=== PATIENT | female | born 1960 | race Caucasian/White ===

== ENCOUNTER → 2016-08-31 | Outpatient (CLI) | payer OTHER ==
[2016-08-31 14:31] LABS: ALBUMIN 3.2 GM/DL (3.2-5.2); ALBUMIN/GLOBULIN RATIO 0.67 (1.00-1.93); ALKALINE PHOSPHATASE 98 U/L (45-117); ALT/SGPT 14 U/L (12-78); ANION GAP 9 MEQ/L (8-16); AST/SGOT 30 U/L (15-37); BILIRUBIN,TOTAL 0.8 MG/DL (0.2-1.0); BLOOD UREA NITROGEN 5 MG/DL (7-18); CALCIUM LEVEL 8.5 MG/DL (8.5-10.1); CARBON DIOXIDE LEVEL 31 MEQ/L (21-32); CHLORIDE LEVEL 102 MEQ/L (98-107); CREATININE FOR GFR 0.98 MG/DL (0.55-1.02); FREE T4 1.21 NG/DL (0.76-1.46); GLOMERULAR FILTRATION RATE > 60.0 (>51); GLUCOSE, FASTING 95 MG/DL (70-105); POTASSIUM SERUM 3.7 MEQ/L (3.5-5.1); SODIUM LEVEL 142 MEQ/L (136-145)
== END ==
LOC: M SMT 08:45
PROVIDERS: ATTEND Nurse Practitioner Family
DX: I10 Essential (primary) hypertension (principal); E55.9 Vitamin D deficiency, unspecified

== ENCOUNTER → 2016-10-17 | Outpatient (CLI) | payer OTHER ==
--- NOTE | 2016-10-18 06:14 | REP ---
Clinical: Lung screening. History of smoking. Technique: Axial noncontrast low-dose imaging from the thoracic inlet to the upper abdomen using lung screening technique. Findings: The bilateral lung faustin are well-aerated and relatively symmetric. Minimal biapical scarring is appreciated along with small subpleural densities measuring 2-3 mm which likely represent chronic change. A partially solid density measuring 5 mm in the right upper lobe (image 25) is identified. No pleural effusion/reaction. Tracheobronchial tree appears patent. Mediastinum is grossly normal. Surrounding musculoskeletal structures demonstrate age-related changes without focal osseous abnormality. Impression: Lung-RADS category 2. A 5 mm partially solid density in the right upper lobe likely represents scarring. However annual low-dose screening is noted as recommendation. Signed by Miguel Montes MD 10/18/2016 06:05 A
== END ==
LOC: M RAD 08:16
PROVIDERS: ATTEND Nurse Practitioner Family
DX: Z12.2 Encounter for screening for malignant neoplasm of respiratory organs (principal); Z87.891 Personal history of nicotine dependence; R91.8 Other nonspecific abnormal finding of lung field

== ENCOUNTER 2016-11-04 19:48 | Inpatient (IN) | payer OTHER ==
[~2016-11-04] VITALS: Ht 167.6 cm; Wt 76.9 kg
[2016-11-04] MEDS ORDERED: LORazepam 2 MG/ML VIAL (J2060) IV STA (19:56)
[2016-11-04] MEDS ORDERED: ASPI81TA85 PO (19:59)
[2016-11-04] MEDS ORDERED: ZOLO25TA PO (19:59)
[2016-11-04] MEDS ORDERED: NS 1,000 ML IV ONE (20:00)
[2016-11-04] MEDS ORDERED: ONDANSETRON 4MG/2ML VIAL (J2405) IV ONE (20:00)
[2016-11-04] MEDS ORDERED: FAMOTIDINE IV BAG 20 MG in APPROPRIATE DILUENT 1 EA IV ONE (20:00)
[2016-11-04 20:20] LABS: INR 1.07
[2016-11-04 20:29] LABS: BASO % 0.2 % (0.0-1.0); EOS # 0.1 K/mm3 (0.0-0.50); EOS % 0.4 % (0.0-3.0); LARGE UNSTAINED CELL # 0.1 K/mm3 (0.0-0.4); LARGE UNSTAINED CELL % 0.6 % (0.0-4.0); LYMPH # 0.8 K/mm3 (1.5-4.5); LYMPH % 4.9 % (24.0-44.0); MEAN CORPUSCULAR HEMOGLOBIN 37.9 pg (27.0-33.0); MEAN CORPUSCULAR HGB CONC 35.1 g/dl (32.0-36.5); MONO # 0.9 K/mm3 (0.0-0.8); MONO % 5.5 % (0.0-5.0); NEUTROPHILS % 88.4 % (36.0-66.0); PLATELET COUNT, AUTOMATED 270 k/mm3 (150-450); RED CELL DISTRIBUTION WIDTH 15.5 % (11.5-14.5)
[2016-11-04 20:38] LABS: ALBUMIN 3.5 GM/DL (3.2-5.2); ALBUMIN/GLOBULIN RATIO 0.58 (1.00-1.93); ALKALINE PHOSPHATASE 124 U/L (45-117); ALT/SGPT 18 U/L (12-78); AMYLASE 125 U/L (25-115); ANION GAP 17 MEQ/L (8-16); AST/SGOT 33 U/L (15-37); BILIRUBIN,DIRECT 0.4 MG/DL (0.0-0.2); BILIRUBIN,TOTAL 1.5 MG/DL (0.2-1.0); BLOOD UREA NITROGEN 8 MG/DL (7-18); CALCIUM LEVEL 9.5 MG/DL (8.5-10.1); CARBON DIOXIDE LEVEL 24 MEQ/L (21-32); CHLORIDE LEVEL 101 MEQ/L (98-107); CREATININE FOR GFR 1.46 MG/DL (0.55-1.02); GLOMERULAR FILTRATION RATE 39.6 (>51); GLUCOSE, FASTING 214 MG/DL (70-105); POTASSIUM SERUM 2.9 MEQ/L (3.5-5.1); SODIUM LEVEL 142 MEQ/L (136-145); TOTAL PROTEIN 9.5 GM/DL (6.4-8.2)
[2016-11-04 20:49] LABS: ADD MORPHOLOGY? YES
[2016-11-04] MEDS ORDERED: POTASSIUM CHLORIDE 10 MEQ SR TABLET PO ONE (21:00)
[2016-11-04] MEDS ORDERED: POTASSIUM CHLORIDE INJ 10 MEQ in D5W/0.2% SODIUM CHLORIDE 1,000 ML IV SCH (21:00)
[2016-11-04 21:18] LABS: ANISOCYTOSIS 1+
[2016-11-04] MEDS ORDERED: LABETALOL HCL 100 MG/20 ML VIAL IV STA ×2 (21:49→23:35)
--- NOTE | 2016-11-04 22:20 | REPUSA ---
Clinical history: Right upper quadrant pain. Findings: The pancreas is limited in visualization secondary to overlying bowel gas, but appears tato sly unremarkable. The liver demonstrates increased echotexture and echogenicity, with no mass lesion s. The gallbladder is unremarkable. The common bile duct measures 3 mm and is within normal limit. Th e right kidney measures 9.3 x 4.3 x 4.9 cm. There is no ascites. Impression: Fatty infiltration of the liver. No other acute findings.
[2016-11-04] MEDS ORDERED: METOCLOPRAMIDE INJ 10MG/2ML VIAL (J2765) As Ordered ONE (22:47)
[2016-11-04] MEDS ORDERED: METOCLOPRAMIDE INJ 10MG/2ML VIAL (J2765) IV ONE ×2 (23:00→23:15)
[2016-11-04] MEDS ORDERED: CYCL10TA PO (23:30)
[2016-11-04] MEDS ORDERED: ASPI81TA7 PO (23:30)
[2016-11-04] MEDS ORDERED: SYNT50TA PO (23:30)
[2016-11-05] MEDS ORDERED: NS 1,000 ML IV SCH (00:24)
[2016-11-05] MEDS ORDERED: BISACODYL 5 MG TAB PO PRN (00:30)
[2016-11-05] MEDS ORDERED: ACETAMINOPHEN TAB 650MG DOSE (2X325MG) PO PRN (00:30)
[2016-11-05] MEDS ORDERED: POTASSIUM CHLORIDE 10 MEQ SR TABLET PO ONE ×2 (00:30→09:45)
[2016-11-05] MEDS ORDERED: amLODIPine 10 MG TAB As Ordered ONE (01:12)
[2016-11-05] MEDS ORDERED: amLODIPine 10 MG TAB PO ONE (01:15)
[2016-11-05] MEDS ORDERED: **hydrALAZINE HCL** 25 MG TAB PO ONE (02:15)
[2016-11-05] MEDS: SERTRALINE HCL 25 MG TABLET PO SCH ×2 (02:17→20:29)
[2016-11-05] MEDS: ONDANSETRON 4MG/2ML VIAL (J2405) IV PRN ×3 (02:45→20:29)
[2016-11-05] MEDS ORDERED: NITROGLYCERIN 2% OINT 1 GM *U/D* PKT TOP ONE (03:15)
[2016-11-05] MEDS: POTASSIUM CHLORIDE INJ 10 MEQ in D5W/0.2% SODIUM CHLORIDE 1,000 ML IV SCH ×2 (03:20→20:45)
[2016-11-05 04:54] VITALS: BP 176/100
[2016-11-05 04:55] VITALS: BP 180/110
[2016-11-05] MEDS ORDERED: METOPROLOL TART 25 MG TABLET PO ONE (05:00)
[2016-11-05 05:35] VITALS: BP 150/98
[2016-11-05 06:00] VITALS: BP 150/98
[2016-11-05] MEDS ORDERED: LEVOTHYROXINE 0.05 MG TAB (50 MCG) PO SCH (06:00)
[2016-11-05 06:05] LABS: BASO % 0.2 % (0.0-1.0); EOS % 0.2 % (0.0-3.0); LARGE UNSTAINED CELL # 0.1 K/mm3 (0.0-0.4); LARGE UNSTAINED CELL % 0.7 % (0.0-4.0); LYMPH % 8.7 % (24.0-44.0); MEAN CORPUSCULAR HEMOGLOBIN 37.3 pg (27.0-33.0); MEAN CORPUSCULAR HGB CONC 34.4 g/dl (32.0-36.5); MEAN CORPUSCULAR VOLUME 108.7 fl (80.0-96.0); MONO # 0.5 K/mm3 (0.0-0.8); MONO % 4.3 % (0.0-5.0); NEUTROPHILS # 9.6 K/mm3 (1.8-7.7); PLATELET COUNT, AUTOMATED 186 k/mm3 (150-450); RED CELL DISTRIBUTION WIDTH 15.4 % (11.5-14.5); WHITE BLOOD COUNT 11.2 K/mm3 (4.0-10.0)
[2016-11-05 06:21] LABS: ALBUMIN 3.1 GM/DL (3.2-5.2); ALBUMIN/GLOBULIN RATIO 0.56 (1.00-1.93); BILIRUBIN,TOTAL 1.2 MG/DL (0.2-1.0); CALCIUM LEVEL 8.8 MG/DL (8.5-10.1); CREATININE FOR GFR 1.06 MG/DL (0.55-1.02); GLOMERULAR FILTRATION RATE 57.3 (>51); MAGNESIUM LEVEL 1.9 MG/DL (1.8-2.4); POTASSIUM SERUM 3.2 MEQ/L (3.5-5.1); TOTAL PROTEIN 8.6 GM/DL (6.4-8.2)
--- NOTE | 2016-11-05 08:50 | HPE ---
DATE OF ADMISSION: 11/04/2016 PRIMARY CARE PHYSICIAN: Mary Jane Max NP CODE STATUS: Full code. CHIEF COMPLAINT: Nausea and vomiting. HISTORY OF PRESENT ILLNESS: Ms. Ramirez is a 56-year-old female with multiple past medical history who presented due to experiencing nausea and vomiting since last night. The patient expressed the night before had a Schmid burger. Around 3:00 a.m. the patient woke up due to being nauseated and started having vomiting. The patient expressed that her nausea and vomiting continued and became worse; however, the patient denies having any abdominal pain. The patient expressed that most of the vomiting was undigested food; however, the patient had one episode of vomit with a spots of blood, however, all the vomits after that did not contain blood. The patient also expressed that when she was vomiting in the afternoon she became more tachycardic. However, the patient denied chest pain. The patient also denies seizure type activity, however she experienced lightheadedness and dizziness. The patient could not keep herself hydrated due to nausea and vomiting. The patient denied having any diarrhea. The patient expressed that she could not tolerate the vomiting anymore and she came to the emergency room (ER). The patient also expressed that she felt warm and had chills and night sweats. At ER patient received Zofran and Reglan. Due to having tachycardia, the patient also received one dose of labetalol as well as famotidine and 40 mEq of potassium by mouth which she could not tolerate and 10 mEq of potassium in the IV. The hospitalist was called to admit the patient. ALLERGIES: No known drug allergies. HOME MEDICATIONS: - aspirin 81 mg - cyclobenzaprine 10 mg by mouth at bedtime - Synthroid 50 mcg by mouth every morning - Zoloft 25 mg by mouth at bedtime PAST MEDICAL HISTORY: 1. Gastroesophageal reflux disease (GERD). 2. History of deep vein thrombosis (DVT). 3. Chronic obstructive pulmonary disease (COPD). 4. Elevated liver function tests (LFTs). 5. Steatohepatitis based on the right upper quadrant sonogram of the liver which was done 01/2010. 6. Allergic rhinitis. 7. Anxiety. 8. Hypothyroidism. 9. Migraine headache. 10. Essential hypertension. 11. Vitamin D deficiency. PAST SURGICAL HISTORY: 1. section times two. 2. Tubal ligation. 3. Dilation and curettage times two. 4. Esophagogastroduodenoscopy done by Dr. Tatum in 2006. 5. Colonoscopy with polyps, adenomatous, by Dr. Serra; repeated three years in 12/2009 and 03/2011 and 04/2014. SOCIAL HISTORY: The patient lives with her significant other. The patient has two daughters, one of her daughters has autism. The patient started smoking at age 16 and has smoked about a 1/2 to 1 pack per day, however, the patient stopped smoking seven years ago. The patient used to use marijuana; however, the patient has stopped using it several years ago. The patient occasionally drinks alcoholic beverages, however, the patient did not drink yesterday. The patient has not traveled outside of the [place]. 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 The patient has no cats. FAMILY HISTORY: The patient has three brothers and two sisters. Her middle brother has due to heart attack and her brother has bone cancer and kidney abnormalities. The patient's father at age 49 due to heart attack. The patient's mother at age 82 due to old age. REVIEW OF SYSTEMS: GENERAL: The patient expressed that she has been experiencing fever, chills and night sweats. However, the patient denies weight loss or weight gain. HEENT: The patient has been experiencing lightheadedness and dizziness and mild headache, however, the patient denies acute vision or hearing changes. The patient also denies problem with chewing food or sinusitis. NECK: The patient denies decreased motion of her neck. HEART: The patient expressed that she had some tachycardia this afternoon, possibly secondary to multiple episodes of vomiting; however, the patient denies chest pain. LUNGS: The patient denies shortness of breath or coughing. ABDOMEN: The patient denies abdominal pain, however, the patient has been nauseated and vomiting multiple times. The patient had one episode of mild emesis, however, the patient denies history of diarrhea or constipation. NEUROLOGIC: The patient has no history of transient ischemic attacks or seizure activity. PHYSICAL EXAMINATION: VITAL SIGNS: Temperature 97.9, pulse 123, respiratory rate 18, blood pressure 189/113, pulse oximetry 97% on room air. GENERAL APPEARANCE: The patient was sitting on the bed in no acute distress. The patient was awake, alert and oriented to time, place and person. HEENT: Normocephalic, atraumatic. Pupils are equal and reactive to light. Oral mucosa is moist. NECK: Soft. Supple. No lymphadenopathy or organomegaly. No jugular venous distention (JVD). HEART: Tachycardia. Normal S1, S2. LUNGS: Clear breath sounds bilaterally. Good air movement. No rales or rhonchi. No rubs. ABDOMEN: Soft. Positive bowel sounds in all quadrants. No tenderness to palpation. No guarding. EXTREMITIES: No lower extremity edema. +2 pulses in both lower extremities. Normal range of motion both upper and lower extremities. Strength in upper and lower extremities 5/5. NEUROLOGIC: Cranial nerves II-XII intact. No focal deficit. LABORATORY DATA: White blood cells 17, red blood cells 4.34, hemoglobin 16.4, hematocrit 46.9, MCV 108.0, MCH 37.9, MCHC 35.1, RDW 15.5, platelet count 270, neutrophil percentage 88.4, lymphocyte percentage 4.9, monocyte percentage 5.5, eosinophil percentage 0.4, basophil percentage 0.2, leukocyte percentage 0.6. PT 14. INR 1.07. Sodium 142, potassium 2.9, chloride 101, carbon dioxide 24, anion gap 17, BUN 8, creatinine 1.46, glomerular filtration rate 39.6, fasting glucose 214, calcium 9.5, total bilirubin 1.5, direct bilirubin 0.4, AST 33, ALT 18, alkaline phosphatase 124, total creatinine 48, CK-MB 1, CK MB relative index 2.08, troponin I less than 0.02, total protein 9.5, albumin 3.5, and amylase 125 , lipase 124. Urinalysis (UA) with urine color rony, urine appearance cloudy, urine pH 7, urine specific gravity 1.018, urine protein 2+, urine glucose 2+, urine ketones trace, urine blood negative, urine nitrite negative, urine bilirubin negative, urine urobilinogen 4, urine leukocyte esterase negative, urine white blood cells 2, urine red blood cells 4, urine hyaline casts 0, urine bacteria 1+, urine squamous cells 5. Urine culture pending. IMAGING: Abdomen x-ray is pending at this time. Gallbladder ultrasound shows fatty inflammation infiltrations of the liver, no other acute finding. ASSESSMENT AND PLAN: 1. Nausea/vomiting. This is possibly secondary to enterocolitis versus cholelithiasis. Also I consider cardiac possibility due to cardiac risk factors including family history as well as her past medical history. I Will make the patient nothing by mouth. I have ordered a GI panel and result is pending at this time. Patient had EGD which was done in 2006 and was negative and colonoscopy in 2013 which indicated multiple benign polyps. I will continue patient with IV fluid. EKG did not show any new pathology. Cardiac marker was ordered and the first cardiac marker was negative. Will continue patient on Zofran. 2. Hypokalemia. This is possibly due to GI loss secondary to vomiting. The patient received 10 mEq on 100 mL of normal saline. Patient cannot tolerate PO potassium due to nausea vomiting. Will continue the patient on IV fluid with potassium. 3. Hypertension. The patient has a history of hypertension and was on medication, however, it was stopped by the primary care. Patient's hypertension could be secondary to rebound hypertension. Also it could have cardiogenic nature. EKG was negative for a new pathology. We have started the patient on Norvasc 10 mg daily. 4. Tachycardia. This could be secondary to stress versus cardiogenic. EKG did not show any pathology. At the ER, the patient received two doses of labetalol 20 IV. We will continue monitoring patient's heart rate. 5. Gastroesophageal reflux disease. The patient is on IV Protonix. 6. Chronic obstructive pulmonary disease. This is a chronic issue. Patient is a stable at this time. 7. Allergic rhinitis. The patient is stable, this is a chronic issue. 8. Acute kidney injury: This is possibly due to dehydration secondary to nausea and vomiting. Patient is on IV fluid. We'll continue monitoring patient' s renal function daily. 9. Deep vein thrombosis prophylaxis. Due to one episode of mild emesis, I will start the patient on thromboembolic deterrent stockings (TEDS) and sequentials. 10. Steatohepatitis. Based on ultrasound of gallbladder, the patient has fatty liver. This has been documented in the patient's past medical history based on liver ultrasound and biopsy which was done in 2009. She also had the hepatitis panel which was done on 05/13/2009 and was negative as well as antimitochondrial antibody 3.9 and NEVIN screen which was negative. Today, ALT and AST are normal level. We will continue to monitor the patient's liver function. My preceptor for this patient encounter was Dr. Dalia Javier. The preceptor was physically present in the building during the encounter and was fully available. As needed, all aspects of the patient interview, examination, medical decision making process, and medical care plan development were reviewed and approved by the preceptor. The preceptor is aware and concurs with the plan as stated in the body of this note and will attest to such by his/her cosignature. SHAVON
[2016-11-05] MEDS ORDERED: PANTOPRAZOLE 40MG INJ (PROTONIX) (C9113) IV SCH (09:00)
--- NOTE | 2016-11-05 10:14 | IPNPDOC ---
Subjective Date Seen The patient was seen on 11/05/16. Subjective Chief Complaint/HPI The patient is a 56-year-old female admitted with a reason for visit of Leukocytosis Unspecified. Events since last encounter Patient continues to experience emesis, last a couple minutes before I saw her. Despite this, she is interested in eating. She states that she would like to go home. Last set of trended cardiac enzymes elevated above normal. Patient is asymptomatic except for emesis and hiccups. She does note a rash, primarily on her L shoulder, though also a little on her R thigh and R sided low back, that she noticed at home. Nursing thinks that the last emesis looked a bit like coffee grounds. Denies drinking in excess of 2 drinks/night, and not in the last day or so. Constitutional: Reports: Malaise, Denies: Chills, Fever ENT: Denies: Head Aches Skin: Reports: Rash Pulmonary: Denies: Dyspnea, Cough Cardiovascular: Denies: Chest Pain, Palpitations Gastrointestinal: Reports: Nausea, Vomiting, Denies: Abdominal Pain, Diarrhea, Constipation Neurological: Denies: Weakness Objective Physical Examination General Exam: Positive: Alert, Cooperative, No Acute Distress Chest Exam: Positive: Clear to auscultation, Normal air movement Heart Exam: Positive: Rate Normal, Negative: Tachycardic Abdomen Exam: Positive: Normal bowel sounds Extremity Exam: Negative: Clubbing, Edema Skin Exam: Positive: Nl turgor and temperature, Rash (erythematous patches L shoulder, R lower back, R thigh) Assessment /Plan Problems (1) Vomiting Status: Acute Problem Text: Rehydrating. Will advance diet when emesis stops. Will check any further coffee-ground appearing emesis for blood. Zofran ordered. (2) Hypokalemia Status: Acute Problem Text: Replacing orally and in IV fluids. (3) Leukocytosis, unspecified Status: Acute Problem Text: Improved. Likely secondary to prolonged vomiting. (4) Cardiac enzymes elevated Status: Acute Problem Text: EKG looks similar to priors, including those done in PCP's office years ago. She denies chest discomfort or shortness of breath. Will check cardiac enzymes in 4 hours. Plan/VTE VTE Prophylaxis Ordered?: Yes VS, I&O, 24H, Fishbone Vital Signs/I&O Vital Signs Date Time Temp Pulse Resp B/P (MAP) Pulse Ox O2 Delivery O2 Flow Rate FiO2 11/05/16 06:00 98.6 101 20 150/98 (115) 96 Room Air I&O- Last 24 Hours up to 6 AM 11/05/16 06:00 Intake Total 1460 ml Output Total 175 ml Balance 1285 ml Laboratory Data 24H LABS Laboratory Tests 2 11/04/16 20:03: White Blood Count 17.0H, Red Blood Count 4.34, Hemoglobin 16.4H, Hematocrit 46.9 , Mean Corpuscular Volume 108.0H, Mean Corpuscular Hemoglobin 37.9H, Mean Corpuscular Hemoglobin Concent 35.1, Red Cell Distribution Width 15.5H, Platelet Count 270, Neutrophils (%) (Auto) 88.4H, Lymphocytes (%) (Auto) 4.9L, Monocytes (%) (Auto) 5.5H, Eosinophils (%) (Auto) 0.4, Basophils (%) (Auto) 0.2 , Neutrophils # (Auto) 15.0H, Lymphocytes # (Auto) 0.8L, Monocytes # (Auto) 0.9H , Eosinophils # (Auto) 0.1, Basophils # (Auto) 0.0, Large Unclassified Cells % 0.6, Large Unclassified Cells # 0.1, Platelet Estimate NORMAL, Anisocytosis 1+, Macrocytosis 3+, Prothrombin Time 14.0, Prothromb Time International Ratio 1.07 , Anion Gap 17H, Glomerular Filtration Rate 39.6L, Calcium Level 9.5, Aspartate Amino Transf (AST/SGOT) 33, Alanine Aminotransferase (ALT/SGPT) 18, Alkaline Phosphatase 124H, Total Bilirubin 1.5H, Direct Bilirubin 0.4H, Total Creatine Kinase 48, Creatine Kinase MB 1.0, Creatine Kinase MB Relative Index 2.08, Troponin I < 0.02, Total Protein 9.5H, Albumin 3.5, Albumin/Globulin Ratio 0.58L , Amylase Level 125H, Lipase 124 11/04/16 23:33: Urine Appearance CLOUDYH, Urine Color BERNA, Urine pH 7.0, Urine Specific [place] 1.018, Urine Protein 2+H, Urine Glucose (UA) 2+H, Urine Ketones TRACEH, Urine Urobilinogen 4.0H, Urine Bilirubin NEGATIVE, Urine Leukocyte Esterase NEGATIVE, Urine Blood NEGATIVE, Urine Nitrite NEGATIVE, Urine WBC (Auto) 2, Urine RBC (Auto) 4H, Urine Hyaline Casts (Auto) 0, Urine Bacteria (Auto) 1+H, Urine Squamous Epithelial Cells 5, Urine Mucus (Auto) SMALL, Urine Sperm (Auto) 11/05/16 01:55: Total Creatine Kinase 110#, Creatine Kinase MB 1.3, Creatine Kinase MB Relative Index 1.18, Troponin I 0.02 11/05/16 05:02: White Blood Count 11.2H, Red Blood Count 3.86L, Hemoglobin 14.4#, Hematocrit 42.0, Mean Corpuscular Volume 108.7H, Mean Corpuscular Hemoglobin 37.3H, Mean Corpuscular Hemoglobin Concent 34.4, Red Cell Distribution Width 15.4H, Platelet Count 186, Neutrophils (%) (Auto) 86.0H, Lymphocytes (%) (Auto) 8.7L, Monocytes (%) (Auto) 4.3, Eosinophils (%) (Auto) 0.2, Basophils (%) (Auto) 0.2, Neutrophils # (Auto) 9.6H, Lymphocytes # (Auto) 1.0L, Monocytes # (Auto) 0.5, Eosinophils # (Auto) 0.0, Basophils # (Auto) 0.0, Large Unclassified Cells % 0.7 , Large Unclassified Cells # 0.1, Anion Gap 11, Glomerular Filtration Rate 57.3 , Calcium Level 8.8, Aspartate Amino Transf (AST/SGOT) 32, Alanine Aminotransferase (ALT/SGPT) 15, Alkaline Phosphatase 101, Total Bilirubin 1.2H, Total Protein 8.6H, Albumin 3.1L, Albumin/Globulin Ratio 0.56L, Blood Urea Nitrogen 9, Creatinine 1.06H, Sodium Level 141, Potassium Level 3.2L, Chloride Level 104, Carbon Dioxide Level 26, Magnesium Level 1.9 11/05/16 08:20: Total Creatine Kinase 303#H, Creatine Kinase MB 4.3H, Creatine Kinase MB Relative Index 1.41, Troponin I 0.62#H CBC/BMP Laboratory Tests 11/04/16 20:03 Red Blood Count 4.34, Mean Corpuscular Volume 108.0 H, Mean Corpuscular Hemoglobin 37.9 H, Mean Corpuscular Hemoglobin Concent 35.1, Red Cell Distribution Width 15.5 H, Neutrophils (%) (Auto) 88.4 H, Lymphocytes (%) (Auto ) 4.9 L, Monocytes (%) (Auto) 5.5 H, Eosinophils (%) (Auto) 0.4, Basophils (%) ( Auto) 0.2, Neutrophils # (Auto) 15.0 H, Lymphocytes # (Auto) 0.8 L, Monocytes # (Auto) 0.9 H, Eosinophils # (Auto) 0.1, Basophils # (Auto) 0.0 11/05/16 05:02 Red Blood Count 3.86 L, Mean Corpuscular Volume 108.7 H, Mean Corpuscular Hemoglobin 37.3 H, Mean Corpuscular Hemoglobin Concent 34.4, Red Cell Distribution Width 15.4 H, Neutrophils (%) (Auto) 86.0 H, Lymphocytes (%) (Auto ) 8.7 L, Monocytes (%) (Auto) 4.3, Eosinophils (%) (Auto) 0.2, Basophils (%) ( Auto) 0.2, Neutrophils # (Auto) 9.6 H, Lymphocytes # (Auto) 1.0 L, Monocytes # ( Auto) 0.5, Eosinophils # (Auto) 0.0, Basophils # (Auto) 0.0, Calcium Level 8.8, Aspartate Amino Transf (AST/SGOT) 32, Alanine Aminotransferase (ALT/SGPT) 15, Alkaline Phosphatase 101, Total Bilirubin 1.2 H, Total Protein 8.6 H, Albumin 3.1 L Microbiology Microbiology 11/05/16 Gastrointestinal Tract Panel (PCR) - Final, Complete 11/04/16 Urine Culture, Received Pending TAMMY DAY DO November 05, 2016 10:13
--- NOTE | 2016-11-05 10:55 | REP ---
ABDOMINAL SERIES: Supine erect views of the abdomen demonstrate no evidence of free intraperitoneal air and no evidence of bowel obstruction. There is no small bowel dilatation. Multiple phleboliths are seen in the pelvis. There are mild degenerative changes of the spine. An accompanying view of the chest demonstrates mild fibrotic changes in the lung bases without evidence of acute infiltrate. The heart is normal in size. Mediastinal silhouette is unremarkable. IMPRESSION: Essentially negative abdominal series. Signed by David Kong MD 11/05/2016 07:46 P
[2016-11-05 14:00] VITALS: BP 139/79
[2016-11-05 17:41] LABS: POTASSIUM SERUM 3.6 MEQ/L (3.5-5.1)
[2016-11-05] MEDS ORDERED: ASPIRIN 325 MG TAB PO ONE (18:45)
--- NOTE | 2016-11-05 18:46 | ECGEPIP ---
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 Possible inferior wall myocardial infarct, age undetermined. No prior ECG available for comparison at the time of interpretation. Electronically Signed On 11-05-2016 18:46:14 EDT by Joaquin Escamilla
--- NOTE | 2016-11-05 18:56 | ECGEPIP ---
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 Electronically Signed On 11-05-2016 18:55:55 EDT by Joaquin Escamilla
[2016-11-05] MEDS ORDERED: ALPRAZolam 0.25 MG TAB PO PRN (19:00)
--- NOTE | 2016-11-05 19:03 | ECGEPIP ---
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 Possible old inferior wall myocardial infarct. No significant change compared with 11/05/2016 at 9:35 AM. Electronically Signed On 11-05-2016 19:03:22 EDT by Joaquin Escamilla
[2016-11-05] MEDS ORDERED: CLOPIDOGREL 75 MG TAB PO STA (20:03)
[2016-11-05] MEDS ORDERED: ATORVASTATIN 20 MG TAB PO SCH (21:00)
[2016-11-05] MEDS ORDERED: ENOXAPARIN 60 MG/0.6 ML SYR (J1650) SC SCH (21:00)
[2016-11-05 22:36] VITALS: BP 147/92
--- NOTE | 2016-11-06 02:22 | CR ---
DATE OF CONSULTATION: 11/05/2016 REFERRING PHYSICIAN: Mendy Yao MD REASON FOR CONSULTATION: Abnormal troponin I, abnormal electrocardiogram (ECG). HISTORY OF PRESENT ILLNESS: Trisha Ramirez is a pleasant 56-year-old woman with hypercholesterolemia, systemic hypertension, prior smoking history and positive family history of premature coronary artery disease. She is not known to have diabetes. She was hospitalized to [facility] on 11/04/2016 after presenting with nausea and vomiting. In the course of observation, she has had serial cardiac enzymes and troponin I determinations. Her first troponin I was less than 0.02 and thus far her highest troponin I value has been 0.87. Electrocardiogram (ECG) showed possible inferior wall myocardial infarct, but no clear-cut ischemic repolarization abnormalities and thus far essentially unchanged. The patient reports that beginning on , November 03, she developed intense nausea and vomiting. This lasted a prolonged period of time. In addition to this, she has had some mild burning sensation in the epigastric region for which there is some ongoing slight burning sensation. There has been no pain, pressure, tightness, squeezing or heaviness involving the anterior chest, epigastric region, neck, jaw or upper extremities. No shortness of breath. Initially, during the intense nausea and vomiting, she felt some flushing and was transiently diaphoretic. She is not bothered by an exertional dyspnea. No orthopnea or paroxysmal nocturnal dyspnea (PND). She reports chronic edema in her left ankle. No palpitations. No pre-syncope or syncope. No embolic events. No intermittent claudication. OTHER PAST MEDICAL AND SURGICAL HISTORY: Gastroesophageal reflux disease (GERD) . Overweight status. History of deep vein thrombosis. Chronic obstructive pulmonary disease (COPD). Prior smoking history. Elevated liver function test. Steatohepatitis based on right upper quadrant liver ultrasound done 01/2010. Allergic rhinitis. Anxiety. No panic attacks. Hypothyroidism. Migraine headaches. Systemic hypertension. Vitamin D deficiency. section times two. Status post tubal ligation. Prior dilatation and curettage (D C) times two. Esophagogastroduodenoscopy (EGD) by Dr. Tatum in 2006. Colonoscopy for adenomatous polyps 12/2009, 03/2011 and 04/2014. No known adverse drug reactions. MEDICATIONS PRIOR TO ADMISSION: - aspirin 81 mg daily - cyclobenzaprine 10 mg at bedtime (q.h.s.) - Synthroid 50 mcg daily - Zoloft 25 mg at bedtime (q.h.s.) CURRENT MEDICATIONS IN THE HOSPITAL CONSIST OF: - acetaminophen 650 mg every 4 hours as needed - amlodipine 10 mg daily - Dulcolax 5 mg by mouth as needed - levothyroxine 50 mcg daily - Zofran 4 mg IV every 6 hours as needed - Protonix 40 mg IV daily - potassium chloride in dextrose and saline IV at 50 millimeters per hour - Zoloft 25 mg at bedtime (q.h.s.) SOCIAL HISTORY: Lives with her significant other. She has two daughters, one of which has autism. Prior smoking history for which she started smoking at age 16 and smoked half to one pack per day, but quit smoking 7 years ago. Occasional alcohol beverage. No current use of illicit drugs. FAMILY HISTORY: She reports a half brother, Ziggy, of a heart attack in his 60s. Her father of a heart attack at age 49. Her mother had an implantable cardioverted defibrillator (ICD). REVIEW OF SYSTEMS: The patient reports that she had some transient patchy flushing when she was having the nausea and vomiting with diaphoresis. No abdominal pain. Anxiety. No panic attacks. No depression. All other 10-point review of systems is negative. PHYSICAL EXAMINATION: A pleasant woman who appears her chronological age, who is not in any respiratory or psychological distress. Height 66 inches, weight 76.9 kilograms, body mass index (BMI) 27.4. Temperature 98.2, pulse 94 (irregular), respiratory rate 18, blood pressure (BP) 139 systolic, oxygen saturation on 95% on room air. No conjunctival pallor, scleral icterus or xanthelasma. Multiple missing teeth and the presence of some dental fillings. Only a few teeth remaining and they appear to be in poor condition. Oral mucosa was moist and without pallor or cyanosis. Jugular venous pulsations were 3 cm. No palpable thyroid. Trachea midline. No clubbing, nail bed cyanosis or splinter hemorrhages. No skin lesions, skin pallor or icterus. Oriented to person, place and time. Mood and affect normal. Curvature of the spine normal. Gait not appropriate to test as the patient is on restricted activity. Gross motor strength and tone were normal. No abnormal muscle atrophy, fasciculations or tremors. Respiratory expansion and effort were normal. No crackles or wheezes. No palpable apex beat. No parasternal lifts, heaves, thrills or palpable heart sounds. The first and second heart sounds are normal. No S3 or S4. No pericardial friction rubs. No murmurs. Carotids normal in volume and contour and without bruits. No palpable abdominal aorta. No abdominal bruits. Femoral pulses normal. Pedal pulses normal. No lower extremity edema. No varicose veins. Abdomen was mildly obese and was soft and nontender with normal bowel sounds. No hepatosplenomegaly or other organomegaly. Liver span difficult to assess due to abdominal obesity. Stool for occult blood to be ordered as the patient is going to be started on anticoagulation. Abdominal ultrasound 11/04/2016 reported limited visualization of the pancreas due to overlying bowel gas, but appeared to be grossly unremarkable. Liver showed increased echotexture and echogenicity. Gallbladder unremarkable. Normal common bile duct diameter. No ascites. Fatty infiltration of liver. No other acute findings. Abdominal series including high frequency ultrasound (HFU) 11/04/2016 reported essentially negative abdominal series. Mild fibrotic changes in the lung bases without evidence of acute infiltrate. Normal heart size. Mediastinal silhouette unremarkable. Electrocardiogram 11/05/2016 at 5:26 a.m. showed sinus tachycardiac at 110 beats per minute, low QRS output cardiac voltages, poor R-wave progression, possible inferior wall myocardial infarction indeterminate. Electrocardiogram (ECG) 11/05/2016 at 3:05 p.m. shows sinus rhythm at, 95 beats per minute, poor R-wave progression, borderline low voltages, possible old inferior wall myocardial infarct. Laboratory work 11/04/2016 showed white blood count (WBC) 17.0, hemoglobin 16.4, hematocrit 46.9, platelets 270, PT/INR 1.07. Sodium 142, potassium 2.9, chloride 101, CO2 24, BUN 8, creatine 1.46, estimated glomerular filtration rate (GFR) 39.6, glucose 214, bilirubin mildly elevated at 1.5, direct bilirubin elevated at 0.4, AST normal, ALT normal, alkaline phosphatase elevated at 124. CPK 48, CPK/MB 1.0, troponin I less than 0.02, albumin 3.5, amylase elevated at a125, lipase normal at 124. Laboratory work 11/05/2016 at 11:54 a.m. showed CPK 366, CPK/MB 5.9, relative index 1.61, troponin I 0.74. Laboratory work 11/05/2016 at 4:53 p.m. shows troponin I 0.87. Urinalysis 11/04/2016 showed 2+ glucose and 2+protein. ASSESSMENT AND PLAN: 1. Abnormal troponin I. The patient's troponin I level is in the indeterminate range, but has certainly gone up since the normal level at the time of her presentation to the emergency room. Her presentation for an acute coronary syndrome is rather atypical with the patient presenting with nausea and vomiting and epigastric burning. Electrocardiogram (ECG) shows a possible old inferior wall myocardial infarct, but does not show any acute ischemic repolarization abnormalities. She does have multiple AFCC risk factors. At this point, it is not entirely clear that this truly represents an acute coronary syndrome, but it is quite suspicious and I have expressed this to the patient. I suggested further evaluation with a transfer to [place] for cardiac catheterization with possible percutaneous coronary intervention. The patient is agreeable to this approach. I shall place her on Lovenox. She is already on aspirin and that will continue. I will place her on clopidogrel. Continue serial electrocardiograms (EKGs) and cardiac enzymes. I will place her on statin therapy. Specifically, I have ordered atorvastatin 40 mg at bedtime (q.h.s.). 2. Abnormal electrocardiogram (ECG). Electrocardiograms (ECGs) as described. 3. Systemic hypertension. Uncontrolled systemic hypertension at presentation. Urinalysis shows 2+ protein and 2+ glucose. On presentation, she had reduced estimated glomerular filtration rate (GFR) which with hydration is showing improvement, but remains mildly abnormal. She has been placed on amlodipine. Will continue to follow blood pressure trends. Continue amlodipine for now. She did have hyperkalemia at presentation and therefore I have ordered a biochemical screening for hyperaldosteronism with a positive aldosterone and positive renin activity. She also reported some transient flushing with diaphoresis and therefore I have ordered plasma metanephrine. 4. Hypercholesterolemia. I have reviewed several prior lipid panel results in the [facility] EMR and observed that she has had mild hypercholesterolemia on multiple occasions. Triglycerides have been normal. In view of suspected coronary syndrome and hypercholesterolemia, I have gone ahead and placed her on atorvastatin 40 mg at bedtime (q.h.s.). Currently in hospital, she is on a clear liquid diet. When she transitions over to a diet with soft foods, I would suggest a low-sodium dash diet; and if indeed she does have diabetes, then appropriate carbohydrate consist diet recommendation as well. SHAVON
[2016-11-06] MEDS ORDERED: amLODIPine 10 MG TAB PO SCH (09:00)
[2016-11-06] MEDS ORDERED: ASPIRIN 81 MG ENTERIC TAB PO SCH (09:00)
[2016-11-06] MEDS ORDERED: CLOPIDOGREL 75 MG TAB PO SCH (09:00)
--- NOTE | 2016-11-06 11:03 | ECGEPIP ---
Stationary ECG Study [facility] Test Date: 2016-11-05 Pat Name: ISA SCANLON Department: PCU Room: [place] [address] Gender: F Identification Technician: CHAPIS MARCOS: [id number] Requested By: TAMMY DAY Order Number: [id number] Reading MD: Joaquin Escamilla Measurements Intervals [place] Rate: 95 P: 57 TN: 179 QRS: -18 QRSD: 76 T: 39 QT: 358 QTc: 451 Interpretive Statements SINUS RHYTHM Borderline low voltages, poor R-wave progression, Possible old inferior wall myocardial infarct. No significant change compared with 11/05/2016 at 3:05 PM. Electronically Signed On 11-06-2016 11:03:23 EDT by Joaquin Escamilla
--- NOTE | 2016-11-22 14:23 | DS.PDOC ---
Discharge Summary General Date of Admission November 04, 2016 at 23:48 Date of Discharge November 05, 2016 Primary Care Physician: MYRA MAC NP Attending Physician: TAMMY DAY DO Specialist/Consultants Involve: Joaquin Escamilla Discharge Summary PROCEDURES PERFORMED DURING STAY: [None]. ADMITTING DIAGNOSES: 1. Nausea/vomiting 2. Hypokalemia. 3. Hypertension 4. Tachycardia. 5. Gastroesophageal reflux disease 6. Chronic obstructive pulmonary disease 7. Allergic rhinitis 8. Acute kidney injury 9. Steatohepatitis DISCHARGE DIAGNOSES: 1. elevated cardiac enzymes, presumed ACS 2. hypokalemia 3. hypertension COMPLICATIONS/CHIEF COMPLAINT: Leukocytosis Unspecified. HISTORY OF PRESENT ILLNESS: Ms. Ramirez is a 56-year-old female with multiple past medical history who presented due to experiencing nausea and vomiting since last night. The patient expressed the night before had a [employer]mid burger. Around 3:00 a.m. the patient woke up due to being nauseated and started having vomiting. The patient expressed that her nausea and vomiting continued and became worse; however, the patient denies having any abdominal pain. The patient expressed that most of the vomiting was undigested food; however, the patient had one episode of vomit with a spots of blood, however, all the vomits after that did not contain blood. The patient also expressed that when she was vomiting in the afternoon she became more tachycardic. However, the patient denied chest pain. The patient also denies seizure type activity, however she experienced lightheadedness and dizziness. The patient could not keep herself hydrated due to nausea and vomiting. The patient denied having any diarrhea. The patient expressed that she could not tolerate the vomiting anymore and she came to the emergency room (ER). The patient also expressed that she felt warm and had chills and night sweats. At ER patient received Zofran and Reglan. Due to having tachycardia, the patient also received one dose of labetalol as well as famotidine and 40 mEq of potassium by mouth which she could not tolerate and 10 mEq of potassium in the IV. The hospitalist was called to admit the patient. HOSPITAL COURSE: Patient was admitted to [facility], and treated with IV fluids and antiemetics. Her nausea subsided, and she tolerated PO. However, her cardiac enzymes began to trend up. EKG done and compared to in-office priors, and felt to have no change. Patient denied chest discomfort or shortness of breath. When cardiac enzymes continued to trend upwards, cardiology was consulted. She was felt to have likely ACS, and transferred to [facility] for potential intervention. DISCHARGE MEDICATIONS: Please see below. ALLERGIES: Please see below. PHYSICAL EXAMINATION ON DISCHARGE: VITAL SIGNS: Please see below. GENERAL: seated upright in bed, no acute distress HEENT: MMM NECK: supple, no JVD CARDIOVASCULAR EXAMINATION: mildly tachycardic, no murmurs, rubs or gallops RESPIRATORY EXAMINATION: clear ABDOMINAL EXAMINATION: soft, nontender and nondistended EXTREMITIES: no edema SKIN: without rash PSYCH: somewhat anxious LABORATORY DATA: Please see below. IMAGING: Negative abdominal series. Liver US showed fatty infiltrate of liver. PROGNOSIS: fair ACTIVITY: As tolerated DIET: cardiac DISCHARGE PLAN: Transfer to [facility] in [place] DISPOSITION: O4 Xfer Icf. DISCHARGE CONDITION: [Stable]. TIME SPENT ON DISCHARGE: Greater than 15 minutes. Discharge Medications Scheduled Aspirin (Aspirin) 81 Mg Tab, 81 MG PO DAILY, (Reported) Cyclobenzaprine HCl (Cyclobenzaprine HCl) 10 Mg Tab, 10 MG PO QHS, (Reported) Levothyroxine Sodium (Synthroid) 50 Mcg Tab, 50 MCG PO QAM, (Reported) Sertraline Hcl (Zoloft) 25 Mg Tab, 25 MG PO QHS, (Reported) Allergies Coded Allergies: No Known Drug Allergy (Unverified Adverse Reaction, Unknown, 10/02/12) TAMMY DAY DO November 22, 2016 14:23
== END 2016-11-05 23:09 | DRG 198 ==
LOC: EDBD 19:48 → M ED 20:42 → M ED INP 23:48 → M MSPAV 11-05 01:40 → M PCU 11-05 19:07
PROVIDERS: ADMIT Hospitalist; ATTEND Family Medicine
DX: I24.9 Acute ischemic heart disease, unspecified (principal); K76.0 Fatty (change of) liver, not elsewhere classified; J44.9 Chronic obstructive pulmonary disease, unspecified; D72.829 Elevated white blood cell count, unspecified; I10 Essential (primary) hypertension; E78.00 Pure hypercholesterolemia, unspecified; E87.6 Hypokalemia; K21.9 Gastro-esophageal reflux disease without esophagitis; F41.9 Anxiety disorder, unspecified; E03.9 Hypothyroidism, unspecified; R79.89 Other specified abnormal findings of blood chemistry; J30.9 Allergic rhinitis, unspecified; Z79.82 Long term (current) use of aspirin; Z79.899 Other long term (current) drug therapy; Z86.718 Personal history of other venous thrombosis and embolism; Z98.51 Tubal ligation status; Z87.891 Personal history of nicotine dependence; Z82.49 Family history of ischemic heart disease and other diseases of the circulatory system; Z80.8 Family history of malignant neoplasm of other organs or systems; Z81.8 Family history of other mental and behavioral disorders

== ENCOUNTER → 2016-12-28 | Outpatient (REF) | payer OTHER ==
[~2016-12-28] MED LIST: ASPI1TAB15 PO; ASPI81TA85 PO; CYCL10TA PO; SYNT50TA PO; ZOLO25TA PO
[2016-12-28 11:53] LABS: EOS # 0.2 K/mm3 (0.0-0.50); EOS % 4.8 % (0.0-3.0); LARGE UNSTAINED CELL # 0.1 K/mm3 (0.0-0.4); LARGE UNSTAINED CELL % 1.7 % (0.0-4.0); LYMPH # 1.1 K/mm3 (1.5-4.5); LYMPH % 24.2 % (24.0-44.0); MEAN CORPUSCULAR HEMOGLOBIN 37.5 pg (27.0-33.0); MEAN CORPUSCULAR HGB CONC 33.1 g/dl (32.0-36.5); MONO # 0.3 K/mm3 (0.0-0.8); MONO % 6.3 % (0.0-5.0); NEUTROPHILS # 2.8 K/mm3 (1.8-7.7); PLATELET COUNT, AUTOMATED 152 k/mm3 (150-450); RED CELL DISTRIBUTION WIDTH 16.5 % (11.5-14.5); WHITE BLOOD COUNT 4.4 K/mm3 (4.0-10.0)
[2016-12-28 12:27] LABS: ADD MORPHOLOGY? YES
[2016-12-28 12:34] LABS: ANISOCYTOSIS 2+
[2016-12-28 14:50] LABS: ALBUMIN 2.9 GM/DL (3.2-5.2); ALKALINE PHOSPHATASE 86 U/L (45-117); ALT/SGPT 14 U/L (12-78); ANION GAP 6 MEQ/L (8-16); AST/SGOT 24 U/L (15-37); BILIRUBIN,TOTAL 0.7 MG/DL (0.2-1.0); BLOOD UREA NITROGEN 6 MG/DL (7-18); CALCIUM LEVEL 8.8 MG/DL (8.5-10.1); CARBON DIOXIDE LEVEL 31 MEQ/L (21-32); CHLORIDE LEVEL 108 MEQ/L (98-107); CREATININE FOR GFR 0.96 MG/DL (0.55-1.02); FREE T4 1.07 NG/DL (0.76-1.46); GLOMERULAR FILTRATION RATE > 60.0 (>51); GLUCOSE, FASTING 92 MG/DL (70-105); POTASSIUM SERUM 4.3 MEQ/L (3.5-5.1); SODIUM LEVEL 145 MEQ/L (136-145); TOTAL PROTEIN 7.7 GM/DL (6.4-8.2)
== END ==
LOC: M SFHCPLAZ 10:39
PROVIDERS: ATTEND Nurse Practitioner Family
DX: I51.81 Takotsubo syndrome (principal); I10 Essential (primary) hypertension; E03.9 Hypothyroidism, unspecified

== ENCOUNTER → 2017-03-23 | Outpatient (CLI) | payer OTHER ==
--- NOTE | 2017-03-23 16:08 | REP ---
Left lower extremity Duplex Doppler venous ultrasound: Real time compression and duplex Doppler interrogation of the left lower extremity deep venous system is performed. The left common femoral, superficial femoral and popliteal veins are fully compressible with transducer pressure and demonstrate normal spontaneous and phasic flow, without evidence of deep venous thrombosis. Impression: No evidence of deep venous thrombosis of the left lower extremity femoral popliteal venous system. Signed by David Kong MD 03/23/2017 03:58 P
== END ==
LOC: M RAD 14:55
PROVIDERS: ATTEND Nurse Practitioner Family
DX: G89.29 Other chronic pain (principal)

== ENCOUNTER → 2017-05-03 | Outpatient (CLI) | payer OTHER ==
[2017-05-03 14:05] LABS: FOLATE 2.2 NG/ML; VITAMIN B12 LEVEL 390 PG/ML
[2017-05-03 14:07] LABS: ALBUMIN 2.9 GM/DL (3.2-5.2); ALBUMIN/GLOBULIN RATIO 0.63 (1.00-1.93); ALKALINE PHOSPHATASE 84 U/L (45-117); ALT/SGPT 29 U/L (12-78); ANION GAP 9 MEQ/L (8-16); AST/SGOT 58 U/L (7-37); BILIRUBIN,TOTAL 1.1 MG/DL (0.2-1.0); BLOOD UREA NITROGEN 7 MG/DL (7-18); CALCIUM LEVEL 8.9 MG/DL (8.5-10.1); CARBON DIOXIDE LEVEL 33 MEQ/L (21-32); CHLORIDE LEVEL 101 MEQ/L (98-107); CHOLESTEROL LEVEL 147 MG/DL (<200); FREE T4 1.32 NG/DL (0.76-1.46); GLOMERULAR FILTRATION RATE > 60.0 (>51); GLUCOSE, FASTING 117 MG/DL (70-105); POTASSIUM SERUM 3.2 MEQ/L (3.5-5.1); SODIUM LEVEL 143 MEQ/L (136-145); TOTAL PROTEIN 7.5 GM/DL (6.4-8.2); TRIGLYCERIDES LEVEL 100 MG/DL (<150)
== END ==
LOC: M SMT 08:52
PROVIDERS: ATTEND Nurse Practitioner Family
DX: E03.9 Hypothyroidism, unspecified (principal); E55.9 Vitamin D deficiency, unspecified; K21.9 Gastro-esophageal reflux disease without esophagitis

== ENCOUNTER 2017-09-01 13:45 | Inpatient (IN) | payer OTHER ==
[2017-09-01] MEDS ORDERED: ONDANSETRON 4MG/2ML VIAL (J2405) As Ordered (14:40)
[2017-09-01] MEDS: ONDANSETRON 4MG/2ML VIAL (J2405) IV ×3 (14:45→19:37)
[2017-09-01] MEDS: NS 1,000 ML IV ×2 (14:45→18:00)
[2017-09-01 14:50] LABS: BASO % 0.4 % (0.0-1.0); EOS # 0.1 10^3/uL (0.0-0.50); EOS % 0.7 % (0.0-3.0); HEMATOCRIT 35.6 % (36.0-47.0); HEMOGLOBIN 12.3 g/dl (12.0-16.0); IMMATURE GRANULOCYTE % 0.9 % (0-3.0); LYMPH % 13.6 % (24.0-44.0); MEAN CORPUSCULAR HEMOGLOBIN 35.7 pg (27.0-33.0); MEAN CORPUSCULAR HGB CONC 34.6 g/dl (32.0-36.5); MEAN CORPUSCULAR VOLUME 103.2 fl (80.0-96.0); MONO # 0.5 10^3/uL (0.0-0.8); MONO % 5.9 % (0.0-5.0); NEUTROPHILS # 5.9 10^3/uL (1.8-7.7); NEUTROPHILS % 78.5 % (36.0-66.0); PLATELET COUNT, AUTOMATED 191 10^3/uL (150-450); RED BLOOD COUNT 3.45 10^6/uL (4.00-5.40); RED CELL DISTRIBUTION WIDTH 13.2 % (11.5-14.5); WHITE BLOOD COUNT 7.6 10^3/uL (4.0-10.0)
[2017-09-01 15:02] LABS: ALBUMIN 2.6 GM/DL (3.2-5.2); ALBUMIN/GLOBULIN RATIO 0.54 (1.00-1.93); ALKALINE PHOSPHATASE 80 U/L (45-117); ALT/SGPT 10 U/L (12-78); ANION GAP 13 MEQ/L (8-16); AST/SGOT 26 U/L (7-37); BILIRUBIN,DIRECT 0.9 MG/DL (0.0-0.2); BILIRUBIN,TOTAL 1.8 MG/DL (0.2-1.0); BLOOD UREA NITROGEN 10 MG/DL (7-18); CALCIUM LEVEL 8.5 MG/DL (8.5-10.1); CARBON DIOXIDE LEVEL 32 MEQ/L (21-32); CHLORIDE LEVEL 87 MEQ/L (98-107); CPK CREATINE PHOSPHOKINASE 81 U/L (26-192); CREATININE FOR GFR 0.98 MG/DL (0.55-1.30); GLOMERULAR FILTRATION RATE > 60.0 (>51); GLUCOSE, FASTING 118 MG/DL (70-100); LIPASE 323 U/L (73-393); MB/CK RELATIVE INDEX 1.23 (< OR =4); POTASSIUM SERUM 2.3 MEQ/L (3.5-5.1); SODIUM LEVEL 132 MEQ/L (136-145); TOTAL PROTEIN 7.4 GM/DL (6.4-8.2); TROPONIN I < 0.02 NG/ML (< 0.10)
[2017-09-01 15:35] LABS: LACTIC ACID SEPSIS PROTOCOL 2.6 MMOL/L (0.4-2.0)
[2017-09-01] MEDS ORDERED: ISOVUE-370 76% 100ML VIAL (Q9967) As Ordered (15:58)
[2017-09-01] MEDS ORDERED: POTASSIUM CHLORIDE IV (16:00)
[2017-09-01] MEDS ORDERED: D5W IV (16:00)
[2017-09-01] MEDS: KCL 10MEQ/100ML SWI (KRUN) 100 ML IV (17:00)
[2017-09-01] MEDS: PIPERACILLIN/TAZOBACTAM SOD 3.375 GM in APPROPRIATE DILUENT 1 EA IV (17:15)
[2017-09-01] MEDS ORDERED: MORPHINE 4 MG/ML 1ML VIAL/SYRINGE (J2270) IV (18:00)
[2017-09-01] MEDS ORDERED: PERCOCET 5MG/325MG TAB PO (18:00)
[2017-09-01] MEDS: CIPROFLOXACIN 400 MG in APPROPRIATE DILUENT 1 EA IV (21:14)
[2017-09-01] MEDS: CYCLOBENZAPRINE 10 MG TAB PO (21:14)
[2017-09-01 23:39] LABS: CPK CREATINE PHOSPHOKINASE 120 U/L (26-192); POTASSIUM SERUM 2.5 MEQ/L (3.5-5.1); TROPONIN I < 0.02 NG/ML (< 0.10)
[2017-09-01 23:40] LABS: CK-MB VALUE MASS 1.2 NG/ML (0.0-3.6)
[2017-09-02] MEDS: metroNIDAZOLE 500 MG in APPROPRIATE DILUENT 1 EA IV ×4 (00:23→22:42)
[2017-09-02] MEDS: METOCLOPRAMIDE INJ 10MG/2ML VIAL (J2765) IV (01:02)
[2017-09-02] MEDS: POTASSIUM CHLORIDE 10 MEQ SR TABLET PO ×2 (01:02→07:05)
[2017-09-02] MEDS: KCL 20MEQ in NS 1000ML 1,000 ML IV ×3 (01:02→21:25)
[2017-09-02] MEDS: ONDANSETRON 4MG/2ML VIAL (J2405) IV ×2 (03:58→19:17)
[2017-09-02 05:49] LABS: HEMATOCRIT 29.4 % (36.0-47.0); MEAN CORPUSCULAR HEMOGLOBIN 35.3 pg (27.0-33.0); MEAN CORPUSCULAR HGB CONC 34.4 g/dl (32.0-36.5); MEAN CORPUSCULAR VOLUME 102.8 fl (80.0-96.0); PLATELET COUNT, AUTOMATED 176 10^3/uL (150-450); RED BLOOD COUNT 2.86 10^6/uL (4.00-5.40); RED CELL DISTRIBUTION WIDTH 13.2 % (11.5-14.5); WHITE BLOOD COUNT 8.3 10^3/uL (4.0-10.0)
[2017-09-02] MEDS: LEVOTHYROXINE 50MCG TABLET (0.05MG) PO (06:01)
[2017-09-02 06:03] LABS: HEMOGLOBIN 10.1 g/dl (12.0-16.0)
[2017-09-02 06:10] LABS: ANION GAP 15 MEQ/L (8-16); BLOOD UREA NITROGEN 9 MG/DL (7-18); CALCIUM LEVEL 7.7 MG/DL (8.5-10.1); CARBON DIOXIDE LEVEL 26 MEQ/L (21-32); CHLORIDE LEVEL 96 MEQ/L (98-107); CPK CREATINE PHOSPHOKINASE 185 U/L (26-192); CREATININE FOR GFR 0.84 MG/DL (0.55-1.30); GLOMERULAR FILTRATION RATE > 60.0 (>51); GLUCOSE, FASTING 80 MG/DL (70-100); POTASSIUM SERUM 2.4 MEQ/L (3.5-5.1); SODIUM LEVEL 137 MEQ/L (136-145); TROPONIN I < 0.02 NG/ML (< 0.10)
[2017-09-02 06:11] LABS: CK-MB VALUE MASS 1.4 NG/ML (0.0-3.6); MB/CK RELATIVE INDEX 0.75 (< OR =4)
[2017-09-02] MEDS: ENOXAPARIN 40 MG/0.4 ML SYRINGE (J1650) SC (09:04)
[2017-09-02] MEDS: SERTRALINE HCL 25 MG TABLET PO (09:04)
[2017-09-02] MEDS: CIPROFLOXACIN 400 MG in APPROPRIATE DILUENT 1 EA IV ×2 (09:04→21:24)
[2017-09-02 14:10] LABS: ANION GAP 14 MEQ/L (8-16); CARBON DIOXIDE LEVEL 22 MEQ/L (21-32); CHLORIDE LEVEL 101 MEQ/L (98-107); MAGNESIUM LEVEL 1.7 MG/DL (1.8-2.4); POTASSIUM SERUM 3.2 MEQ/L (3.5-5.1); SODIUM LEVEL 137 MEQ/L (136-145)
[2017-09-02] MEDS: CYCLOBENZAPRINE 10 MG TAB PO (21:24)
[2017-09-02] MEDS: MIRALAX *UNIT DOSE* 17GM PACKET PO (21:24)
[2017-09-02 23:03] LABS: BEDSIDE GLUCOSE 121 MG/DL (70-105)
[2017-09-02 23:28] LABS: LACTIC ACID SEPSIS PROTOCOL 1.4 MMOL/L (0.4-2.0)
[2017-09-03] MEDS: LEVOTHYROXINE 50MCG TABLET (0.05MG) PO (05:12)
[2017-09-03] MEDS: ONDANSETRON 4MG/2ML VIAL (J2405) IV ×3 (05:12→18:55)
[2017-09-03] MEDS: metroNIDAZOLE 500 MG in APPROPRIATE DILUENT 1 EA IV (05:12)
[2017-09-03 05:52] LABS: BASO % 0.2 % (0.0-1.0); HEMATOCRIT 29.1 % (36.0-47.0); HEMOGLOBIN 9.8 g/dl (12.0-16.0); IMMATURE GRANULOCYTE % 0.7 % (0-3.0); LYMPH # 1.1 10^3/uL (1.5-4.5); MEAN CORPUSCULAR HEMOGLOBIN 34.9 pg (27.0-33.0); MEAN CORPUSCULAR HGB CONC 33.7 g/dl (32.0-36.5); MEAN CORPUSCULAR VOLUME 103.6 fl (80.0-96.0); MONO # 0.5 10^3/uL (0.0-0.8); MONO % 5.5 % (0.0-5.0); NEUTROPHILS # 8.1 10^3/uL (1.8-7.7); NEUTROPHILS % 82.6 % (36.0-66.0); PLATELET COUNT, AUTOMATED 141 10^3/uL (150-450); RED BLOOD COUNT 2.81 10^6/uL (4.00-5.40); RED CELL DISTRIBUTION WIDTH 13.7 % (11.5-14.5); WHITE BLOOD COUNT 9.8 10^3/uL (4.0-10.0)
[2017-09-03 06:04] LABS: APPEARANCE, URINE CLEAR (CLEAR); BACTERIA, URINE AUTO NEGATIVE (NEGATIVE); BILIRUBIN, URINE AUTO 1+ (NEGATIVE); BLOOD, URINE BLOOD 1+ (NEGATIVE); COLOR, URINE AMBER (YELLOW); GLUCOSE, URINE (UA) AUTO NEGATIVE (NEGATIVE); KETONE, URINE AUTO 2+ mg/dL (NEGATIVE); LEUKOCYTE ESTERASE, URINE AUTO NEGATIVE (NEGATIVE); MUCUS, URINE SMALL (NEGATIVE); NITRITE, URINE AUTO NEGATIVE (NEGATIVE); PROTEIN, URINE AUTO 2+ mg/dL (NEGATIVE); RBC, URINE AUTO 42 /HPF (0-3); SPECIFIC GRAVITY URINE AUTO 1.023 (1.002-1.035); SQUAMOUS EPITHELIAL CELL UR AU 0 /HPF (0-6); WBC, URINE AUTO 1 /HPF (0-3)
[2017-09-03 06:14] LABS: ALBUMIN/GLOBULIN RATIO 0.45 (1.00-1.93); ALKALINE PHOSPHATASE 68 U/L (45-117); ALT/SGPT 15 U/L (12-78); ANION GAP 14 MEQ/L (8-16); AST/SGOT 38 U/L (7-37); BILIRUBIN,TOTAL 1.4 MG/DL (0.2-1.0); BLOOD UREA NITROGEN 9 MG/DL (7-18); CALCIUM LEVEL 7.7 MG/DL (8.5-10.1); CARBON DIOXIDE LEVEL 23 MEQ/L (21-32); CHLORIDE LEVEL 103 MEQ/L (98-107); CREATININE FOR GFR 0.75 MG/DL (0.55-1.30); GLOMERULAR FILTRATION RATE > 60.0 (>51); GLUCOSE, FASTING 92 MG/DL (70-100); POTASSIUM SERUM 3.4 MEQ/L (3.5-5.1); SODIUM LEVEL 140 MEQ/L (136-145); TOTAL PROTEIN 6.4 GM/DL (6.4-8.2)
[2017-09-03] MEDS: MIRALAX *UNIT DOSE* 17GM PACKET PO ×2 (09:01→21:55)
[2017-09-03] MEDS: ENOXAPARIN 40 MG/0.4 ML SYRINGE (J1650) SC (09:01)
[2017-09-03] MEDS: SERTRALINE HCL 25 MG TABLET PO (09:01)
[2017-09-03] MEDS: CIPROFLOXACIN 400 MG in APPROPRIATE DILUENT 1 EA IV (09:01)
[2017-09-03] MEDS: KCL 20MEQ in NS 1000ML 1,000 ML IV ×2 (13:51→15:36)
[2017-09-03] MEDS: PIPERACILLIN/TAZOBACTAM SOD 3.375 GM in APPROPRIATE DILUENT 1 EA IV ×2 (14:44→19:58)
[2017-09-03] MEDS: CYCLOBENZAPRINE 10 MG TAB PO (21:55)
[2017-09-04] MEDS: KCL 20MEQ in NS 1000ML 1,000 ML IV ×3 (00:43→22:45)
[2017-09-04] MEDS: ONDANSETRON 4MG/2ML VIAL (J2405) IV ×3 (00:55→15:21)
[2017-09-04] MEDS: PIPERACILLIN/TAZOBACTAM SOD 3.375 GM in APPROPRIATE DILUENT 1 EA IV ×4 (01:46→20:03)
[2017-09-04] MEDS: LEVOTHYROXINE 50MCG TABLET (0.05MG) PO (06:00)
[2017-09-04 06:14] LABS: HEMATOCRIT 28.6 % (36.0-47.0); HEMOGLOBIN 9.3 g/dl (12.0-16.0); MEAN CORPUSCULAR HEMOGLOBIN 35.5 pg (27.0-33.0); MEAN CORPUSCULAR HGB CONC 32.5 g/dl (32.0-36.5); MEAN CORPUSCULAR VOLUME 109.2 fl (80.0-96.0); PLATELET COUNT, AUTOMATED 108 10^3/uL (150-450); RED BLOOD COUNT 2.62 10^6/uL (4.00-5.40); WHITE BLOOD COUNT 7.9 10^3/uL (4.0-10.0)
[2017-09-04 06:34] LABS: AMMONIA 12 uMOL/L (<32)
[2017-09-04 06:43] LABS: ALBUMIN 1.9 GM/DL (3.2-5.2); ALBUMIN/GLOBULIN RATIO 0.53 (1.00-1.93); ALKALINE PHOSPHATASE 76 U/L (45-117); ALT/SGPT 19 U/L (12-78); ANION GAP 11 MEQ/L (8-16); AST/SGOT 53 U/L (7-37); BILIRUBIN,TOTAL 1.1 MG/DL (0.2-1.0); BLOOD UREA NITROGEN 8 MG/DL (7-18); CALCIUM LEVEL 7.4 MG/DL (8.5-10.1); CARBON DIOXIDE LEVEL 24 MEQ/L (21-32); CHLORIDE LEVEL 109 MEQ/L (98-107); CREATININE FOR GFR 0.69 MG/DL (0.55-1.30); GLOMERULAR FILTRATION RATE > 60.0 (>51); GLUCOSE, FASTING 89 MG/DL (70-100); POTASSIUM SERUM 3.7 MEQ/L (3.5-5.1); SODIUM LEVEL 144 MEQ/L (136-145); TOTAL PROTEIN 5.5 GM/DL (6.4-8.2)
[2017-09-04] MEDS: MIRALAX *UNIT DOSE* 17GM PACKET PO ×2 (09:37→20:03)
[2017-09-04] MEDS: ENOXAPARIN 40 MG/0.4 ML SYRINGE (J1650) SC (09:38)
[2017-09-04] MEDS: OMEPRAZOLE 20 MG CAP PO (09:38)
[2017-09-04] MEDS: SERTRALINE HCL 25 MG TABLET PO (09:38)
[2017-09-04 09:49] LABS: FREE T4 1.18 NG/DL (0.76-1.46); THYROID STIMULATING HORMONE 0.628 uIU/ML (0.358-3.740)
[2017-09-04] MEDS: CYCLOBENZAPRINE 10 MG TAB PO (20:03)
[2017-09-05] MEDS: HALOPERIDOL 5 MG/ML VIAL (J1630) IM ×2 (00:07→06:04)
[2017-09-05] MEDS: PIPERACILLIN/TAZOBACTAM SOD 3.375 GM in APPROPRIATE DILUENT 1 EA IV ×4 (02:00→21:08)
[2017-09-05] MEDS: LEVOTHYROXINE 50MCG TABLET (0.05MG) PO (06:09)
[2017-09-05 07:44] LABS: BASO % 0.1 % (0.0-1.0); EOS # 0.1 10^3/uL (0.0-0.50); EOS % 1.1 % (0.0-3.0); HEMATOCRIT 27.7 % (36.0-47.0); HEMOGLOBIN 9.1 g/dl (12.0-16.0); IMMATURE GRANULOCYTE % 0.8 % (0-3.0); LYMPH # 0.9 10^3/uL (1.5-4.5); LYMPH % 11.8 % (24.0-44.0); MEAN CORPUSCULAR HEMOGLOBIN 35.1 pg (27.0-33.0); MEAN CORPUSCULAR HGB CONC 32.9 g/dl (32.0-36.5); MEAN CORPUSCULAR VOLUME 106.9 fl (80.0-96.0); MONO # 0.3 10^3/uL (0.0-0.8); MONO % 3.7 % (0.0-5.0); NEUTROPHILS # 6.2 10^3/uL (1.8-7.7); NEUTROPHILS % 82.5 % (36.0-66.0); PLATELET COUNT, AUTOMATED 110 10^3/uL (150-450); RED BLOOD COUNT 2.59 10^6/uL (4.00-5.40); RED CELL DISTRIBUTION WIDTH 14.1 % (11.5-14.5); WHITE BLOOD COUNT 7.5 10^3/uL (4.0-10.0)
[2017-09-05 08:08] LABS: ALBUMIN 1.8 GM/DL (3.2-5.2); ALBUMIN/GLOBULIN RATIO 0.51 (1.00-1.93); ALKALINE PHOSPHATASE 82 U/L (45-117); ALT/SGPT 17 U/L (12-78); ANION GAP 7 MEQ/L (8-16); AST/SGOT 31 U/L (7-37); BILIRUBIN,TOTAL 0.8 MG/DL (0.2-1.0); BLOOD UREA NITROGEN 4 MG/DL (7-18); CALCIUM LEVEL 7.2 MG/DL (8.5-10.1); CARBON DIOXIDE LEVEL 23 MEQ/L (21-32); CHLORIDE LEVEL 109 MEQ/L (98-107); CREATININE FOR GFR 0.73 MG/DL (0.55-1.30); GLOMERULAR FILTRATION RATE > 60.0 (>51); GLUCOSE, FASTING 112 MG/DL (70-100); POTASSIUM SERUM 3.5 MEQ/L (3.5-5.1); SODIUM LEVEL 139 MEQ/L (136-145); TOTAL PROTEIN 5.3 GM/DL (6.4-8.2)
[2017-09-05] MEDS: ENOXAPARIN 40 MG/0.4 ML SYRINGE (J1650) SC ×2 (08:23→09:00)
[2017-09-05] MEDS: OMEPRAZOLE 20 MG CAP PO (08:23)
[2017-09-05] MEDS: MIRALAX *UNIT DOSE* 17GM PACKET PO ×2 (08:23→21:00)
[2017-09-05] MEDS: SERTRALINE HCL 25 MG TABLET PO (08:23)
[2017-09-05] MEDS: KCL 20MEQ in NS 1000ML 1,000 ML IV (08:24)
[2017-09-05] MEDS: HALOPERIDOL 1 MG TAB PO (11:38)
[2017-09-05] MEDS ORDERED: HALOPERIDOL 5 MG/ML VIAL (J1630) IM (12:00)
[2017-09-05] MEDS: LORazepam 2 MG/ML VIAL (J2060) IV (12:56)
[2017-09-05] MEDS: CYCLOBENZAPRINE 10 MG TAB PO ×2 (21:00→21:08)
[2017-09-06 01:23] LABS: AMPHETAMINES LEVEL URINE NEGATIVE (NEGATIVE); BARBITURATES URINE NEGATIVE (NEGATIVE); BENZODIAZEPINES URINE POSITIVE (NEGATIVE); CANNABINOIDS URINE POSITIVE (NEGATIVE); COCAINE METABOLITE URINE NEGATIVE (NEGATIVE); METHADONE URINE NEGATIVE (NEGATIVE); OPIATES URINE NEGATIVE (NEGATIVE); PHENCYCLIDINE URINE NEGATIVE (NEGATIVE)
[2017-09-06] MEDS: PIPERACILLIN/TAZOBACTAM SOD 3.375 GM in APPROPRIATE DILUENT 1 EA IV ×4 (02:00→20:32)
[2017-09-06] MEDS: LEVOTHYROXINE 50MCG TABLET (0.05MG) PO (06:34)
[2017-09-06 06:39] LABS: BASO % 0.5 % (0.0-1.0); EOS # 0.1 10^3/uL (0.0-0.50); HEMATOCRIT 29.9 % (36.0-47.0); HEMOGLOBIN 9.9 g/dl (12.0-16.0); IMMATURE GRANULOCYTE % 1.2 % (0-3.0); LYMPH % 12.4 % (24.0-44.0); MEAN CORPUSCULAR HEMOGLOBIN 35.5 pg (27.0-33.0); MEAN CORPUSCULAR HGB CONC 33.1 g/dl (32.0-36.5); MEAN CORPUSCULAR VOLUME 107.2 fl (80.0-96.0); MONO # 0.3 10^3/uL (0.0-0.8); MONO % 3.2 % (0.0-5.0); NEUTROPHILS # 6.8 10^3/uL (1.8-7.7); NEUTROPHILS % 81.7 % (36.0-66.0); PLATELET COUNT, AUTOMATED 105 10^3/uL (150-450); RED BLOOD COUNT 2.79 10^6/uL (4.00-5.40); RED CELL DISTRIBUTION WIDTH 13.7 % (11.5-14.5); WHITE BLOOD COUNT 8.3 10^3/uL (4.0-10.0)
[2017-09-06] MEDS ORDERED: LORazepam 1 MG TAB PO (06:45)
[2017-09-06 07:03] LABS: ALBUMIN 1.9 GM/DL (3.2-5.2); ALBUMIN/GLOBULIN RATIO 0.44 (1.00-1.93); ALKALINE PHOSPHATASE 81 U/L (45-117); ALT/SGPT 15 U/L (12-78); ANION GAP 9 MEQ/L (8-16); AST/SGOT 25 U/L (7-37); BILIRUBIN,TOTAL 1.2 MG/DL (0.2-1.0); BLOOD UREA NITROGEN 6 MG/DL (7-18); CALCIUM LEVEL 7.9 MG/DL (8.5-10.1); CARBON DIOXIDE LEVEL 23 MEQ/L (21-32); CHLORIDE LEVEL 106 MEQ/L (98-107); CREATININE FOR GFR 0.62 MG/DL (0.55-1.30); GLOMERULAR FILTRATION RATE > 60.0 (>51); GLUCOSE, FASTING 80 MG/DL (70-100); POTASSIUM SERUM 3.5 MEQ/L (3.5-5.1); SODIUM LEVEL 138 MEQ/L (136-145); TOTAL PROTEIN 6.2 GM/DL (6.4-8.2)
[2017-09-06] MEDS: ENOXAPARIN 40 MG/0.4 ML SYRINGE (J1650) SC (09:00)
[2017-09-06] MEDS: MIRALAX *UNIT DOSE* 17GM PACKET PO ×2 (09:25→20:31)
[2017-09-06] MEDS: SERTRALINE HCL 25 MG TABLET PO (09:25)
[2017-09-06] MEDS: OXAZEPAM 10 MG CAP PO ×2 (09:25→20:31)
[2017-09-06] MEDS: OMEPRAZOLE 20 MG CAP PO (09:25)
[2017-09-06] MEDS: LORazepam 2 MG TAB PO (14:35)
[2017-09-06] MEDS: CYCLOBENZAPRINE 10 MG TAB PO (20:31)
[2017-09-07 00:06] LABS: URINE ETHANOL 1 Negative % (Cutoff=0.020)
[2017-09-07] MEDS: PIPERACILLIN/TAZOBACTAM SOD 3.375 GM in APPROPRIATE DILUENT 1 EA IV (02:59)
[2017-09-07] MEDS: LEVOTHYROXINE 50MCG TABLET (0.05MG) PO (05:51)
[2017-09-07 06:15] LABS: BASO % 0.3 % (0.0-1.0); EOS # 0.1 10^3/uL (0.0-0.50); EOS % 1.5 % (0.0-3.0); HEMATOCRIT 29.3 % (36.0-47.0); HEMOGLOBIN 9.7 g/dl (12.0-16.0); IMMATURE GRANULOCYTE % 1.1 % (0-3.0); LYMPH % 14.3 % (24.0-44.0); MEAN CORPUSCULAR HEMOGLOBIN 34.5 pg (27.0-33.0); MEAN CORPUSCULAR HGB CONC 33.1 g/dl (32.0-36.5); MEAN CORPUSCULAR VOLUME 104.3 fl (80.0-96.0); MONO # 0.3 10^3/uL (0.0-0.8); MONO % 3.8 % (0.0-5.0); NEUTROPHILS # 5.3 10^3/uL (1.8-7.7); PLATELET COUNT, AUTOMATED 107 10^3/uL (150-450); RED BLOOD COUNT 2.81 10^6/uL (4.00-5.40); RED CELL DISTRIBUTION WIDTH 13.7 % (11.5-14.5); WHITE BLOOD COUNT 6.7 10^3/uL (4.0-10.0)
[2017-09-07 06:33] LABS: ALBUMIN 1.8 GM/DL (3.2-5.2); ALBUMIN/GLOBULIN RATIO 0.39 (1.00-1.93); ALKALINE PHOSPHATASE 78 U/L (45-117); ALT/SGPT 16 U/L (12-78); ANION GAP 6 MEQ/L (8-16); AST/SGOT 16 U/L (7-37); BILIRUBIN,TOTAL 1.3 MG/DL (0.2-1.0); BLOOD UREA NITROGEN 7 MG/DL (7-18); CALCIUM LEVEL 8.1 MG/DL (8.5-10.1); CARBON DIOXIDE LEVEL 29 MEQ/L (21-32); CHLORIDE LEVEL 99 MEQ/L (98-107); CREATININE FOR GFR 0.53 MG/DL (0.55-1.30); GLOMERULAR FILTRATION RATE > 60.0 (>51); GLUCOSE, FASTING 85 MG/DL (70-100); POTASSIUM SERUM 3.3 MEQ/L (3.5-5.1); SODIUM LEVEL 134 MEQ/L (136-145); TOTAL PROTEIN 6.4 GM/DL (6.4-8.2)
[2017-09-07] MEDS: SERTRALINE HCL 25 MG TABLET PO (09:14)
[2017-09-07] MEDS: MIRALAX *UNIT DOSE* 17GM PACKET PO ×2 (09:14→20:30)
[2017-09-07] MEDS: AUGMENTIN 875 MG TAB PO ×2 (09:14→20:29)
[2017-09-07] MEDS: OMEPRAZOLE 20 MG CAP PO (09:14)
[2017-09-07] MEDS: OXAZEPAM 10 MG CAP PO ×2 (09:18→21:46)
[2017-09-07] MEDS: ENOXAPARIN 40 MG/0.4 ML SYRINGE (J1650) SC (09:46)
[2017-09-07 12:45] LABS: AMMONIA 14 uMOL/L (<32)
[2017-09-07 18:19] LABS: HEMATOCRIT 28.9 % (36.0-47.0)
[2017-09-07 18:53] LABS: C REACTIVE PROTEIN QUANTITATIV 9.44 MG/DL (0.00-0.30)
[2017-09-07 19:10] LABS: VITAMIN B12 LEVEL 798 PG/ML (247-911)
[2017-09-07] MEDS: MAGNESIUM CITRATE 300 ML BTL PO (20:29)
[2017-09-07] MEDS: POTASSIUM CHLORIDE 10 MEQ SR TABLET PO (20:30)
[2017-09-07] MEDS: ONDANSETRON 4MG/2ML VIAL (J2405) IV (20:30)
[2017-09-07 21:52] LABS: ERYTHROCYTE SEDIMENTATION RATE 107 mm/hr (0-30)
[2017-09-08] MEDS: OXAZEPAM 10 MG CAP PO ×2 (06:16→14:30)
[2017-09-08] MEDS: LEVOTHYROXINE 50MCG TABLET (0.05MG) PO (06:16)
[2017-09-08 07:03] LABS: BASO % 0.2 % (0.0-1.0); EOS # 0.1 10^3/uL (0.0-0.50); EOS % 1.4 % (0.0-3.0); HEMATOCRIT 27.9 % (36.0-47.0); HEMOGLOBIN 9.3 g/dl (12.0-16.0); LYMPH # 1.1 10^3/uL (1.5-4.5); LYMPH % 13.5 % (24.0-44.0); MEAN CORPUSCULAR HEMOGLOBIN 35.1 pg (27.0-33.0); MEAN CORPUSCULAR HGB CONC 33.3 g/dl (32.0-36.5); MEAN CORPUSCULAR VOLUME 105.3 fl (80.0-96.0); MONO # 0.4 10^3/uL (0.0-0.8); MONO % 5.1 % (0.0-5.0); NEUTROPHILS # 6.4 10^3/uL (1.8-7.7); NEUTROPHILS % 78.8 % (36.0-66.0); PLATELET COUNT, AUTOMATED 111 10^3/uL (150-450); RED BLOOD COUNT 2.65 10^6/uL (4.00-5.40); RED CELL DISTRIBUTION WIDTH 13.9 % (11.5-14.5); WHITE BLOOD COUNT 8.1 10^3/uL (4.0-10.0)
[2017-09-08 07:24] LABS: ALBUMIN 1.9 GM/DL (3.2-5.2); ALBUMIN/GLOBULIN RATIO 0.42 (1.00-1.93); ALKALINE PHOSPHATASE 75 U/L (45-117); ALT/SGPT 12 U/L (12-78); ANION GAP 9 MEQ/L (8-16); AST/SGOT 16 U/L (7-37); BILIRUBIN,TOTAL 1.1 MG/DL (0.2-1.0); BLOOD UREA NITROGEN 6 MG/DL (7-18); CALCIUM LEVEL 8.2 MG/DL (8.5-10.1); CARBON DIOXIDE LEVEL 29 MEQ/L (21-32); CHLORIDE LEVEL 99 MEQ/L (98-107); CREATININE FOR GFR 0.44 MG/DL (0.55-1.30); GLOMERULAR FILTRATION RATE > 60.0 (>51); GLUCOSE, FASTING 84 MG/DL (70-100); POTASSIUM SERUM 3.4 MEQ/L (3.5-5.1); SODIUM LEVEL 137 MEQ/L (136-145); TOTAL PROTEIN 6.4 GM/DL (6.4-8.2)
[2017-09-08] MEDS: MOM 30ML SUSPENSION UDC PO (08:58)
[2017-09-08] MEDS: ENOXAPARIN 40 MG/0.4 ML SYRINGE (J1650) SC (08:59)
[2017-09-08] MEDS: OMEPRAZOLE 20 MG CAP PO (08:59)
[2017-09-08] MEDS: MIRALAX *UNIT DOSE* 17GM PACKET PO ×2 (08:59→20:22)
[2017-09-08] MEDS: SERTRALINE HCL 25 MG TABLET PO (08:59)
[2017-09-08] MEDS: AUGMENTIN 875 MG TAB PO (08:59)
[2017-09-08 11:45] LABS: MAGNESIUM LEVEL 2.1 MG/DL (1.8-2.4)
[2017-09-08 12:41] LABS: PRETREATED FOLATE FOR RBCFOL 3.4 NG/ML; RBC FOLATE 247.1 NG/ML (280-791)
[2017-09-08] MEDS: KCL 10MEQ/100ML SWI (KRUN) 10 MEQ in APPROPRIATE DILUENT 1 EA IV ×4 (13:22→17:41)
[2017-09-08] MEDS: KCL 20MEQ IN 0.45NS 1000ML 1,000 ML IV ×2 (14:39→22:59)
[2017-09-08 16:44] LABS: ABG HCO3 24.7 MEQ/L (22.0-26.0); ABG O2 SATURATION 94.9 % (95.0-99.0); ABG PARTIAL PRESSURE O2 77.2 mmHg (75.0-100.0); ABG STANDARD HCO3 24.5 MEQ/L (22.0-26.0); ABG TOTAL CO2 25.9 MEQ/L (22.0-29.0); ABG pH (ARTERIAL) 7.408 UNITS (7.350-7.450)
[2017-09-08] MEDS: MAGNESIUM CITRATE 300 ML BTL PO (17:20)
[2017-09-08] MEDS: BISACODYL 5 MG TAB PO (17:20)
[2017-09-08] MEDS: GASTROGRAFIN SOLUTION 30ML PO ×2 (18:33→19:35)
[2017-09-08] MEDS: PIPERACILLIN/TAZOBACTAM SOD 3.375 GM in APPROPRIATE DILUENT 1 EA IV (19:56)
[2017-09-08] MEDS ORDERED: ISOVUE-370 76% 100ML VIAL (Q9967) As Ordered (20:04)
[2017-09-08 20:44] LABS: HEMATOCRIT 26.3 % (36.0-47.0); HEMOGLOBIN 8.6 g/dl (12.0-16.0); MEAN CORPUSCULAR HEMOGLOBIN 34.3 pg (27.0-33.0); MEAN CORPUSCULAR HGB CONC 32.7 g/dl (32.0-36.5); MEAN CORPUSCULAR VOLUME 104.8 fl (80.0-96.0); RED BLOOD COUNT 2.51 10^6/uL (4.00-5.40); RED CELL DISTRIBUTION WIDTH 14.1 % (11.5-14.5); WHITE BLOOD COUNT 12.9 10^3/uL (4.0-10.0)
[2017-09-08 20:48] LABS: PLATELET COUNT, AUTOMATED 95 10^3/uL (150-450)
[2017-09-08 20:49] LABS: IMMATURE PLATELET FRACTION % 4.1 % (0.0-9.6)
[2017-09-08 20:53] LABS: INR 2.45; PROTHROMBIN TIME 27.6 SECONDS (12.4-14.5)
[2017-09-08 20:54] LABS: PARTIAL THROMBOPLASTIN TIME 56.3 SECONDS (26.8-37.9)
[2017-09-08 21:10] LABS: ALBUMIN 2.1 GM/DL (3.2-5.2); ALBUMIN/GLOBULIN RATIO 0.51 (1.00-1.93); ALKALINE PHOSPHATASE 81 U/L (45-117); ALT/SGPT 15 U/L (12-78); ANION GAP 10 MEQ/L (8-16); AST/SGOT 17 U/L (7-37); BILIRUBIN,TOTAL 1.3 MG/DL (0.2-1.0); BLOOD UREA NITROGEN 6 MG/DL (7-18); CARBON DIOXIDE LEVEL 26 MEQ/L (21-32); CHLORIDE LEVEL 100 MEQ/L (98-107); CREATININE FOR GFR 0.46 MG/DL (0.55-1.30); GLOMERULAR FILTRATION RATE > 60.0 (>51); GLUCOSE, FASTING 84 MG/DL (70-100); POTASSIUM SERUM 4.6 MEQ/L (3.5-5.1); SODIUM LEVEL 136 MEQ/L (136-145); TOTAL PROTEIN 6.2 GM/DL (6.4-8.2)
[2017-09-08 21:46] LABS: ABG BASE EXCESS 0.8 (-2.0-2.0); ABG HCO3 25.5 MEQ/L (22.0-26.0); ABG O2 SATURATION 86.2 % (95.0-99.0); ABG PARTIAL PRESSURE CO2 41.5 mmHg (35.0-45.0); ABG PARTIAL PRESSURE O2 54.3 mmHg (75.0-100.0); ABG TOTAL CO2 26.8 MEQ/L (22.0-29.0); ABG pH (ARTERIAL) 7.407 UNITS (7.350-7.450)
[2017-09-08] MEDS: PANTOPRAZOLE 40MG INJ (PROTONIX) (C9113) IV (22:50)
[2017-09-08] MEDS: PHYTONADIONE 10MG/ML INJECTION (J3430) SC (22:50)
[2017-09-09] LABS: HEMOGLOBIN 9.3 g/dl (12.0-16.0); MEAN CORPUSCULAR HEMOGLOBIN 34.6 pg (27.0-33.0); MEAN CORPUSCULAR HGB CONC 33.2 g/dl (32.0-36.5); MEAN CORPUSCULAR VOLUME 104.1 fl (80.0-96.0); RED BLOOD COUNT 2.69 10^6/uL (4.00-5.40); RED CELL DISTRIBUTION WIDTH 14.2 % (11.5-14.5); WHITE BLOOD COUNT 14.2 10^3/uL (4.0-10.0)
[2017-09-09 00:01] LABS: PLATELET COUNT, AUTOMATED 68 10^3/uL (150-450)
[2017-09-09] MEDS: PIPERACILLIN/TAZOBACTAM SOD 3.375 GM in APPROPRIATE DILUENT 1 EA IV ×4 (00:27→17:35)
[2017-09-09] MEDS: KCL 20MEQ IN 0.45NS 1000ML 1,000 ML IV ×2 (02:52→14:17)
[2017-09-09 04:48] LABS: HEMATOCRIT 19.4 % (36.0-47.0); MEAN CORPUSCULAR HEMOGLOBIN 35.5 pg (27.0-33.0); MEAN CORPUSCULAR HGB CONC 33.5 g/dl (32.0-36.5); RED BLOOD COUNT 1.83 10^6/uL (4.00-5.40); RED CELL DISTRIBUTION WIDTH 14.3 % (11.5-14.5); WHITE BLOOD COUNT 10.4 10^3/uL (4.0-10.0)
[2017-09-09 04:52] LABS: HEMOGLOBIN 6.5 g/dl (12.0-16.0); PLATELET COUNT, AUTOMATED 63 10^3/uL (150-450)
[2017-09-09 04:59] LABS: INR 1.55
[2017-09-09 05:00] LABS: PARTIAL THROMBOPLASTIN TIME 46.3 SECONDS (26.8-37.9)
[2017-09-09 05:20] LABS: ALBUMIN 2.2 GM/DL (3.2-5.2); ALBUMIN/GLOBULIN RATIO 0.65 (1.00-1.93); ALKALINE PHOSPHATASE 74 U/L (45-117); ALT/SGPT 10 U/L (12-78); ANION GAP 9 MEQ/L (8-16); AST/SGOT 17 U/L (7-37); BILIRUBIN,TOTAL 1.7 MG/DL (0.2-1.0); BLOOD UREA NITROGEN 5 MG/DL (7-18); CALCIUM LEVEL 7.8 MG/DL (8.5-10.1); CARBON DIOXIDE LEVEL 28 MEQ/L (21-32); CHLORIDE LEVEL 99 MEQ/L (98-107); CREATININE FOR GFR 0.53 MG/DL (0.55-1.30); GLOMERULAR FILTRATION RATE > 60.0 (>51); GLUCOSE, FASTING 89 MG/DL (70-100); POTASSIUM SERUM 4.4 MEQ/L (3.5-5.1); SODIUM LEVEL 136 MEQ/L (136-145); TOTAL PROTEIN 5.6 GM/DL (6.4-8.2)
[2017-09-09] MEDS ORDERED: PILL CRUSHER/CUTTER 1 EACH XX (06:15)
[2017-09-09] MEDS: LEVOTHYROXINE 50MCG TABLET (0.05MG) PO (06:26)
[2017-09-09 08:50] LABS: ABO/RH TYPE 1 1
[2017-09-09] MEDS: SERTRALINE HCL 25 MG TABLET PO (08:53)
[2017-09-09] MEDS: PANTOPRAZOLE 40MG INJ (PROTONIX) (C9113) IV ×2 (08:54→20:41)
[2017-09-09] MEDS: THIAMINE HCL 200 MG/2 ML VIAL (J3411) IV (08:54)
[2017-09-09 10:37] LABS: HEMATOCRIT 24.2 % (36.0-47.0); HEMOGLOBIN 8.2 g/dl (12.0-16.0); MEAN CORPUSCULAR HGB CONC 33.9 g/dl (32.0-36.5); MEAN CORPUSCULAR VOLUME 100.4 fl (80.0-96.0); RED BLOOD COUNT 2.41 10^6/uL (4.00-5.40); RED CELL DISTRIBUTION WIDTH 16.4 % (11.5-14.5); WHITE BLOOD COUNT 10.8 10^3/uL (4.0-10.0)
[2017-09-09 11:07] LABS: IMMEDIATE SPIN CROSSMATCH 1 2
[2017-09-09 11:19] LABS: PLATELET COUNT, AUTOMATED 63 10^3/uL (150-450)
[2017-09-09] MEDS ORDERED: SODIUM CHLORIDE 0.9% INJ 10 ML SYR IV (15:45)
[2017-09-09 16:35] LABS: HEMATOCRIT 28.7 % (36.0-47.0); HEMOGLOBIN 9.7 g/dl (12.0-16.0); MEAN CORPUSCULAR HEMOGLOBIN 33.1 pg (27.0-33.0); MEAN CORPUSCULAR HGB CONC 33.8 g/dl (32.0-36.5); RED BLOOD COUNT 2.93 10^6/uL (4.00-5.40); RED CELL DISTRIBUTION WIDTH 16.9 % (11.5-14.5); WHITE BLOOD COUNT 10.2 10^3/uL (4.0-10.0)
[2017-09-09 16:50] LABS: PLATELET COUNT, AUTOMATED 56 10^3/uL (150-450)
[2017-09-09] MEDS: SODIUM CHLORIDE 0.9% INJ 10 ML SYR IV (22:00)
[2017-09-10 00:09] LABS: ANA (HEP2) Negative (.)
[2017-09-10] MEDS: KCL 20MEQ IN 0.45NS 1000ML 1,000 ML IV ×4 (02:09→15:32)
[2017-09-10] MEDS: PIPERACILLIN/TAZOBACTAM SOD 3.375 GM in APPROPRIATE DILUENT 1 EA IV ×4 (02:09→17:37)
[2017-09-10 02:59] LABS: HEMATOCRIT 26.1 % (36.0-47.0); HEMOGLOBIN 8.8 g/dl (12.0-16.0); MEAN CORPUSCULAR HGB CONC 33.7 g/dl (32.0-36.5); MEAN CORPUSCULAR VOLUME 97.8 fl (80.0-96.0); RED BLOOD COUNT 2.67 10^6/uL (4.00-5.40); RED CELL DISTRIBUTION WIDTH 17.2 % (11.5-14.5); WHITE BLOOD COUNT 8.8 10^3/uL (4.0-10.0)
[2017-09-10 03:01] LABS: PLATELET COUNT, AUTOMATED 49 10^3/uL (150-450)
[2017-09-10 03:25] LABS: ALBUMIN 2.1 GM/DL (3.2-5.2); ALBUMIN/GLOBULIN RATIO 0.58 (1.00-1.93); ALKALINE PHOSPHATASE 79 U/L (45-117); ALT/SGPT 11 U/L (12-78); ANION GAP 9 MEQ/L (8-16); AST/SGOT 21 U/L (7-37); BILIRUBIN,TOTAL 2.4 MG/DL (0.2-1.0); BLOOD UREA NITROGEN 4 MG/DL (7-18); CALCIUM LEVEL 7.6 MG/DL (8.5-10.1); CARBON DIOXIDE LEVEL 29 MEQ/L (21-32); CHLORIDE LEVEL 99 MEQ/L (98-107); CHOLESTEROL LEVEL 105 MG/DL (< 200); CPK CREATINE PHOSPHOKINASE 21 U/L (26-192); CREATININE FOR GFR 0.42 MG/DL (0.55-1.30); GLOMERULAR FILTRATION RATE > 60.0 (>51); GLUCOSE, FASTING 70 MG/DL (70-100); LDH LACTATE DEHYDROGENASE 165 U/L (84-246); MAGNESIUM LEVEL 2.1 MG/DL (1.8-2.4); PHOSPHORUS LEVEL 1.5 MG/DL (2.5-4.9); POTASSIUM SERUM 4.1 MEQ/L (3.5-5.1); SODIUM LEVEL 137 MEQ/L (136-145); TOTAL PROTEIN 5.7 GM/DL (6.4-8.2); TRIGLYCERIDES LEVEL 94 MG/DL (<150)
[2017-09-10] MEDS: SODIUM CHLORIDE 0.9% INJ 10 ML SYR IV ×3 (05:58→19:51)
[2017-09-10] MEDS: PANTOPRAZOLE 40MG INJ (PROTONIX) (C9113) IV ×2 (08:44→19:50)
[2017-09-10] MEDS: LEVOTHYROXINE 100 MCG (0.1MG) VIAL IV (08:44)
[2017-09-10] MEDS: SERTRALINE HCL 25 MG TABLET PO (08:44)
[2017-09-10] MEDS: THIAMINE HCL 200 MG/2 ML VIAL (J3411) IV (08:45)
[2017-09-10 10:13] LABS: HEMATOCRIT 27.2 % (36.0-47.0); HEMOGLOBIN 9.2 g/dl (12.0-16.0); MEAN CORPUSCULAR HEMOGLOBIN 33.2 pg (27.0-33.0); MEAN CORPUSCULAR HGB CONC 33.8 g/dl (32.0-36.5); MEAN CORPUSCULAR VOLUME 98.2 fl (80.0-96.0); RED BLOOD COUNT 2.77 10^6/uL (4.00-5.40); RED CELL DISTRIBUTION WIDTH 16.8 % (11.5-14.5); WHITE BLOOD COUNT 9.7 10^3/uL (4.0-10.0)
[2017-09-10 10:17] LABS: PLATELET COUNT, AUTOMATED 48 10^3/uL (150-450)
[2017-09-10] MEDS: HALOPERIDOL 1 MG TAB PO (17:37)
[2017-09-10 19:01] LABS: HEMATOCRIT 27.8 % (36.0-47.0); HEMOGLOBIN 9.4 g/dl (12.0-16.0); MEAN CORPUSCULAR HEMOGLOBIN 33.2 pg (27.0-33.0); MEAN CORPUSCULAR HGB CONC 33.8 g/dl (32.0-36.5); MEAN CORPUSCULAR VOLUME 98.2 fl (80.0-96.0); RED BLOOD COUNT 2.83 10^6/uL (4.00-5.40); RED CELL DISTRIBUTION WIDTH 16.5 % (11.5-14.5); WHITE BLOOD COUNT 10.6 10^3/uL (4.0-10.0)
[2017-09-10 19:02] LABS: PLATELET COUNT, AUTOMATED 51 10^3/uL (150-450)
[2017-09-10] MEDS: HALOPERIDOL 5 MG/ML VIAL (J1630) IM (19:50)
[2017-09-11] MEDS: PIPERACILLIN/TAZOBACTAM SOD 3.375 GM in APPROPRIATE DILUENT 1 EA IV ×5 (00:18→23:49)
[2017-09-11] MEDS: HALOPERIDOL 5 MG/ML VIAL (J1630) IM ×2 (00:30→20:45)
[2017-09-11] MEDS: KCL 20MEQ IN 0.45NS 1000ML 1,000 ML IV (00:30)
[2017-09-11] MEDS: SODIUM CHLORIDE 0.9% INJ 10 ML SYR IV ×3 (05:20→17:50)
[2017-09-11 05:40] LABS: INR 1.08; PROTHROMBIN TIME 14.1 SECONDS (12.4-14.5)
[2017-09-11 05:41] LABS: PARTIAL THROMBOPLASTIN TIME 38.8 SECONDS (26.8-37.9)
[2017-09-11 09:06] LABS: ANION GAP 15 MEQ/L (8-16); BLOOD UREA NITROGEN 5 MG/DL (7-18); CARBON DIOXIDE LEVEL 24 MEQ/L (21-32); CHLORIDE LEVEL 96 MEQ/L (98-107); CREATININE FOR GFR 0.45 MG/DL (0.55-1.30); GLOMERULAR FILTRATION RATE > 60.0 (>51); GLUCOSE, FASTING 60 MG/DL (70-100); POTASSIUM SERUM 4.5 MEQ/L (3.5-5.1); SODIUM LEVEL 135 MEQ/L (136-145)
[2017-09-11 09:07] LABS: ALBUMIN 2.1 GM/DL (3.2-5.2); ALBUMIN/GLOBULIN RATIO 0.54 (1.00-1.93); ALKALINE PHOSPHATASE 96 U/L (45-117); ALT/SGPT 12 U/L (12-78); AST/SGOT 28 U/L (7-37); BILIRUBIN,TOTAL 2.2 MG/DL (0.2-1.0); CHOLESTEROL LEVEL 115 MG/DL (< 200); CPK CREATINE PHOSPHOKINASE 27 U/L (26-192); LDH LACTATE DEHYDROGENASE 260 U/L (84-246); MAGNESIUM LEVEL 1.9 MG/DL (1.8-2.4); PHOSPHORUS LEVEL 2.1 MG/DL (2.5-4.9); TRIGLYCERIDES LEVEL 125 MG/DL (<150)
[2017-09-11] MEDS: LEVOTHYROXINE 100 MCG (0.1MG) VIAL IV (09:53)
[2017-09-11] MEDS: THIAMINE HCL 200 MG/2 ML VIAL (J3411) IV (09:54)
[2017-09-11] MEDS: PANTOPRAZOLE 40MG INJ (PROTONIX) (C9113) IV ×2 (09:54→20:45)
[2017-09-11] MEDS: SERTRALINE HCL 25 MG TABLET PO (09:54)
[2017-09-11 10:34] LABS: HEPATITIS B SURFACE ANTIGEN NEGATIVE (NEGATIVE)
[2017-09-11] MEDS: ONDANSETRON 4MG/2ML VIAL (J2405) IV (11:28)
[2017-09-11] MEDS: KCL 20MEQ IN D5/NS 1000ML 1,000 ML IV ×2 (11:45→16:57)
[2017-09-11 12:01] LABS: BEDSIDE GLUCOSE 78 MG/DL (70-105)
[2017-09-11 12:34] LABS: HEMATOCRIT 28.2 % (36.0-47.0); HEMOGLOBIN 9.4 g/dl (12.0-16.0); MEAN CORPUSCULAR HEMOGLOBIN 32.9 pg (27.0-33.0); MEAN CORPUSCULAR HGB CONC 33.3 g/dl (32.0-36.5); MEAN CORPUSCULAR VOLUME 98.6 fl (80.0-96.0); RED BLOOD COUNT 2.86 10^6/uL (4.00-5.40); RED CELL DISTRIBUTION WIDTH 15.9 % (11.5-14.5); WHITE BLOOD COUNT 9.6 10^3/uL (4.0-10.0)
[2017-09-11 12:35] LABS: PLATELET COUNT, AUTOMATED 54 10^3/uL (150-450)
[2017-09-11 12:36] LABS: IMMATURE PLATELET FRACTION % 9.1 % (0.0-9.6)
[2017-09-11] MEDS: MULTIVITAMIN -ADULT INJECTION 10 ML, CR/CU/SE/MN/ZN INJ 1 ML in AMINO AC/ELECTROLYTE/DE... IV (17:49)
[2017-09-12] MEDS: SODIUM CHLORIDE 0.9% INJ 10 ML SYR IV ×2 (05:34→18:10)
[2017-09-12] MEDS: PIPERACILLIN/TAZOBACTAM SOD 3.375 GM in APPROPRIATE DILUENT 1 EA IV ×4 (05:37→23:59)
[2017-09-12 05:39] LABS: BASO % 0.2 % (0.0-1.0); EOS # 0.1 10^3/uL (0.0-0.50); HEMATOCRIT 27.3 % (36.0-47.0); IMMATURE GRANULOCYTE % 1.9 % (0-3.0); LYMPH # 0.7 10^3/uL (1.5-4.5); LYMPH % 8.5 % (24.0-44.0); MEAN CORPUSCULAR HEMOGLOBIN 32.5 pg (27.0-33.0); MEAN CORPUSCULAR VOLUME 98.6 fl (80.0-96.0); MONO # 0.9 10^3/uL (0.0-0.8); MONO % 10.2 % (0.0-5.0); NEUTROPHILS # 6.5 10^3/uL (1.8-7.7); NEUTROPHILS % 78.2 % (36.0-66.0); RED BLOOD COUNT 2.77 10^6/uL (4.00-5.40); RED CELL DISTRIBUTION WIDTH 15.4 % (11.5-14.5); WHITE BLOOD COUNT 8.3 10^3/uL (4.0-10.0)
[2017-09-12 05:49] LABS: PROTHROMBIN TIME 14.4 SECONDS (12.4-14.5)
[2017-09-12 05:50] LABS: PARTIAL THROMBOPLASTIN TIME 39.1 SECONDS (26.8-37.9)
[2017-09-12 05:52] LABS: PLATELET COUNT, AUTOMATED 67 10^3/uL (150-450)
[2017-09-12 05:53] LABS: REASON FOR REVIEW ANEMIA / RBC MORPH; SLIDE REVIEW Report; SOURCE PERIPHERAL SMEAR
[2017-09-12 05:54] LABS: AMMONIA 20 uMOL/L (<32)
[2017-09-12 05:56] LABS: ALBUMIN/GLOBULIN RATIO 0.48 (1.00-1.93); ALKALINE PHOSPHATASE 88 U/L (45-117); ALT/SGPT 11 U/L (12-78); ANION GAP 8 MEQ/L (8-16); AST/SGOT 24 U/L (7-37); BILIRUBIN,DIRECT 1.3 MG/DL (0.0-0.2); BLOOD UREA NITROGEN 6 MG/DL (7-18); CARBON DIOXIDE LEVEL 29 MEQ/L (21-32); CHLORIDE LEVEL 100 MEQ/L (98-107); CREATININE FOR GFR 0.58 MG/DL (0.55-1.30); GAMMA GLUTAMYLTRANSPEPTIDASE 45 U/L (5-55); GLOMERULAR FILTRATION RATE > 60.0 (>51); GLUCOSE, FASTING 165 MG/DL (70-100); LDH LACTATE DEHYDROGENASE 201 U/L (84-246); POTASSIUM SERUM 3.7 MEQ/L (3.5-5.1); SODIUM LEVEL 137 MEQ/L (136-145); TOTAL PROTEIN 6.2 GM/DL (6.4-8.2)
[2017-09-12] MEDS: KCL 20MEQ IN D5/NS 1000ML 1,000 ML IV ×2 (05:58→23:59)
[2017-09-12] MEDS: LEVOTHYROXINE 100 MCG (0.1MG) VIAL IV (08:59)
[2017-09-12] MEDS: THIAMINE HCL 200 MG/2 ML VIAL (J3411) IV (09:00)
[2017-09-12] MEDS: PANTOPRAZOLE 40MG INJ (PROTONIX) (C9113) IV ×2 (09:00→19:52)
[2017-09-12] MEDS: SERTRALINE HCL 25 MG TABLET PO (09:00)
[2017-09-12] MEDS ORDERED: AMINO AC/ELECTROLYTE/DEX/CALC 2,000 ML IV (18:00)
[2017-09-12] MEDS: AMINO AC/ELECTROLYTE/DEX/CALC 1,000 ML IV (18:09)
[2017-09-13] MEDS: SODIUM CHLORIDE 0.9% INJ 10 ML SYR IV ×2 (05:17→18:05)
[2017-09-13] MEDS: PIPERACILLIN/TAZOBACTAM SOD 3.375 GM in APPROPRIATE DILUENT 1 EA IV ×4 (05:17→23:34)
[2017-09-13 05:24] LABS: HEMOGLOBIN 8.4 g/dl (12.0-16.0); MEAN CORPUSCULAR HEMOGLOBIN 32.1 pg (27.0-33.0); MEAN CORPUSCULAR HGB CONC 32.3 g/dl (32.0-36.5); MEAN CORPUSCULAR VOLUME 99.2 fl (80.0-96.0); RED BLOOD COUNT 2.62 10^6/uL (4.00-5.40); RED CELL DISTRIBUTION WIDTH 15.2 % (11.5-14.5); WHITE BLOOD COUNT 7.7 10^3/uL (4.0-10.0)
[2017-09-13 05:32] LABS: PLATELET COUNT, AUTOMATED 76 10^3/uL (150-450)
[2017-09-13 05:33] LABS: IMMATURE PLATELET FRACTION % 8.7 % (0.0-9.6)
[2017-09-13 05:37] LABS: INR 1.12; PROTHROMBIN TIME 14.6 SECONDS (12.4-14.5)
[2017-09-13 05:38] LABS: PARTIAL THROMBOPLASTIN TIME 39.2 SECONDS (26.8-37.9)
[2017-09-13 05:48] LABS: ALBUMIN 1.8 GM/DL (3.2-5.2); ALBUMIN/GLOBULIN RATIO 0.42 (1.00-1.93); ALKALINE PHOSPHATASE 85 U/L (45-117); ALT/SGPT 14 U/L (12-78); ANION GAP 6 MEQ/L (8-16); AST/SGOT 30 U/L (7-37); BLOOD UREA NITROGEN 6 MG/DL (7-18); CARBON DIOXIDE LEVEL 28 MEQ/L (21-32); CHLORIDE LEVEL 102 MEQ/L (98-107); CHOLESTEROL LEVEL 107 MG/DL (< 200); CPK CREATINE PHOSPHOKINASE 25 U/L (26-192); CREATININE FOR GFR 0.43 MG/DL (0.55-1.30); GLOMERULAR FILTRATION RATE > 60.0 (>51); GLUCOSE, FASTING 137 MG/DL (70-100); LDH LACTATE DEHYDROGENASE 203 U/L (84-246); MAGNESIUM LEVEL 1.9 MG/DL (1.8-2.4); PHOSPHORUS LEVEL 1.7 MG/DL (2.5-4.9); POTASSIUM SERUM 3.7 MEQ/L (3.5-5.1); SODIUM LEVEL 136 MEQ/L (136-145); TOTAL PROTEIN 6.1 GM/DL (6.4-8.2); TRIGLYCERIDES LEVEL 162 MG/DL (<150)
[2017-09-13 08:40] LABS: HAPTOGLOBIN 197 mg/dL (34-200)
[2017-09-13] MEDS: PANTOPRAZOLE 40MG INJ (PROTONIX) (C9113) IV ×2 (10:32→20:28)
[2017-09-13] MEDS: THIAMINE HCL 200 MG/2 ML VIAL (J3411) IV (10:33)
[2017-09-13] MEDS: SERTRALINE HCL 25 MG TABLET PO (10:33)
[2017-09-13] MEDS: LEVOTHYROXINE 100 MCG (0.1MG) VIAL IV (10:33)
[2017-09-13] MEDS ORDERED: [UNRECOGNIZED DRUG - MIXTURE] IV (18:00)
[2017-09-13] MEDS: KCL 20MEQ IN D5/NS 1000ML 1,000 ML IV (18:03)
[2017-09-13] MEDS: [UNRECOGNIZED DRUG - MIXTURE] IV (18:04)
[2017-09-13] MEDS: HALOPERIDOL 1 MG TAB PO (20:28)
[2017-09-14] MEDS: HALOPERIDOL 1 MG TAB PO (02:42)
[2017-09-14] MEDS: PIPERACILLIN/TAZOBACTAM SOD 3.375 GM in APPROPRIATE DILUENT 1 EA IV ×4 (04:47→23:26)
[2017-09-14] MEDS: SODIUM CHLORIDE 0.9% INJ 10 ML SYR IV ×2 (04:49→17:27)
[2017-09-14 05:06] LABS: HEMATOCRIT 26.3 % (36.0-47.0); HEMOGLOBIN 8.6 g/dl (12.0-16.0); MEAN CORPUSCULAR HEMOGLOBIN 32.6 pg (27.0-33.0); MEAN CORPUSCULAR HGB CONC 32.7 g/dl (32.0-36.5); MEAN CORPUSCULAR VOLUME 99.6 fl (80.0-96.0); PLATELET COUNT, AUTOMATED 107 10^3/uL (150-450); RED BLOOD COUNT 2.64 10^6/uL (4.00-5.40); RED CELL DISTRIBUTION WIDTH 15.1 % (11.5-14.5); WHITE BLOOD COUNT 7.9 10^3/uL (4.0-10.0)
[2017-09-14 05:25] LABS: AMMONIA 24 uMOL/L (<32)
[2017-09-14 05:29] LABS: ALBUMIN 1.8 GM/DL (3.2-5.2); ALBUMIN/GLOBULIN RATIO 0.42 (1.00-1.93); ALKALINE PHOSPHATASE 78 U/L (45-117); ALT/SGPT 13 U/L (12-78); ANION GAP 7 MEQ/L (8-16); AST/SGOT 25 U/L (7-37); BILIRUBIN,TOTAL 1.4 MG/DL (0.2-1.0); BLOOD UREA NITROGEN 6 MG/DL (7-18); CALCIUM LEVEL 7.8 MG/DL (8.5-10.1); CARBON DIOXIDE LEVEL 26 MEQ/L (21-32); CHLORIDE LEVEL 102 MEQ/L (98-107); CHOLESTEROL LEVEL 96 MG/DL (< 200); CPK CREATINE PHOSPHOKINASE 27 U/L (26-192); CREATININE FOR GFR 0.35 MG/DL (0.55-1.30); GLOMERULAR FILTRATION RATE > 60.0 (>51); GLUCOSE, FASTING 103 MG/DL (70-100); LDH LACTATE DEHYDROGENASE 210 U/L (84-246); PHOSPHORUS LEVEL 2.4 MG/DL (2.5-4.9); POTASSIUM SERUM 3.7 MEQ/L (3.5-5.1); SODIUM LEVEL 135 MEQ/L (136-145); TOTAL PROTEIN 6.1 GM/DL (6.4-8.2); TRIGLYCERIDES LEVEL 155 MG/DL (<150)
[2017-09-14] MEDS: KCL 20MEQ IN D5/NS 1000ML 1,000 ML IV (08:26)
[2017-09-14] MEDS: PANTOPRAZOLE 40MG INJ (PROTONIX) (C9113) IV ×2 (08:59→23:17)
[2017-09-14] MEDS: THIAMINE HCL 200 MG/2 ML VIAL (J3411) IV (08:59)
[2017-09-14] MEDS: LEVOTHYROXINE 100 MCG (0.1MG) VIAL IV (08:59)
[2017-09-14] MEDS: ACETAMINOPHEN TAB 650MG DOSE (2X325MG) PO (09:00)
[2017-09-14] MEDS: SERTRALINE HCL 25 MG TABLET PO (09:00)
[2017-09-14] MEDS: DEX IV (17:27)
[2017-09-14] MEDS: POTASSIUM PHOSPHATE IV (17:27)
[2017-09-14] MEDS: ELECTROLYTE IV (17:27)
[2017-09-14] MEDS: CALC IV (17:27)
[2017-09-14] MEDS: AMINO AC IV (17:27)
[2017-09-14] MEDS ORDERED: FAT EMULSION IV 20% 500 ML IV (18:00)
[2017-09-14] MEDS: EUCERIN 120GM CREAM TOP (23:17)
[2017-09-15 00:07] LABS: ADAMTS13 Activity 51.4 % (>66.8)
[2017-09-15] MEDS: KCL 20MEQ IN D5/NS 1000ML 1,000 ML IV ×2 (01:08→20:01)
[2017-09-15] MEDS: PIPERACILLIN/TAZOBACTAM SOD 3.375 GM in APPROPRIATE DILUENT 1 EA IV (05:49)
[2017-09-15] MEDS: SODIUM CHLORIDE 0.9% INJ 10 ML SYR IV ×2 (05:49→19:35)
[2017-09-15 06:02] LABS: HEMATOCRIT 26.4 % (36.0-47.0); HEMOGLOBIN 8.8 g/dl (12.0-16.0); MEAN CORPUSCULAR HEMOGLOBIN 32.4 pg (27.0-33.0); MEAN CORPUSCULAR HGB CONC 33.3 g/dl (32.0-36.5); MEAN CORPUSCULAR VOLUME 97.1 fl (80.0-96.0); PLATELET COUNT, AUTOMATED 152 10^3/uL (150-450); RED BLOOD COUNT 2.72 10^6/uL (4.00-5.40); RED CELL DISTRIBUTION WIDTH 15.2 % (11.5-14.5); WHITE BLOOD COUNT 10.3 10^3/uL (4.0-10.0)
[2017-09-15 06:03] LABS: RETIC HEMOGLOBIN EQUIVALENT 35.9 pg (24-36); RETICULOCYTE # 71.6 10^9/L (17-77); RETICULOCYTE % 2.7 % (0.5-1.5)
[2017-09-15 06:19] LABS: AMMONIA 12 uMOL/L (<32)
[2017-09-15 06:24] LABS: ALBUMIN 1.8 GM/DL (3.2-5.2); ALBUMIN/GLOBULIN RATIO 0.38 (1.00-1.93); ALKALINE PHOSPHATASE 82 U/L (45-117); ALT/SGPT 12 U/L (12-78); ANION GAP 7 MEQ/L (8-16); AST/SGOT 25 U/L (7-37); BILIRUBIN,TOTAL 1.3 MG/DL (0.2-1.0); BLOOD UREA NITROGEN 6 MG/DL (7-18); CALCIUM LEVEL 7.9 MG/DL (8.5-10.1); CARBON DIOXIDE LEVEL 26 MEQ/L (21-32); CHLORIDE LEVEL 101 MEQ/L (98-107); CHOLESTEROL LEVEL 86 MG/DL (< 200); CPK CREATINE PHOSPHOKINASE 24 U/L (26-192); CREATININE FOR GFR 0.33 MG/DL (0.55-1.30); GLOMERULAR FILTRATION RATE > 60.0 (>51); GLUCOSE, FASTING 89 MG/DL (70-100); LDH LACTATE DEHYDROGENASE 235 U/L (84-246); MAGNESIUM LEVEL 1.7 MG/DL (1.8-2.4); PHOSPHORUS LEVEL 3.6 MG/DL (2.5-4.9); POTASSIUM SERUM 4.1 MEQ/L (3.5-5.1); SODIUM LEVEL 134 MEQ/L (136-145); TOTAL PROTEIN 6.5 GM/DL (6.4-8.2); TRIGLYCERIDES LEVEL 148 MG/DL (<150)
[2017-09-15] MEDS: PANTOPRAZOLE 40MG INJ (PROTONIX) (C9113) IV ×2 (09:59→20:00)
[2017-09-15] MEDS: LEVOTHYROXINE 100 MCG (0.1MG) VIAL IV (09:59)
[2017-09-15] MEDS: SERTRALINE HCL 25 MG TABLET PO (10:00)
[2017-09-15] MEDS: EUCERIN 120GM CREAM TOP ×2 (10:00→20:02)
[2017-09-15] MEDS: TRIAMCINOLONE ACET 0.1% CREAM 15 GM TOP ×2 (14:47→20:01)
[2017-09-15] MEDS: [UNRECOGNIZED DRUG - MIXTURE] IV (19:35)
[2017-09-15] MEDS: THIAMINE HCL 200 MG/2 ML VIAL (J3411) IV (19:53)
[2017-09-16 00:07] LABS: VITAMIN B1 LEVEL WHOLE BLOOD 31.7 nmol/L (66.5-200.0)
[2017-09-16 00:07] LABS: VITAMIN B6,PYRIDOXAL PHOSPHATE <1.0 ug/L (2.0-32.8)
[2017-09-16] MEDS: SODIUM CHLORIDE 0.9% INJ 10 ML SYR IV ×3 (04:43→17:10)
[2017-09-16 04:49] LABS: HEMATOCRIT 25.8 % (36.0-47.0); HEMOGLOBIN 8.4 g/dl (12.0-16.0); MEAN CORPUSCULAR HEMOGLOBIN 32.3 pg (27.0-33.0); MEAN CORPUSCULAR HGB CONC 32.6 g/dl (32.0-36.5); MEAN CORPUSCULAR VOLUME 99.2 fl (80.0-96.0); PLATELET COUNT, AUTOMATED 177 10^3/uL (150-450); RED CELL DISTRIBUTION WIDTH 15.7 % (11.5-14.5); WHITE BLOOD COUNT 11.4 10^3/uL (4.0-10.0)
[2017-09-16 05:13] LABS: ALBUMIN 1.7 GM/DL (3.2-5.2); ALBUMIN/GLOBULIN RATIO 0.37 (1.00-1.93); ALKALINE PHOSPHATASE 90 U/L (45-117); ALT/SGPT 17 U/L (12-78); ANION GAP 8 MEQ/L (8-16); AST/SGOT 42 U/L (7-37); BILIRUBIN,TOTAL 1.3 MG/DL (0.2-1.0); BLOOD UREA NITROGEN 7 MG/DL (7-18); CALCIUM LEVEL 7.9 MG/DL (8.5-10.1); CARBON DIOXIDE LEVEL 24 MEQ/L (21-32); CHLORIDE LEVEL 103 MEQ/L (98-107); CHOLESTEROL LEVEL 82 MG/DL (< 200); CPK CREATINE PHOSPHOKINASE 18 U/L (26-192); CREATININE FOR GFR 0.37 MG/DL (0.55-1.30); GLOMERULAR FILTRATION RATE > 60.0 (>51); GLUCOSE, FASTING 108 MG/DL (70-100); LDH LACTATE DEHYDROGENASE 244 U/L (84-246); MAGNESIUM LEVEL 2.1 MG/DL (1.8-2.4); PHOSPHORUS LEVEL 4.2 MG/DL (2.5-4.9); POTASSIUM SERUM 4.3 MEQ/L (3.5-5.1); SODIUM LEVEL 135 MEQ/L (136-145); TOTAL PROTEIN 6.3 GM/DL (6.4-8.2); TRIGLYCERIDES LEVEL 127 MG/DL (<150)
[2017-09-16] MEDS: SERTRALINE HCL 25 MG TABLET PO (09:19)
[2017-09-16] MEDS: PANTOPRAZOLE 40MG INJ (PROTONIX) (C9113) IV ×2 (09:20→21:57)
[2017-09-16] MEDS: LEVOTHYROXINE 100 MCG (0.1MG) VIAL IV (09:20)
[2017-09-16] MEDS: EUCERIN 120GM CREAM TOP ×2 (09:26→21:57)
[2017-09-16] MEDS: TRIAMCINOLONE ACET 0.1% CREAM 15 GM TOP ×2 (09:27→21:58)
[2017-09-16] MEDS: KCL 20MEQ IN D5/NS 1000ML 1,000 ML IV (12:08)
[2017-09-16] MEDS: MAGNESIUM SULFATE IV (18:31)
[2017-09-16] MEDS: FAT EMULSION IV 20% 500 ML IV (18:31)
[2017-09-16] MEDS: [UNRECOGNIZED DRUG - OTHER] IV (18:31)
[2017-09-16] MEDS: POTASSIUM PHOSPHATE IV (18:31)
[2017-09-17] MEDS: KCL 20MEQ IN D5/NS 1000ML 1,000 ML IV ×2 (04:30→20:58)
[2017-09-17] MEDS: SODIUM CHLORIDE 0.9% INJ 10 ML SYR IV ×2 (04:54→16:18)
[2017-09-17 05:16] LABS: HEMOGLOBIN 8.1 g/dl (12.0-16.0); MEAN CORPUSCULAR HEMOGLOBIN 32.4 pg (27.0-33.0); MEAN CORPUSCULAR HGB CONC 32.4 g/dl (32.0-36.5); PLATELET COUNT, AUTOMATED 190 10^3/uL (150-450); RED CELL DISTRIBUTION WIDTH 15.9 % (11.5-14.5); WHITE BLOOD COUNT 11.8 10^3/uL (4.0-10.0)
[2017-09-17 05:38] LABS: ALBUMIN 1.7 GM/DL (3.2-5.2); ALBUMIN/GLOBULIN RATIO 0.35 (1.00-1.93); ALKALINE PHOSPHATASE 145 U/L (45-117); ALT/SGPT 27 U/L (12-78); ANION GAP 7 MEQ/L (8-16); AST/SGOT 81 U/L (7-37); BILIRUBIN,TOTAL 2.2 MG/DL (0.2-1.0); BLOOD UREA NITROGEN 9 MG/DL (7-18); CARBON DIOXIDE LEVEL 26 MEQ/L (21-32); CHLORIDE LEVEL 100 MEQ/L (98-107); GLOMERULAR FILTRATION RATE > 60.0 (>51); GLUCOSE, FASTING 111 MG/DL (70-100); POTASSIUM SERUM 4.5 MEQ/L (3.5-5.1); SODIUM LEVEL 133 MEQ/L (136-145); TOTAL PROTEIN 6.6 GM/DL (6.4-8.2)
[2017-09-17] MEDS: LEVOTHYROXINE 100 MCG (0.1MG) VIAL IV (08:46)
[2017-09-17] MEDS: PANTOPRAZOLE 40MG INJ (PROTONIX) (C9113) IV ×2 (08:46→20:57)
[2017-09-17] MEDS: SERTRALINE HCL 25 MG TABLET PO (08:47)
[2017-09-17] MEDS: EUCERIN 120GM CREAM TOP ×2 (08:48→20:57)
[2017-09-17] MEDS: TRIAMCINOLONE ACET 0.1% CREAM 15 GM TOP ×2 (08:48→20:57)
[2017-09-17] MEDS: HALOPERIDOL 1 MG TAB PO (15:18)
[2017-09-17] MEDS: POTASSIUM PHOSPHATE IV (17:10)
[2017-09-17] MEDS: [UNRECOGNIZED DRUG - OTHER] IV (17:10)
[2017-09-17] MEDS: FAT EMULSION IV 20% 500 ML IV (17:10)
[2017-09-17] MEDS: MAGNESIUM SULFATE IV (17:10)
[2017-09-17] MEDS: ONDANSETRON 4MG/2ML VIAL (J2405) IV (23:02)
[2017-09-18] MEDS: SODIUM CHLORIDE 0.9% INJ 10 ML SYR IV ×2 (05:17→17:56)
[2017-09-18 05:42] LABS: HEMATOCRIT 24.3 % (36.0-47.0); HEMOGLOBIN 7.8 g/dl (12.0-16.0); MEAN CORPUSCULAR HEMOGLOBIN 31.3 pg (27.0-33.0); MEAN CORPUSCULAR HGB CONC 32.1 g/dl (32.0-36.5); MEAN CORPUSCULAR VOLUME 97.6 fl (80.0-96.0); PLATELET COUNT, AUTOMATED 225 10^3/uL (150-450); RED BLOOD COUNT 2.49 10^6/uL (4.00-5.40); RED CELL DISTRIBUTION WIDTH 15.8 % (11.5-14.5); WHITE BLOOD COUNT 12.5 10^3/uL (4.0-10.0)
[2017-09-18 06:05] LABS: ALBUMIN 1.7 GM/DL (3.2-5.2); ALBUMIN/GLOBULIN RATIO 0.35 (1.00-1.93); ALKALINE PHOSPHATASE 138 U/L (45-117); ALT/SGPT 21 U/L (12-78); ANION GAP 8 MEQ/L (8-16); AST/SGOT 42 U/L (7-37); BILIRUBIN,TOTAL 1.2 MG/DL (0.2-1.0); BLOOD UREA NITROGEN 8 MG/DL (7-18); CARBON DIOXIDE LEVEL 26 MEQ/L (21-32); CHLORIDE LEVEL 99 MEQ/L (98-107); CREATININE FOR GFR 0.39 MG/DL (0.55-1.30); GLOMERULAR FILTRATION RATE > 60.0 (>51); GLUCOSE, FASTING 103 MG/DL (70-100); POTASSIUM SERUM 4.5 MEQ/L (3.5-5.1); SODIUM LEVEL 133 MEQ/L (136-145); TOTAL PROTEIN 6.5 GM/DL (6.4-8.2)
[2017-09-18] MEDS: PANTOPRAZOLE 40MG INJ (PROTONIX) (C9113) IV ×2 (09:45→22:00)
[2017-09-18] MEDS: LEVOTHYROXINE 100 MCG (0.1MG) VIAL IV (09:45)
[2017-09-18] MEDS: SERTRALINE HCL 25 MG TABLET PO (09:46)
[2017-09-18] MEDS: EUCERIN 120GM CREAM TOP ×2 (09:47→22:01)
[2017-09-18] MEDS: TRIAMCINOLONE ACET 0.1% CREAM 15 GM TOP ×2 (09:47→22:08)
[2017-09-18] MEDS: KCL 20MEQ IN D5/NS 1000ML 1,000 ML IV (14:38)
[2017-09-18] MEDS: [UNRECOGNIZED DRUG - MIXTURE] IV (17:57)
[2017-09-18 19:52] LABS: IMMEDIATE SPIN CROSSMATCH 1 2
[2017-09-19] MEDS: SODIUM CHLORIDE 0.9% INJ 10 ML SYR IV ×4 (05:01→19:32)
[2017-09-19 05:48] LABS: ALBUMIN 1.8 GM/DL (3.2-5.2); ALBUMIN/GLOBULIN RATIO 0.38 (1.00-1.93); ALKALINE PHOSPHATASE 124 U/L (45-117); ALT/SGPT 21 U/L (12-78); ANION GAP 6 MEQ/L (8-16); AST/SGOT 37 U/L (7-37); BLOOD UREA NITROGEN 8 MG/DL (7-18); CALCIUM LEVEL 8.1 MG/DL (8.5-10.1); CARBON DIOXIDE LEVEL 27 MEQ/L (21-32); CHLORIDE LEVEL 97 MEQ/L (98-107); CREATININE FOR GFR 0.45 MG/DL (0.55-1.30); GLOMERULAR FILTRATION RATE > 60.0 (>51); GLUCOSE, FASTING 86 MG/DL (70-100); POTASSIUM SERUM 4.4 MEQ/L (3.5-5.1); SODIUM LEVEL 130 MEQ/L (136-145); TOTAL PROTEIN 6.6 GM/DL (6.4-8.2)
[2017-09-19] MEDS: SERTRALINE HCL 25 MG TABLET PO (08:44)
[2017-09-19] MEDS: KCL 20MEQ IN D5/NS 1000ML 1,000 ML IV ×2 (08:44→15:59)
[2017-09-19] MEDS: PANTOPRAZOLE 40MG INJ (PROTONIX) (C9113) IV ×2 (08:44→20:36)
[2017-09-19] MEDS: TRIAMCINOLONE ACET 0.1% CREAM 15 GM TOP ×2 (08:45→20:38)
[2017-09-19] MEDS: EUCERIN 120GM CREAM TOP ×2 (08:45→20:39)
[2017-09-19] MEDS: LEVOTHYROXINE 100 MCG (0.1MG) VIAL IV (08:45)
[2017-09-19] MEDS: NS 1,000 ML IV (10:18)
[2017-09-19 10:45] LABS: HEMATOCRIT 29.6 % (36.0-47.0); HEMOGLOBIN 9.3 g/dl (12.0-16.0); MEAN CORPUSCULAR HEMOGLOBIN 31.3 pg (27.0-33.0); MEAN CORPUSCULAR HGB CONC 31.4 g/dl (32.0-36.5); MEAN CORPUSCULAR VOLUME 99.7 fl (80.0-96.0); PLATELET COUNT, AUTOMATED 184 10^3/uL (150-450); RED BLOOD COUNT 2.97 10^6/uL (4.00-5.40); RED CELL DISTRIBUTION WIDTH 16.5 % (11.5-14.5); WHITE BLOOD COUNT 9.5 10^3/uL (4.0-10.0)
[2017-09-19] MEDS: VITAMIN B COMPLEX/VIT C CAP PO (15:59)
[2017-09-19] MEDS: FOLIC ACID 1 MG TAB PO (15:59)
[2017-09-19] MEDS: MAGNESIUM SULFATE IV (18:23)
[2017-09-19] MEDS: POTASSIUM PHOSPHATE IV (18:23)
[2017-09-19] MEDS: [UNRECOGNIZED DRUG - OTHER] IV (18:23)
[2017-09-19] MEDS: LORazepam 1 MG TAB PO (18:38)
[2017-09-19] MEDS: NS IV (20:36)
[2017-09-19] MEDS: THIAMINE IV (20:36)
[2017-09-20] MEDS: HALOPERIDOL 5 MG/ML VIAL (J1630) IM (01:09)
[2017-09-20] MEDS: SODIUM CHLORIDE 0.9% INJ 10 ML SYR IV ×2 (05:43→17:59)
[2017-09-20 06:15] LABS: HEMATOCRIT 30.3 % (36.0-47.0); HEMOGLOBIN 10.1 g/dl (12.0-16.0); MEAN CORPUSCULAR HEMOGLOBIN 31.6 pg (27.0-33.0); MEAN CORPUSCULAR HGB CONC 33.3 g/dl (32.0-36.5); MEAN CORPUSCULAR VOLUME 94.7 fl (80.0-96.0); PLATELET COUNT, AUTOMATED 171 10^3/uL (150-450); RED CELL DISTRIBUTION WIDTH 15.5 % (11.5-14.5); WHITE BLOOD COUNT 9.4 10^3/uL (4.0-10.0)
[2017-09-20 06:37] LABS: ALBUMIN 1.8 GM/DL (3.2-5.2); ALBUMIN/GLOBULIN RATIO 0.35 (1.00-1.93); ALKALINE PHOSPHATASE 112 U/L (45-117); ALT/SGPT 15 U/L (12-78); ANION GAP 9 MEQ/L (8-16); AST/SGOT 42 U/L (7-37); BLOOD UREA NITROGEN 8 MG/DL (7-18); CARBON DIOXIDE LEVEL 24 MEQ/L (21-32); CHLORIDE LEVEL 97 MEQ/L (98-107); CREATININE FOR GFR 0.45 MG/DL (0.55-1.30); GLOMERULAR FILTRATION RATE > 60.0 (>51); GLUCOSE, FASTING 96 MG/DL (70-100); POTASSIUM SERUM 4.3 MEQ/L (3.5-5.1); SODIUM LEVEL 130 MEQ/L (136-145); TOTAL PROTEIN 6.9 GM/DL (6.4-8.2)
[2017-09-20] MEDS ORDERED: THIAMINE HCL 200 MG/2 ML VIAL (J3411) IV (09:00)
[2017-09-20] MEDS: LEVOTHYROXINE 100 MCG (0.1MG) VIAL IV (09:33)
[2017-09-20] MEDS: KCL 20MEQ IN D5/NS 1000ML 1,000 ML IV ×2 (09:33→22:38)
[2017-09-20] MEDS: NS IV ×3 (09:34→21:15)
[2017-09-20] MEDS: FOLIC ACID 1 MG TAB PO (09:34)
[2017-09-20] MEDS: PANTOPRAZOLE 40MG INJ (PROTONIX) (C9113) IV ×2 (09:34→21:15)
[2017-09-20] MEDS: VITAMIN B COMPLEX/VIT C CAP PO (09:34)
[2017-09-20] MEDS: SERTRALINE HCL 25 MG TABLET PO (09:34)
[2017-09-20] MEDS: THIAMINE IV ×3 (09:34→21:15)
[2017-09-20] MEDS: TRIAMCINOLONE ACET 0.1% CREAM 15 GM TOP ×2 (09:35→21:16)
[2017-09-20] MEDS: EUCERIN 120GM CREAM TOP ×2 (09:35→21:16)
[2017-09-20] MEDS: MULTIVITAMIN -ADULT INJECTION 10 ML, CR/CU/SE/MN/ZN INJ 1 ML in AMINO AC/ELECTROLYTE/DE... IV (17:52)
[2017-09-20] MEDS: FAT EMULSION IV 20% 500 ML IV (17:53)
[2017-09-20] MEDS: risperiDONE 0.25 MG TAB PO (21:15)
[2017-09-21] MEDS: SODIUM CHLORIDE 0.9% INJ 10 ML SYR IV ×2 (05:31→18:00)
[2017-09-21 05:48] LABS: HEMOGLOBIN 8.9 g/dl (12.0-16.0); MEAN CORPUSCULAR VOLUME 97.1 fl (80.0-96.0); PLATELET COUNT, AUTOMATED 129 10^3/uL (150-450); RED BLOOD COUNT 2.78 10^6/uL (4.00-5.40); RED CELL DISTRIBUTION WIDTH 15.4 % (11.5-14.5); WHITE BLOOD COUNT 7.1 10^3/uL (4.0-10.0)
[2017-09-21 06:04] LABS: ALBUMIN 1.6 GM/DL (3.2-5.2); ALBUMIN/GLOBULIN RATIO 0.35 (1.00-1.93); ALKALINE PHOSPHATASE 91 U/L (45-117); ALT/SGPT 19 U/L (12-78); ANION GAP 7 MEQ/L (8-16); AST/SGOT 56 U/L (7-37); BILIRUBIN,TOTAL 1.7 MG/DL (0.2-1.0); BLOOD UREA NITROGEN 9 MG/DL (7-18); CALCIUM LEVEL 7.6 MG/DL (8.5-10.1); CARBON DIOXIDE LEVEL 24 MEQ/L (21-32); CHLORIDE LEVEL 100 MEQ/L (98-107); CREATININE FOR GFR 0.47 MG/DL (0.55-1.30); GLOMERULAR FILTRATION RATE > 60.0 (>51); GLUCOSE, FASTING 131 MG/DL (70-100); SODIUM LEVEL 131 MEQ/L (136-145); TOTAL PROTEIN 6.2 GM/DL (6.4-8.2)
[2017-09-21] MEDS: VITAMIN B COMPLEX/VIT C CAP PO (10:02)
[2017-09-21] MEDS: LEVOTHYROXINE 100 MCG (0.1MG) VIAL IV (10:02)
[2017-09-21] MEDS: SERTRALINE HCL 25 MG TABLET PO (10:03)
[2017-09-21] MEDS: risperiDONE 0.25 MG TAB PO ×2 (10:03→21:00)
[2017-09-21] MEDS: FOLIC ACID 1 MG TAB PO (10:03)
[2017-09-21] MEDS: EUCERIN 120GM CREAM TOP ×2 (10:04→21:00)
[2017-09-21] MEDS: PANTOPRAZOLE 40MG INJ (PROTONIX) (C9113) IV ×2 (10:04→23:14)
[2017-09-21] MEDS: THIAMINE IV ×2 (10:04→16:00)
[2017-09-21] MEDS: NS IV ×2 (10:04→16:00)
[2017-09-21] MEDS: NYSTATIN CREAM 15 GM TOP ×2 (10:06→21:00)
[2017-09-21] MEDS: KCL 20MEQ IN D5/NS 1000ML 1,000 ML IV ×2 (10:09→23:14)
[2017-09-21] MEDS: TRIAMCINOLONE ACET 0.1% CREAM 15 GM TOP ×2 (10:09→21:00)
[2017-09-21] MEDS: FAT EMULSION IV 20% 500 ML IV (19:03)
[2017-09-21] MEDS: AMINO AC/ELECTROLYTE/DEX/CALC 2,000 ML IV (19:04)
[2017-09-22] MEDS: SODIUM CHLORIDE 0.9% INJ 10 ML SYR IV ×2 (06:00→17:42)
[2017-09-22 06:27] LABS: HEMATOCRIT 26.1 % (36.0-47.0); HEMOGLOBIN 8.9 g/dl (12.0-15.5); MEAN CORPUSCULAR HEMOGLOBIN 33.5 pg (27.0-33.0); MEAN CORPUSCULAR HGB CONC 34.1 g/dl (32.0-36.5); MEAN CORPUSCULAR VOLUME 98.1 fl (80.0-96.0); PLATELET COUNT, AUTOMATED 106 10^3/uL (150-450); RED BLOOD COUNT 2.66 10^6/uL (4.00-5.40); RED CELL DISTRIBUTION WIDTH 15.2 % (11.5-14.5); WHITE BLOOD COUNT 5.2 10^3/uL (4.0-10.0)
[2017-09-22 06:46] LABS: ALBUMIN 1.5 GM/DL (3.2-5.2); ALKALINE PHOSPHATASE 114 U/L (45-117); ALT/SGPT 42 U/L (12-78); ANION GAP 7 MEQ/L (8-16); AST/SGOT 96 U/L (7-37); BILIRUBIN,TOTAL 1.7 MG/DL (0.2-1.0); CALCIUM LEVEL 7.4 MG/DL (8.5-10.1); CARBON DIOXIDE LEVEL 24 MEQ/L (21-32); CHLORIDE LEVEL 98 MEQ/L (98-107); CREATININE FOR GFR 0.44 MG/DL (0.55-1.30); GLOMERULAR FILTRATION RATE > 60.0 (>51); GLUCOSE, FASTING 325 MG/DL (70-100); POTASSIUM SERUM 4.4 MEQ/L (3.5-5.1); SODIUM LEVEL 129 MEQ/L (136-145)
[2017-09-22 07:02] LABS: BLOOD UREA NITROGEN 9 MG/DL (7-18)
[2017-09-22 07:03] LABS: ALBUMIN/GLOBULIN RATIO 0.33 (1.00-1.93)
[2017-09-22] MEDS: EUCERIN 120GM CREAM TOP ×2 (09:00→21:36)
[2017-09-22] MEDS: SERTRALINE HCL 25 MG TABLET PO (09:00)
[2017-09-22] MEDS: FOLIC ACID 1 MG TAB PO (09:00)
[2017-09-22] MEDS: VITAMIN B COMPLEX/VIT C CAP PO (09:00)
[2017-09-22] MEDS: risperiDONE 0.25 MG TAB PO ×3 (09:00→21:00)
[2017-09-22] MEDS: TRIAMCINOLONE ACET 0.1% CREAM 15 GM TOP ×2 (10:21→21:36)
[2017-09-22] MEDS: LEVOTHYROXINE 100 MCG (0.1MG) VIAL IV (10:21)
[2017-09-22] MEDS: PANTOPRAZOLE 40MG INJ (PROTONIX) (C9113) IV ×2 (10:21→21:34)
[2017-09-22] MEDS: NYSTATIN CREAM 15 GM TOP ×2 (10:21→21:36)
[2017-09-22] MEDS: NS IV (12:16)
[2017-09-22] MEDS: THIAMINE IV (12:16)
[2017-09-22] MEDS: KCL 20MEQ IN D5/NS 1000ML 1,000 ML IV ×2 (12:16→21:37)
[2017-09-22 14:16] LABS: COPROPORPHYRIN I URINE 64 ug/L (0-15); COPROPORPHYRIN III URINE 29 ug/L (0-49); HEPTACARBOXYLPORPHYRIN URINE 1 ug/L (0-2); HEXACARBOXYLPORPHYRIN URINE <1 ug/L (0-1); PENTACARBOXYLPORPHYRIN URINE <1 ug/L (0-2); UROPORPHYRIN URINE 5 ug/L (0-20)
[2017-09-22 14:19] LABS: OSMOLALITY URINE 602 MOSM/KG (500-800)
[2017-09-22 14:35] LABS: OSMOLALITY SERUM 268 MOSM/KG (275-295)
[2017-09-22] MEDS: FAT EMULSION IV 20% 500 ML IV (17:58)
[2017-09-22] MEDS: MULTIVITAMIN -ADULT INJECTION 10 ML, CR/CU/SE/MN/ZN INJ 1 ML in AMINO AC/ELECTROLYTE/DE... IV (17:58)
[2017-09-23] MEDS: SODIUM CHLORIDE 0.9% INJ 10 ML SYR IV ×2 (00:02→17:37)
[2017-09-23] MEDS: KCL 20MEQ IN D5/NS 1000ML 1,000 ML IV ×3 (03:54→20:03)
[2017-09-23 06:57] LABS: HEMATOCRIT 27.3 % (36.0-47.0); HEMOGLOBIN 8.9 g/dl (12.0-15.5); MEAN CORPUSCULAR HEMOGLOBIN 31.9 pg (27.0-33.0); MEAN CORPUSCULAR HGB CONC 32.6 g/dl (32.0-36.5); MEAN CORPUSCULAR VOLUME 97.8 fl (80.0-96.0); RED BLOOD COUNT 2.79 10^6/uL (4.00-5.40); RED CELL DISTRIBUTION WIDTH 14.9 % (11.5-14.5); WHITE BLOOD COUNT 5.4 10^3/uL (4.0-10.0)
[2017-09-23 06:59] LABS: PLATELET COUNT, AUTOMATED 99 10^3/uL (150-450)
[2017-09-23 07:00] LABS: IMMATURE PLATELET FRACTION % 7.3 % (0.0-9.6)
[2017-09-23 07:18] LABS: ALBUMIN 1.5 GM/DL (3.2-5.2); ALBUMIN/GLOBULIN RATIO 0.29 (1.00-1.93); ALKALINE PHOSPHATASE 135 U/L (45-117); ALT/SGPT 38 U/L (12-78); ANION GAP 7 MEQ/L (8-16); AST/SGOT 72 U/L (7-37); BILIRUBIN,TOTAL 2.1 MG/DL (0.2-1.0); BLOOD UREA NITROGEN 7 MG/DL (7-18); CARBON DIOXIDE LEVEL 24 MEQ/L (21-32); CHLORIDE LEVEL 103 MEQ/L (98-107); CREATININE FOR GFR 0.35 MG/DL (0.55-1.30); GLOMERULAR FILTRATION RATE > 60.0 (>51); GLUCOSE, FASTING 124 MG/DL (70-100); POTASSIUM SERUM 3.5 MEQ/L (3.5-5.1); SODIUM LEVEL 134 MEQ/L (136-145); TOTAL PROTEIN 6.7 GM/DL (6.4-8.2)
[2017-09-23] MEDS: VITAMIN B COMPLEX/VIT C CAP PO (09:00)
[2017-09-23] MEDS: FOLIC ACID 1 MG TAB PO (09:00)
[2017-09-23] MEDS: SERTRALINE HCL 25 MG TABLET PO (09:00)
[2017-09-23] MEDS: risperiDONE 0.25 MG TAB PO ×2 (09:00→20:04)
[2017-09-23] MEDS: EUCERIN 120GM CREAM TOP ×2 (09:40→20:05)
[2017-09-23] MEDS: TRIAMCINOLONE ACET 0.1% CREAM 15 GM TOP ×2 (09:40→20:04)
[2017-09-23] MEDS: NYSTATIN CREAM 15 GM TOP ×2 (09:41→20:04)
[2017-09-23] MEDS: LEVOTHYROXINE 100 MCG (0.1MG) VIAL IV (10:00)
[2017-09-23] MEDS: PANTOPRAZOLE 40MG INJ (PROTONIX) (C9113) IV ×2 (10:00→21:04)
[2017-09-23] MEDS: THIAMINE IV (10:12)
[2017-09-23] MEDS: NS IV (10:12)
[2017-09-23 12:33] LABS: FIBROSPECT1 SEE SEPARATE REPORT
[2017-09-23] MEDS: FAT EMULSION IV 20% 500 ML IV (17:43)
[2017-09-23] MEDS: AMINO AC/ELECTROLYTE/DEX/CALC 2,000 ML IV (17:43)
[2017-09-24] MEDS: KCL 20MEQ IN D5/NS 1000ML 1,000 ML IV ×3 (02:46→21:30)
[2017-09-24] MEDS: SODIUM CHLORIDE 0.9% INJ 10 ML SYR IV ×2 (02:57→18:00)
[2017-09-24] MEDS: EUCERIN 120GM CREAM TOP ×2 (09:00→21:13)
[2017-09-24] MEDS: VITAMIN B COMPLEX/VIT C CAP PO (09:00)
[2017-09-24] MEDS: risperiDONE 0.25 MG TAB PO ×2 (09:00→21:00)
[2017-09-24] MEDS: NYSTATIN CREAM 15 GM TOP ×2 (09:00→21:12)
[2017-09-24] MEDS: FOLIC ACID 1 MG TAB PO (09:00)
[2017-09-24] MEDS: SERTRALINE HCL 25 MG TABLET PO (09:00)
[2017-09-24] MEDS: TRIAMCINOLONE ACET 0.1% CREAM 15 GM TOP ×2 (09:34→21:13)
[2017-09-24] MEDS: THIAMINE IV (11:16)
[2017-09-24] MEDS: NS IV (11:16)
[2017-09-24] MEDS: PANTOPRAZOLE 40MG INJ (PROTONIX) (C9113) IV ×2 (11:16→21:14)
[2017-09-24] MEDS: LEVOTHYROXINE 100 MCG (0.1MG) VIAL IV (11:17)
[2017-09-24 14:40] LABS: HEMATOCRIT 27.4 % (36.0-47.0); HEMOGLOBIN 8.8 g/dl (12.0-15.5); MEAN CORPUSCULAR HEMOGLOBIN 31.5 pg (27.0-33.0); MEAN CORPUSCULAR HGB CONC 32.1 g/dl (32.0-36.5); MEAN CORPUSCULAR VOLUME 98.2 fl (80.0-96.0); PLATELET COUNT, AUTOMATED 122 10^3/uL (150-450); RED BLOOD COUNT 2.79 10^6/uL (4.00-5.40); RED CELL DISTRIBUTION WIDTH 15.1 % (11.5-14.5); WHITE BLOOD COUNT 7.1 10^3/uL (4.0-10.0)
[2017-09-24 14:59] LABS: ANION GAP 5 MEQ/L (8-16); BLOOD UREA NITROGEN 5 MG/DL (7-18); CALCIUM LEVEL 7.9 MG/DL (8.5-10.1); CARBON DIOXIDE LEVEL 26 MEQ/L (21-32); CHLORIDE LEVEL 103 MEQ/L (98-107); CREATININE FOR GFR 0.27 MG/DL (0.55-1.30); GLOMERULAR FILTRATION RATE > 60.0 (>51); GLUCOSE, FASTING 91 MG/DL (70-100); SODIUM LEVEL 134 MEQ/L (136-145)
[2017-09-24] MEDS: FAT EMULSION IV 20% 500 ML IV (18:00)
[2017-09-24] MEDS: AMINO AC/ELECTROLYTE/DEX/CALC 2,000 ML IV (18:00)
[2017-09-25] MEDS: SODIUM CHLORIDE 0.9% INJ 10 ML SYR IV ×3 (05:06→18:07)
[2017-09-25] MEDS: KCL 20MEQ IN D5/NS 1000ML 1,000 ML IV (05:07)
[2017-09-25 05:29] LABS: HEMATOCRIT 27.3 % (36.0-47.0); HEMOGLOBIN 8.8 g/dl (12.0-15.5); MEAN CORPUSCULAR HEMOGLOBIN 31.5 pg (27.0-33.0); MEAN CORPUSCULAR HGB CONC 32.2 g/dl (32.0-36.5); MEAN CORPUSCULAR VOLUME 97.8 fl (80.0-96.0); PLATELET COUNT, AUTOMATED 135 10^3/uL (150-450); RED BLOOD COUNT 2.79 10^6/uL (4.00-5.40); RED CELL DISTRIBUTION WIDTH 15.2 % (11.5-14.5)
[2017-09-25 05:41] LABS: INR 1.05; PROTHROMBIN TIME 13.8 SECONDS (12.4-14.5)
[2017-09-25 06:05] LABS: ALBUMIN 1.5 GM/DL (3.2-5.2); ALKALINE PHOSPHATASE 139 U/L (45-117); ALT/SGPT 31 U/L (12-78); ANION GAP 6 MEQ/L (8-16); AST/SGOT 69 U/L (7-37); BILIRUBIN,TOTAL 1.9 MG/DL (0.2-1.0); BLOOD UREA NITROGEN 5 MG/DL (7-18); CALCIUM LEVEL 7.7 MG/DL (8.5-10.1); CARBON DIOXIDE LEVEL 28 MEQ/L (21-32); CHLORIDE LEVEL 99 MEQ/L (98-107); CREATININE FOR GFR 0.34 MG/DL (0.55-1.30); GLOMERULAR FILTRATION RATE > 60.0 (>51); GLUCOSE, FASTING 90 MG/DL (70-100); MAGNESIUM LEVEL 1.7 MG/DL (1.8-2.4); SODIUM LEVEL 133 MEQ/L (136-145); TOTAL PROTEIN 6.5 GM/DL (6.4-8.2)
[2017-09-25] MEDS ORDERED: FUROSEMIDE 20 MG/2 ML VIAL (J1940) As Ordered (09:13)
[2017-09-25] MEDS: FUROSEMIDE 40 MG/4 ML VIAL (J1940) IV ×3 (09:24→23:48)
[2017-09-25 10:05] LABS: ABG BASE EXCESS 3.1 (-2.0-2.0); ABG HCO3 27.4 MEQ/L (22.0-26.0); ABG O2 SATURATION 91.5 % (95.0-99.0); ABG PARTIAL PRESSURE CO2 40.8 mmHg (35.0-45.0); ABG PARTIAL PRESSURE O2 59.1 mmHg (75.0-100.0); ABG STANDARD HCO3 27.1 MEQ/L (22.0-26.0); ABG TOTAL CO2 28.7 MEQ/L (22.0-29.0); ABG pH (ARTERIAL) 7.445 UNITS (7.350-7.450)
[2017-09-25] MEDS: NYSTATIN CREAM 15 GM TOP ×2 (10:05→21:14)
[2017-09-25] MEDS: TRIAMCINOLONE ACET 0.1% CREAM 15 GM TOP ×2 (10:06→21:14)
[2017-09-25] MEDS: EUCERIN 120GM CREAM TOP ×2 (10:06→21:13)
[2017-09-25] MEDS: LEVOTHYROXINE 100 MCG (0.1MG) VIAL IV (10:14)
[2017-09-25] MEDS: MAG SULF 1GM/100ML (MAG RUN) 1 GM in APPROPRIATE DILUENT 1 EA IV (10:15)
[2017-09-25] MEDS: THIAMINE IV (10:15)
[2017-09-25] MEDS: NS IV (10:15)
[2017-09-25 10:27] LABS: CPK CREATINE PHOSPHOKINASE 12 U/L (26-192); TROPONIN I < 0.02 NG/ML (< 0.10)
[2017-09-25 10:28] LABS: CK-MB VALUE MASS < 1.0 NG/ML (<3.6); MB/CK RELATIVE INDEX 8.33 (< OR =4)
[2017-09-25] MEDS: FOLIC ACID 1 MG TAB PO (10:31)
[2017-09-25] MEDS: VITAMIN B COMPLEX/VIT C CAP PO (10:33)
[2017-09-25] MEDS: SERTRALINE HCL 25 MG TABLET PO (10:33)
[2017-09-25] MEDS: PANTOPRAZOLE 40MG INJ (PROTONIX) (C9113) IV ×2 (10:38→21:13)
[2017-09-25] MEDS: PIPERACILLIN/TAZOBACTAM SOD 3.375 GM in APPROPRIATE DILUENT 1 EA IV ×2 (11:25→18:08)
[2017-09-25 11:45] LABS: BEDSIDE GLUCOSE 101 MG/DL (70-105)
[2017-09-25 11:45] LABS: BEDSIDE GLUCOSE 141 MG/DL (70-105)
[2017-09-25] MEDS: CEFAZOLIN SOD 1 GM in APPROPRIATE DILUENT 1 EA IV (14:00)
[2017-09-25] MEDS ORDERED: MORPHINE 4 MG/ML 1ML VIAL/SYRINGE (J2270) IV (17:00)
[2017-09-25 18:57] LABS: CPK CREATINE PHOSPHOKINASE 8 U/L (26-192); TROPONIN I < 0.02 NG/ML (< 0.10)
[2017-09-25 18:58] LABS: CK-MB VALUE MASS < 1.0 NG/ML (<3.6)
[2017-09-25] MEDS: ACETAMINOPHEN TAB 650MG DOSE (2X325MG) PO (23:48)
[2017-09-26] MEDS: PIPERACILLIN/TAZOBACTAM SOD 3.375 GM in APPROPRIATE DILUENT 1 EA IV ×2 (01:24→09:24)
[2017-09-26] MEDS: FUROSEMIDE 40 MG/4 ML VIAL (J1940) IV (05:50)
[2017-09-26] MEDS: SODIUM CHLORIDE 0.9% INJ 10 ML SYR IV (05:50)
[2017-09-26 05:52] LABS: HEMATOCRIT 24.1 % (36.0-47.0); HEMOGLOBIN 7.7 g/dl (12.0-15.5); MEAN CORPUSCULAR HEMOGLOBIN 30.9 pg (27.0-33.0); MEAN CORPUSCULAR VOLUME 96.8 fl (80.0-96.0); PLATELET COUNT, AUTOMATED 120 10^3/uL (150-450); RED BLOOD COUNT 2.49 10^6/uL (4.00-5.40); RED CELL DISTRIBUTION WIDTH 15.4 % (11.5-14.5); WHITE BLOOD COUNT 5.5 10^3/uL (4.0-10.0)
[2017-09-26 06:27] LABS: ALBUMIN 1.3 GM/DL (3.2-5.2); ALBUMIN/GLOBULIN RATIO 0.25 (1.00-1.93); ALKALINE PHOSPHATASE 124 U/L (45-117); ALT/SGPT 26 U/L (12-78); AST/SGOT 55 U/L (7-37); BILIRUBIN,TOTAL 1.8 MG/DL (0.2-1.0); BLOOD UREA NITROGEN 14 MG/DL (7-18); CALCIUM LEVEL 7.4 MG/DL (8.5-10.1); CARBON DIOXIDE LEVEL 35 MEQ/L (21-32); CHLORIDE LEVEL 95 MEQ/L (98-107); CREATININE FOR GFR 0.67 MG/DL (0.55-1.30); GLUCOSE, FASTING 123 MG/DL (70-100); MAGNESIUM LEVEL 2.2 MG/DL (1.8-2.4); TOTAL PROTEIN 6.4 GM/DL (6.4-8.2)
[2017-09-26 06:31] LABS: ANION GAP 6 MEQ/L (8-16); GLOMERULAR FILTRATION RATE > 60.0 (>51); SODIUM LEVEL 136 MEQ/L (136-145)
[2017-09-26 08:18] LABS: CPK CREATINE PHOSPHOKINASE 14 U/L (26-192)
[2017-09-26 08:23] LABS: CK-MB VALUE MASS < 1.0 NG/ML (<3.6); MB/CK RELATIVE INDEX 7.14 (< OR =4); TROPONIN I < 0.02 NG/ML (< 0.10)
[2017-09-26] MEDS: PANTOPRAZOLE 40MG INJ (PROTONIX) (C9113) IV (08:55)
[2017-09-26] MEDS: SERTRALINE HCL 25 MG TABLET PO (08:56)
[2017-09-26] MEDS: FOLIC ACID 1 MG TAB PO (08:56)
[2017-09-26] MEDS: EUCERIN 120GM CREAM TOP ×2 (08:57→21:50)
[2017-09-26] MEDS: TRIAMCINOLONE ACET 0.1% CREAM 15 GM TOP ×2 (08:58→21:50)
[2017-09-26] MEDS: NYSTATIN CREAM 15 GM TOP ×2 (08:59→21:51)
[2017-09-26] MEDS: VITAMIN B COMPLEX/VIT C CAP PO (09:00)
[2017-09-26] MEDS: THIAMINE IV (09:12)
[2017-09-26] MEDS: NS IV (09:12)
[2017-09-26] MEDS: LEVOTHYROXINE 100 MCG (0.1MG) VIAL IV (09:26)
[2017-09-26] MEDS: KCL 10MEQ/100ML SWI (KRUN) 10 MEQ in APPROPRIATE DILUENT 1 EA IV ×3 (10:04→12:20)
[2017-09-26 10:07] LABS: CK-MB VALUE MASS < 1.0 NG/ML (<3.6); CPK CREATINE PHOSPHOKINASE 8 U/L (26-192); TROPONIN I < 0.02 NG/ML (< 0.10)
[2017-09-26] MEDS: LACTULOSE 20 GM/30 ML SYRUP UD PO ×3 (10:31→21:49)
[2017-09-26] MEDS: SLF 3 ML SYR IV ×2 (13:55→21:51)
[2017-09-26] MEDS ORDERED: SLF 3 ML SYR IV (14:00)
[2017-09-26] MEDS: MICAFUNGIN SODIUM 100 MG in D5W MINI-BAG PLUS 100 ML IV (17:56)
[2017-09-26 18:58] LABS: INR 1.17; PROTHROMBIN TIME 15.1 SECONDS (12.4-14.5)
[2017-09-26 18:59] LABS: PARTIAL THROMBOPLASTIN TIME 40.1 SECONDS (26.8-37.9)
[2017-09-26 19:09] LABS: AMMONIA 40 uMOL/L (<32)
[2017-09-26 19:13] LABS: CK-MB VALUE MASS < 1.0 NG/ML (<3.6); CPK CREATINE PHOSPHOKINASE 14 U/L (26-192); MB/CK RELATIVE INDEX 7.14 (< OR =4); TROPONIN I < 0.02 NG/ML (< 0.10)
[2017-09-26 19:16] LABS: ERYTHROCYTE SEDIMENTATION RATE 108 mm/hr (0-30)
[2017-09-26 20:12] LABS: IMMEDIATE SPIN CROSSMATCH 1 2
[2017-09-27] MEDS: PIPERACILLIN/TAZOBACTAM SOD 3.375 GM in APPROPRIATE DILUENT 1 EA IV ×5 (00:29→23:33)
[2017-09-27] MEDS: SLF 3 ML SYR IV ×3 (05:24→21:35)
[2017-09-27 05:59] LABS: HEMATOCRIT 33.5 % (36.0-47.0); MEAN CORPUSCULAR HEMOGLOBIN 30.9 pg (27.0-33.0); MEAN CORPUSCULAR HGB CONC 32.8 g/dl (32.0-36.5); MEAN CORPUSCULAR VOLUME 94.1 fl (80.0-96.0); PLATELET COUNT, AUTOMATED 155 10^3/uL (150-450); RED BLOOD COUNT 3.56 10^6/uL (4.00-5.40); RED CELL DISTRIBUTION WIDTH 16.3 % (11.5-14.5); WHITE BLOOD COUNT 6.7 10^3/uL (4.0-10.0)
[2017-09-27 06:18] LABS: ALBUMIN 1.4 GM/DL (3.2-5.2); ALBUMIN/GLOBULIN RATIO 0.23 (1.00-1.93); ALKALINE PHOSPHATASE 215 U/L (45-117); ALT/SGPT 34 U/L (12-78); ANION GAP 4 MEQ/L (8-16); AST/SGOT 71 U/L (7-37); BILIRUBIN,TOTAL 2.1 MG/DL (0.2-1.0); BLOOD UREA NITROGEN 13 MG/DL (7-18); CALCIUM LEVEL 8.4 MG/DL (8.5-10.1); CARBON DIOXIDE LEVEL 37 MEQ/L (21-32); CHLORIDE LEVEL 98 MEQ/L (98-107); CREATININE FOR GFR 0.56 MG/DL (0.55-1.30); GLOMERULAR FILTRATION RATE > 60.0 (>51); GLUCOSE, FASTING 136 MG/DL (70-100); MAGNESIUM LEVEL 2.1 MG/DL (1.8-2.4); POTASSIUM SERUM 2.6 MEQ/L (3.5-5.1); SODIUM LEVEL 139 MEQ/L (136-145); TOTAL PROTEIN 7.4 GM/DL (6.4-8.2)
[2017-09-27 07:57] LABS: PHOSPHORUS LEVEL 2.9 MG/DL (2.5-4.9)
[2017-09-27] MEDS ORDERED: ISOVUE-370 76% 100ML VIAL (Q9967) As Ordered (08:15)
[2017-09-27] MEDS: KCL 10MEQ/100ML SWI (KRUN) 10 MEQ in APPROPRIATE DILUENT 1 EA IV ×5 (09:27→11:56)
[2017-09-27] MEDS: LEVOTHYROXINE 100 MCG (0.1MG) VIAL IV (09:27)
[2017-09-27] MEDS: VITAMIN B COMPLEX/VIT C CAP PO (09:28)
[2017-09-27] MEDS: SERTRALINE HCL 25 MG TABLET PO (09:28)
[2017-09-27] MEDS: LACTULOSE 20 GM/30 ML SYRUP UD PO ×2 (09:28→13:00)
[2017-09-27] MEDS: FOLIC ACID 1 MG TAB PO (09:28)
[2017-09-27] MEDS: PANTOPRAZOLE 40MG INJ (PROTONIX) (C9113) IV (09:29)
[2017-09-27] MEDS: EUCERIN 120GM CREAM TOP ×2 (09:29→23:28)
[2017-09-27] MEDS: TRIAMCINOLONE ACET 0.1% CREAM 15 GM TOP ×2 (09:29→23:29)
[2017-09-27] MEDS: NYSTATIN CREAM 15 GM TOP ×2 (09:30→23:29)
[2017-09-27] MEDS: IPRATROPIUM 0.5MG/ALBUTEROL 2.5MG INH SOL UD 3ML (DUONEB)(J7620) NEB ×4 (11:04→23:12)
[2017-09-27 12:58] LABS: ALBUMIN 1.4 GM/DL (3.2-5.2); ANION GAP 4 MEQ/L (8-16); BLOOD UREA NITROGEN 12 MG/DL (7-18); CALCIUM LEVEL 8.1 MG/DL (8.5-10.1); CARBON DIOXIDE LEVEL 37 MEQ/L (21-32); CHLORIDE LEVEL 99 MEQ/L (98-107); CREATININE FOR GFR 0.52 MG/DL (0.55-1.30); GLOMERULAR FILTRATION RATE > 60.0 (>51); GLUCOSE, FASTING 117 MG/DL (70-100); PHOSPHORUS LEVEL 3.6 MG/DL (2.5-4.9); POTASSIUM SERUM 3.2 MEQ/L (3.5-5.1); SODIUM LEVEL 140 MEQ/L (136-145)
[2017-09-27] MEDS ORDERED: fentaNYL 250 MCG/5 ML INJECTION (J3010) As Ordered ×2 (14:15→14:58)
[2017-09-27] MEDS ORDERED: LIDOCAINE 2% INJ 100 MG/5 ML SDV (FOR ANES.) As Ordered ×2 (14:15→14:58)
[2017-09-27] MEDS ORDERED: ROCURONIUM BROMIDE 50 MG/5 ML VIAL As Ordered ×3 (14:15→16:07)
[2017-09-27] MEDS ORDERED: MIDAZOLAM INJ 2 MG/2 ML VIAL (J2250) As Ordered ×3 (14:15→19:09)
[2017-09-27] MEDS ORDERED: PROPOFOL 200 MG/20 ML VIAL As Ordered ×2 (14:15→14:58)
[2017-09-27 14:43] LABS: IMMEDIATE SPIN CROSSMATCH 1
[2017-09-27] MEDS ORDERED: SUCCINYLCHOLINE 100 MG/5 ML SYRINGE (J0330) As Ordered (14:58)
[2017-09-27] MEDS ORDERED: NEOSTIGMINE 10 MG/10 ML VIAL (J2710) As Ordered (14:58)
[2017-09-27] MEDS ORDERED: fentaNYL 100 MCG/2 ML INJECTION (J3010) As Ordered (14:58)
[2017-09-27] MEDS ORDERED: GLYCOPYRROLATE INJ 0.2 MG/ML 2 ML VIAL As Ordered (14:58)
[2017-09-27] MEDS ORDERED: PHENYLEPHRINE INJ 10MG/ML VIAL (J2370) As Ordered ×2 (14:58→17:56)
[2017-09-27] MEDS ORDERED: PHENYLephrine HCL 500 MCG/5 ML (100MCG/ML) SYRINGE (J2370) As Ordered (16:02)
[2017-09-27 16:46] LABS: IMMEDIATE SPIN CROSSMATCH 1 2
[2017-09-27] MEDS: ZOSYN 3.375 GM VIAL (J2543) As Ordered (18:28)
[2017-09-27] MEDS: MIDAZOLAM INJ 2 MG/2 ML VIAL (J2250) IV (19:02)
[2017-09-27] MEDS ORDERED: MEPERIDINE INJ 25 MG/ML VIAL (J2175) IV (19:15)
[2017-09-27] MEDS ORDERED: ONDANSETRON 4MG/2ML VIAL (J2405) IV (19:15)
[2017-09-27] MEDS ORDERED: MIDAZOLAM INJ 2 MG/2 ML VIAL (J2250) IV (19:15)
[2017-09-27] MEDS ORDERED: PERCOCET 5MG/325MG TAB PO (19:15)
[2017-09-27] MEDS ORDERED: fentaNYL 100 MCG/2 ML INJECTION (J3010) IV (19:15)
[2017-09-27] MEDS ORDERED: METOCLOPRAMIDE INJ 10MG/2ML VIAL (J2765) IV (19:15)
[2017-09-27] MEDS: LR 1,000 ML IV ×2 (19:15→23:30)
[2017-09-27] MEDS ORDERED: PROPOFOL 1,000 MG/100 ML VIAL As Ordered (19:17)
[2017-09-27] MEDS ORDERED: PROPOFOL 1,000 MG/100 ML VIAL IV (19:30)
[2017-09-27] MEDS ORDERED: PROPOFOL 1,000 MG in APPROPRIATE DILUENT 1 EA IV (19:30)
[2017-09-27 19:49] LABS: HEMATOCRIT 28.5 % (36.0-47.0); HEMOGLOBIN 9.4 g/dl (12.0-15.5); MEAN CORPUSCULAR HEMOGLOBIN 30.9 pg (27.0-33.0); MEAN CORPUSCULAR VOLUME 93.8 fl (80.0-96.0); PLATELET COUNT, AUTOMATED 144 10^3/uL (150-450); RED BLOOD COUNT 3.04 10^6/uL (4.00-5.40); RED CELL DISTRIBUTION WIDTH 15.8 % (11.5-14.5); WHITE BLOOD COUNT 7.8 10^3/uL (4.0-10.0)
[2017-09-27 19:51] LABS: ADD MANUAL DIFFER YES; DIFF SLIDE NUMBER 325; POSITIVE MORPH POS FLAG
[2017-09-27 19:53] LABS: ABG BASE EXCESS 7.9 (-2.0-2.0); ABG HCO3 31.5 MEQ/L (22.0-26.0); ABG O2 SATURATION 93.8 % (95.0-99.0); ABG PARTIAL PRESSURE O2 68.8 mmHg (75.0-100.0); ABG STANDARD HCO3 31.6 MEQ/L (22.0-26.0); ABG TOTAL CO2 32.7 MEQ/L (22.0-29.0); ABG pH (ARTERIAL) 7.514 UNITS (7.350-7.450)
[2017-09-27 20:12] LABS: ALBUMIN 1.7 GM/DL (3.2-5.2); ALKALINE PHOSPHATASE 170 U/L (45-117); ALT/SGPT 33 U/L (12-78); ANION GAP 5 MEQ/L (8-16); AST/SGOT 58 U/L (7-37); BILIRUBIN,TOTAL 2.2 MG/DL (0.2-1.0); BLOOD UREA NITROGEN 11 MG/DL (7-18); CALCIUM LEVEL 7.6 MG/DL (8.5-10.1); CARBON DIOXIDE LEVEL 34 MEQ/L (21-32); CHLORIDE LEVEL 103 MEQ/L (98-107); CHOLESTEROL LEVEL 83 MG/DL (< 200); CPK CREATINE PHOSPHOKINASE 41 U/L (26-192); CREATININE FOR GFR 0.43 MG/DL (0.55-1.30); GLOMERULAR FILTRATION RATE > 60.0 (>51); GLUCOSE, FASTING 108 MG/DL (70-100); LDH LACTATE DEHYDROGENASE 165 U/L (84-246); PHOSPHORUS LEVEL 2.3 MG/DL (2.5-4.9); SODIUM LEVEL 142 MEQ/L (136-145); TRIGLYCERIDES LEVEL 123 MG/DL (<150)
[2017-09-27 20:17] LABS: BANDS 4 % (< 11); LYMPHOCYTES 5 % (16-52); MONOCYTES 6 % (0-8); NEUTROPHILS 85 % (35-75); PLATELET ESTIMATE DECREASED (NORMAL); TOXIC VACUOLATION 1+
[2017-09-27 20:18] LABS: ANISOCYTOSIS 1+
[2017-09-27 20:19] LABS: POTASSIUM SERUM 2.7 MEQ/L (3.5-5.1)
[2017-09-27 20:40] LABS: LACTIC ACID SEPSIS PROTOCOL 1.7 MMOL/L (0.4-2.0)
[2017-09-27] MEDS: KCL 20MEQ IN 100ML SWI (KRUN) 20 MEQ in APPROPRIATE DILUENT 1 EA IV ×2 (21:13→22:00)
[2017-09-27] MEDS: MICAFUNGIN SODIUM 100 MG in D5W MINI-BAG PLUS 100 ML IV (21:14)
[2017-09-27] MEDS: CHLORHEXIDINE ORAL RINSE 0.12%/15ML 120ML BOTTLE MT (21:28)
[2017-09-27] MEDS: NOREPINEPHRINE BITARTRATE 8 MG in D5W 492 ML IV (21:34)
[2017-09-27] MEDS: PROPOFOL 1,000 MG in APPROPRIATE DILUENT 1 EA IV (21:35)
[2017-09-27] MEDS ORDERED: KCL 20MEQ IN STERILE WATER 100ML As Ordered (22:01)
[2017-09-27 22:51] LABS: ABG BASE EXCESS 8.3 (-2.0-2.0); ABG HCO3 31.6 MEQ/L (22.0-26.0); ABG O2 SATURATION 95.9 % (95.0-99.0); ABG PARTIAL PRESSURE CO2 38.8 mmHg (35.0-45.0); ABG PARTIAL PRESSURE O2 78.7 mmHg (75.0-100.0); ABG STANDARD HCO3 32.1 MEQ/L (22.0-26.0); ABG TOTAL CO2 32.8 MEQ/L (22.0-29.0); ABG pH (ARTERIAL) 7.529 UNITS (7.350-7.450)
[2017-09-28 00:51] LABS: POTASSIUM SERUM 3.6 MEQ/L (3.5-5.1)
[2017-09-28] MEDS: IPRATROPIUM 0.5MG/ALBUTEROL 2.5MG INH SOL UD 3ML (DUONEB)(J7620) NEB ×5 (03:45→20:01)
[2017-09-28] MEDS: MORPHINE 4 MG/ML 1ML VIAL/SYRINGE (J2270) IV ×2 (04:44→13:45)
[2017-09-28 04:45] LABS: HEMATOCRIT 29.3 % (36.0-47.0); HEMOGLOBIN 9.7 g/dl (12.0-15.5); MEAN CORPUSCULAR HEMOGLOBIN 30.8 pg (27.0-33.0); MEAN CORPUSCULAR HGB CONC 33.1 g/dl (32.0-36.5); PLATELET COUNT, AUTOMATED 193 10^3/uL (150-450); RED BLOOD COUNT 3.15 10^6/uL (4.00-5.40); RED CELL DISTRIBUTION WIDTH 15.9 % (11.5-14.5); WHITE BLOOD COUNT 11.5 10^3/uL (4.0-10.0)
[2017-09-28 04:49] LABS: ADD MANUAL DIFFER YES; DIFF SLIDE NUMBER 106; POSITIVE MORPH POS FLAG
[2017-09-28 05:07] LABS: BANDS 5 % (< 11); EOSINOPHILS 1 % (0-5); LYMPHOCYTES 11 % (16-52); MONOCYTES 3 % (0-8); NEUTROPHILS 80 % (35-75); PLATELET ESTIMATE NORMAL (NORMAL); POLYCHROMASIA 1+
[2017-09-28 05:14] LABS: ALBUMIN 1.6 GM/DL (3.2-5.2); ALKALINE PHOSPHATASE 142 U/L (45-117); ALT/SGPT 25 U/L (12-78); ANION GAP 5 MEQ/L (8-16); AST/SGOT 37 U/L (7-37); BILIRUBIN,TOTAL 2.3 MG/DL (0.2-1.0); BLOOD UREA NITROGEN 10 MG/DL (7-18); CALCIUM LEVEL 7.5 MG/DL (8.5-10.1); CARBON DIOXIDE LEVEL 34 MEQ/L (21-32); CHLORIDE LEVEL 103 MEQ/L (98-107); CHOLESTEROL LEVEL 69 MG/DL (< 200); CPK CREATINE PHOSPHOKINASE 17 U/L (26-192); CREATININE FOR GFR 0.48 MG/DL (0.55-1.30); GLOMERULAR FILTRATION RATE > 60.0 (>51); GLUCOSE, FASTING 125 MG/DL (70-100); LDH LACTATE DEHYDROGENASE 141 U/L (84-246); MAGNESIUM LEVEL 1.9 MG/DL (1.8-2.4); PHOSPHORUS LEVEL 2.7 MG/DL (2.5-4.9); POTASSIUM SERUM 3.6 MEQ/L (3.5-5.1); SODIUM LEVEL 142 MEQ/L (136-145); TOTAL PROTEIN 5.6 GM/DL (6.4-8.2); TRIGLYCERIDES LEVEL 143 MG/DL (<150)
[2017-09-28] MEDS: PIPERACILLIN/TAZOBACTAM SOD 3.375 GM in APPROPRIATE DILUENT 1 EA IV ×3 (05:39→18:46)
[2017-09-28] MEDS: SLF 3 ML SYR IV ×3 (05:40→22:00)
[2017-09-28 06:12] LABS: ABG BASE EXCESS 8.2 (-2.0-2.0); ABG HCO3 31.9 MEQ/L (22.0-26.0); ABG O2 SATURATION 98.2 % (95.0-99.0); ABG PARTIAL PRESSURE CO2 40.8 mmHg (35.0-45.0); ABG PARTIAL PRESSURE O2 111.1 mmHg (75.0-100.0); ABG TOTAL CO2 33.2 MEQ/L (22.0-29.0); ABG pH (ARTERIAL) 7.511 UNITS (7.350-7.450)
[2017-09-28] MEDS: LR 1,000 ML IV ×3 (07:37→20:29)
[2017-09-28] MEDS: MIDAZOLAM INJ 2 MG/2 ML VIAL (J2250) IV (08:53)
[2017-09-28] MEDS: CHLORHEXIDINE ORAL RINSE 0.12%/15ML 120ML BOTTLE MT (09:18)
[2017-09-28] MEDS: LEVOTHYROXINE 100 MCG (0.1MG) VIAL IV (09:19)
[2017-09-28] MEDS: PANTOPRAZOLE 40MG INJ (PROTONIX) (C9113) IV (09:19)
[2017-09-28] MEDS: EUCERIN 120GM CREAM TOP ×2 (09:20→20:29)
[2017-09-28] MEDS: TRIAMCINOLONE ACET 0.1% CREAM 15 GM TOP ×2 (09:21→20:28)
[2017-09-28] MEDS: NYSTATIN CREAM 15 GM TOP ×2 (09:21→20:28)
[2017-09-28] MEDS: PROPOFOL 1,000 MG in APPROPRIATE DILUENT 1 EA IV (09:31)
[2017-09-28] MEDS ORDERED: LIDOCAINE W/EPINEPHRINE 1% 20ML VIAL As Ordered (09:34)
[2017-09-28 10:49] LABS: ABG BASE EXCESS 6.4 (-2.0-2.0); ABG HCO3 29.9 MEQ/L (22.0-26.0); ABG O2 SATURATION 95.4 % (95.0-99.0); ABG PARTIAL PRESSURE CO2 39.1 mmHg (35.0-45.0); ABG PARTIAL PRESSURE O2 75.4 mmHg (75.0-100.0); ABG SITE LT RADIAL; ABG STANDARD HCO3 30.2 MEQ/L (22.0-26.0); ABG TOTAL CO2 31.1 MEQ/L (22.0-29.0); ABG pH (ARTERIAL) 7.502 UNITS (7.350-7.450)
[2017-09-28] MEDS: SODIUM CHLORIDE 0.9% 1000 ML IV (12:00)
[2017-09-28] MEDS: MICAFUNGIN SODIUM 100 MG in D5W MINI-BAG PLUS 100 ML IV (17:23)
[2017-09-29] MEDS: LR 1,000 ML IV ×3 (02:25→19:49)
[2017-09-29 05:05] LABS: BASO % 0.2 % (0.0-1.0); EOS # 0.1 10^3/uL (0.0-0.50); EOS % 0.9 % (0.0-3.0); HEMATOCRIT 22.6 % (36.0-47.0); IMMATURE GRANULOCYTE % 1.9 % (0-3.0); LYMPH # 0.8 10^3/uL (1.5-4.5); LYMPH % 9.5 % (24.0-44.0); MEAN CORPUSCULAR HEMOGLOBIN 31.4 pg (27.0-33.0); MEAN CORPUSCULAR HGB CONC 32.7 g/dl (32.0-36.5); MEAN CORPUSCULAR VOLUME 95.8 fl (80.0-96.0); MONO # 0.6 10^3/uL (0.0-0.8); MONO % 6.5 % (0.0-5.0); NEUTROPHILS # 6.9 10^3/uL (1.8-7.7); PLATELET COUNT, AUTOMATED 143 10^3/uL (150-450); RED BLOOD COUNT 2.36 10^6/uL (4.00-5.40); RED CELL DISTRIBUTION WIDTH 15.7 % (11.5-14.5); WHITE BLOOD COUNT 8.5 10^3/uL (4.0-10.0)
[2017-09-29 05:12] LABS: HEMOGLOBIN 7.4 g/dl (12.0-15.5)
[2017-09-29 05:31] LABS: ALBUMIN 1.3 GM/DL (3.2-5.2); ALBUMIN/GLOBULIN RATIO 0.32 (1.00-1.93); ALKALINE PHOSPHATASE 102 U/L (45-117); ALT/SGPT 17 U/L (12-78); ANION GAP 4 MEQ/L (8-16); AST/SGOT 25 U/L (7-37); BLOOD UREA NITROGEN 7 MG/DL (7-18); CALCIUM LEVEL 7.6 MG/DL (8.5-10.1); CARBON DIOXIDE LEVEL 35 MEQ/L (21-32); CHLORIDE LEVEL 106 MEQ/L (98-107); CHOLESTEROL LEVEL 73 MG/DL (< 200); CPK CREATINE PHOSPHOKINASE 20 U/L (26-192); CREATININE FOR GFR 0.36 MG/DL (0.55-1.30); GLOMERULAR FILTRATION RATE > 60.0 (>51); GLUCOSE, FASTING 76 MG/DL (70-100); LDH LACTATE DEHYDROGENASE 144 U/L (84-246); MAGNESIUM LEVEL 1.9 MG/DL (1.8-2.4); PHOSPHORUS LEVEL 3.4 MG/DL (2.5-4.9); POTASSIUM SERUM 3.3 MEQ/L (3.5-5.1); SODIUM LEVEL 145 MEQ/L (136-145); TOTAL PROTEIN 5.4 GM/DL (6.4-8.2); TRIGLYCERIDES LEVEL 94 MG/DL (<150)
[2017-09-29] MEDS: PIPERACILLIN/TAZOBACTAM SOD 3.375 GM in APPROPRIATE DILUENT 1 EA IV ×5 (05:38→23:56)
[2017-09-29] MEDS: SLF 3 ML SYR IV ×3 (05:38→22:00)
[2017-09-29] MEDS: LEVOTHYROXINE 100 MCG (0.1MG) VIAL IV (08:35)
[2017-09-29] MEDS: PANTOPRAZOLE 40MG INJ (PROTONIX) (C9113) IV (08:35)
[2017-09-29] MEDS: EUCERIN 120GM CREAM TOP ×2 (08:37→21:39)
[2017-09-29] MEDS: TRIAMCINOLONE ACET 0.1% CREAM 15 GM TOP ×2 (08:37→21:40)
[2017-09-29] MEDS: NYSTATIN CREAM 15 GM TOP ×2 (08:38→21:40)
[2017-09-29] MEDS: IPRATROPIUM 0.5MG/ALBUTEROL 2.5MG INH SOL UD 3ML (DUONEB)(J7620) NEB ×4 (08:48→20:20)
[2017-09-29 12:23] LABS: IMMEDIATE SPIN CROSSMATCH 1 2
[2017-09-29] MEDS: FUROSEMIDE 40 MG/4 ML VIAL (J1940) IV (12:24)
[2017-09-29] MEDS: KCL 10MEQ/100ML SWI (KRUN) 10 MEQ in APPROPRIATE DILUENT 1 EA IV ×4 (14:13→18:02)
[2017-09-29] MEDS: MICAFUNGIN SODIUM 100 MG in D5W MINI-BAG PLUS 100 ML IV (16:58)
[2017-09-30] MEDS: LR 1,000 ML IV ×3 (05:26→22:15)
[2017-09-30] MEDS: PIPERACILLIN/TAZOBACTAM SOD 3.375 GM in APPROPRIATE DILUENT 1 EA IV ×4 (05:27→23:38)
[2017-09-30] MEDS: SLF 3 ML SYR IV ×3 (05:27→22:15)
[2017-09-30 06:42] LABS: BASO % 0.3 % (0.0-1.0); EOS # 0.1 10^3/uL (0.0-0.50); EOS % 1.2 % (0.0-3.0); HEMATOCRIT 29.6 % (36.0-47.0); HEMOGLOBIN 9.8 g/dl (12.0-15.5); IMMATURE GRANULOCYTE % 1.3 % (0-3.0); LYMPH % 11.4 % (24.0-44.0); MEAN CORPUSCULAR HEMOGLOBIN 29.8 pg (27.0-33.0); MEAN CORPUSCULAR HGB CONC 33.1 g/dl (32.0-36.5); MONO # 0.5 10^3/uL (0.0-0.8); MONO % 5.4 % (0.0-5.0); NEUTROPHILS # 7.2 10^3/uL (1.8-7.7); NEUTROPHILS % 80.4 % (36.0-66.0); PLATELET COUNT, AUTOMATED 179 10^3/uL (150-450); RED BLOOD COUNT 3.29 10^6/uL (4.00-5.40); RED CELL DISTRIBUTION WIDTH 17.7 % (11.5-14.5)
[2017-09-30] MEDS: IPRATROPIUM 0.5MG/ALBUTEROL 2.5MG INH SOL UD 3ML (DUONEB)(J7620) NEB ×4 (06:51→20:12)
[2017-09-30 06:55] LABS: ALBUMIN 1.3 GM/DL (3.2-5.2); ALBUMIN/GLOBULIN RATIO 0.27 (1.00-1.93); ALKALINE PHOSPHATASE 115 U/L (45-117); ALT/SGPT 18 U/L (12-78); ANION GAP 7 MEQ/L (8-16); AST/SGOT 30 U/L (7-37); BILIRUBIN,TOTAL 3.6 MG/DL (0.2-1.0); BLOOD UREA NITROGEN 6 MG/DL (7-18); CALCIUM LEVEL 7.4 MG/DL (8.5-10.1); CARBON DIOXIDE LEVEL 35 MEQ/L (21-32); CHLORIDE LEVEL 100 MEQ/L (98-107); CHOLESTEROL LEVEL 89 MG/DL (< 200); CPK CREATINE PHOSPHOKINASE 13 U/L (26-192); CREATININE FOR GFR 0.47 MG/DL (0.55-1.30); GLOMERULAR FILTRATION RATE > 60.0 (>51); GLUCOSE, FASTING 84 MG/DL (70-100); LDH LACTATE DEHYDROGENASE 147 U/L (84-246); MAGNESIUM LEVEL 1.8 MG/DL (1.8-2.4); PHOSPHORUS LEVEL 3.4 MG/DL (2.5-4.9); POTASSIUM SERUM 2.8 MEQ/L (3.5-5.1); SODIUM LEVEL 142 MEQ/L (136-145); TOTAL PROTEIN 6.2 GM/DL (6.4-8.2); TRIGLYCERIDES LEVEL 116 MG/DL (<150)
[2017-09-30] MEDS: KCL 10MEQ/100ML SWI (KRUN) 10 MEQ in APPROPRIATE DILUENT 1 EA IV ×4 (07:53→12:11)
[2017-09-30] MEDS: PANTOPRAZOLE 40MG INJ (PROTONIX) (C9113) IV (09:26)
[2017-09-30] MEDS: TRIAMCINOLONE ACET 0.1% CREAM 15 GM TOP ×2 (09:27→22:13)
[2017-09-30] MEDS: NYSTATIN CREAM 15 GM TOP ×2 (09:27→22:14)
[2017-09-30] MEDS: LEVOTHYROXINE 100 MCG (0.1MG) VIAL IV (09:27)
[2017-09-30] MEDS: EUCERIN 120GM CREAM TOP ×2 (09:27→22:14)
[2017-09-30 16:48] LABS: ALBUMIN 1.4 GM/DL (3.2-5.2); ANION GAP 4 MEQ/L (8-16); BLOOD UREA NITROGEN 7 MG/DL (7-18); CALCIUM LEVEL 7.7 MG/DL (8.5-10.1); CARBON DIOXIDE LEVEL 35 MEQ/L (21-32); CHLORIDE LEVEL 103 MEQ/L (98-107); CREATININE FOR GFR 0.46 MG/DL (0.55-1.30); GLOMERULAR FILTRATION RATE > 60.0 (>51); GLUCOSE, FASTING 119 MG/DL (70-100); POTASSIUM SERUM 3.6 MEQ/L (3.5-5.1); SODIUM LEVEL 142 MEQ/L (136-145)
[2017-09-30] MEDS: MICAFUNGIN SODIUM 100 MG in D5W MINI-BAG PLUS 100 ML IV (17:11)
[2017-10-01 04:35] LABS: BASO % 0.3 % (0.0-1.0); EOS # 0.2 10^3/uL (0.0-0.50); EOS % 2.4 % (0.0-3.0); HEMATOCRIT 31.6 % (36.0-47.0); HEMOGLOBIN 10.2 g/dl (12.0-15.5); IMMATURE GRANULOCYTE % 1.2 % (0-3.0); LYMPH % 13.6 % (24.0-44.0); MEAN CORPUSCULAR HEMOGLOBIN 29.9 pg (27.0-33.0); MEAN CORPUSCULAR HGB CONC 32.3 g/dl (32.0-36.5); MEAN CORPUSCULAR VOLUME 92.7 fl (80.0-96.0); MONO # 0.5 10^3/uL (0.0-0.8); MONO % 6.5 % (0.0-5.0); NEUTROPHILS # 5.7 10^3/uL (1.8-7.7); PLATELET COUNT, AUTOMATED 191 10^3/uL (150-450); RED BLOOD COUNT 3.41 10^6/uL (4.00-5.40); RED CELL DISTRIBUTION WIDTH 17.3 % (11.5-14.5); WHITE BLOOD COUNT 7.4 10^3/uL (4.0-10.0)
[2017-10-01 04:58] LABS: AMMONIA 22 uMOL/L (<32)
[2017-10-01 05:05] LABS: ALBUMIN 1.3 GM/DL (3.2-5.2); ALBUMIN/GLOBULIN RATIO 0.25 (1.00-1.93); ALKALINE PHOSPHATASE 99 U/L (45-117); ALT/SGPT 15 U/L (12-78); ANION GAP 4 MEQ/L (8-16); AST/SGOT 24 U/L (7-37); BILIRUBIN,TOTAL 2.5 MG/DL (0.2-1.0); BLOOD UREA NITROGEN 5 MG/DL (7-18); CALCIUM LEVEL 7.8 MG/DL (8.5-10.1); CARBON DIOXIDE LEVEL 36 MEQ/L (21-32); CHLORIDE LEVEL 103 MEQ/L (98-107); CHOLESTEROL LEVEL 105 MG/DL (< 200); CPK CREATINE PHOSPHOKINASE 9 U/L (26-192); GLOMERULAR FILTRATION RATE > 60.0 (>51); GLUCOSE, FASTING 109 MG/DL (70-100); LDH LACTATE DEHYDROGENASE 134 U/L (84-246); MAGNESIUM LEVEL 1.8 MG/DL (1.8-2.4); POTASSIUM SERUM 3.3 MEQ/L (3.5-5.1); SODIUM LEVEL 143 MEQ/L (136-145); TOTAL PROTEIN 6.4 GM/DL (6.4-8.2); TRIGLYCERIDES LEVEL 128 MG/DL (<150)
[2017-10-01] MEDS: PIPERACILLIN/TAZOBACTAM SOD 3.375 GM in APPROPRIATE DILUENT 1 EA IV ×3 (05:21→18:15)
[2017-10-01] MEDS: SLF 3 ML SYR IV ×3 (05:21→20:22)
[2017-10-01] MEDS: IPRATROPIUM 0.5MG/ALBUTEROL 2.5MG INH SOL UD 3ML (DUONEB)(J7620) NEB ×4 (07:12→18:13)
[2017-10-01] MEDS: EUCERIN 120GM CREAM TOP ×2 (09:20→20:23)
[2017-10-01] MEDS: LR 1,000 ML IV ×2 (09:20→22:47)
[2017-10-01] MEDS: PANTOPRAZOLE 40MG INJ (PROTONIX) (C9113) IV (09:20)
[2017-10-01] MEDS: LEVOTHYROXINE 100 MCG (0.1MG) VIAL IV (09:20)
[2017-10-01] MEDS: TRIAMCINOLONE ACET 0.1% CREAM 15 GM TOP ×2 (09:21→20:22)
[2017-10-01] MEDS: NYSTATIN CREAM 15 GM TOP ×2 (09:21→20:22)
[2017-10-01] MEDS: KCL 10MEQ/100ML SWI (KRUN) 10 MEQ in APPROPRIATE DILUENT 1 EA IV ×2 (11:28→12:45)
[2017-10-01] MEDS: CYANOCOBALAMIN 1,000 MCG/ML VIAL (J3420) IM (12:12)
[2017-10-01] MEDS: FOLIC ACID IV (13:00)
[2017-10-01] MEDS: THIAMINE IV (13:00)
[2017-10-01] MEDS: [UNRECOGNIZED DRUG - OTHER] IV (13:00)
[2017-10-01] MEDS: MULTIVITAMIN ADULT IV (13:00)
[2017-10-01] MEDS: MICAFUNGIN SODIUM 100 MG in D5W MINI-BAG PLUS 100 ML IV (16:45)
[2017-10-02] MEDS: PIPERACILLIN/TAZOBACTAM SOD 3.375 GM in APPROPRIATE DILUENT 1 EA IV ×4 (00:02→19:50)
[2017-10-02] MEDS: MORPHINE 4 MG/ML 1ML VIAL/SYRINGE (J2270) IV (00:48)
[2017-10-02] MEDS: SLF 3 ML SYR IV ×3 (05:02→20:18)
[2017-10-02] MEDS: IPRATROPIUM 0.5MG/ALBUTEROL 2.5MG INH SOL UD 3ML (DUONEB)(J7620) NEB ×4 (07:24→18:01)
[2017-10-02] MEDS: PANTOPRAZOLE 40MG INJ (PROTONIX) (C9113) IV (08:01)
[2017-10-02] MEDS: NYSTATIN CREAM 15 GM TOP ×2 (08:01→20:17)
[2017-10-02] MEDS: CYANOCOBALAMIN 1,000 MCG/ML VIAL (J3420) IM (08:01)
[2017-10-02] MEDS: LEVOTHYROXINE 100 MCG (0.1MG) VIAL IV (08:02)
[2017-10-02] MEDS: TRIAMCINOLONE ACET 0.1% CREAM 15 GM TOP ×2 (08:02→20:17)
[2017-10-02] MEDS: EUCERIN 120GM CREAM TOP ×2 (08:03→20:17)
[2017-10-02 08:04] LABS: BASO % 0.2 % (0.0-1.0); EOS # 0.2 10^3/uL (0.0-0.50); EOS % 2.1 % (0.0-3.0); HEMOGLOBIN 10.3 g/dl (12.0-15.5); IMMATURE GRANULOCYTE % 0.8 % (0-3.0); LYMPH # 1.1 10^3/uL (1.5-4.5); LYMPH % 12.9 % (24.0-44.0); MEAN CORPUSCULAR HEMOGLOBIN 29.7 pg (27.0-33.0); MEAN CORPUSCULAR HGB CONC 32.2 g/dl (32.0-36.5); MEAN CORPUSCULAR VOLUME 92.2 fl (80.0-96.0); MONO # 0.7 10^3/uL (0.0-0.8); MONO % 7.5 % (0.0-5.0); NEUTROPHILS # 6.7 10^3/uL (1.8-7.7); NEUTROPHILS % 76.5 % (36.0-66.0); PLATELET COUNT, AUTOMATED 206 10^3/uL (150-450); RED BLOOD COUNT 3.47 10^6/uL (4.00-5.40); RED CELL DISTRIBUTION WIDTH 17.2 % (11.5-14.5); WHITE BLOOD COUNT 8.7 10^3/uL (4.0-10.0)
[2017-10-02 08:16] LABS: AMMONIA 38 uMOL/L (<32)
[2017-10-02 08:21] LABS: ALBUMIN 1.4 GM/DL (3.2-5.2); ALKALINE PHOSPHATASE 90 U/L (45-117); ALT/SGPT 15 U/L (12-78); ANION GAP 4 MEQ/L (8-16); AST/SGOT 28 U/L (7-37); BILIRUBIN,TOTAL 3.2 MG/DL (0.2-1.0); BLOOD UREA NITROGEN 6 MG/DL (7-18); CARBON DIOXIDE LEVEL 33 MEQ/L (21-32); CHLORIDE LEVEL 108 MEQ/L (98-107); CHOLESTEROL LEVEL 113 MG/DL (< 200); CPK CREATINE PHOSPHOKINASE 11 U/L (26-192); CREATININE FOR GFR 0.51 MG/DL (0.55-1.30); GLOMERULAR FILTRATION RATE > 60.0 (>51); GLUCOSE, FASTING 114 MG/DL (70-100); LDH LACTATE DEHYDROGENASE 143 U/L (84-246); PHOSPHORUS LEVEL 3.1 MG/DL (2.5-4.9); POTASSIUM SERUM 3.6 MEQ/L (3.5-5.1); SODIUM LEVEL 145 MEQ/L (136-145); TOTAL PROTEIN 6.1 GM/DL (6.4-8.2); TRIGLYCERIDES LEVEL 135 MG/DL (<150)
[2017-10-02] MEDS: LR 1,000 ML IV (10:34)
[2017-10-02 11:49] LABS: BEDSIDE GLUCOSE 115 MG/DL (70-105)
[2017-10-02] MEDS: FOLIC ACID IV (12:25)
[2017-10-02] MEDS: [UNRECOGNIZED DRUG - OTHER] IV (12:25)
[2017-10-02] MEDS: MULTIVITAMIN ADULT IV (12:25)
[2017-10-02] MEDS: THIAMINE IV (12:25)
[2017-10-02] MEDS: MICAFUNGIN SODIUM 100 MG in D5W MINI-BAG PLUS 100 ML IV (17:42)
[2017-10-03 05:24] LABS: BASO % 0.3 % (0.0-1.0); EOS # 0.2 10^3/uL (0.0-0.50); EOS % 1.5 % (0.0-3.0); HEMATOCRIT 32.7 % (36.0-47.0); HEMOGLOBIN 10.5 g/dl (12.0-15.5); IMMATURE GRANULOCYTE % 0.9 % (0-3.0); LYMPH # 1.2 10^3/uL (1.5-4.5); LYMPH % 9.6 % (24.0-44.0); MEAN CORPUSCULAR HEMOGLOBIN 29.9 pg (27.0-33.0); MEAN CORPUSCULAR HGB CONC 32.1 g/dl (32.0-36.5); MEAN CORPUSCULAR VOLUME 93.2 fl (80.0-96.0); MONO # 0.8 10^3/uL (0.0-0.8); MONO % 6.5 % (0.0-5.0); NEUTROPHILS # 10.2 10^3/uL (1.8-7.7); NEUTROPHILS % 81.2 % (36.0-66.0); PLATELET COUNT, AUTOMATED 225 10^3/uL (150-450); RED BLOOD COUNT 3.51 10^6/uL (4.00-5.40); RED CELL DISTRIBUTION WIDTH 17.2 % (11.5-14.5); WHITE BLOOD COUNT 12.5 10^3/uL (4.0-10.0)
[2017-10-03 05:39] LABS: AMMONIA 42 uMOL/L (<32)
[2017-10-03 05:41] LABS: ALBUMIN 1.6 GM/DL (3.2-5.2); ALBUMIN/GLOBULIN RATIO 0.31 (1.00-1.93); ALKALINE PHOSPHATASE 86 U/L (45-117); ALT/SGPT 18 U/L (12-78); ANION GAP 3 MEQ/L (8-16); AST/SGOT 27 U/L (7-37); BILIRUBIN,TOTAL 2.9 MG/DL (0.2-1.0); BLOOD UREA NITROGEN 6 MG/DL (7-18); CALCIUM LEVEL 8.4 MG/DL (8.5-10.1); CARBON DIOXIDE LEVEL 33 MEQ/L (21-32); CHLORIDE LEVEL 108 MEQ/L (98-107); CHOLESTEROL LEVEL 116 MG/DL (< 200); CPK CREATINE PHOSPHOKINASE 10 U/L (26-192); CREATININE FOR GFR 0.51 MG/DL (0.55-1.30); GLOMERULAR FILTRATION RATE > 60.0 (>51); GLUCOSE, FASTING 114 MG/DL (70-100); LDH LACTATE DEHYDROGENASE 147 U/L (84-246); PHOSPHORUS LEVEL 2.8 MG/DL (2.5-4.9); POTASSIUM SERUM 3.3 MEQ/L (3.5-5.1); SODIUM LEVEL 144 MEQ/L (136-145); TOTAL PROTEIN 6.8 GM/DL (6.4-8.2); TRIGLYCERIDES LEVEL 137 MG/DL (<150)
[2017-10-03] MEDS: SLF 3 ML SYR IV ×3 (06:34→21:39)
[2017-10-03] MEDS: PIPERACILLIN/TAZOBACTAM SOD 3.375 GM in APPROPRIATE DILUENT 1 EA IV ×5 (06:34→23:47)
[2017-10-03] MEDS: IPRATROPIUM 0.5MG/ALBUTEROL 2.5MG INH SOL UD 3ML (DUONEB)(J7620) NEB ×4 (07:39→20:10)
[2017-10-03] MEDS: PANTOPRAZOLE 40MG INJ (PROTONIX) (C9113) IV (09:00)
[2017-10-03] MEDS: CYANOCOBALAMIN 1,000 MCG/ML VIAL (J3420) IM (10:30)
[2017-10-03] MEDS: LEVOTHYROXINE 100 MCG (0.1MG) VIAL IV (10:31)
[2017-10-03] MEDS: EUCERIN 120GM CREAM TOP ×2 (10:32→21:38)
[2017-10-03] MEDS: NYSTATIN CREAM 15 GM TOP ×2 (10:33→21:39)
[2017-10-03] MEDS: TRIAMCINOLONE ACET 0.1% CREAM 15 GM TOP ×2 (10:33→21:39)
[2017-10-03] MEDS: KCL 10MEQ/100ML SWI (KRUN) 10 MEQ in APPROPRIATE DILUENT 1 EA IV (10:59)
[2017-10-03] MEDS: MULTIVITAMIN ADULT IV (13:57)
[2017-10-03] MEDS: [UNRECOGNIZED DRUG - OTHER] IV (13:57)
[2017-10-03] MEDS: FOLIC ACID IV (13:57)
[2017-10-03] MEDS: THIAMINE IV (13:57)
[2017-10-03] MEDS: MICAFUNGIN SODIUM 100 MG in D5W MINI-BAG PLUS 100 ML IV (17:30)
[2017-10-04 05:25] LABS: BASO # 0.1 10^3/uL (0.0-0.2); BASO % 0.4 % (0.0-1.0); EOS # 0.2 10^3/uL (0.0-0.50); EOS % 1.3 % (0.0-3.0); HEMATOCRIT 33.4 % (36.0-47.0); HEMOGLOBIN 10.6 g/dl (12.0-15.5); IMMATURE GRANULOCYTE % 0.8 % (0-3.0); LYMPH # 1.3 10^3/uL (1.5-4.5); MEAN CORPUSCULAR HEMOGLOBIN 29.5 pg (27.0-33.0); MEAN CORPUSCULAR HGB CONC 31.7 g/dl (32.0-36.5); MONO # 0.9 10^3/uL (0.0-0.8); MONO % 7.4 % (0.0-5.0); NEUTROPHILS # 9.3 10^3/uL (1.8-7.7); NEUTROPHILS % 79.1 % (36.0-66.0); PLATELET COUNT, AUTOMATED 223 10^3/uL (150-450); RED BLOOD COUNT 3.59 10^6/uL (4.00-5.40); RED CELL DISTRIBUTION WIDTH 17.6 % (11.5-14.5); WHITE BLOOD COUNT 11.8 10^3/uL (4.0-10.0)
[2017-10-04 05:46] LABS: AMMONIA 30 uMOL/L (<32)
[2017-10-04 05:49] LABS: ALBUMIN 1.7 GM/DL (3.2-5.2); ALBUMIN/GLOBULIN RATIO 0.33 (1.00-1.93); ALKALINE PHOSPHATASE 86 U/L (45-117); ALT/SGPT 16 U/L (12-78); ANION GAP 4 MEQ/L (8-16); AST/SGOT 27 U/L (7-37); BILIRUBIN,TOTAL 2.9 MG/DL (0.2-1.0); BLOOD UREA NITROGEN 6 MG/DL (7-18); CALCIUM LEVEL 8.3 MG/DL (8.5-10.1); CARBON DIOXIDE LEVEL 32 MEQ/L (21-32); CHLORIDE LEVEL 109 MEQ/L (98-107); CHOLESTEROL LEVEL 121 MG/DL (< 200); CPK CREATINE PHOSPHOKINASE 11 U/L (26-192); CREATININE FOR GFR 0.58 MG/DL (0.55-1.30); GLOMERULAR FILTRATION RATE > 60.0 (>51); GLUCOSE, FASTING 99 MG/DL (70-100); LDH LACTATE DEHYDROGENASE 180 U/L (84-246); PHOSPHORUS LEVEL 3.2 MG/DL (2.5-4.9); POTASSIUM SERUM 3.5 MEQ/L (3.5-5.1); SODIUM LEVEL 145 MEQ/L (136-145); TOTAL PROTEIN 6.8 GM/DL (6.4-8.2); TRIGLYCERIDES LEVEL 151 MG/DL (<150)
[2017-10-04] MEDS: PIPERACILLIN/TAZOBACTAM SOD 3.375 GM in APPROPRIATE DILUENT 1 EA IV ×3 (06:17→17:47)
[2017-10-04] MEDS: SLF 3 ML SYR IV ×3 (06:17→21:54)
[2017-10-04] MEDS: IPRATROPIUM 0.5MG/ALBUTEROL 2.5MG INH SOL UD 3ML (DUONEB)(J7620) NEB ×4 (07:26→20:00)
[2017-10-04] MEDS ORDERED: LACTULOSE 20 GM/30 ML SYRUP UD PO (09:00)
[2017-10-04] MEDS: rifAXIMin 550 MG TAB (XIFAXAN) PO (09:00)
[2017-10-04] MEDS: CYANOCOBALAMIN 1,000 MCG/ML VIAL (J3420) IM (09:31)
[2017-10-04] MEDS: PANTOPRAZOLE 40MG INJ (PROTONIX) (C9113) IV (09:31)
[2017-10-04] MEDS: LEVOTHYROXINE 100 MCG (0.1MG) VIAL IV (09:32)
[2017-10-04] MEDS: LACTULOSE 20 GM/30 ML SYRUP UD NG (09:32)
[2017-10-04] MEDS: NYSTATIN CREAM 15 GM TOP ×2 (09:32→21:00)
[2017-10-04] MEDS: TRIAMCINOLONE ACET 0.1% CREAM 15 GM TOP ×2 (09:33→21:00)
[2017-10-04] MEDS: EUCERIN 120GM CREAM TOP ×2 (09:33→21:00)
[2017-10-04] MEDS: THIAMINE IV ×2 (13:00)
[2017-10-04] MEDS: MULTIVITAMIN ADULT IV ×2 (13:00)
[2017-10-04] MEDS: FOLIC ACID IV ×2 (13:00)
[2017-10-04] MEDS: [UNRECOGNIZED DRUG - OTHER] IV ×2 (13:00)
[2017-10-04] MEDS: MICAFUNGIN SODIUM 100 MG in D5W MINI-BAG PLUS 100 ML IV (16:25)
[2017-10-04] MEDS: ACETAMINOPHEN 650 MG SUPP PR (21:48)
[2017-10-05] MEDS: rifAXIMin 550 MG TAB (XIFAXAN) PO ×3 (00:03→21:30)
[2017-10-05] MEDS: PIPERACILLIN/TAZOBACTAM SOD 3.375 GM in APPROPRIATE DILUENT 1 EA IV ×4 (01:37→17:34)
[2017-10-05] MEDS: MORPHINE 4 MG/ML 1ML VIAL/SYRINGE (J2270) IV ×2 (02:46→21:31)
[2017-10-05] MEDS: SLF 3 ML SYR IV ×3 (06:00→21:37)
[2017-10-05] MEDS: IPRATROPIUM 0.5MG/ALBUTEROL 2.5MG INH SOL UD 3ML (DUONEB)(J7620) NEB ×4 (07:29→20:00)
[2017-10-05 07:36] LABS: AMMONIA 40 uMOL/L (<32)
[2017-10-05] MEDS: CYANOCOBALAMIN 1,000 MCG/ML VIAL (J3420) IM (09:02)
[2017-10-05] MEDS: PANTOPRAZOLE 40MG INJ (PROTONIX) (C9113) IV (09:02)
[2017-10-05] MEDS: LEVOTHYROXINE 100 MCG (0.1MG) VIAL IV (09:02)
[2017-10-05] MEDS: TRIAMCINOLONE ACET 0.1% CREAM 15 GM TOP ×2 (09:03→21:38)
[2017-10-05] MEDS: NYSTATIN CREAM 15 GM TOP ×2 (09:03→21:37)
[2017-10-05] MEDS: EUCERIN 120GM CREAM TOP ×2 (09:04→21:37)
[2017-10-05] MEDS: FOLIC ACID IV (13:26)
[2017-10-05] MEDS: [UNRECOGNIZED DRUG - OTHER] IV (13:26)
[2017-10-05] MEDS: THIAMINE IV (13:26)
[2017-10-05] MEDS: MULTIVITAMIN ADULT IV (13:26)
[2017-10-05] MEDS ORDERED: ISOVUE-370 76% 100ML VIAL (Q9967) As Ordered (14:01)
[2017-10-05] MEDS: MICAFUNGIN SODIUM 100 MG in D5W MINI-BAG PLUS 100 ML IV (16:25)
[2017-10-06] MEDS: PIPERACILLIN/TAZOBACTAM SOD 3.375 GM in APPROPRIATE DILUENT 1 EA IV ×4 (00:06→20:28)
[2017-10-06] MEDS: MORPHINE 4 MG/ML 1ML VIAL/SYRINGE (J2270) IV ×2 (01:56→13:19)
[2017-10-06] MEDS: SLF 3 ML SYR IV ×3 (05:57→20:14)
[2017-10-06 06:08] LABS: HEMATOCRIT 29.2 % (36.0-47.0); HEMOGLOBIN 9.2 g/dl (12.0-15.5); MEAN CORPUSCULAR HEMOGLOBIN 29.8 pg (27.0-33.0); MEAN CORPUSCULAR HGB CONC 31.5 g/dl (32.0-36.5); MEAN CORPUSCULAR VOLUME 94.5 fl (80.0-96.0); PLATELET COUNT, AUTOMATED 194 10^3/uL (150-450); RED BLOOD COUNT 3.09 10^6/uL (4.00-5.40); WHITE BLOOD COUNT 7.5 10^3/uL (4.0-10.0)
[2017-10-06 06:35] LABS: ALBUMIN 1.5 GM/DL (3.2-5.2); ALBUMIN/GLOBULIN RATIO 0.31 (1.00-1.93); ALKALINE PHOSPHATASE 86 U/L (45-117); ALT/SGPT 17 U/L (12-78); ANION GAP 7 MEQ/L (8-16); AST/SGOT 30 U/L (7-37); BILIRUBIN,TOTAL 2.3 MG/DL (0.2-1.0); BLOOD UREA NITROGEN 7 MG/DL (7-18); CARBON DIOXIDE LEVEL 29 MEQ/L (21-32); CHLORIDE LEVEL 112 MEQ/L (98-107); CREATININE FOR GFR 0.61 MG/DL (0.55-1.30); GLOMERULAR FILTRATION RATE > 60.0 (>51); GLUCOSE, FASTING 133 MG/DL (70-100); POTASSIUM SERUM 2.9 MEQ/L (3.5-5.1); SODIUM LEVEL 148 MEQ/L (136-145); TOTAL PROTEIN 6.3 GM/DL (6.4-8.2)
[2017-10-06 06:53] LABS: AMMONIA 48 uMOL/L (<32)
[2017-10-06] MEDS: IPRATROPIUM 0.5MG/ALBUTEROL 2.5MG INH SOL UD 3ML (DUONEB)(J7620) NEB ×4 (07:33→20:09)
[2017-10-06] MEDS: KCL 10MEQ/100ML SWI (KRUN) 10 MEQ in APPROPRIATE DILUENT 1 EA IV ×2 (08:31→10:09)
[2017-10-06] MEDS: LEVOTHYROXINE 100 MCG (0.1MG) VIAL IV (10:48)
[2017-10-06] MEDS: PANTOPRAZOLE 40MG INJ (PROTONIX) (C9113) IV (10:49)
[2017-10-06] MEDS: rifAXIMin 550 MG TAB (XIFAXAN) PO ×2 (10:49→20:12)
[2017-10-06] MEDS: CYANOCOBALAMIN 1,000 MCG/ML VIAL (J3420) IM (10:49)
[2017-10-06] MEDS: EUCERIN 120GM CREAM TOP ×2 (10:50→20:13)
[2017-10-06] MEDS: TRIAMCINOLONE ACET 0.1% CREAM 15 GM TOP ×2 (10:51→20:13)
[2017-10-06] MEDS: NYSTATIN CREAM 15 GM TOP ×2 (10:52→20:13)
[2017-10-06 12:47] LABS: POTASSIUM SERUM 3.6 MEQ/L (3.5-5.1)
[2017-10-06] MEDS: FOLIC ACID IV (14:06)
[2017-10-06] MEDS: THIAMINE IV (14:06)
[2017-10-06] MEDS: [UNRECOGNIZED DRUG - OTHER] IV (14:06)
[2017-10-06] MEDS: MULTIVITAMIN ADULT IV (14:06)
[2017-10-06] MEDS: MICAFUNGIN SODIUM 100 MG in D5W MINI-BAG PLUS 100 ML IV (19:02)
[2017-10-07] MEDS: PIPERACILLIN/TAZOBACTAM SOD 3.375 GM in APPROPRIATE DILUENT 1 EA IV ×5 (00:56→23:54)
[2017-10-07] MEDS: SLF 3 ML SYR IV ×3 (06:00→21:33)
[2017-10-07 08:18] LABS: HEMATOCRIT 29.6 % (36.0-47.0); HEMOGLOBIN 9.1 g/dl (12.0-15.5); MEAN CORPUSCULAR HEMOGLOBIN 29.1 pg (27.0-33.0); MEAN CORPUSCULAR HGB CONC 30.7 g/dl (32.0-36.5); MEAN CORPUSCULAR VOLUME 94.6 fl (80.0-96.0); PLATELET COUNT, AUTOMATED 195 10^3/uL (150-450); RED BLOOD COUNT 3.13 10^6/uL (4.00-5.40); RED CELL DISTRIBUTION WIDTH 18.1 % (11.5-14.5); WHITE BLOOD COUNT 7.4 10^3/uL (4.0-10.0)
[2017-10-07] MEDS: IPRATROPIUM 0.5MG/ALBUTEROL 2.5MG INH SOL UD 3ML (DUONEB)(J7620) NEB ×4 (08:27→20:35)
[2017-10-07 08:30] LABS: ALBUMIN 1.6 GM/DL (3.2-5.2); ALKALINE PHOSPHATASE 87 U/L (45-117); ALT/SGPT 18 U/L (12-78); ANION GAP 5 MEQ/L (8-16); AST/SGOT 34 U/L (7-37); BILIRUBIN,TOTAL 2.4 MG/DL (0.2-1.0); BLOOD UREA NITROGEN 5 MG/DL (7-18); CALCIUM LEVEL 8.2 MG/DL (8.5-10.1); CARBON DIOXIDE LEVEL 30 MEQ/L (21-32); CHLORIDE LEVEL 111 MEQ/L (98-107); CREATININE FOR GFR 0.61 MG/DL (0.55-1.30); GLOMERULAR FILTRATION RATE > 60.0 (>51); GLUCOSE, FASTING 112 MG/DL (70-100); POTASSIUM SERUM 3.2 MEQ/L (3.5-5.1); SODIUM LEVEL 146 MEQ/L (136-145)
[2017-10-07] MEDS: POTASSIUM CHLORIDE 10 MEQ SR TABLET PO (08:45)
[2017-10-07] MEDS: TROPICAMIDE 0.5% OPHTH SOLN 15 ML OU (09:55)
[2017-10-07] MEDS: PHENYLEPHRINE 2.5% OPHTH SOL 2ML OU (09:55)
[2017-10-07] MEDS: rifAXIMin 550 MG TAB (XIFAXAN) PO ×2 (10:07→21:00)
[2017-10-07] MEDS: LEVOTHYROXINE 100 MCG (0.1MG) VIAL IV (10:08)
[2017-10-07] MEDS: CYANOCOBALAMIN 1,000 MCG/ML VIAL (J3420) IM (10:08)
[2017-10-07] MEDS: PANTOPRAZOLE 40MG INJ (PROTONIX) (C9113) IV (10:08)
[2017-10-07] MEDS: EUCERIN 120GM CREAM TOP ×2 (10:09→21:32)
[2017-10-07] MEDS: POTASSIUM CHLORIDE 10% LIQ 20 MEQ/15 ML UDC PO (10:09)
[2017-10-07] MEDS: TRIAMCINOLONE ACET 0.1% CREAM 15 GM TOP ×2 (10:10→21:32)
[2017-10-07] MEDS: NYSTATIN CREAM 15 GM TOP ×2 (10:11→21:33)
[2017-10-07] MEDS: MORPHINE 4 MG/ML 1ML VIAL/SYRINGE (J2270) IV (13:49)
[2017-10-07] MEDS: MULTIVITAMIN ADULT IV (13:50)
[2017-10-07] MEDS: FOLIC ACID IV (13:50)
[2017-10-07] MEDS: [UNRECOGNIZED DRUG - OTHER] IV (13:50)
[2017-10-07] MEDS: THIAMINE IV (13:50)
[2017-10-07] MEDS: MICAFUNGIN SODIUM 100 MG in D5W MINI-BAG PLUS 100 ML IV (17:45)
[2017-10-08] MEDS: PIPERACILLIN/TAZOBACTAM SOD 3.375 GM in APPROPRIATE DILUENT 1 EA IV ×3 (05:49→18:49)
[2017-10-08] MEDS: SLF 3 ML SYR IV ×3 (05:50→22:14)
[2017-10-08] MEDS: IPRATROPIUM 0.5MG/ALBUTEROL 2.5MG INH SOL UD 3ML (DUONEB)(J7620) NEB ×4 (07:53→20:11)
[2017-10-08] MEDS: PANTOPRAZOLE 40MG INJ (PROTONIX) (C9113) IV (09:30)
[2017-10-08] MEDS: EUCERIN 120GM CREAM TOP ×2 (09:30→22:11)
[2017-10-08] MEDS: TRIAMCINOLONE ACET 0.1% CREAM 15 GM TOP ×2 (09:30→22:12)
[2017-10-08] MEDS: LEVOTHYROXINE 100 MCG (0.1MG) VIAL IV (09:30)
[2017-10-08] MEDS: CYANOCOBALAMIN 1,000 MCG/ML VIAL (J3420) IM (09:31)
[2017-10-08] MEDS: NYSTATIN CREAM 15 GM TOP ×2 (09:31→22:12)
[2017-10-08] MEDS: rifAXIMin 550 MG TAB (XIFAXAN) PO ×2 (09:31→22:10)
[2017-10-08 10:07] LABS: HEMATOCRIT 30.9 % (36.0-47.0); HEMOGLOBIN 9.7 g/dl (12.0-15.5); MEAN CORPUSCULAR HEMOGLOBIN 30.1 pg (27.0-33.0); MEAN CORPUSCULAR HGB CONC 31.4 g/dl (32.0-36.5); PLATELET COUNT, AUTOMATED 197 10^3/uL (150-450); RED BLOOD COUNT 3.22 10^6/uL (4.00-5.40); RED CELL DISTRIBUTION WIDTH 18.2 % (11.5-14.5); WHITE BLOOD COUNT 7.7 10^3/uL (4.0-10.0)
[2017-10-08 10:32] LABS: ALBUMIN 1.7 GM/DL (3.2-5.2); ALBUMIN/GLOBULIN RATIO 0.32 (1.00-1.93); ALKALINE PHOSPHATASE 100 U/L (45-117); ALT/SGPT 19 U/L (12-78); ANION GAP 4 MEQ/L (8-16); AST/SGOT 34 U/L (7-37); BILIRUBIN,TOTAL 1.9 MG/DL (0.2-1.0); BLOOD UREA NITROGEN 5 MG/DL (7-18); CALCIUM LEVEL 8.3 MG/DL (8.5-10.1); CARBON DIOXIDE LEVEL 31 MEQ/L (21-32); CHLORIDE LEVEL 109 MEQ/L (98-107); CREATININE FOR GFR 0.67 MG/DL (0.55-1.30); GLOMERULAR FILTRATION RATE > 60.0 (>51); GLUCOSE, FASTING 125 MG/DL (70-100); POTASSIUM SERUM 3.7 MEQ/L (3.5-5.1); SODIUM LEVEL 144 MEQ/L (136-145)
[2017-10-08] MEDS: POTASSIUM CHLORIDE 10% LIQ 20 MEQ/15 ML UDC PO ×2 (10:51→22:10)
[2017-10-08 12:34] LABS: APPEARANCE, URINE HAZY (CLEAR); BACTERIA, URINE AUTO NEGATIVE (NEGATIVE); BILIRUBIN, URINE AUTO NEGATIVE (NEGATIVE); BLOOD, URINE BLOOD NEGATIVE (NEGATIVE); COLOR, URINE YELLOW (YELLOW); GLUCOSE, URINE (UA) AUTO NEGATIVE (NEGATIVE); KETONE, URINE AUTO NEGATIVE (NEGATIVE); LEUKOCYTE ESTERASE, URINE AUTO NEGATIVE (NEGATIVE); NITRITE, URINE AUTO NEGATIVE (NEGATIVE); PROTEIN, URINE AUTO NEGATIVE (NEGATIVE); RBC, URINE AUTO 2 /HPF (0-3); SPECIFIC GRAVITY URINE AUTO 1.015 (1.002-1.035); SQUAMOUS EPITHELIAL CELL UR AU 0 /HPF (0-6); UROBILINOGEN, URINE AUTO 0.2 mg/dL (0.0-2.0); WBC, URINE AUTO 2 /HPF (0-3)
[2017-10-08] MEDS: THIAMINE IV (13:34)
[2017-10-08] MEDS: MULTIVITAMIN ADULT IV (13:34)
[2017-10-08] MEDS: FOLIC ACID IV (13:34)
[2017-10-08] MEDS: [UNRECOGNIZED DRUG - OTHER] IV (13:34)
[2017-10-08] MEDS: MICAFUNGIN SODIUM 100 MG in D5W MINI-BAG PLUS 100 ML IV (18:13)
[2017-10-09] MEDS: PIPERACILLIN/TAZOBACTAM SOD 3.375 GM in APPROPRIATE DILUENT 1 EA IV ×3 (03:10→11:57)
[2017-10-09 05:17] LABS: HEMATOCRIT 31.8 % (36.0-47.0); MEAN CORPUSCULAR HEMOGLOBIN 29.6 pg (27.0-33.0); MEAN CORPUSCULAR HGB CONC 31.4 g/dl (32.0-36.5); MEAN CORPUSCULAR VOLUME 94.1 fl (80.0-96.0); PLATELET COUNT, AUTOMATED 207 10^3/uL (150-450); RED BLOOD COUNT 3.38 10^6/uL (4.00-5.40); RED CELL DISTRIBUTION WIDTH 18.5 % (11.5-14.5); WHITE BLOOD COUNT 8.3 10^3/uL (4.0-10.0)
[2017-10-09] MEDS: SLF 3 ML SYR IV ×3 (06:25→21:52)
[2017-10-09 07:28] LABS: ALKALINE PHOSPHATASE 105 U/L (45-117); ALT/SGPT 23 U/L (12-78); ANION GAP 6 MEQ/L (8-16); AST/SGOT 36 U/L (7-37); BLOOD UREA NITROGEN 6 MG/DL (7-18); CALCIUM LEVEL 8.5 MG/DL (8.5-10.1); CARBON DIOXIDE LEVEL 26 MEQ/L (21-32); CHLORIDE LEVEL 108 MEQ/L (98-107); CREATININE FOR GFR 0.58 MG/DL (0.55-1.30); GLOMERULAR FILTRATION RATE > 60.0 (>51); GLUCOSE, FASTING 117 MG/DL (70-100); POTASSIUM SERUM 3.7 MEQ/L (3.5-5.1); SODIUM LEVEL 140 MEQ/L (136-145)
[2017-10-09 07:29] LABS: ALBUMIN 1.7 GM/DL (3.2-5.2); ALBUMIN/GLOBULIN RATIO 0.29 (1.00-1.93); BILIRUBIN,TOTAL 1.9 MG/DL (0.2-1.0); TOTAL PROTEIN 7.6 GM/DL (6.4-8.2)
[2017-10-09] MEDS: IPRATROPIUM 0.5MG/ALBUTEROL 2.5MG INH SOL UD 3ML (DUONEB)(J7620) NEB ×4 (07:54→21:13)
[2017-10-09] MEDS: LEVOTHYROXINE 100 MCG (0.1MG) VIAL IV (10:24)
[2017-10-09] MEDS: rifAXIMin 550 MG TAB (XIFAXAN) PO ×2 (10:25→21:44)
[2017-10-09] MEDS: POTASSIUM CHLORIDE 10% LIQ 20 MEQ/15 ML UDC PO ×2 (10:25→21:44)
[2017-10-09] MEDS: CYANOCOBALAMIN 1,000 MCG/ML VIAL (J3420) IM (10:25)
[2017-10-09] MEDS: TRIAMCINOLONE ACET 0.1% CREAM 15 GM TOP ×2 (10:26→21:50)
[2017-10-09] MEDS: NYSTATIN CREAM 15 GM TOP ×2 (10:27→21:51)
[2017-10-09] MEDS: EUCERIN 120GM CREAM TOP ×2 (10:28→21:51)
[2017-10-09] MEDS: MULTIVITAMIN ADULT IV (12:56)
[2017-10-09] MEDS: [UNRECOGNIZED DRUG - OTHER] IV (12:56)
[2017-10-09] MEDS: FOLIC ACID IV (12:56)
[2017-10-09] MEDS: THIAMINE IV (12:56)
[2017-10-09] MEDS: MICAFUNGIN SODIUM 100 MG in D5W MINI-BAG PLUS 100 ML IV (17:02)
[2017-10-10] MEDS: SLF 3 ML SYR IV ×3 (03:47→22:47)
[2017-10-10 06:15] LABS: HEMATOCRIT 34.1 % (36.0-47.0); HEMOGLOBIN 10.9 g/dl (12.0-15.5); MEAN CORPUSCULAR VOLUME 93.9 fl (80.0-96.0); PLATELET COUNT, AUTOMATED 253 10^3/uL (150-450); RED BLOOD COUNT 3.63 10^6/uL (4.00-5.40); RED CELL DISTRIBUTION WIDTH 18.6 % (11.5-14.5); WHITE BLOOD COUNT 8.9 10^3/uL (4.0-10.0)
[2017-10-10 07:47] LABS: BLOOD UREA NITROGEN 8 MG/DL (7-18); GLOMERULAR FILTRATION RATE > 60.0 (>51)
[2017-10-10 07:48] LABS: ANION GAP 4 MEQ/L (8-16); POTASSIUM SERUM 4.1 MEQ/L (3.5-5.1)
[2017-10-10] MEDS: IPRATROPIUM 0.5MG/ALBUTEROL 2.5MG INH SOL UD 3ML (DUONEB)(J7620) NEB ×4 (07:52→20:00)
[2017-10-10 08:04] LABS: ALBUMIN 1.8 GM/DL (3.2-5.2); ALBUMIN/GLOBULIN RATIO 0.28 (1.00-1.93); ALKALINE PHOSPHATASE 116 U/L (45-117); ALT/SGPT 21 U/L (12-78); AST/SGOT 40 U/L (7-37); BILIRUBIN,TOTAL 1.9 MG/DL (0.2-1.0); CALCIUM LEVEL 8.7 MG/DL (8.5-10.1); CARBON DIOXIDE LEVEL 26 MEQ/L (21-32); CHLORIDE LEVEL 106 MEQ/L (98-107); CREATININE FOR GFR 0.65 MG/DL (0.55-1.30); GLUCOSE, FASTING 118 MG/DL (70-100); SODIUM LEVEL 139 MEQ/L (136-145); TOTAL PROTEIN 8.3 GM/DL (6.4-8.2)
[2017-10-10] MEDS: rifAXIMin 550 MG TAB (XIFAXAN) PO ×2 (08:20→22:34)
[2017-10-10] MEDS: CYANOCOBALAMIN 1,000 MCG/ML VIAL (J3420) IM (08:20)
[2017-10-10] MEDS: POTASSIUM CHLORIDE 10% LIQ 20 MEQ/15 ML UDC PO ×2 (08:20→22:34)
[2017-10-10] MEDS: LEVOTHYROXINE 100 MCG (0.1MG) VIAL IV (08:20)
[2017-10-10] MEDS: TRIAMCINOLONE ACET 0.1% CREAM 15 GM TOP ×2 (08:21→22:37)
[2017-10-10] MEDS: EUCERIN 120GM CREAM TOP ×2 (08:21→22:35)
[2017-10-10] MEDS: NYSTATIN CREAM 15 GM TOP ×2 (08:22→22:36)
[2017-10-10] MEDS: FOLIC ACID IV (14:25)
[2017-10-10] MEDS: [UNRECOGNIZED DRUG - OTHER] IV (14:25)
[2017-10-10] MEDS: THIAMINE IV (14:25)
[2017-10-10] MEDS: MULTIVITAMIN ADULT IV (14:25)
[2017-10-10] MEDS: MICAFUNGIN SODIUM 100 MG in D5W MINI-BAG PLUS 100 ML IV (17:50)
[2017-10-11] MEDS: MORPHINE 4 MG/ML 1ML VIAL/SYRINGE (J2270) IV (02:16)
[2017-10-11] MEDS: SLF 3 ML SYR IV ×3 (05:42→22:00)
[2017-10-11] MEDS: IPRATROPIUM 0.5MG/ALBUTEROL 2.5MG INH SOL UD 3ML (DUONEB)(J7620) NEB ×4 (07:12→20:00)
[2017-10-11 09:05] LABS: HEMATOCRIT 33.1 % (36.0-47.0); HEMOGLOBIN 10.6 g/dl (12.0-15.5); MEAN CORPUSCULAR HEMOGLOBIN 30.3 pg (27.0-33.0); MEAN CORPUSCULAR VOLUME 94.6 fl (80.0-96.0); PLATELET COUNT, AUTOMATED 222 10^3/uL (150-450); RED CELL DISTRIBUTION WIDTH 18.8 % (11.5-14.5)
[2017-10-11 09:19] LABS: ALBUMIN 1.9 GM/DL (3.2-5.2); ALBUMIN/GLOBULIN RATIO 0.34 (1.00-1.93); ALKALINE PHOSPHATASE 121 U/L (45-117); ALT/SGPT 24 U/L (12-78); ANION GAP 6 MEQ/L (8-16); AST/SGOT 52 U/L (7-37); BILIRUBIN,TOTAL 1.6 MG/DL (0.2-1.0); BLOOD UREA NITROGEN 10 MG/DL (7-18); CALCIUM LEVEL 8.6 MG/DL (8.5-10.1); CARBON DIOXIDE LEVEL 27 MEQ/L (21-32); CHLORIDE LEVEL 106 MEQ/L (98-107); CREATININE FOR GFR 0.61 MG/DL (0.55-1.30); GLOMERULAR FILTRATION RATE > 60.0 (>51); GLUCOSE, FASTING 138 MG/DL (70-100); POTASSIUM SERUM 3.5 MEQ/L (3.5-5.1); SODIUM LEVEL 139 MEQ/L (136-145); TOTAL PROTEIN 7.5 GM/DL (6.4-8.2)
[2017-10-11] MEDS: POTASSIUM CHLORIDE 10% LIQ 20 MEQ/15 ML UDC PO ×2 (09:27→22:45)
[2017-10-11] MEDS: rifAXIMin 550 MG TAB (XIFAXAN) PO ×2 (09:27→22:45)
[2017-10-11] MEDS: CYANOCOBALAMIN 1,000 MCG/ML VIAL (J3420) IM (09:28)
[2017-10-11] MEDS: EUCERIN 120GM CREAM TOP ×2 (09:28→22:46)
[2017-10-11] MEDS: NYSTATIN CREAM 15 GM TOP ×2 (09:28→22:46)
[2017-10-11] MEDS: LEVOTHYROXINE 100 MCG (0.1MG) VIAL IV (09:28)
[2017-10-11] MEDS: TRIAMCINOLONE ACET 0.1% CREAM 15 GM TOP ×2 (09:29→22:47)
[2017-10-11] MEDS: THIAMINE IV (12:14)
[2017-10-11] MEDS: [UNRECOGNIZED DRUG - OTHER] IV (12:14)
[2017-10-11] MEDS: MULTIVITAMIN ADULT IV (12:14)
[2017-10-11] MEDS: FOLIC ACID IV (12:14)
[2017-10-11] MEDS: MICAFUNGIN SODIUM 100 MG in D5W MINI-BAG PLUS 100 ML IV (17:52)
[2017-10-12] MEDS: MORPHINE 4 MG/ML 1ML VIAL/SYRINGE (J2270) IV ×3 (01:23→20:06)
[2017-10-12 06:43] LABS: HEMATOCRIT 33.4 % (36.0-47.0); HEMOGLOBIN 10.8 g/dl (12.0-15.5); MEAN CORPUSCULAR HEMOGLOBIN 30.1 pg (27.0-33.0); MEAN CORPUSCULAR HGB CONC 32.3 g/dl (32.0-36.5); PLATELET COUNT, AUTOMATED 237 10^3/uL (150-450); RED BLOOD COUNT 3.59 10^6/uL (4.00-5.40); RED CELL DISTRIBUTION WIDTH 18.8 % (11.5-14.5); WHITE BLOOD COUNT 8.2 10^3/uL (4.0-10.0)
[2017-10-12] MEDS: SLF 3 ML SYR IV ×3 (06:53→22:32)
[2017-10-12 07:08] LABS: ALBUMIN/GLOBULIN RATIO 0.33 (1.00-1.93); ALKALINE PHOSPHATASE 137 U/L (45-117); ALT/SGPT 24 U/L (12-78); ANION GAP 7 MEQ/L (8-16); AST/SGOT 60 U/L (7-37); BILIRUBIN,TOTAL 1.8 MG/DL (0.2-1.0); BLOOD UREA NITROGEN 7 MG/DL (7-18); CALCIUM LEVEL 8.8 MG/DL (8.5-10.1); CARBON DIOXIDE LEVEL 28 MEQ/L (21-32); CHLORIDE LEVEL 105 MEQ/L (98-107); CREATININE FOR GFR 0.61 MG/DL (0.55-1.30); GLOMERULAR FILTRATION RATE > 60.0 (>51); GLUCOSE, FASTING 88 MG/DL (70-100); POTASSIUM SERUM 3.7 MEQ/L (3.5-5.1); SODIUM LEVEL 140 MEQ/L (136-145)
[2017-10-12] MEDS: IPRATROPIUM 0.5MG/ALBUTEROL 2.5MG INH SOL UD 3ML (DUONEB)(J7620) NEB ×4 (07:15→20:44)
[2017-10-12] MEDS: rifAXIMin 550 MG TAB (XIFAXAN) PO ×2 (08:00→22:30)
[2017-10-12] MEDS: CYANOCOBALAMIN 1,000 MCG/ML VIAL (J3420) IM (08:00)
[2017-10-12] MEDS: POTASSIUM CHLORIDE 10% LIQ 20 MEQ/15 ML UDC PO ×2 (08:00→22:30)
[2017-10-12] MEDS: LEVOTHYROXINE 100 MCG (0.1MG) VIAL IV (08:00)
[2017-10-12] MEDS: NYSTATIN CREAM 15 GM TOP ×2 (08:01→22:31)
[2017-10-12] MEDS: TRIAMCINOLONE ACET 0.1% CREAM 15 GM TOP ×2 (08:01→22:31)
[2017-10-12] MEDS: EUCERIN 120GM CREAM TOP ×2 (08:01→22:30)
[2017-10-12] MEDS: METOCLOPRAMIDE INJ 10MG/2ML VIAL (J2765) IV ×3 (09:43→22:30)
[2017-10-12] MEDS: FOLIC ACID IV (12:41)
[2017-10-12] MEDS: THIAMINE IV (12:41)
[2017-10-12] MEDS: [UNRECOGNIZED DRUG - OTHER] IV (12:41)
[2017-10-12] MEDS: MULTIVITAMIN ADULT IV (12:41)
[2017-10-12] MEDS: MICAFUNGIN SODIUM 100 MG in D5W MINI-BAG PLUS 100 ML IV (16:55)
[2017-10-12] MEDS: ACETAMINOPHEN 650 MG SUPP PR (17:30)
[2017-10-13] MEDS: METOCLOPRAMIDE INJ 10MG/2ML VIAL (J2765) IV ×4 (03:32→21:38)
[2017-10-13] MEDS: SLF 3 ML SYR IV ×3 (05:41→21:41)
[2017-10-13 06:52] LABS: AMMONIA 16 uMOL/L (<32)
[2017-10-13] MEDS: IPRATROPIUM 0.5MG/ALBUTEROL 2.5MG INH SOL UD 3ML (DUONEB)(J7620) NEB ×4 (07:08→19:42)
[2017-10-13] MEDS: POTASSIUM CHLORIDE 10% LIQ 20 MEQ/15 ML UDC PO ×2 (10:26→21:38)
[2017-10-13] MEDS: LEVOTHYROXINE 100 MCG (0.1MG) VIAL IV (10:26)
[2017-10-13] MEDS: CYANOCOBALAMIN 1,000 MCG/ML VIAL (J3420) IM (10:27)
[2017-10-13] MEDS: rifAXIMin 550 MG TAB (XIFAXAN) PO ×2 (10:27→21:38)
[2017-10-13] MEDS: NYSTATIN CREAM 15 GM TOP ×2 (10:28→21:40)
[2017-10-13] MEDS: TRIAMCINOLONE ACET 0.1% CREAM 15 GM TOP ×2 (10:28→21:41)
[2017-10-13] MEDS: EUCERIN 120GM CREAM TOP ×2 (10:29→21:39)
[2017-10-13] MEDS: [UNRECOGNIZED DRUG - OTHER] IV (13:20)
[2017-10-13] MEDS: THIAMINE IV (13:20)
[2017-10-13] MEDS: MULTIVITAMIN ADULT IV (13:20)
[2017-10-13] MEDS: FOLIC ACID IV (13:20)
[2017-10-13] MEDS: MICAFUNGIN SODIUM 100 MG in D5W MINI-BAG PLUS 100 ML IV (18:12)
[2017-10-14] MEDS: METOCLOPRAMIDE INJ 10MG/2ML VIAL (J2765) IV ×4 (02:03→21:25)
[2017-10-14] MEDS: SLF 3 ML SYR IV ×3 (05:12→21:25)
[2017-10-14] MEDS: IPRATROPIUM 0.5MG/ALBUTEROL 2.5MG INH SOL UD 3ML (DUONEB)(J7620) NEB ×4 (07:16→19:37)
[2017-10-14] MEDS: LEVOTHYROXINE 100 MCG (0.1MG) VIAL IV (09:03)
[2017-10-14] MEDS: POTASSIUM CHLORIDE 10% LIQ 20 MEQ/15 ML UDC PO ×2 (09:03→21:24)
[2017-10-14] MEDS: rifAXIMin 550 MG TAB (XIFAXAN) PO ×2 (09:03→21:24)
[2017-10-14] MEDS: CYANOCOBALAMIN 1,000 MCG/ML VIAL (J3420) IM (09:04)
[2017-10-14] MEDS: EUCERIN 120GM CREAM TOP ×2 (09:04→21:25)
[2017-10-14] MEDS: TRIAMCINOLONE ACET 0.1% CREAM 15 GM TOP ×2 (09:05→21:23)
[2017-10-14] MEDS: NYSTATIN CREAM 15 GM TOP ×2 (09:05→21:24)
[2017-10-14] MEDS: [UNRECOGNIZED DRUG - OTHER] IV (14:29)
[2017-10-14] MEDS: THIAMINE IV (14:29)
[2017-10-14] MEDS: MULTIVITAMIN ADULT IV (14:29)
[2017-10-14] MEDS: FOLIC ACID IV (14:29)
[2017-10-14] MEDS: MICAFUNGIN SODIUM 100 MG in D5W MINI-BAG PLUS 100 ML IV (16:08)
[2017-10-15] MEDS: METOCLOPRAMIDE INJ 10MG/2ML VIAL (J2765) IV ×4 (03:00→20:44)
[2017-10-15] MEDS: SLF 3 ML SYR IV ×3 (05:12→20:45)
[2017-10-15] MEDS: IPRATROPIUM 0.5MG/ALBUTEROL 2.5MG INH SOL UD 3ML (DUONEB)(J7620) NEB ×4 (07:08→20:27)
[2017-10-15] MEDS: TRIAMCINOLONE ACET 0.1% CREAM 15 GM TOP ×2 (09:00→20:45)
[2017-10-15] MEDS: POTASSIUM CHLORIDE 10% LIQ 20 MEQ/15 ML UDC PO ×2 (10:32→20:45)
[2017-10-15] MEDS: LEVOTHYROXINE 100 MCG (0.1MG) VIAL IV (10:32)
[2017-10-15] MEDS: EUCERIN 120GM CREAM TOP ×2 (10:33→20:44)
[2017-10-15] MEDS: NYSTATIN CREAM 15 GM TOP ×2 (10:33→20:44)
[2017-10-15] MEDS: CYANOCOBALAMIN 1,000 MCG/ML VIAL (J3420) IM (10:34)
[2017-10-15] MEDS: rifAXIMin 550 MG TAB (XIFAXAN) PO ×2 (10:34→20:43)
[2017-10-15] MEDS: MULTIVITAMIN ADULT IV (12:56)
[2017-10-15] MEDS: [UNRECOGNIZED DRUG - OTHER] IV (12:56)
[2017-10-15] MEDS: FOLIC ACID IV (12:56)
[2017-10-15] MEDS: THIAMINE IV (12:56)
[2017-10-16] MEDS: METOCLOPRAMIDE INJ 10MG/2ML VIAL (J2765) IV ×4 (02:49→20:51)
[2017-10-16] MEDS: SLF 3 ML SYR IV ×3 (02:49→22:00)
[2017-10-16 05:55] LABS: BASO # 0.1 10^3/uL (0.0-0.2); BASO % 0.9 % (0.0-1.0); EOS # 0.3 10^3/uL (0.0-0.50); EOS % 4.9 % (0.0-3.0); HEMATOCRIT 35.8 % (36.0-47.0); HEMOGLOBIN 11.3 g/dl (12.0-15.5); IMMATURE GRANULOCYTE % 0.4 % (0-3.0); LYMPH # 1.3 10^3/uL (1.5-4.5); LYMPH % 19.9 % (24.0-44.0); MEAN CORPUSCULAR HGB CONC 31.6 g/dl (32.0-36.5); MONO # 0.5 10^3/uL (0.0-0.8); NEUTROPHILS # 4.4 10^3/uL (1.8-7.7); NEUTROPHILS % 65.9 % (36.0-66.0); PLATELET COUNT, AUTOMATED 260 10^3/uL (150-450); RED BLOOD COUNT 3.77 10^6/uL (4.00-5.40); RED CELL DISTRIBUTION WIDTH 19.3 % (11.5-14.5); WHITE BLOOD COUNT 6.7 10^3/uL (4.0-10.0)
[2017-10-16 06:19] LABS: ALBUMIN 2.3 GM/DL (3.2-5.2); ALBUMIN/GLOBULIN RATIO 0.37 (1.00-1.93); ALKALINE PHOSPHATASE 156 U/L (45-117); ALT/SGPT 22 U/L (12-78); ANION GAP 6 MEQ/L (8-16); AST/SGOT 48 U/L (7-37); BILIRUBIN,TOTAL 1.4 MG/DL (0.2-1.0); BLOOD UREA NITROGEN 9 MG/DL (7-18); CALCIUM LEVEL 9.2 MG/DL (8.5-10.1); CARBON DIOXIDE LEVEL 28 MEQ/L (21-32); CHLORIDE LEVEL 106 MEQ/L (98-107); CREATININE FOR GFR 0.65 MG/DL (0.55-1.30); GLOMERULAR FILTRATION RATE > 60.0 (>51); GLUCOSE, FASTING 100 MG/DL (70-100); POTASSIUM SERUM 3.7 MEQ/L (3.5-5.1); SODIUM LEVEL 140 MEQ/L (136-145); TOTAL PROTEIN 8.5 GM/DL (6.4-8.2)
[2017-10-16] MEDS: IPRATROPIUM 0.5MG/ALBUTEROL 2.5MG INH SOL UD 3ML (DUONEB)(J7620) NEB ×4 (07:35→20:25)
[2017-10-16] MEDS: rifAXIMin 550 MG TAB (XIFAXAN) PO ×2 (10:52→20:51)
[2017-10-16] MEDS: CYANOCOBALAMIN 1,000 MCG/ML VIAL (J3420) IM (10:52)
[2017-10-16] MEDS: PANTOPRAZOLE 40MG INJ (PROTONIX) (C9113) IV (10:53)
[2017-10-16] MEDS: ENOXAPARIN 40 MG/0.4 ML SYRINGE (J1650) SC (10:53)
[2017-10-16] MEDS: POTASSIUM CHLORIDE 10% LIQ 20 MEQ/15 ML UDC PO ×2 (10:53→20:52)
[2017-10-16] MEDS: EUCERIN 120GM CREAM TOP ×2 (10:54→20:52)
[2017-10-16] MEDS: LEVOTHYROXINE 100 MCG (0.1MG) VIAL IV (10:54)
[2017-10-16] MEDS: TRIAMCINOLONE ACET 0.1% CREAM 15 GM TOP ×2 (10:55→20:53)
[2017-10-16] MEDS: NYSTATIN CREAM 15 GM TOP ×2 (10:55→20:53)
[2017-10-16 11:37] LABS: INR 1.03; PROTHROMBIN TIME 13.7 SECONDS (12.4-14.5)
[2017-10-16 11:38] LABS: PARTIAL THROMBOPLASTIN TIME 30.6 SECONDS (26.8-37.9)
[2017-10-16] MEDS: MULTIVITAMIN ADULT IV (11:50)
[2017-10-16] MEDS: FOLIC ACID IV (11:50)
[2017-10-16] MEDS: THIAMINE IV (11:50)
[2017-10-16] MEDS: [UNRECOGNIZED DRUG - OTHER] IV (11:50)
[2017-10-17] MEDS: METOCLOPRAMIDE INJ 10MG/2ML VIAL (J2765) IV ×4 (02:50→20:45)
[2017-10-17 06:03] LABS: HEMOGLOBIN 10.8 g/dl (12.0-15.5); MEAN CORPUSCULAR HEMOGLOBIN 29.9 pg (27.0-33.0); MEAN CORPUSCULAR HGB CONC 31.8 g/dl (32.0-36.5); MEAN CORPUSCULAR VOLUME 94.2 fl (80.0-96.0); PLATELET COUNT, AUTOMATED 229 10^3/uL (150-450); RED BLOOD COUNT 3.61 10^6/uL (4.00-5.40); RED CELL DISTRIBUTION WIDTH 19.1 % (11.5-14.5); WHITE BLOOD COUNT 7.2 10^3/uL (4.0-10.0)
[2017-10-17 06:19] LABS: ALBUMIN 2.2 GM/DL (3.2-5.2); ALBUMIN/GLOBULIN RATIO 0.38 (1.00-1.93); ALKALINE PHOSPHATASE 128 U/L (45-117); ALT/SGPT 21 U/L (12-78); ANION GAP 5 MEQ/L (8-16); AST/SGOT 42 U/L (7-37); BILIRUBIN,TOTAL 1.3 MG/DL (0.2-1.0); BLOOD UREA NITROGEN 7 MG/DL (7-18); CALCIUM LEVEL 9.1 MG/DL (8.5-10.1); CARBON DIOXIDE LEVEL 27 MEQ/L (21-32); CHLORIDE LEVEL 106 MEQ/L (98-107); CREATININE FOR GFR 0.66 MG/DL (0.55-1.30); GLOMERULAR FILTRATION RATE > 60.0 (>51); GLUCOSE, FASTING 98 MG/DL (70-100); MAGNESIUM LEVEL 1.9 MG/DL (1.8-2.4); PHOSPHORUS LEVEL 3.5 MG/DL (2.5-4.9); POTASSIUM SERUM 3.7 MEQ/L (3.5-5.1); SODIUM LEVEL 138 MEQ/L (136-145)
[2017-10-17] MEDS: SLF 3 ML SYR IV ×3 (06:44→20:47)
[2017-10-17] MEDS: LEVOTHYROXINE 100 MCG (0.1MG) VIAL IV (08:19)
[2017-10-17] MEDS: PANTOPRAZOLE 40MG INJ (PROTONIX) (C9113) IV (08:20)
[2017-10-17] MEDS: ENOXAPARIN 40 MG/0.4 ML SYRINGE (J1650) SC (08:20)
[2017-10-17] MEDS: POTASSIUM CHLORIDE 10% LIQ 20 MEQ/15 ML UDC PO ×2 (08:20→20:45)
[2017-10-17] MEDS: CYANOCOBALAMIN 1,000 MCG/ML VIAL (J3420) IM (08:20)
[2017-10-17] MEDS: IPRATROPIUM 0.5MG/ALBUTEROL 2.5MG INH SOL UD 3ML (DUONEB)(J7620) NEB ×4 (08:41→20:00)
[2017-10-17] MEDS: EUCERIN 120GM CREAM TOP ×2 (09:22→20:47)
[2017-10-17] MEDS: TRIAMCINOLONE ACET 0.1% CREAM 15 GM TOP ×2 (09:23→20:47)
[2017-10-17] MEDS: NYSTATIN CREAM 15 GM TOP ×2 (09:24→20:46)
[2017-10-17] MEDS ORDERED: ISOVUE-370 76% 100ML VIAL (Q9967) As Ordered (11:36)
[2017-10-17 12:14] LABS: AMMONIA 19 uMOL/L (<32)
[2017-10-17] MEDS: MULTIVITAMIN ADULT IV (13:57)
[2017-10-17] MEDS: FOLIC ACID IV (13:57)
[2017-10-17] MEDS: rifAXIMin 550 MG TAB (XIFAXAN) PO ×2 (13:57→20:45)
[2017-10-17] MEDS: [UNRECOGNIZED DRUG - OTHER] IV (13:57)
[2017-10-17] MEDS: THIAMINE IV (13:57)
[2017-10-18] MEDS: METOCLOPRAMIDE INJ 10MG/2ML VIAL (J2765) IV ×4 (02:56→20:53)
[2017-10-18] MEDS: SLF 3 ML SYR IV ×3 (06:34→20:55)
[2017-10-18] MEDS: IPRATROPIUM 0.5MG/ALBUTEROL 2.5MG INH SOL UD 3ML (DUONEB)(J7620) NEB ×5 (07:08→21:16)
[2017-10-18 08:06] LABS: ALBUMIN 2.2 GM/DL (3.2-5.2); ALBUMIN/GLOBULIN RATIO 0.39 (1.00-1.93); ALKALINE PHOSPHATASE 121 U/L (45-117); ALT/SGPT 21 U/L (12-78); ANION GAP 6 MEQ/L (8-16); AST/SGOT 36 U/L (7-37); BILIRUBIN,TOTAL 1.1 MG/DL (0.2-1.0); BLOOD UREA NITROGEN 6 MG/DL (7-18); CARBON DIOXIDE LEVEL 27 MEQ/L (21-32); CHLORIDE LEVEL 103 MEQ/L (98-107); CREATININE FOR GFR 0.59 MG/DL (0.55-1.30); GLOMERULAR FILTRATION RATE > 60.0 (>51); GLUCOSE, FASTING 83 MG/DL (70-100); MAGNESIUM LEVEL 1.7 MG/DL (1.8-2.4); POTASSIUM SERUM 3.1 MEQ/L (3.5-5.1); SODIUM LEVEL 136 MEQ/L (136-145); TOTAL PROTEIN 7.8 GM/DL (6.4-8.2)
[2017-10-18] MEDS: POTASSIUM CHLORIDE 10% LIQ 20 MEQ/15 ML UDC PO ×2 (08:49→20:53)
[2017-10-18] MEDS: rifAXIMin 550 MG TAB (XIFAXAN) PO ×2 (08:49→20:53)
[2017-10-18] MEDS: ENOXAPARIN 40 MG/0.4 ML SYRINGE (J1650) SC (08:49)
[2017-10-18] MEDS: CYANOCOBALAMIN 1,000 MCG/ML VIAL (J3420) IM (08:49)
[2017-10-18] MEDS: LEVOTHYROXINE 100 MCG (0.1MG) VIAL IV (08:50)
[2017-10-18] MEDS: PANTOPRAZOLE 40MG INJ (PROTONIX) (C9113) IV (08:50)
[2017-10-18] MEDS: TRIAMCINOLONE ACET 0.1% CREAM 15 GM TOP ×2 (08:52→20:54)
[2017-10-18] MEDS: NYSTATIN CREAM 15 GM TOP ×2 (08:52→20:54)
[2017-10-18] MEDS: EUCERIN 120GM CREAM TOP ×2 (08:53→20:53)
[2017-10-18] MEDS: THIAMINE IV (13:23)
[2017-10-18] MEDS: MULTIVITAMIN ADULT IV (13:23)
[2017-10-18] MEDS: [UNRECOGNIZED DRUG - OTHER] IV (13:23)
[2017-10-18] MEDS: FOLIC ACID IV (13:23)
[2017-10-18] MEDS ORDERED: BISACODYL 10 MG SUPP PR (15:00)
[2017-10-19] MEDS: ACETAMINOPHEN TAB 650MG DOSE (2X325MG) PO ×2 (01:09→15:14)
[2017-10-19] MEDS: METOCLOPRAMIDE INJ 10MG/2ML VIAL (J2765) IV ×4 (03:13→21:20)
[2017-10-19] MEDS: SLF 3 ML SYR IV ×3 (06:00→21:21)
[2017-10-19] MEDS: IPRATROPIUM 0.5MG/ALBUTEROL 2.5MG INH SOL UD 3ML (DUONEB)(J7620) NEB ×4 (07:14→20:00)
[2017-10-19 07:35] LABS: HEMATOCRIT 34.4 % (36.0-47.0); HEMOGLOBIN 11.2 g/dl (12.0-15.5); MEAN CORPUSCULAR HEMOGLOBIN 30.5 pg (27.0-33.0); MEAN CORPUSCULAR HGB CONC 32.6 g/dl (32.0-36.5); MEAN CORPUSCULAR VOLUME 93.7 fl (80.0-96.0); PLATELET COUNT, AUTOMATED 196 10^3/uL (150-450); RED BLOOD COUNT 3.67 10^6/uL (4.00-5.40); RED CELL DISTRIBUTION WIDTH 18.7 % (11.5-14.5); WHITE BLOOD COUNT 6.3 10^3/uL (4.0-10.0)
[2017-10-19 07:58] LABS: ALBUMIN 2.1 GM/DL (3.2-5.2); ALKALINE PHOSPHATASE 118 U/L (45-117); ALT/SGPT 18 U/L (12-78); ANION GAP 7 MEQ/L (8-16); AST/SGOT 33 U/L (7-37); BLOOD UREA NITROGEN 5 MG/DL (7-18); CALCIUM LEVEL 8.4 MG/DL (8.5-10.1); CARBON DIOXIDE LEVEL 27 MEQ/L (21-32); CHLORIDE LEVEL 106 MEQ/L (98-107); CREATININE FOR GFR 0.62 MG/DL (0.55-1.30); GLOMERULAR FILTRATION RATE > 60.0 (>51); GLUCOSE, FASTING 93 MG/DL (70-100); POTASSIUM SERUM 3.5 MEQ/L (3.5-5.1); SODIUM LEVEL 140 MEQ/L (136-145); TOTAL PROTEIN 7.4 GM/DL (6.4-8.2)
[2017-10-19] MEDS: FOLIC ACID 1 MG TAB PO (09:28)
[2017-10-19] MEDS: rifAXIMin 550 MG TAB (XIFAXAN) PO ×2 (09:28→21:20)
[2017-10-19] MEDS: THIAMINE 100 MG TAB PO (09:28)
[2017-10-19] MEDS: MULTIVITAMINS/MINERALS THERAP 1 TAB PO (09:28)
[2017-10-19] MEDS: POTASSIUM CHLORIDE 10% LIQ 20 MEQ/15 ML UDC PO ×2 (09:29→21:20)
[2017-10-19] MEDS: PANTOPRAZOLE 40MG INJ (PROTONIX) (C9113) IV (09:29)
[2017-10-19] MEDS: ENOXAPARIN 40 MG/0.4 ML SYRINGE (J1650) SC (09:29)
[2017-10-19] MEDS: CYANOCOBALAMIN 1,000 MCG/ML VIAL (J3420) IM (09:29)
[2017-10-19] MEDS: EUCERIN 120GM CREAM TOP ×2 (09:30→21:20)
[2017-10-19] MEDS: LEVOTHYROXINE 100 MCG (0.1MG) VIAL IV (09:30)
[2017-10-19] MEDS: TRIAMCINOLONE ACET 0.1% CREAM 15 GM TOP ×2 (09:31→21:21)
[2017-10-19] MEDS: NYSTATIN CREAM 15 GM TOP ×2 (09:31→21:21)
[2017-10-19] MEDS: BISACODYL 10 MG SUPP PR ×2 (12:16→21:20)
[2017-10-20] MEDS: METOCLOPRAMIDE INJ 10MG/2ML VIAL (J2765) IV ×4 (02:59→20:47)
[2017-10-20] MEDS: SLF 3 ML SYR IV ×3 (05:00→20:50)
[2017-10-20] MEDS: IPRATROPIUM 0.5MG/ALBUTEROL 2.5MG INH SOL UD 3ML (DUONEB)(J7620) NEB ×4 (07:48→20:08)
[2017-10-20] MEDS: PANTOPRAZOLE 40MG INJ (PROTONIX) (C9113) IV (08:38)
[2017-10-20] MEDS: POTASSIUM CHLORIDE 10% LIQ 20 MEQ/15 ML UDC PO ×2 (08:38→20:47)
[2017-10-20] MEDS: ENOXAPARIN 40 MG/0.4 ML SYRINGE (J1650) SC (08:38)
[2017-10-20] MEDS: BISACODYL 10 MG SUPP PR ×2 (08:38→20:50)
[2017-10-20] MEDS: FOLIC ACID 1 MG TAB PO (08:39)
[2017-10-20] MEDS: LEVOTHYROXINE 50MCG TABLET (0.05MG) PO (08:39)
[2017-10-20] MEDS: rifAXIMin 550 MG TAB (XIFAXAN) PO ×2 (08:39→20:47)
[2017-10-20] MEDS: EUCERIN 120GM CREAM TOP ×2 (08:39→20:47)
[2017-10-20] MEDS: THIAMINE 100 MG TAB PO (08:39)
[2017-10-20] MEDS: MULTIVITAMINS/MINERALS THERAP 1 TAB PO (08:39)
[2017-10-20] MEDS: NYSTATIN CREAM 15 GM TOP ×2 (08:40→20:50)
[2017-10-20] MEDS: TRIAMCINOLONE ACET 0.1% CREAM 15 GM TOP ×2 (08:40→20:49)
[2017-10-20] MEDS: CYANOCOBALAMIN 1,000 MCG/ML VIAL (J3420) IM (08:58)
[2017-10-20] MEDS ORDERED: LEVOTHYROXINE 100 MCG (0.1MG) VIAL XX (09:00)
[2017-10-20] MEDS ORDERED: THIAMINE 100 MG TAB PO (09:00)
[2017-10-20] MEDS: ONDANSETRON 4MG/2ML VIAL (J2405) IV (09:56)
[2017-10-20 12:09] LABS: ALBUMIN 2.5 GM/DL (3.2-5.2); ALBUMIN/GLOBULIN RATIO 0.48 (1.00-1.93); ALKALINE PHOSPHATASE 127 U/L (45-117); ALT/SGPT 16 U/L (12-78); ANION GAP 8 MEQ/L (8-16); AST/SGOT 27 U/L (7-37); BILIRUBIN,TOTAL 1.2 MG/DL (0.2-1.0); BLOOD UREA NITROGEN 6 MG/DL (7-18); CALCIUM LEVEL 9.1 MG/DL (8.5-10.1); CARBON DIOXIDE LEVEL 27 MEQ/L (21-32); CHLORIDE LEVEL 103 MEQ/L (98-107); CREATININE FOR GFR 0.68 MG/DL (0.55-1.30); GLOMERULAR FILTRATION RATE > 60.0 (>51); GLUCOSE, FASTING 110 MG/DL (70-100); POTASSIUM SERUM 3.5 MEQ/L (3.5-5.1); SODIUM LEVEL 138 MEQ/L (136-145); TOTAL PROTEIN 7.7 GM/DL (6.4-8.2)
[2017-10-20] MEDS: MAG SULF 1GM/100ML (MAG RUN) 1 GM in APPROPRIATE DILUENT 1 EA IV (12:20)
[2017-10-20] MEDS: MAGNESIUM OXIDE 400 MG TAB (MAG-OX) PO ×2 (12:20→20:46)
[2017-10-20] MEDS: ACETAMINOPHEN TAB 650MG DOSE (2X325MG) PO (20:51)
[2017-10-21] MEDS: METOCLOPRAMIDE INJ 10MG/2ML VIAL (J2765) IV ×4 (03:53→21:27)
[2017-10-21 05:52] LABS: HEMATOCRIT 36.4 % (36.0-47.0); HEMOGLOBIN 11.9 g/dl (12.0-15.5); MEAN CORPUSCULAR HEMOGLOBIN 30.6 pg (27.0-33.0); MEAN CORPUSCULAR HGB CONC 32.7 g/dl (32.0-36.5); MEAN CORPUSCULAR VOLUME 93.6 fl (80.0-96.0); PLATELET COUNT, AUTOMATED 195 10^3/uL (150-450); RED BLOOD COUNT 3.89 10^6/uL (4.00-5.40); RED CELL DISTRIBUTION WIDTH 17.9 % (11.5-14.5); WHITE BLOOD COUNT 7.2 10^3/uL (4.0-10.0)
[2017-10-21] MEDS: SLF 3 ML SYR IV ×3 (06:03→21:33)
[2017-10-21] MEDS: LEVOTHYROXINE 50MCG TABLET (0.05MG) PO (06:04)
[2017-10-21 06:11] LABS: ALBUMIN 2.3 GM/DL (3.2-5.2); ALBUMIN/GLOBULIN RATIO 0.41 (1.00-1.93); ALKALINE PHOSPHATASE 120 U/L (45-117); ALT/SGPT 21 U/L (12-78); ANION GAP 8 MEQ/L (8-16); AST/SGOT 32 U/L (7-37); BILIRUBIN,TOTAL 1.1 MG/DL (0.2-1.0); BLOOD UREA NITROGEN 7 MG/DL (7-18); CALCIUM LEVEL 9.1 MG/DL (8.5-10.1); CARBON DIOXIDE LEVEL 25 MEQ/L (21-32); CHLORIDE LEVEL 102 MEQ/L (98-107); CREATININE FOR GFR 0.68 MG/DL (0.55-1.30); GLOMERULAR FILTRATION RATE > 60.0 (>51); GLUCOSE, FASTING 97 MG/DL (70-100); MAGNESIUM LEVEL 2.1 MG/DL (1.8-2.4); POTASSIUM SERUM 3.3 MEQ/L (3.5-5.1); SODIUM LEVEL 135 MEQ/L (136-145); TOTAL PROTEIN 7.9 GM/DL (6.4-8.2)
[2017-10-21] MEDS: IPRATROPIUM 0.5MG/ALBUTEROL 2.5MG INH SOL UD 3ML (DUONEB)(J7620) NEB ×4 (08:00→20:00)
[2017-10-21] MEDS: EUCERIN 120GM CREAM TOP ×2 (08:43→21:29)
[2017-10-21] MEDS: NYSTATIN CREAM 15 GM TOP ×2 (08:44→21:30)
[2017-10-21] MEDS: TRIAMCINOLONE ACET 0.1% CREAM 15 GM TOP ×2 (08:44→21:30)
[2017-10-21] MEDS: ENOXAPARIN 40 MG/0.4 ML SYRINGE (J1650) SC (08:44)
[2017-10-21] MEDS: PANTOPRAZOLE 40MG INJ (PROTONIX) (C9113) IV (08:44)
[2017-10-21] MEDS: MAGNESIUM OXIDE 400 MG TAB (MAG-OX) PO ×2 (08:45→21:28)
[2017-10-21] MEDS: THIAMINE 100 MG TAB PO (08:45)
[2017-10-21] MEDS: FOLIC ACID 1 MG TAB PO (08:45)
[2017-10-21] MEDS: rifAXIMin 550 MG TAB (XIFAXAN) PO ×2 (08:45→21:27)
[2017-10-21] MEDS: CYANOCOBALAMIN 1,000 MCG/ML VIAL (J3420) IM (08:45)
[2017-10-21] MEDS: BISACODYL 10 MG SUPP PR ×3 (08:46→21:29)
[2017-10-21] MEDS: MULTIVITAMINS/MINERALS THERAP 1 TAB PO (08:46)
[2017-10-21] MEDS: POTASSIUM CHLORIDE 10% LIQ 20 MEQ/15 ML UDC PO ×2 (08:46→21:27)
[2017-10-21] MEDS: ACETAMINOPHEN TAB 650MG DOSE (2X325MG) PO (18:37)
[2017-10-22] MEDS: ACETAMINOPHEN 325 MG/10.15 ML UDC NG (03:24)
[2017-10-22] MEDS: METOCLOPRAMIDE INJ 10MG/2ML VIAL (J2765) IV ×2 (03:24→08:48)
[2017-10-22] MEDS: LEVOTHYROXINE 50MCG TABLET (0.05MG) PO (05:43)
[2017-10-22] MEDS: SLF 3 ML SYR IV ×3 (05:43→20:19)
[2017-10-22 06:06] LABS: HEMATOCRIT 38.7 % (36.0-47.0); HEMOGLOBIN 12.4 g/dl (12.0-15.5); MEAN CORPUSCULAR HEMOGLOBIN 30.3 pg (27.0-33.0); MEAN CORPUSCULAR VOLUME 94.6 fl (80.0-96.0); PLATELET COUNT, AUTOMATED 241 10^3/uL (150-450); RED BLOOD COUNT 4.09 10^6/uL (4.00-5.40); RED CELL DISTRIBUTION WIDTH 18.2 % (11.5-14.5); WHITE BLOOD COUNT 9.6 10^3/uL (4.0-10.0)
[2017-10-22 06:32] LABS: ALBUMIN 2.7 GM/DL (3.2-5.2); ALBUMIN/GLOBULIN RATIO 0.45 (1.00-1.93); ALKALINE PHOSPHATASE 130 U/L (45-117); ALT/SGPT 21 U/L (12-78); ANION GAP 5 MEQ/L (8-16); AST/SGOT 39 U/L (7-37); BILIRUBIN,TOTAL 1.1 MG/DL (0.2-1.0); BLOOD UREA NITROGEN 8 MG/DL (7-18); CALCIUM LEVEL 9.5 MG/DL (8.5-10.1); CARBON DIOXIDE LEVEL 29 MEQ/L (21-32); CHLORIDE LEVEL 100 MEQ/L (98-107); CREATININE FOR GFR 0.78 MG/DL (0.55-1.30); GLOMERULAR FILTRATION RATE > 60.0 (>51); GLUCOSE, FASTING 106 MG/DL (70-100); POTASSIUM SERUM 4.4 MEQ/L (3.5-5.1); SODIUM LEVEL 134 MEQ/L (136-145); TOTAL PROTEIN 8.7 GM/DL (6.4-8.2)
[2017-10-22] MEDS: IPRATROPIUM 0.5MG/ALBUTEROL 2.5MG INH SOL UD 3ML (DUONEB)(J7620) NEB ×4 (07:52→20:00)
[2017-10-22] MEDS: MULTIVITAMINS/MINERALS THERAP 1 TAB PO (08:47)
[2017-10-22] MEDS: MAGNESIUM OXIDE 400 MG TAB (MAG-OX) PO ×2 (08:47→20:17)
[2017-10-22] MEDS: POTASSIUM CHLORIDE 10% LIQ 20 MEQ/15 ML UDC PO ×2 (08:47→20:17)
[2017-10-22] MEDS: THIAMINE 100 MG TAB PO (08:47)
[2017-10-22] MEDS: FOLIC ACID 1 MG TAB PO (08:47)
[2017-10-22] MEDS: rifAXIMin 550 MG TAB (XIFAXAN) PO ×2 (08:47→20:17)
[2017-10-22] MEDS: PANTOPRAZOLE 40MG INJ (PROTONIX) (C9113) IV (08:48)
[2017-10-22] MEDS: ENOXAPARIN 40 MG/0.4 ML SYRINGE (J1650) SC (08:48)
[2017-10-22] MEDS: BISACODYL 10 MG SUPP PR ×2 (08:48→20:18)
[2017-10-22] MEDS: CYANOCOBALAMIN 1,000 MCG/ML VIAL (J3420) IM (08:48)
[2017-10-22] MEDS: TRIAMCINOLONE ACET 0.1% CREAM 15 GM TOP ×2 (08:50→20:18)
[2017-10-22] MEDS: EUCERIN 120GM CREAM TOP ×2 (08:50→20:18)
[2017-10-22] MEDS: NYSTATIN CREAM 15 GM TOP ×2 (08:51→20:19)
[2017-10-22] MEDS: ACETAMINOPHEN TAB 650MG DOSE (2X325MG) PO ×2 (12:11→18:58)
[2017-10-22] MEDS: ONDANSETRON 4MG/2ML VIAL (J2405) IV (20:16)
[2017-10-23] MEDS: LEVOTHYROXINE 50MCG TABLET (0.05MG) PO (05:46)
[2017-10-23] MEDS: SLF 3 ML SYR IV ×3 (05:46→21:32)
[2017-10-23 06:57] LABS: ALBUMIN 2.6 GM/DL (3.2-5.2); ALBUMIN/GLOBULIN RATIO 0.45 (1.00-1.93); ALKALINE PHOSPHATASE 127 U/L (45-117); ALT/SGPT 17 U/L (12-78); ANION GAP 6 MEQ/L (8-16); AST/SGOT 32 U/L (7-37); BLOOD UREA NITROGEN 9 MG/DL (7-18); CALCIUM LEVEL 9.4 MG/DL (8.5-10.1); CARBON DIOXIDE LEVEL 28 MEQ/L (21-32); CHLORIDE LEVEL 101 MEQ/L (98-107); CREATININE FOR GFR 0.75 MG/DL (0.55-1.30); GLOMERULAR FILTRATION RATE > 60.0 (>51); GLUCOSE, FASTING 110 MG/DL (70-100); POTASSIUM SERUM 4.3 MEQ/L (3.5-5.1); SODIUM LEVEL 135 MEQ/L (136-145); TOTAL PROTEIN 8.4 GM/DL (6.4-8.2)
[2017-10-23] MEDS: IPRATROPIUM 0.5MG/ALBUTEROL 2.5MG INH SOL UD 3ML (DUONEB)(J7620) NEB ×4 (08:00→20:00)
[2017-10-23] MEDS: BISACODYL 10 MG SUPP PR ×3 (09:00→21:31)
[2017-10-23] MEDS: ENOXAPARIN 40 MG/0.4 ML SYRINGE (J1650) SC (10:12)
[2017-10-23] MEDS: PANTOPRAZOLE 40MG TAB (PROTONIX) PO (10:13)
[2017-10-23] MEDS: rifAXIMin 550 MG TAB (XIFAXAN) PO ×2 (10:13→21:29)
[2017-10-23] MEDS: CYANOCOBALAMIN 500 MCG TAB PO (10:13)
[2017-10-23] MEDS: MAGNESIUM OXIDE 400 MG TAB (MAG-OX) PO ×2 (10:13→21:30)
[2017-10-23] MEDS: MULTIVITAMINS/MINERALS THERAP 1 TAB PO (10:13)
[2017-10-23] MEDS: ACETAMINOPHEN TAB 650MG DOSE (2X325MG) PO ×3 (10:14→21:33)
[2017-10-23] MEDS: THIAMINE 100 MG TAB PO (10:14)
[2017-10-23] MEDS: POTASSIUM CHLORIDE 10% LIQ 20 MEQ/15 ML UDC PO ×2 (10:14→21:30)
[2017-10-23] MEDS: FOLIC ACID 1 MG TAB PO (10:14)
[2017-10-23] MEDS: EUCERIN 120GM CREAM TOP ×2 (10:15→21:31)
[2017-10-23] MEDS: TRIAMCINOLONE ACET 0.1% CREAM 15 GM TOP ×2 (10:16→21:32)
[2017-10-23] MEDS: NYSTATIN CREAM 15 GM TOP ×2 (10:16→21:32)
[2017-10-23] MEDS: ONDANSETRON 4MG/2ML VIAL (J2405) IV (21:30)
[2017-10-24] MEDS: SLF 3 ML SYR IV ×3 (05:38→22:15)
[2017-10-24] MEDS: ONDANSETRON 4MG/2ML VIAL (J2405) IV ×2 (05:38→14:40)
[2017-10-24] MEDS: LEVOTHYROXINE 50MCG TABLET (0.05MG) PO (05:38)
[2017-10-24 06:34] LABS: ALBUMIN 2.7 GM/DL (3.2-5.2); ALBUMIN/GLOBULIN RATIO 0.47 (1.00-1.93); ALKALINE PHOSPHATASE 133 U/L (45-117); ALT/SGPT 21 U/L (12-78); ANION GAP 7 MEQ/L (8-16); AST/SGOT 35 U/L (7-37); BILIRUBIN,TOTAL 1.1 MG/DL (0.2-1.0); BLOOD UREA NITROGEN 9 MG/DL (7-18); CALCIUM LEVEL 9.5 MG/DL (8.5-10.1); CARBON DIOXIDE LEVEL 28 MEQ/L (21-32); CHLORIDE LEVEL 99 MEQ/L (98-107); GLOMERULAR FILTRATION RATE > 60.0 (>51); GLUCOSE, FASTING 98 MG/DL (70-100); POTASSIUM SERUM 3.8 MEQ/L (3.5-5.1); SODIUM LEVEL 134 MEQ/L (136-145); TOTAL PROTEIN 8.4 GM/DL (6.4-8.2)
[2017-10-24] MEDS: IPRATROPIUM 0.5MG/ALBUTEROL 2.5MG INH SOL UD 3ML (DUONEB)(J7620) NEB ×4 (07:38→20:00)
[2017-10-24] MEDS: BISACODYL 10 MG SUPP PR ×2 (08:50→21:54)
[2017-10-24] MEDS: MAGNESIUM OXIDE 400 MG TAB (MAG-OX) PO ×2 (08:56→21:54)
[2017-10-24] MEDS: CYANOCOBALAMIN 500 MCG TAB PO (08:56)
[2017-10-24] MEDS: MULTIVITAMINS/MINERALS THERAP 1 TAB PO (08:56)
[2017-10-24] MEDS: PANTOPRAZOLE 40MG TAB (PROTONIX) PO (08:56)
[2017-10-24] MEDS: rifAXIMin 550 MG TAB (XIFAXAN) PO ×2 (08:56→21:45)
[2017-10-24] MEDS: FOLIC ACID 1 MG TAB PO (08:56)
[2017-10-24] MEDS: THIAMINE 100 MG TAB PO (08:56)
[2017-10-24] MEDS: ENOXAPARIN 40 MG/0.4 ML SYRINGE (J1650) SC (08:57)
[2017-10-24] MEDS: TRIAMCINOLONE ACET 0.1% CREAM 15 GM TOP ×2 (08:57→22:14)
[2017-10-24] MEDS: POTASSIUM CHLORIDE 10% LIQ 20 MEQ/15 ML UDC PO ×2 (08:57→21:54)
[2017-10-24] MEDS: NYSTATIN CREAM 15 GM TOP ×2 (08:58→22:15)
[2017-10-24] MEDS: EUCERIN 120GM CREAM TOP ×2 (08:59→21:55)
[2017-10-24] MEDS: ACETAMINOPHEN 325 MG/10.15 ML UDC NG (14:40)
[2017-10-24] MEDS: ACETAMINOPHEN TAB 650MG DOSE (2X325MG) PO (19:55)
[2017-10-25] MEDS: ONDANSETRON 4MG/2ML VIAL (J2405) IV ×2 (00:56→21:26)
[2017-10-25] MEDS: LEVOTHYROXINE 50MCG TABLET (0.05MG) PO (06:10)
[2017-10-25] MEDS: SLF 3 ML SYR IV ×3 (06:11→21:24)
[2017-10-25 06:43] LABS: HEMATOCRIT 36.7 % (36.0-47.0); HEMOGLOBIN 12.2 g/dl (12.0-15.5); MEAN CORPUSCULAR HGB CONC 33.2 g/dl (32.0-36.5); MEAN CORPUSCULAR VOLUME 93.1 fl (80.0-96.0); PLATELET COUNT, AUTOMATED 208 10^3/uL (150-450); RED BLOOD COUNT 3.94 10^6/uL (4.00-5.40); RED CELL DISTRIBUTION WIDTH 17.9 % (11.5-14.5); WHITE BLOOD COUNT 8.6 10^3/uL (4.0-10.0)
[2017-10-25] MEDS: IPRATROPIUM 0.5MG/ALBUTEROL 2.5MG INH SOL UD 3ML (DUONEB)(J7620) NEB ×3 (08:00→20:00)
[2017-10-25] MEDS: ENOXAPARIN 40 MG/0.4 ML SYRINGE (J1650) SC (08:37)
[2017-10-25] MEDS: rifAXIMin 550 MG TAB (XIFAXAN) PO ×2 (08:38→21:22)
[2017-10-25] MEDS: FOLIC ACID 1 MG TAB PO (08:38)
[2017-10-25] MEDS: PANTOPRAZOLE 40MG TAB (PROTONIX) PO (08:38)
[2017-10-25] MEDS: THIAMINE 100 MG TAB PO (08:38)
[2017-10-25] MEDS: POTASSIUM CHLORIDE 10% LIQ 20 MEQ/15 ML UDC PO ×2 (08:38→21:23)
[2017-10-25] MEDS: ACETAMINOPHEN TAB 650MG DOSE (2X325MG) PO ×2 (08:38→21:25)
[2017-10-25] MEDS: CYANOCOBALAMIN 500 MCG TAB PO (08:38)
[2017-10-25] MEDS: MULTIVITAMINS/MINERALS THERAP 1 TAB PO (08:38)
[2017-10-25] MEDS: MAGNESIUM OXIDE 400 MG TAB (MAG-OX) PO ×2 (08:38→21:23)
[2017-10-25] MEDS: NYSTATIN CREAM 15 GM TOP ×2 (08:39→21:22)
[2017-10-25] MEDS: BISACODYL 10 MG SUPP PR ×2 (08:39→21:23)
[2017-10-25] MEDS: TRIAMCINOLONE ACET 0.1% CREAM 15 GM TOP ×2 (08:39→21:21)
[2017-10-25] MEDS: EUCERIN 120GM CREAM TOP ×2 (08:40→21:22)
[2017-10-25] MEDS ORDERED: SILVER NITRATE APPLICATOR As Ordered (11:21)
[2017-10-26] MEDS: ONDANSETRON 4MG/2ML VIAL (J2405) IV ×3 (02:40→20:09)
[2017-10-26] MEDS: SLF 3 ML SYR IV ×3 (06:05→21:26)
[2017-10-26] MEDS: LEVOTHYROXINE 50MCG TABLET (0.05MG) PO (06:05)
[2017-10-26] MEDS: IPRATROPIUM 0.5MG/ALBUTEROL 2.5MG INH SOL UD 3ML (DUONEB)(J7620) NEB ×4 (08:00→19:24)
[2017-10-26] MEDS: MULTIVITAMINS/MINERALS THERAP 1 TAB PO (08:06)
[2017-10-26] MEDS: FOLIC ACID 1 MG TAB PO (08:06)
[2017-10-26] MEDS: PANTOPRAZOLE 40MG TAB (PROTONIX) PO (08:06)
[2017-10-26] MEDS: THIAMINE 100 MG TAB PO (08:06)
[2017-10-26] MEDS: rifAXIMin 550 MG TAB (XIFAXAN) PO ×2 (08:06→20:10)
[2017-10-26] MEDS: POTASSIUM CHLORIDE 10% LIQ 20 MEQ/15 ML UDC PO ×2 (08:06→20:09)
[2017-10-26] MEDS: EUCERIN 120GM CREAM TOP ×2 (08:07→20:10)
[2017-10-26] MEDS: CYANOCOBALAMIN 500 MCG TAB PO (08:07)
[2017-10-26] MEDS: MAGNESIUM OXIDE 400 MG TAB (MAG-OX) PO ×2 (08:07→20:08)
[2017-10-26] MEDS: NYSTATIN CREAM 15 GM TOP ×2 (08:08→20:11)
[2017-10-26] MEDS: TRIAMCINOLONE ACET 0.1% CREAM 15 GM TOP ×2 (08:08→20:11)
[2017-10-26] MEDS: ENOXAPARIN 40 MG/0.4 ML SYRINGE (J1650) SC (08:08)
[2017-10-26] MEDS: BISACODYL 10 MG SUPP PR ×2 (08:08→20:10)
[2017-10-26] MEDS: ACETAMINOPHEN TAB 650MG DOSE (2X325MG) PO ×2 (09:07→20:09)
[2017-10-27] MEDS: SLF 3 ML SYR IV ×3 (05:39→20:46)
[2017-10-27] MEDS: LEVOTHYROXINE 50MCG TABLET (0.05MG) PO (05:39)
[2017-10-27 05:57] LABS: HEMATOCRIT 34.7 % (36.0-47.0); HEMOGLOBIN 11.4 g/dl (12.0-15.5); MEAN CORPUSCULAR HEMOGLOBIN 30.7 pg (27.0-33.0); MEAN CORPUSCULAR HGB CONC 32.9 g/dl (32.0-36.5); MEAN CORPUSCULAR VOLUME 93.5 fl (80.0-96.0); PLATELET COUNT, AUTOMATED 200 10^3/uL (150-450); RED BLOOD COUNT 3.71 10^6/uL (4.00-5.40); RED CELL DISTRIBUTION WIDTH 17.8 % (11.5-14.5); WHITE BLOOD COUNT 8.3 10^3/uL (4.0-10.0)
[2017-10-27 06:14] LABS: ALBUMIN 2.6 GM/DL (3.2-5.2); ALBUMIN/GLOBULIN RATIO 0.47 (1.00-1.93); ALKALINE PHOSPHATASE 126 U/L (45-117); ALT/SGPT 19 U/L (12-78); ANION GAP 7 MEQ/L (8-16); AST/SGOT 32 U/L (7-37); BILIRUBIN,TOTAL 0.8 MG/DL (0.2-1.0); BLOOD UREA NITROGEN 10 MG/DL (7-18); CALCIUM LEVEL 9.2 MG/DL (8.5-10.1); CARBON DIOXIDE LEVEL 25 MEQ/L (21-32); CHLORIDE LEVEL 99 MEQ/L (98-107); CREATININE FOR GFR 0.74 MG/DL (0.55-1.30); GLOMERULAR FILTRATION RATE > 60.0 (>51); GLUCOSE, FASTING 110 MG/DL (70-100); POTASSIUM SERUM 4.1 MEQ/L (3.5-5.1); SODIUM LEVEL 131 MEQ/L (136-145); TOTAL PROTEIN 8.1 GM/DL (6.4-8.2)
[2017-10-27] MEDS: IPRATROPIUM 0.5MG/ALBUTEROL 2.5MG INH SOL UD 3ML (DUONEB)(J7620) NEB ×4 (08:00→20:00)
[2017-10-27] MEDS: POTASSIUM CHLORIDE 10% LIQ 20 MEQ/15 ML UDC PO ×2 (08:43→20:45)
[2017-10-27] MEDS: MULTIVITAMINS/MINERALS THERAP 1 TAB PO (08:43)
[2017-10-27] MEDS: PANTOPRAZOLE 40MG TAB (PROTONIX) PO (08:43)
[2017-10-27] MEDS: CYANOCOBALAMIN 500 MCG TAB PO (08:43)
[2017-10-27] MEDS: MAGNESIUM OXIDE 400 MG TAB (MAG-OX) PO ×2 (08:43→20:45)
[2017-10-27] MEDS: rifAXIMin 550 MG TAB (XIFAXAN) PO ×2 (08:43→20:44)
[2017-10-27] MEDS: FOLIC ACID 1 MG TAB PO (08:43)
[2017-10-27] MEDS: THIAMINE 100 MG TAB PO (08:43)
[2017-10-27] MEDS: EUCERIN 120GM CREAM TOP ×2 (08:44→20:47)
[2017-10-27] MEDS: NYSTATIN CREAM 15 GM TOP ×2 (08:44→20:47)
[2017-10-27] MEDS: ENOXAPARIN 40 MG/0.4 ML SYRINGE (J1650) SC (08:44)
[2017-10-27] MEDS: TRIAMCINOLONE ACET 0.1% CREAM 15 GM TOP ×2 (08:45→20:47)
[2017-10-27] MEDS: BISACODYL 10 MG SUPP PR ×2 (08:47→20:45)
[2017-10-27] MEDS: ONDANSETRON 4MG/2ML VIAL (J2405) IV (19:00)
[2017-10-27] MEDS: ACETAMINOPHEN TAB 650MG DOSE (2X325MG) PO (19:01)
[2017-10-28 05:46] LABS: HEMATOCRIT 38.1 % (36.0-47.0); HEMOGLOBIN 12.5 g/dl (12.0-15.5); MEAN CORPUSCULAR HGB CONC 32.8 g/dl (32.0-36.5); MEAN CORPUSCULAR VOLUME 94.5 fl (80.0-96.0); PLATELET COUNT, AUTOMATED 175 10^3/uL (150-450); RED BLOOD COUNT 4.03 10^6/uL (4.00-5.40); RED CELL DISTRIBUTION WIDTH 17.4 % (11.5-14.5); WHITE BLOOD COUNT 6.3 10^3/uL (4.0-10.0)
[2017-10-28] MEDS: SLF 3 ML SYR IV ×3 (06:07→22:04)
[2017-10-28] MEDS: LEVOTHYROXINE 50MCG TABLET (0.05MG) PO (06:07)
[2017-10-28] MEDS: IPRATROPIUM 0.5MG/ALBUTEROL 2.5MG INH SOL UD 3ML (DUONEB)(J7620) NEB ×4 (08:00→20:00)
[2017-10-28] MEDS: NYSTATIN CREAM 15 GM TOP ×2 (09:00→22:04)
[2017-10-28] MEDS: TRIAMCINOLONE ACET 0.1% CREAM 15 GM TOP ×2 (09:00→21:00)
[2017-10-28] MEDS: CYANOCOBALAMIN 500 MCG TAB PO (09:00)
[2017-10-28] MEDS: BISACODYL 10 MG SUPP PR ×2 (09:00→21:00)
[2017-10-28] MEDS: EUCERIN 120GM CREAM TOP ×2 (09:00→21:00)
[2017-10-28] MEDS: ENOXAPARIN 40 MG/0.4 ML SYRINGE (J1650) SC (09:11)
[2017-10-28] MEDS: POTASSIUM CHLORIDE 10% LIQ 20 MEQ/15 ML UDC PO ×2 (09:36→22:01)
[2017-10-28] MEDS: THIAMINE 100 MG TAB PO (09:37)
[2017-10-28] MEDS: MAGNESIUM OXIDE 400 MG TAB (MAG-OX) PO ×2 (09:37→22:02)
[2017-10-28] MEDS: PANTOPRAZOLE 40MG TAB (PROTONIX) PO (09:37)
[2017-10-28] MEDS: MULTIVITAMINS/MINERALS THERAP 1 TAB PO (09:38)
[2017-10-28] MEDS: FOLIC ACID 1 MG TAB PO (09:38)
[2017-10-28] MEDS: rifAXIMin 550 MG TAB (XIFAXAN) PO ×2 (09:38→22:02)
[2017-10-28] MEDS: ACETAMINOPHEN TAB 650MG DOSE (2X325MG) PO ×2 (12:38→18:40)
[2017-10-29] MEDS: LEVOTHYROXINE 50MCG TABLET (0.05MG) PO (06:33)
[2017-10-29] MEDS: SLF 3 ML SYR IV ×3 (06:33→21:38)
[2017-10-29] MEDS: IPRATROPIUM 0.5MG/ALBUTEROL 2.5MG INH SOL UD 3ML (DUONEB)(J7620) NEB ×3 (08:00→20:00)
[2017-10-29] MEDS: POTASSIUM CHLORIDE 10% LIQ 20 MEQ/15 ML UDC PO ×2 (08:55→20:02)
[2017-10-29] MEDS: MULTIVITAMINS/MINERALS THERAP 1 TAB PO (08:55)
[2017-10-29] MEDS: MAGNESIUM OXIDE 400 MG TAB (MAG-OX) PO ×2 (08:55→20:02)
[2017-10-29] MEDS: FOLIC ACID 1 MG TAB PO (08:55)
[2017-10-29] MEDS: rifAXIMin 550 MG TAB (XIFAXAN) PO ×2 (08:55→20:02)
[2017-10-29] MEDS: THIAMINE 100 MG TAB PO (08:55)
[2017-10-29] MEDS: CYANOCOBALAMIN 500 MCG TAB PO (08:56)
[2017-10-29] MEDS: ACETAMINOPHEN TAB 650MG DOSE (2X325MG) PO ×2 (08:56→16:47)
[2017-10-29] MEDS: PANTOPRAZOLE 40MG TAB (PROTONIX) PO (08:56)
[2017-10-29] MEDS: ENOXAPARIN 40 MG/0.4 ML SYRINGE (J1650) SC (08:56)
[2017-10-29] MEDS: EUCERIN 120GM CREAM TOP ×2 (08:57→20:03)
[2017-10-29] MEDS: BISACODYL 10 MG SUPP PR ×2 (08:57→20:03)
[2017-10-29] MEDS: TRIAMCINOLONE ACET 0.1% CREAM 15 GM TOP ×2 (08:57→20:04)
[2017-10-29] MEDS: NYSTATIN CREAM 15 GM TOP ×2 (08:57→20:04)
[2017-10-30] MEDS: ACETAMINOPHEN TAB 650MG DOSE (2X325MG) PO ×3 (01:41→20:37)
[2017-10-30] MEDS: SLF 3 ML SYR IV ×3 (06:00→21:05)
[2017-10-30] MEDS: LEVOTHYROXINE 50MCG TABLET (0.05MG) PO (06:12)
[2017-10-30] MEDS: IPRATROPIUM 0.5MG/ALBUTEROL 2.5MG INH SOL UD 3ML (DUONEB)(J7620) NEB ×4 (07:37→20:00)
[2017-10-30] MEDS: TRIAMCINOLONE ACET 0.1% CREAM 15 GM TOP ×2 (09:00→21:00)
[2017-10-30] MEDS: NYSTATIN CREAM 15 GM TOP ×2 (09:00→21:00)
[2017-10-30] MEDS: EUCERIN 120GM CREAM TOP ×2 (09:00→21:00)
[2017-10-30] MEDS: BISACODYL 10 MG SUPP PR ×2 (09:00→21:00)
[2017-10-30] MEDS: FOLIC ACID 1 MG TAB PO (09:38)
[2017-10-30] MEDS: THIAMINE 100 MG TAB PO (09:38)
[2017-10-30] MEDS: PANTOPRAZOLE 40MG TAB (PROTONIX) PO (09:38)
[2017-10-30] MEDS: MULTIVITAMINS/MINERALS THERAP 1 TAB PO (09:38)
[2017-10-30] MEDS: POTASSIUM CHLORIDE 10% LIQ 20 MEQ/15 ML UDC PO ×2 (09:39→21:04)
[2017-10-30] MEDS: MAGNESIUM OXIDE 400 MG TAB (MAG-OX) PO ×2 (09:39→21:04)
[2017-10-30] MEDS: CYANOCOBALAMIN 500 MCG TAB PO (09:39)
[2017-10-30] MEDS: rifAXIMin 550 MG TAB (XIFAXAN) PO ×2 (09:39→21:04)
[2017-10-30] MEDS: ENOXAPARIN 40 MG/0.4 ML SYRINGE (J1650) SC (09:40)
[2017-10-31] MEDS: ACETAMINOPHEN TAB 650MG DOSE (2X325MG) PO ×3 (03:29→20:05)
[2017-10-31] MEDS: LEVOTHYROXINE 50MCG TABLET (0.05MG) PO (06:02)
[2017-10-31] MEDS: SLF 3 ML SYR IV ×3 (06:03→20:07)
[2017-10-31] MEDS: MAGNESIUM OXIDE 400 MG TAB (MAG-OX) PO ×2 (07:31→20:06)
[2017-10-31] MEDS: rifAXIMin 550 MG TAB (XIFAXAN) PO ×2 (07:31→20:05)
[2017-10-31] MEDS: MULTIVITAMINS/MINERALS THERAP 1 TAB PO (07:31)
[2017-10-31] MEDS: PANTOPRAZOLE 40MG TAB (PROTONIX) PO (07:31)
[2017-10-31] MEDS: POTASSIUM CHLORIDE 10% LIQ 20 MEQ/15 ML UDC PO ×2 (07:32→20:05)
[2017-10-31] MEDS: CYANOCOBALAMIN 500 MCG TAB PO (07:32)
[2017-10-31] MEDS: FOLIC ACID 1 MG TAB PO (07:32)
[2017-10-31] MEDS: THIAMINE 100 MG TAB PO (07:32)
[2017-10-31] MEDS: ENOXAPARIN 40 MG/0.4 ML SYRINGE (J1650) SC (07:35)
[2017-10-31] MEDS: BISACODYL 10 MG SUPP PR ×2 (07:35→20:06)
[2017-10-31] MEDS: EUCERIN 120GM CREAM TOP ×2 (07:36→20:06)
[2017-10-31] MEDS: NYSTATIN CREAM 15 GM TOP ×2 (07:36→20:07)
[2017-10-31] MEDS: TRIAMCINOLONE ACET 0.1% CREAM 15 GM TOP ×2 (07:36→20:07)
[2017-10-31] MEDS: IPRATROPIUM 0.5MG/ALBUTEROL 2.5MG INH SOL UD 3ML (DUONEB)(J7620) NEB ×4 (08:00→20:00)
[2017-10-31] MEDS: DIAPER RELIEF PASTE (DESITIN) 60GM TOP (10:40)
[2017-10-31] MEDS ORDERED: MINERAL OIL 473 ML BTL TOP (13:30)
[2017-11-01] MEDS: ACETAMINOPHEN TAB 650MG DOSE (2X325MG) PO ×3 (04:27→20:16)
[2017-11-01] MEDS: SLF 3 ML SYR IV ×3 (05:02→20:17)
[2017-11-01] MEDS: LEVOTHYROXINE 50MCG TABLET (0.05MG) PO (06:22)
[2017-11-01] MEDS: IPRATROPIUM 0.5MG/ALBUTEROL 2.5MG INH SOL UD 3ML (DUONEB)(J7620) NEB ×4 (07:21→20:00)
[2017-11-01] MEDS: EUCERIN 120GM CREAM TOP ×2 (08:04→20:17)
[2017-11-01] MEDS: ENOXAPARIN 40 MG/0.4 ML SYRINGE (J1650) SC (08:05)
[2017-11-01] MEDS: CYANOCOBALAMIN 500 MCG TAB PO (08:05)
[2017-11-01] MEDS: MAGNESIUM OXIDE 400 MG TAB (MAG-OX) PO ×2 (08:05→20:16)
[2017-11-01] MEDS: THIAMINE 100 MG TAB PO (08:05)
[2017-11-01] MEDS: FOLIC ACID 1 MG TAB PO (08:05)
[2017-11-01] MEDS: TRIAMCINOLONE ACET 0.1% CREAM 15 GM TOP ×2 (08:05→20:17)
[2017-11-01] MEDS: BISACODYL 10 MG SUPP PR (08:06)
[2017-11-01] MEDS: NYSTATIN CREAM 15 GM TOP ×2 (08:06→20:17)
[2017-11-01] MEDS: DIAPER RELIEF PASTE (DESITIN) 60GM TOP (08:07)
[2017-11-01] MEDS: rifAXIMin 550 MG TAB (XIFAXAN) PO ×2 (08:10→20:16)
[2017-11-01] MEDS: POTASSIUM CHLORIDE 10% LIQ 20 MEQ/15 ML UDC PO ×2 (08:10→20:16)
[2017-11-01] MEDS: PANTOPRAZOLE 40MG TAB (PROTONIX) PO (08:10)
[2017-11-01] MEDS: MULTIVITAMINS/MINERALS THERAP 1 TAB PO (08:10)
[2017-11-01] MEDS ORDERED: SILVER NITRATE APPLICATOR As Ordered (14:09)
[2017-11-02] MEDS: ACETAMINOPHEN TAB 650MG DOSE (2X325MG) PO ×3 (02:25→21:35)
[2017-11-02] MEDS: SLF 3 ML SYR IV ×2 (06:01→13:35)
[2017-11-02] MEDS: LEVOTHYROXINE 50MCG TABLET (0.05MG) PO (06:04)
[2017-11-02] MEDS: IPRATROPIUM 0.5MG/ALBUTEROL 2.5MG INH SOL UD 3ML (DUONEB)(J7620) NEB ×4 (07:12→20:00)
[2017-11-02] MEDS: rifAXIMin 550 MG TAB (XIFAXAN) PO ×2 (08:31→21:34)
[2017-11-02] MEDS: CYANOCOBALAMIN 500 MCG TAB PO (08:31)
[2017-11-02] MEDS: POTASSIUM CHLORIDE 10% LIQ 20 MEQ/15 ML UDC PO ×2 (08:31→21:34)
[2017-11-02] MEDS: FOLIC ACID 1 MG TAB PO (08:31)
[2017-11-02] MEDS: THIAMINE 100 MG TAB PO (08:31)
[2017-11-02] MEDS: MULTIVITAMINS/MINERALS THERAP 1 TAB PO (08:32)
[2017-11-02] MEDS: EUCERIN 120GM CREAM TOP ×2 (08:32→21:35)
[2017-11-02] MEDS: MAGNESIUM OXIDE 400 MG TAB (MAG-OX) PO ×2 (08:32→21:34)
[2017-11-02] MEDS: PANTOPRAZOLE 40MG TAB (PROTONIX) PO (08:32)
[2017-11-02] MEDS: ENOXAPARIN 40 MG/0.4 ML SYRINGE (J1650) SC (08:32)
[2017-11-02] MEDS: TRIAMCINOLONE ACET 0.1% CREAM 15 GM TOP ×2 (08:33→21:36)
[2017-11-02] MEDS: NYSTATIN CREAM 15 GM TOP ×2 (08:33→21:36)
[2017-11-02] MEDS: DIAPER RELIEF PASTE (DESITIN) 60GM TOP (08:37)
[2017-11-03] MEDS: LEVOTHYROXINE 50MCG TABLET (0.05MG) PO (05:18)
[2017-11-03] MEDS: IPRATROPIUM 0.5MG/ALBUTEROL 2.5MG INH SOL UD 3ML (DUONEB)(J7620) NEB ×4 (07:03→20:00)
[2017-11-03] MEDS: MULTIVITAMINS/MINERALS THERAP 1 TAB PO (08:21)
[2017-11-03] MEDS: POTASSIUM CHLORIDE 10% LIQ 20 MEQ/15 ML UDC PO ×2 (08:21→22:09)
[2017-11-03] MEDS: CYANOCOBALAMIN 500 MCG TAB PO (08:21)
[2017-11-03] MEDS: THIAMINE 100 MG TAB PO (08:21)
[2017-11-03] MEDS: MAGNESIUM OXIDE 400 MG TAB (MAG-OX) PO ×2 (08:22→22:09)
[2017-11-03] MEDS: ENOXAPARIN 40 MG/0.4 ML SYRINGE (J1650) SC (08:22)
[2017-11-03] MEDS: FOLIC ACID 1 MG TAB PO (08:22)
[2017-11-03] MEDS: rifAXIMin 550 MG TAB (XIFAXAN) PO ×2 (08:22→22:09)
[2017-11-03] MEDS: PANTOPRAZOLE 40MG TAB (PROTONIX) PO (08:22)
[2017-11-03] MEDS: NYSTATIN CREAM 15 GM TOP ×2 (08:24→22:12)
[2017-11-03] MEDS: TRIAMCINOLONE ACET 0.1% CREAM 15 GM TOP ×2 (08:24→22:11)
[2017-11-03] MEDS: EUCERIN 120GM CREAM TOP ×2 (08:24→22:11)
[2017-11-03] MEDS: DIAPER RELIEF PASTE (DESITIN) 60GM TOP (08:25)
[2017-11-03] MEDS: ACETAMINOPHEN TAB 650MG DOSE (2X325MG) PO (18:38)
[2017-11-04] MEDS: ACETAMINOPHEN TAB 650MG DOSE (2X325MG) PO ×3 (00:47→22:01)
[2017-11-04] MEDS: LEVOTHYROXINE 50MCG TABLET (0.05MG) PO (06:13)
[2017-11-04] MEDS: IPRATROPIUM 0.5MG/ALBUTEROL 2.5MG INH SOL UD 3ML (DUONEB)(J7620) NEB ×4 (08:00→20:00)
[2017-11-04] MEDS: rifAXIMin 550 MG TAB (XIFAXAN) PO ×2 (08:21→21:54)
[2017-11-04] MEDS: PANTOPRAZOLE 40MG TAB (PROTONIX) PO (08:21)
[2017-11-04] MEDS: MULTIVITAMINS/MINERALS THERAP 1 TAB PO (08:22)
[2017-11-04] MEDS: CYANOCOBALAMIN 500 MCG TAB PO (08:22)
[2017-11-04] MEDS: FOLIC ACID 1 MG TAB PO (08:22)
[2017-11-04] MEDS: ENOXAPARIN 40 MG/0.4 ML SYRINGE (J1650) SC (08:22)
[2017-11-04] MEDS: MAGNESIUM OXIDE 400 MG TAB (MAG-OX) PO ×2 (08:22→21:54)
[2017-11-04] MEDS: THIAMINE 100 MG TAB PO (08:22)
[2017-11-04] MEDS: POTASSIUM CHLORIDE 10% LIQ 20 MEQ/15 ML UDC PO ×2 (08:23→21:54)
[2017-11-04] MEDS: EUCERIN 120GM CREAM TOP ×2 (08:23→21:55)
[2017-11-04] MEDS: DIAPER RELIEF PASTE (DESITIN) 60GM TOP (08:24)
[2017-11-04] MEDS: TRIAMCINOLONE ACET 0.1% CREAM 15 GM TOP ×2 (08:24→21:55)
[2017-11-04] MEDS: NYSTATIN CREAM 15 GM TOP ×2 (08:24→21:55)
[2017-11-05] MEDS: ACETAMINOPHEN TAB 650MG DOSE (2X325MG) PO ×3 (04:10→20:04)
[2017-11-05] MEDS: LEVOTHYROXINE 50MCG TABLET (0.05MG) PO (06:13)
[2017-11-05] MEDS: IPRATROPIUM 0.5MG/ALBUTEROL 2.5MG INH SOL UD 3ML (DUONEB)(J7620) NEB ×4 (07:29→20:00)
[2017-11-05] MEDS: MAGNESIUM OXIDE 400 MG TAB (MAG-OX) PO ×2 (08:45→20:05)
[2017-11-05] MEDS: DIAPER RELIEF PASTE (DESITIN) 60GM TOP (08:45)
[2017-11-05] MEDS: THIAMINE 100 MG TAB PO (08:45)
[2017-11-05] MEDS: POTASSIUM CHLORIDE 10% LIQ 20 MEQ/15 ML UDC PO ×2 (08:45→21:00)
[2017-11-05] MEDS: PANTOPRAZOLE 40MG TAB (PROTONIX) PO (08:45)
[2017-11-05] MEDS: MULTIVITAMINS/MINERALS THERAP 1 TAB PO (08:45)
[2017-11-05] MEDS: ENOXAPARIN 40 MG/0.4 ML SYRINGE (J1650) SC (08:45)
[2017-11-05] MEDS: CYANOCOBALAMIN 500 MCG TAB PO (08:45)
[2017-11-05] MEDS: FOLIC ACID 1 MG TAB PO (08:45)
[2017-11-05] MEDS: NYSTATIN CREAM 15 GM TOP ×2 (08:46→20:06)
[2017-11-05] MEDS: TRIAMCINOLONE ACET 0.1% CREAM 15 GM TOP ×2 (08:46→20:06)
[2017-11-05] MEDS: EUCERIN 120GM CREAM TOP ×2 (08:46→20:06)
[2017-11-06] MEDS: LEVOTHYROXINE 50MCG TABLET (0.05MG) PO (05:44)
[2017-11-06] MEDS: ACETAMINOPHEN TAB 650MG DOSE (2X325MG) PO ×2 (05:44→17:50)
[2017-11-06] MEDS: IPRATROPIUM 0.5MG/ALBUTEROL 2.5MG INH SOL UD 3ML (DUONEB)(J7620) NEB ×4 (07:40→20:00)
[2017-11-06 07:43] LABS: HEMATOCRIT 44.1 % (36.0-47.0); HEMOGLOBIN 14.6 g/dl (12.0-15.5); MEAN CORPUSCULAR HEMOGLOBIN 31.5 pg (27.0-33.0); MEAN CORPUSCULAR HGB CONC 33.1 g/dl (32.0-36.5); MEAN CORPUSCULAR VOLUME 95.2 fl (80.0-96.0); PLATELET COUNT, AUTOMATED 288 10^3/uL (150-450); RED BLOOD COUNT 4.63 10^6/uL (4.00-5.40); RED CELL DISTRIBUTION WIDTH 17.2 % (11.5-14.5); WHITE BLOOD COUNT 8.3 10^3/uL (4.0-10.0)
[2017-11-06 08:23] LABS: ANION GAP 7 MEQ/L (8-16); BLOOD UREA NITROGEN 8 MG/DL (7-18); CALCIUM LEVEL 10.4 MG/DL (8.5-10.1); CARBON DIOXIDE LEVEL 31 MEQ/L (21-32); CHLORIDE LEVEL 94 MEQ/L (98-107); CREATININE FOR GFR 0.86 MG/DL (0.55-1.30); GLOMERULAR FILTRATION RATE > 60.0 (>51); GLUCOSE, FASTING 123 MG/DL (70-100); POTASSIUM SERUM 4.9 MEQ/L (3.5-5.1); SODIUM LEVEL 132 MEQ/L (136-145)
[2017-11-06] MEDS: NYSTATIN CREAM 15 GM TOP ×2 (09:00→21:25)
[2017-11-06] MEDS: DIAPER RELIEF PASTE (DESITIN) 60GM TOP (09:00)
[2017-11-06] MEDS: EUCERIN 120GM CREAM TOP ×2 (09:00→21:24)
[2017-11-06] MEDS: TRIAMCINOLONE ACET 0.1% CREAM 15 GM TOP ×2 (09:00→21:25)
[2017-11-06] MEDS: FOLIC ACID 1 MG TAB PO (09:00)
[2017-11-06] MEDS: POTASSIUM CHLORIDE 10% LIQ 20 MEQ/15 ML UDC PO ×2 (09:18→21:26)
[2017-11-06] MEDS: MAGNESIUM OXIDE 400 MG TAB (MAG-OX) PO ×2 (09:19→21:26)
[2017-11-06] MEDS: MULTIVITAMINS/MINERALS THERAP 1 TAB PO (09:19)
[2017-11-06] MEDS: PANTOPRAZOLE 40MG TAB (PROTONIX) PO (09:19)
[2017-11-06] MEDS: THIAMINE 100 MG TAB PO (09:19)
[2017-11-06] MEDS: CYANOCOBALAMIN 500 MCG TAB PO (09:19)
[2017-11-06] MEDS: ENOXAPARIN 40 MG/0.4 ML SYRINGE (J1650) SC (09:20)
[2017-11-06] MEDS: rifAXIMin 550 MG TAB (XIFAXAN) PO ×2 (15:18→21:26)
[2017-11-06] MEDS: LOMOTIL 2.5MG/0.025MG TABLET PO ×2 (15:18→17:49)
[2017-11-06] MEDS: METAMUCIL (PSYLLIUM) PACKET PO ×2 (15:18→21:26)
[2017-11-07] MEDS: LOMOTIL 2.5MG/0.025MG TABLET PO ×4 (00:20→17:35)
[2017-11-07] MEDS: ACETAMINOPHEN TAB 650MG DOSE (2X325MG) PO ×3 (00:20→20:12)
[2017-11-07] MEDS: LEVOTHYROXINE 50MCG TABLET (0.05MG) PO (05:40)
[2017-11-07] MEDS: IPRATROPIUM 0.5MG/ALBUTEROL 2.5MG INH SOL UD 3ML (DUONEB)(J7620) NEB ×3 (08:00→20:00)
[2017-11-07] MEDS: POTASSIUM CHLORIDE 10% LIQ 20 MEQ/15 ML UDC PO ×2 (09:26→20:12)
[2017-11-07] MEDS: METAMUCIL (PSYLLIUM) PACKET PO ×2 (09:26→20:12)
[2017-11-07] MEDS: PANTOPRAZOLE 40MG TAB (PROTONIX) PO (09:27)
[2017-11-07] MEDS: MAGNESIUM OXIDE 400 MG TAB (MAG-OX) PO ×2 (09:27→20:12)
[2017-11-07] MEDS: THIAMINE 100 MG TAB PO (09:27)
[2017-11-07] MEDS: ENOXAPARIN 40 MG/0.4 ML SYRINGE (J1650) SC (09:27)
[2017-11-07] MEDS: rifAXIMin 550 MG TAB (XIFAXAN) PO ×2 (09:27→20:12)
[2017-11-07] MEDS: CYANOCOBALAMIN 500 MCG TAB PO (09:27)
[2017-11-07] MEDS: FOLIC ACID 1 MG TAB PO (09:27)
[2017-11-07] MEDS: MULTIVITAMINS/MINERALS THERAP 1 TAB PO (09:27)
[2017-11-07] MEDS: NYSTATIN CREAM 15 GM TOP ×2 (09:28→20:13)
[2017-11-07] MEDS: TRIAMCINOLONE ACET 0.1% CREAM 15 GM TOP ×2 (09:28→20:12)
[2017-11-07] MEDS: EUCERIN 120GM CREAM TOP ×2 (09:28→20:12)
[2017-11-07] MEDS: DIAPER RELIEF PASTE (DESITIN) 60GM TOP (09:29)
[2017-11-08] MEDS: LOMOTIL 2.5MG/0.025MG TABLET PO ×4 (01:27→16:59)
[2017-11-08] MEDS: LEVOTHYROXINE 50MCG TABLET (0.05MG) PO (06:00)
[2017-11-08] MEDS: IPRATROPIUM 0.5MG/ALBUTEROL 2.5MG INH SOL UD 3ML (DUONEB)(J7620) NEB ×4 (07:39→20:00)
[2017-11-08] MEDS: rifAXIMin 550 MG TAB (XIFAXAN) PO ×2 (08:54→21:41)
[2017-11-08] MEDS: THIAMINE 100 MG TAB PO (08:54)
[2017-11-08] MEDS: METAMUCIL (PSYLLIUM) PACKET PO ×2 (08:55→21:41)
[2017-11-08] MEDS: PANTOPRAZOLE 40MG TAB (PROTONIX) PO (08:55)
[2017-11-08] MEDS: FOLIC ACID 1 MG TAB PO (08:55)
[2017-11-08] MEDS: DIAPER RELIEF PASTE (DESITIN) 60GM TOP (08:55)
[2017-11-08] MEDS: MAGNESIUM OXIDE 400 MG TAB (MAG-OX) PO ×2 (08:55→21:42)
[2017-11-08] MEDS: MULTIVITAMINS/MINERALS THERAP 1 TAB PO (08:55)
[2017-11-08] MEDS: ACETAMINOPHEN TAB 650MG DOSE (2X325MG) PO ×2 (08:55→16:59)
[2017-11-08] MEDS: CYANOCOBALAMIN 500 MCG TAB PO (08:55)
[2017-11-08] MEDS: ENOXAPARIN 40 MG/0.4 ML SYRINGE (J1650) SC (08:56)
[2017-11-08] MEDS: NYSTATIN CREAM 15 GM TOP ×2 (08:56→21:00)
[2017-11-08] MEDS: EUCERIN 120GM CREAM TOP ×2 (08:56→21:00)
[2017-11-08] MEDS: TRIAMCINOLONE ACET 0.1% CREAM 15 GM TOP ×2 (08:57→21:00)
[2017-11-08] MEDS: POTASSIUM CHLORIDE 10 MEQ SR TABLET PO ×2 (12:00→21:41)
[2017-11-09] MEDS: LOMOTIL 2.5MG/0.025MG TABLET PO ×4 (00:21→18:26)
[2017-11-09] MEDS: ACETAMINOPHEN TAB 650MG DOSE (2X325MG) PO ×3 (02:52→18:37)
[2017-11-09] MEDS: LEVOTHYROXINE 50MCG TABLET (0.05MG) PO (05:51)
[2017-11-09] MEDS: IPRATROPIUM 0.5MG/ALBUTEROL 2.5MG INH SOL UD 3ML (DUONEB)(J7620) NEB ×4 (08:00→20:00)
[2017-11-09] MEDS: METAMUCIL (PSYLLIUM) PACKET PO ×2 (09:00→21:54)
[2017-11-09] MEDS: ENOXAPARIN 40 MG/0.4 ML SYRINGE (J1650) SC (09:00)
[2017-11-09] MEDS: POTASSIUM CHLORIDE 10 MEQ SR TABLET PO ×2 (09:01→21:54)
[2017-11-09] MEDS: MULTIVITAMINS/MINERALS THERAP 1 TAB PO (09:01)
[2017-11-09] MEDS: MAGNESIUM OXIDE 400 MG TAB (MAG-OX) PO ×2 (09:01→21:54)
[2017-11-09] MEDS: THIAMINE 100 MG TAB PO (09:01)
[2017-11-09] MEDS: CYANOCOBALAMIN 500 MCG TAB PO (09:01)
[2017-11-09] MEDS: PANTOPRAZOLE 40MG TAB (PROTONIX) PO (09:01)
[2017-11-09] MEDS: FOLIC ACID 1 MG TAB PO (09:01)
[2017-11-09] MEDS: rifAXIMin 550 MG TAB (XIFAXAN) PO ×2 (09:01→21:54)
[2017-11-09] MEDS: DIAPER RELIEF PASTE (DESITIN) 60GM TOP (09:02)
[2017-11-09] MEDS: TRIAMCINOLONE ACET 0.1% CREAM 15 GM TOP ×2 (09:02→22:01)
[2017-11-09] MEDS: NYSTATIN CREAM 15 GM TOP ×2 (09:02→22:00)
[2017-11-09] MEDS: EUCERIN 120GM CREAM TOP ×2 (09:02→21:59)
[2017-11-10] MEDS: LOMOTIL 2.5MG/0.025MG TABLET PO ×4 (00:04→18:19)
[2017-11-10] MEDS: ACETAMINOPHEN TAB 650MG DOSE (2X325MG) PO ×4 (00:04→21:15)
[2017-11-10] MEDS: LEVOTHYROXINE 50MCG TABLET (0.05MG) PO (06:27)
[2017-11-10] MEDS: IPRATROPIUM 0.5MG/ALBUTEROL 2.5MG INH SOL UD 3ML (DUONEB)(J7620) NEB ×4 (07:53→20:00)
[2017-11-10] MEDS: NYSTATIN CREAM 15 GM TOP ×2 (09:00→21:00)
[2017-11-10] MEDS: EUCERIN 120GM CREAM TOP ×2 (09:00→21:00)
[2017-11-10] MEDS: DIAPER RELIEF PASTE (DESITIN) 60GM TOP (09:00)
[2017-11-10] MEDS: TRIAMCINOLONE ACET 0.1% CREAM 15 GM TOP ×2 (09:00→21:00)
[2017-11-10] MEDS: POTASSIUM CHLORIDE 10 MEQ SR TABLET PO ×2 (09:07→20:53)
[2017-11-10] MEDS: PANTOPRAZOLE 40MG TAB (PROTONIX) PO (09:07)
[2017-11-10] MEDS: rifAXIMin 550 MG TAB (XIFAXAN) PO ×2 (09:07→20:53)
[2017-11-10] MEDS: CYANOCOBALAMIN 500 MCG TAB PO (09:07)
[2017-11-10] MEDS: METAMUCIL (PSYLLIUM) PACKET PO ×2 (09:07→20:53)
[2017-11-10] MEDS: FOLIC ACID 1 MG TAB PO (09:08)
[2017-11-10] MEDS: THIAMINE 100 MG TAB PO (09:08)
[2017-11-10] MEDS: MAGNESIUM OXIDE 400 MG TAB (MAG-OX) PO ×2 (09:08→20:53)
[2017-11-10] MEDS: MULTIVITAMINS/MINERALS THERAP 1 TAB PO (09:08)
[2017-11-10] MEDS: ENOXAPARIN 40 MG/0.4 ML SYRINGE (J1650) SC (12:50)
[2017-11-11] MEDS: LOMOTIL 2.5MG/0.025MG TABLET PO ×4 (01:27→18:10)
[2017-11-11] MEDS: LEVOTHYROXINE 50MCG TABLET (0.05MG) PO (05:55)
[2017-11-11] MEDS: IPRATROPIUM 0.5MG/ALBUTEROL 2.5MG INH SOL UD 3ML (DUONEB)(J7620) NEB ×4 (07:48→20:00)
[2017-11-11] MEDS: NYSTATIN CREAM 15 GM TOP ×2 (09:00→20:40)
[2017-11-11] MEDS: DIAPER RELIEF PASTE (DESITIN) 60GM TOP (09:00)
[2017-11-11] MEDS: EUCERIN 120GM CREAM TOP ×2 (09:00→20:39)
[2017-11-11] MEDS: TRIAMCINOLONE ACET 0.1% CREAM 15 GM TOP ×2 (09:00→20:39)
[2017-11-11] MEDS: ACETAMINOPHEN TAB 650MG DOSE (2X325MG) PO ×2 (09:21→16:41)
[2017-11-11] MEDS: ENOXAPARIN 40 MG/0.4 ML SYRINGE (J1650) SC (09:21)
[2017-11-11] MEDS: rifAXIMin 550 MG TAB (XIFAXAN) PO ×2 (09:44→20:39)
[2017-11-11] MEDS: POTASSIUM CHLORIDE 10 MEQ SR TABLET PO ×2 (09:45→20:38)
[2017-11-11] MEDS: PANTOPRAZOLE 40MG TAB (PROTONIX) PO (09:46)
[2017-11-11] MEDS: MAGNESIUM OXIDE 400 MG TAB (MAG-OX) PO ×2 (09:47→20:38)
[2017-11-11] MEDS: METAMUCIL (PSYLLIUM) PACKET PO ×2 (09:47→20:38)
[2017-11-11] MEDS: CYANOCOBALAMIN 500 MCG TAB PO (11:20)
[2017-11-11] MEDS: MULTIVITAMINS/MINERALS THERAP 1 TAB PO (11:20)
[2017-11-11] MEDS: THIAMINE 100 MG TAB PO (11:20)
[2017-11-11] MEDS: FOLIC ACID 1 MG TAB PO (11:21)
[2017-11-11] MEDS: ANALGESIC BALM CRM 120 GM TOP (20:38)
[2017-11-12] MEDS: ACETAMINOPHEN TAB 650MG DOSE (2X325MG) PO ×3 (00:10→18:28)
[2017-11-12] MEDS: LOMOTIL 2.5MG/0.025MG TABLET PO ×4 (00:10→18:28)
[2017-11-12] MEDS: LEVOTHYROXINE 50MCG TABLET (0.05MG) PO (06:19)
[2017-11-12] MEDS: IPRATROPIUM 0.5MG/ALBUTEROL 2.5MG INH SOL UD 3ML (DUONEB)(J7620) NEB ×4 (07:50→20:00)
[2017-11-12] MEDS: ENOXAPARIN 40 MG/0.4 ML SYRINGE (J1650) SC (10:20)
[2017-11-12] MEDS: POTASSIUM CHLORIDE 10 MEQ SR TABLET PO ×2 (10:20→21:19)
[2017-11-12] MEDS: METAMUCIL (PSYLLIUM) PACKET PO ×2 (10:21→21:00)
[2017-11-12] MEDS: MAGNESIUM OXIDE 400 MG TAB (MAG-OX) PO ×2 (10:21→21:19)
[2017-11-12] MEDS: rifAXIMin 550 MG TAB (XIFAXAN) PO ×2 (10:21→21:19)
[2017-11-12] MEDS: PANTOPRAZOLE 40MG TAB (PROTONIX) PO (10:21)
[2017-11-12] MEDS: ANALGESIC BALM CRM 120 GM TOP ×4 (10:22→21:00)
[2017-11-12] MEDS: EUCERIN 120GM CREAM TOP ×2 (10:23→21:00)
[2017-11-12] MEDS: DIAPER RELIEF PASTE (DESITIN) 60GM TOP (10:23)
[2017-11-12] MEDS: NYSTATIN CREAM 15 GM TOP ×2 (10:24→21:20)
[2017-11-12] MEDS: TRIAMCINOLONE ACET 0.1% CREAM 15 GM TOP ×2 (10:24→21:21)
[2017-11-12] MEDS: FOLIC ACID 1 MG TAB PO (10:34)
[2017-11-12] MEDS: MULTIVITAMINS/MINERALS THERAP 1 TAB PO (10:34)
[2017-11-12] MEDS: CYANOCOBALAMIN 500 MCG TAB PO (10:35)
[2017-11-12] MEDS: THIAMINE 100 MG TAB PO (10:35)
[2017-11-13] MEDS: LOMOTIL 2.5MG/0.025MG TABLET PO ×4 (00:32→18:05)
[2017-11-13] MEDS: ACETAMINOPHEN TAB 650MG DOSE (2X325MG) PO ×4 (00:33→22:07)
[2017-11-13] MEDS: LEVOTHYROXINE 50MCG TABLET (0.05MG) PO (05:46)
[2017-11-13 06:29] LABS: HEMATOCRIT 38.4 % (36.0-47.0); HEMOGLOBIN 12.9 g/dl (12.0-15.5); MEAN CORPUSCULAR HEMOGLOBIN 31.7 pg (27.0-33.0); MEAN CORPUSCULAR HGB CONC 33.6 g/dl (32.0-36.5); MEAN CORPUSCULAR VOLUME 94.3 fl (80.0-96.0); PLATELET COUNT, AUTOMATED 234 10^3/uL (150-450); RED BLOOD COUNT 4.07 10^6/uL (4.00-5.40); RED CELL DISTRIBUTION WIDTH 16.4 % (11.5-14.5); WHITE BLOOD COUNT 5.9 10^3/uL (4.0-10.0)
[2017-11-13] MEDS: IPRATROPIUM 0.5MG/ALBUTEROL 2.5MG INH SOL UD 3ML (DUONEB)(J7620) NEB ×4 (07:13→20:00)
[2017-11-13] MEDS: ENOXAPARIN 40 MG/0.4 ML SYRINGE (J1650) SC (07:54)
[2017-11-13] MEDS: METAMUCIL (PSYLLIUM) PACKET PO ×2 (07:54→19:56)
[2017-11-13] MEDS: THIAMINE 100 MG TAB PO (07:55)
[2017-11-13] MEDS: PANTOPRAZOLE 40MG TAB (PROTONIX) PO (07:56)
[2017-11-13] MEDS: POTASSIUM CHLORIDE 10 MEQ SR TABLET PO ×2 (07:56→19:56)
[2017-11-13] MEDS: CYANOCOBALAMIN 500 MCG TAB PO (07:56)
[2017-11-13] MEDS: rifAXIMin 550 MG TAB (XIFAXAN) PO ×2 (07:56→19:56)
[2017-11-13] MEDS: FOLIC ACID 1 MG TAB PO (07:57)
[2017-11-13] MEDS: MULTIVITAMINS/MINERALS THERAP 1 TAB PO (07:57)
[2017-11-13] MEDS: MAGNESIUM OXIDE 400 MG TAB (MAG-OX) PO ×2 (07:57→19:56)
[2017-11-13] MEDS: NYSTATIN CREAM 15 GM TOP ×2 (07:58→19:58)
[2017-11-13] MEDS: ANALGESIC BALM CRM 120 GM TOP ×4 (07:58→19:57)
[2017-11-13] MEDS: TRIAMCINOLONE ACET 0.1% CREAM 15 GM TOP ×2 (07:58→19:58)
[2017-11-13] MEDS: DIAPER RELIEF PASTE (DESITIN) 60GM TOP ×2 (07:58→08:00)
[2017-11-13] MEDS: EUCERIN 120GM CREAM TOP ×2 (09:00→19:57)
[2017-11-14] MEDS: LOMOTIL 2.5MG/0.025MG TABLET PO ×3 (00:11→12:55)
[2017-11-14] MEDS: LEVOTHYROXINE 50MCG TABLET (0.05MG) PO (06:13)
[2017-11-14] MEDS: ACETAMINOPHEN TAB 650MG DOSE (2X325MG) PO ×2 (06:14→12:55)
[2017-11-14] MEDS: IPRATROPIUM 0.5MG/ALBUTEROL 2.5MG INH SOL UD 3ML (DUONEB)(J7620) NEB ×3 (07:59→15:46)
[2017-11-14] MEDS: METAMUCIL (PSYLLIUM) PACKET PO (09:29)
[2017-11-14] MEDS: rifAXIMin 550 MG TAB (XIFAXAN) PO (09:29)
[2017-11-14] MEDS: MAGNESIUM OXIDE 400 MG TAB (MAG-OX) PO (09:29)
[2017-11-14] MEDS: THIAMINE 100 MG TAB PO (09:29)
[2017-11-14] MEDS: FOLIC ACID 1 MG TAB PO (09:29)
[2017-11-14] MEDS: CYANOCOBALAMIN 500 MCG TAB PO (09:29)
[2017-11-14] MEDS: PANTOPRAZOLE 40MG TAB (PROTONIX) PO (09:29)
[2017-11-14] MEDS: ENOXAPARIN 40 MG/0.4 ML SYRINGE (J1650) SC (09:29)
[2017-11-14] MEDS: MULTIVITAMINS/MINERALS THERAP 1 TAB PO (09:29)
[2017-11-14] MEDS: TRIAMCINOLONE ACET 0.1% CREAM 15 GM TOP (09:30)
[2017-11-14] MEDS: POTASSIUM CHLORIDE 10 MEQ SR TABLET PO (09:30)
[2017-11-14] MEDS: NYSTATIN CREAM 15 GM TOP (09:33)
[2017-11-14] MEDS: EUCERIN 120GM CREAM TOP (09:34)
[2017-11-14] MEDS: ANALGESIC BALM CRM 120 GM TOP ×2 (09:34→13:16)
[2017-11-14] MEDS: DIAPER RELIEF PASTE (DESITIN) 60GM TOP (09:34)
== END 2017-11-14 16:08 | disposition home health service (06) | DRG 221 ==
LOC: M ICU 09-08 23:04 → M MS5PR 09-10 15:05 → M PCU 09-25 11:42 → M ICU 09-27 17:24 → M PCU 10-01 14:26 → M MSPAV 10-09 15:57 → M ED 13:45 → M ED INP 17:49 → M MSPAV 20:22
PROC: 0DB98ZX Excision of Duodenum, Via Natural or Artificial Opening Endoscopic, Diagnostic (ICD-10-PCS; 2017-09-19 14:00)
PROC: 0D968ZX Drainage of Stomach, Via Natural or Artificial Opening Endoscopic, Diagnostic (ICD-10-PCS; 2017-09-19 14:00)
PROC: 0DBN0ZZ Excision of Sigmoid Colon, Open Approach (ICD-10-PCS; principal; 2017-09-19 14:45)
PROC: 0DTL0ZZ Resection of Transverse Colon, Open Approach (ICD-10-PCS; 2017-09-19 14:45)
PROC: 0DTK0ZZ Resection of Ascending Colon, Open Approach (ICD-10-PCS; 2017-09-19 14:45)
PROC: 0DB80ZZ Excision of Small Intestine, Open Approach (ICD-10-PCS; 2017-09-19 14:45)
PROC: 0D1K0Z4 Bypass Ascending Colon to Cutaneous, Open Approach (ICD-10-PCS; 2017-09-19 14:45)
PROC: 5A1935Z Respiratory Ventilation, Less than 24 Consecutive Hours (ICD-10-PCS; 2017-09-19 14:45)
PROC: 0B9H8ZX Drainage of Lung Lingula, Via Natural or Artificial Opening Endoscopic, Diagnostic (ICD-10-PCS; 2017-09-19 14:45)
PROC: 30233N1 Transfusion of Nonautologous Red Blood Cells into Peripheral Vein, Percutaneous Approach (ICD-10-PCS; 2017-09-19 14:45)
PROC: 30233K1 Transfusion of Nonautologous Frozen Plasma into Peripheral Vein, Percutaneous Approach (ICD-10-PCS; 2017-09-19 14:45)
PROC: 02HV33Z Insertion of Infusion Device into Superior Vena Cava, Percutaneous Approach (ICD-10-PCS; 2017-09-19 14:45)
DX: K57.81 Diverticulitis of intestine, part unspecified, with perforation and abscess with bleeding (principal); J69.0 Pneumonitis due to inhalation of food and vomit; J95.821 Acute postprocedural respiratory failure; G93.41 Metabolic encephalopathy; K55.039 Acute (reversible) ischemia of large intestine, extent unspecified; F10.231 Alcohol dependence with withdrawal delirium; D68.9 Coagulation defect, unspecified; E46 Unspecified protein-calorie malnutrition; J44.9 Chronic obstructive pulmonary disease, unspecified; B37.7 Candidal sepsis; K56.609 Unspecified intestinal obstruction, unspecified as to partial versus complete obstruction; I95.9 Hypotension, unspecified; D69.6 Thrombocytopenia, unspecified; E51.2 Wernicke's encephalopathy; E88.09 Other disorders of plasma-protein metabolism, not elsewhere classified; K56.7 Ileus, unspecified; E55.9 Vitamin D deficiency, unspecified; K70.0 Alcoholic fatty liver; E56.1 Deficiency of vitamin K; K22.2 Esophageal obstruction; E87.1 Hypo-osmolality and hyponatremia; K72.90 Hepatic failure, unspecified without coma; T36.8X5A Adverse effect of other systemic antibiotics, initial encounter; R41.0 Disorientation, unspecified; D62 Acute posthemorrhagic anemia; K63.89 Other specified diseases of intestine; E03.9 Hypothyroidism, unspecified; K21.9 Gastro-esophageal reflux disease without esophagitis; Z86.718 Personal history of other venous thrombosis and embolism; I10 Essential (primary) hypertension; J30.9 Allergic rhinitis, unspecified; G43.909 Migraine, unspecified, not intractable, without status migrainosus; Z87.891 Personal history of nicotine dependence; Z79.899 Other long term (current) drug therapy; F41.9 Anxiety disorder, unspecified; K44.9 Diaphragmatic hernia without obstruction or gangrene; K76.9 Liver disease, unspecified; D50.9 Iron deficiency anemia, unspecified; K52.9 Noninfective gastroenteritis and colitis, unspecified; R21 Rash and other nonspecific skin eruption; E87.6 Hypokalemia; Y83.8 Other surgical procedures as the cause of abnormal reaction of the patient, or of later complication, without mention of misadventure at the time of the procedure; T80.211A Bloodstream infection due to central venous catheter, initial encounter

== ENCOUNTER → 2017-11-27 | Outpatient (REF) | payer OTHER ==
[2017-11-27 16:27] LABS: ALBUMIN 3.7 GM/DL (3.2-5.2); ALBUMIN/GLOBULIN RATIO 0.77 (1.00-1.93); ALKALINE PHOSPHATASE 67 U/L (45-117); ALT/SGPT 31 U/L (12-78); ANION GAP 8 MEQ/L (8-16); AST/SGOT 30 U/L (7-37); BILIRUBIN,TOTAL 0.8 MG/DL (0.2-1.0); BLOOD UREA NITROGEN 8 MG/DL (7-18); CALCIUM LEVEL 10.3 MG/DL (8.5-10.1); CARBON DIOXIDE LEVEL 27 MEQ/L (21-32); CHLORIDE LEVEL 98 MEQ/L (98-107); CREATININE FOR GFR 0.65 MG/DL (0.55-1.30); GLOMERULAR FILTRATION RATE > 60.0 (>51); GLUCOSE, FASTING 103 MG/DL (70-100); HEMATOCRIT 40.2 % (36.0-47.0); HEMOGLOBIN 13.5 g/dl (12.0-15.5); MAGNESIUM LEVEL 1.9 MG/DL (1.8-2.4); MEAN CORPUSCULAR HEMOGLOBIN 32.1 pg (27.0-33.0); MEAN CORPUSCULAR HGB CONC 33.6 g/dl (32.0-36.5); MEAN CORPUSCULAR VOLUME 95.7 fl (80.0-96.0); PLATELET COUNT, AUTOMATED 245 10^3/uL (150-450); POTASSIUM SERUM 4.4 MEQ/L (3.5-5.1); SODIUM LEVEL 133 MEQ/L (136-145); TOTAL PROTEIN 8.5 GM/DL (6.4-8.2); WHITE BLOOD COUNT 5.7 10^3/uL (4.0-10.0)
[2017-11-27 16:31] LABS: VITAMIN B12 LEVEL 1961 PG/ML (247-911)
== END ==
LOC: M SFHCPLAZ 12:00
DX: R20.0 Anesthesia of skin (principal); K72.90 Hepatic failure, unspecified without coma

== ENCOUNTER → 2018-01-29 | Outpatient (CLI) | payer OTHER ==
[2018-01-29 11:23] LABS: ALBUMIN 3.8 GM/DL (3.2-5.2); ALBUMIN/GLOBULIN RATIO 0.84 (1.00-1.93); ALKALINE PHOSPHATASE 91 U/L (45-117); ALT/SGPT 37 U/L (12-78); ANION GAP 11 MEQ/L (8-16); AST/SGOT 28 U/L (7-37); BILIRUBIN,TOTAL 0.6 MG/DL (0.2-1.0); BLOOD UREA NITROGEN 11 MG/DL (7-18); CALCIUM LEVEL 10.1 MG/DL (8.5-10.1); CARBON DIOXIDE LEVEL 24 MEQ/L (21-32); CHLORIDE LEVEL 103 MEQ/L (98-107); CREATININE FOR GFR 0.79 MG/DL (0.55-1.30); FREE T4 1.23 NG/DL (0.76-1.46); GLOMERULAR FILTRATION RATE > 60.0 (>51); GLUCOSE, FASTING 92 MG/DL (70-100); POTASSIUM SERUM 3.7 MEQ/L (3.5-5.1); SODIUM LEVEL 138 MEQ/L (136-145); THYROID STIMULATING HORMONE 0.281 uIU/ML (0.358-3.740); TOTAL PROTEIN 8.3 GM/DL (6.4-8.2)
== END ==
LOC: M SMT 08:50
DX: K72.90 Hepatic failure, unspecified without coma (principal); E03.9 Hypothyroidism, unspecified
CPT/HCPCS: 84443

== ENCOUNTER → 2018-03-05 | Outpatient (CLI) | payer OTHER ==
[2018-03-05 18:57] LABS: TOTAL 25(OH) VITAMIN D 30.6 NG/ML (30.0-100.0)
[2018-03-05 18:58] LABS: FOLATE > 24.0 NG/ML (>5.4); VITAMIN B12 LEVEL 1434 PG/ML (247-911)
[2018-03-05 23:14] LABS: ALBUMIN 4.1 GM/DL (3.2-5.2); ALKALINE PHOSPHATASE 113 U/L (45-117); ALT/SGPT 42 U/L (12-78); ANION GAP 13 MEQ/L (8-16); AST/SGOT 34 U/L (7-37); BLOOD UREA NITROGEN 11 MG/DL (7-18); CALCIUM LEVEL 10.4 MG/DL (8.5-10.1); CARBON DIOXIDE LEVEL 20 MEQ/L (21-32); CHLORIDE LEVEL 106 MEQ/L (98-107); CREATININE FOR GFR 1.07 MG/DL (0.55-1.30); FREE T4 1.01 NG/DL (0.76-1.46); GLOMERULAR FILTRATION RATE 56.5 (>51); GLUCOSE, FASTING 117 MG/DL (70-100); POTASSIUM SERUM 3.2 MEQ/L (3.5-5.1); SODIUM LEVEL 139 MEQ/L (136-145); TOTAL PROTEIN 9.2 GM/DL (6.4-8.2)
== END ==
LOC: M SMT 13:22
DX: R20.0 Anesthesia of skin (principal); E55.9 Vitamin D deficiency, unspecified; E03.9 Hypothyroidism, unspecified; K72.90 Hepatic failure, unspecified without coma
CPT/HCPCS: 82746

== ENCOUNTER → 2018-03-16 | Outpatient (CLI) | payer OTHER ==
[2018-03-16 17:23] LABS: ALBUMIN 3.8 GM/DL (3.2-5.2); ALBUMIN/GLOBULIN RATIO 0.78 (1.00-1.93); ALKALINE PHOSPHATASE 104 U/L (45-117); ALT/SGPT 30 U/L (12-78); ANION GAP 11 MEQ/L (8-16); AST/SGOT 27 U/L (7-37); BILIRUBIN,TOTAL 0.9 MG/DL (0.2-1.0); BLOOD UREA NITROGEN 13 MG/DL (7-18); CALCIUM LEVEL 9.4 MG/DL (8.5-10.1); CARBON DIOXIDE LEVEL 24 MEQ/L (21-32); CHLORIDE LEVEL 102 MEQ/L (98-107); CREATININE FOR GFR 1.07 MG/DL (0.55-1.30); FOLATE > 24.0 NG/ML; FREE T4 1.02 NG/DL (0.76-1.46); GLOMERULAR FILTRATION RATE 56.5 (>51); GLUCOSE, FASTING 108 MG/DL (70-100); POTASSIUM SERUM 3.1 MEQ/L (3.5-5.1); SODIUM LEVEL 137 MEQ/L (136-145); TOTAL 25(OH) VITAMIN D 17.8 NG/ML (30.0-100.0); TOTAL PROTEIN 8.7 GM/DL (6.4-8.2)
== END ==
LOC: M SMT 14:55
DX: K72.90 Hepatic failure, unspecified without coma (principal); E03.9 Hypothyroidism, unspecified; E55.9 Vitamin D deficiency, unspecified; R20.0 Anesthesia of skin
CPT/HCPCS: 82746

== ENCOUNTER → 2018-03-29 | Outpatient (CLI) | payer OTHER ==
[2018-03-29 14:20] LABS: ANION GAP 8 MEQ/L (8-16); BLOOD UREA NITROGEN 9 MG/DL (7-18); CALCIUM LEVEL 9.5 MG/DL (8.5-10.1); CARBON DIOXIDE LEVEL 22 MEQ/L (21-32); CHLORIDE LEVEL 111 MEQ/L (98-107); GLOMERULAR FILTRATION RATE > 60.0 (>51); GLUCOSE, FASTING 96 MG/DL (70-100); POTASSIUM SERUM 3.7 MEQ/L (3.5-5.1); SODIUM LEVEL 141 MEQ/L (136-145)
== END ==
LOC: M SMT 11:39
DX: E87.6 Hypokalemia (principal)
CPT/HCPCS: 80048

== ENCOUNTER → 2018-04-16 | Outpatient (CLI) | payer OTHER ==
[~2018-04-16] MED LIST changes: -ASPI1TAB15 PO; -ASPI81TA85 PO; -CYCL10TA PO; +LIQUID POLIBAR PLUS 105% w/v 1900ML BTL As Ordered; -SYNT50TA PO; -ZOLO25TA PO
== END ==
LOC: M RAD 09:47
DX: Z93.2 Ileostomy status (principal)
CPT/HCPCS: 74270

== ENCOUNTER 2018-05-16 09:22 | Inpatient (IN) | payer OTHER ==
[~2018-05-16 09:22] MED LIST changes: +LIDOCAINE 1% MDV 20ML VIAL SQ; -LIQUID POLIBAR PLUS 105% w/v 1900ML BTL As Ordered
[2018-05-16] MEDS ORDERED: dexameTHASONE 4 MG/ML 1ML VIAL (J1100) As Ordered (09:38)
[2018-05-16] MEDS ORDERED: PROPOFOL 200 MG/20 ML VIAL As Ordered (09:38)
[2018-05-16] MEDS ORDERED: ONDANSETRON 4MG/2ML VIAL (J2405) As Ordered (09:38)
[2018-05-16] MEDS ORDERED: fentaNYL 250 MCG/5 ML INJECTION (J3010) As Ordered (09:38)
[2018-05-16] MEDS ORDERED: LIDOCAINE 2% INJ 100 MG/5 ML SDV (FOR ANES.) As Ordered (09:38)
[2018-05-16] MEDS ORDERED: ROCURONIUM BROMIDE 50 MG/5 ML VIAL As Ordered ×2 (09:38→11:55)
[2018-05-16] MEDS ORDERED: MIDAZOLAM INJ 2 MG/2 ML VIAL (J2250) As Ordered (09:40)
[2018-05-16] MEDS ORDERED: SEVOFLURANE INHAL SOLN 250 ML BTL As Ordered (09:58)
[2018-05-16] MEDS: LR 1,000 ML IV ×4 (10:10→21:55)
[2018-05-16] MEDS: ALVIMOPAN 12 MG CAPSULE (ENTEREG) PO ×2 (10:10→21:56)
[2018-05-16] MEDS: HEPARIN SOD (PORCINE) 5000 UNITS/ML VIAL SQ (10:17)
[2018-05-16] MEDS: metroNIDAZOLE 500 MG in APPROPRIATE DILUENT 1 EA IV (10:20)
[2018-05-16] MEDS ORDERED: cefoTEtan INJ 2GM VIAL (S0074 PER 500MG) As Ordered (10:58)
[2018-05-16] MEDS ORDERED: PHENYLephrine HCL 500 MCG/5 ML (100MCG/ML) SYRINGE (J2370) As Ordered (11:01)
[2018-05-16] MEDS: cefoTEtan DISODIUM 2 GM in D5W MINI-BAG PLUS 50 ML IV (11:25)
[2018-05-16] MEDS ORDERED: ESMOLOL INJ 100MG/10ML VIAL As Ordered (12:27)
[2018-05-16] MEDS ORDERED: GLYCOPYRROLATE INJ 0.2 MG/ML 2 ML VIAL As Ordered (12:27)
[2018-05-16] MEDS ORDERED: KETOROLAC 60 MG/2 ML VIAL (J1885) As Ordered (12:27)
[2018-05-16] MEDS ORDERED: NEOSTIGMINE 10 MG/10 ML VIAL (J2710) As Ordered (12:27)
[2018-05-16] MEDS ORDERED: HYDROmorphone HCL 2 MG/ML 1ML VIAL (J1170) As Ordered (12:35)
[2018-05-16] MEDS ORDERED: PHENYLEPHRINE INJ 10MG/ML VIAL (J2370) As Ordered (13:49)
[2018-05-16] MEDS ORDERED: fentaNYL 100 MCG/2 ML INJECTION (J3010) As Ordered (13:56)
[2018-05-16] MEDS ORDERED: SUGAMMADEX SODIUM 500 MG/5 ML VIAL (BRIDION) As Ordered (14:27)
[2018-05-16] MEDS: LIDOCAINE 1% SDV INJ 30 ML VIAL As Ordered (14:50)
[2018-05-16] MEDS: BUPIVACAINE HCL 0.25% 30 ML VIAL As Ordered (14:55)
[2018-05-16] MEDS ORDERED: MORPHINE 4 MG/ML 1ML VIAL/SYRINGE (J2270) IV (15:15)
[2018-05-16] MEDS ORDERED: ACETAMINOPHEN TAB 650MG DOSE (2X325MG) PO (15:15)
[2018-05-16] MEDS ORDERED: PERCOCET 5MG/325MG TAB PO (15:15)
[2018-05-16] MEDS: PERCOCET 5MG/325MG TAB PO ×2 (15:45→16:15)
[2018-05-16] MEDS ORDERED: METOCLOPRAMIDE INJ 10MG/2ML VIAL (J2765) IV (15:45)
[2018-05-16] MEDS ORDERED: ONDANSETRON 4MG/2ML VIAL (J2405) IV (15:45)
[2018-05-16] MEDS ORDERED: fentaNYL 100 MCG/2 ML INJECTION (J3010) IV (15:45)
[2018-05-16] MEDS: GABAPENTIN 300 MG CAP PO ×2 (16:00→21:56)
[2018-05-16] MEDS: AMITRIPTYLINE 10 MG TAB PO (21:56)
[2018-05-16] MEDS: SENOKOT S TAB PO (21:56)
[2018-05-16] MEDS: HEPARIN SOD (PORCINE) 5000 UNITS/ML VIAL SC (21:57)
[2018-05-16] MEDS: diphenhydrAMINE INJ 50MG/ML VIAL (J1200) IV (21:57)
[2018-05-17] MEDS: LR 1,000 ML IV ×3 (06:06→23:15)
[2018-05-17] MEDS: HEPARIN SOD (PORCINE) 5000 UNITS/ML VIAL SC ×3 (06:06→21:07)
[2018-05-17 06:44] LABS: BASO % 0.1 % (0.0-1.0); HEMATOCRIT 31.4 % (36.0-47.0); HEMOGLOBIN 10.3 g/dl (12.0-15.5); IMMATURE GRANULOCYTE % 0.4 % (0-3.0); LYMPH # 0.8 10^3/uL (1.5-4.5); LYMPH % 9.7 % (24.0-44.0); MEAN CORPUSCULAR HGB CONC 32.8 g/dl (32.0-36.5); MEAN CORPUSCULAR VOLUME 106.8 fl (80.0-96.0); MONO # 0.6 10^3/uL (0.0-0.8); MONO % 7.4 % (0.0-5.0); NEUTROPHILS % 82.4 % (36.0-66.0); PLATELET COUNT, AUTOMATED 109 10^3/uL (150-450); RED BLOOD COUNT 2.94 10^6/uL (4.00-5.40); WHITE BLOOD COUNT 8.5 10^3/uL (4.0-10.0)
[2018-05-17 07:04] LABS: ANION GAP 5 MEQ/L (8-16); BLOOD UREA NITROGEN 12 MG/DL (7-18); CALCIUM LEVEL 8.5 MG/DL (8.5-10.1); CARBON DIOXIDE LEVEL 28 MEQ/L (21-32); CHLORIDE LEVEL 106 MEQ/L (98-107); CREATININE FOR GFR 0.88 MG/DL (0.55-1.30); GLOMERULAR FILTRATION RATE > 60.0 (>51); GLUCOSE, FASTING 101 MG/DL (70-100); POTASSIUM SERUM 3.9 MEQ/L (3.5-5.1); SODIUM LEVEL 139 MEQ/L (136-145)
[2018-05-17] MEDS: FLUBLOK(EGG FREE)(QUAD)INFLUENZA VACC 0.5ML SYRINGE (90682)18YRS&OLDER IM (09:00)
[2018-05-17] MEDS: LEVOTHYROXINE 25MCG TABLET (0.025MG) PO (09:00)
[2018-05-17] MEDS: PERCOCET 5MG/325MG TAB PO ×3 (09:49→21:11)
[2018-05-17] MEDS: GABAPENTIN 300 MG CAP PO ×3 (09:50→21:06)
[2018-05-17] MEDS: FOLIC ACID 1 MG TAB PO (09:50)
[2018-05-17] MEDS: SENOKOT S TAB PO ×2 (09:50→21:06)
[2018-05-17] MEDS: PANTOPRAZOLE 40MG TAB (PROTONIX) PO (09:50)
[2018-05-17] MEDS: POTASSIUM CHLORIDE 10 MEQ SR TABLET PO (09:50)
[2018-05-17] MEDS: ALVIMOPAN 12 MG CAPSULE (ENTEREG) PO ×2 (09:50→21:06)
[2018-05-17] MEDS: CYANOCOBALAMIN 250 MCG TABLET PO (09:50)
[2018-05-17] MEDS: KETOROLAC 30 MG/ML VIAL (J1885) IV (15:17)
[2018-05-17] MEDS: AMITRIPTYLINE 10 MG TAB PO (21:23)
[2018-05-18] MEDS: ONDANSETRON 4MG/2ML VIAL (J2405) IV ×2 (05:16→18:46)
[2018-05-18] MEDS: LEVOTHYROXINE 25MCG TABLET (0.025MG) PO (06:22)
[2018-05-18] MEDS: PERCOCET 5MG/325MG TAB PO ×2 (06:22→12:31)
[2018-05-18] MEDS: HEPARIN SOD (PORCINE) 5000 UNITS/ML VIAL SC ×3 (06:22→21:38)
[2018-05-18 06:49] LABS: BASO # 0.1 10^3/uL (0.0-0.2); BASO % 0.7 % (0.0-1.0); EOS % 0.4 % (0.0-3.0); HEMATOCRIT 33.6 % (36.0-47.0); HEMOGLOBIN 10.7 g/dl (12.0-15.5); IMMATURE GRANULOCYTE % 0.7 % (0-3.0); LYMPH # 1.1 10^3/uL (1.5-4.5); LYMPH % 14.6 % (24.0-44.0); MEAN CORPUSCULAR HEMOGLOBIN 35.3 pg (27.0-33.0); MEAN CORPUSCULAR HGB CONC 31.8 g/dl (32.0-36.5); MEAN CORPUSCULAR VOLUME 110.9 fl (80.0-96.0); MONO # 0.6 10^3/uL (0.0-0.8); MONO % 8.6 % (0.0-5.0); NEUTROPHILS # 5.5 10^3/uL (1.8-7.7); PLATELET COUNT, AUTOMATED 100 10^3/uL (150-450); RED BLOOD COUNT 3.03 10^6/uL (4.00-5.40); RED CELL DISTRIBUTION WIDTH 12.6 % (11.5-14.5); WHITE BLOOD COUNT 7.3 10^3/uL (4.0-10.0)
[2018-05-18 07:03] LABS: ANION GAP 7 MEQ/L (8-16); BLOOD UREA NITROGEN 8 MG/DL (7-18); CALCIUM LEVEL 8.3 MG/DL (8.5-10.1); CARBON DIOXIDE LEVEL 28 MEQ/L (21-32); CHLORIDE LEVEL 104 MEQ/L (98-107); CREATININE FOR GFR 0.86 MG/DL (0.55-1.30); GLOMERULAR FILTRATION RATE > 60.0 (>51); GLUCOSE, FASTING 93 MG/DL (70-100); POTASSIUM SERUM 3.8 MEQ/L (3.5-5.1); SODIUM LEVEL 139 MEQ/L (136-145)
[2018-05-18] MEDS: FOLIC ACID 1 MG TAB PO (08:16)
[2018-05-18] MEDS: LR 1,000 ML IV (08:16)
[2018-05-18] MEDS: ALVIMOPAN 12 MG CAPSULE (ENTEREG) PO ×2 (08:16→21:38)
[2018-05-18] MEDS: GABAPENTIN 300 MG CAP PO ×3 (08:16→21:38)
[2018-05-18] MEDS: SENOKOT S TAB PO ×2 (08:16→21:38)
[2018-05-18] MEDS: PANTOPRAZOLE 40MG TAB (PROTONIX) PO (08:16)
[2018-05-18] MEDS: POTASSIUM CHLORIDE 10 MEQ SR TABLET PO (08:16)
[2018-05-18] MEDS ORDERED: MORPHINE 4 MG/ML 1ML VIAL/SYRINGE (J2270) IV (09:45)
[2018-05-18] MEDS: AMITRIPTYLINE 10 MG TAB PO (21:38)
[2018-05-19] MEDS: KETOROLAC 30 MG/ML VIAL (J1885) IV (00:08)
[2018-05-19] MEDS: ONDANSETRON 4MG/2ML VIAL (J2405) IV (05:38)
[2018-05-19] MEDS: LEVOTHYROXINE 25MCG TABLET (0.025MG) PO (05:38)
[2018-05-19] MEDS: HEPARIN SOD (PORCINE) 5000 UNITS/ML VIAL SC ×3 (05:38→21:20)
[2018-05-19] MEDS: PERCOCET 5MG/325MG TAB PO ×3 (05:39→21:20)
[2018-05-19 06:53] LABS: BASO % 0.6 % (0.0-1.0); EOS % 0.3 % (0.0-3.0); HEMATOCRIT 33.2 % (36.0-47.0); HEMOGLOBIN 10.5 g/dl (12.0-15.5); IMMATURE GRANULOCYTE % 0.3 % (0-3.0); LYMPH # 1.3 10^3/uL (1.5-4.5); LYMPH % 18.4 % (24.0-44.0); MEAN CORPUSCULAR HEMOGLOBIN 34.5 pg (27.0-33.0); MEAN CORPUSCULAR HGB CONC 31.6 g/dl (32.0-36.5); MEAN CORPUSCULAR VOLUME 109.2 fl (80.0-96.0); MONO # 0.6 10^3/uL (0.0-0.8); MONO % 8.2 % (0.0-5.0); NEUTROPHILS # 5.1 10^3/uL (1.8-7.7); NEUTROPHILS % 72.2 % (36.0-66.0); PLATELET COUNT, AUTOMATED 103 10^3/uL (150-450); RED BLOOD COUNT 3.04 10^6/uL (4.00-5.40); RED CELL DISTRIBUTION WIDTH 12.2 % (11.5-14.5); WHITE BLOOD COUNT 7.1 10^3/uL (4.0-10.0)
[2018-05-19 07:19] LABS: ANION GAP 4 MEQ/L (8-16); BLOOD UREA NITROGEN 6 MG/DL (7-18); CALCIUM LEVEL 8.6 MG/DL (8.5-10.1); CARBON DIOXIDE LEVEL 33 MEQ/L (21-32); CHLORIDE LEVEL 101 MEQ/L (98-107); CREATININE FOR GFR 0.93 MG/DL (0.55-1.30); GLOMERULAR FILTRATION RATE > 60.0 (>51); GLUCOSE, FASTING 92 MG/DL (70-100); POTASSIUM SERUM 4.1 MEQ/L (3.5-5.1); SODIUM LEVEL 138 MEQ/L (136-145)
[2018-05-19] MEDS: SENOKOT S TAB PO (09:31)
[2018-05-19] MEDS: GABAPENTIN 300 MG CAP PO ×3 (09:31→21:21)
[2018-05-19] MEDS: POTASSIUM CHLORIDE 10 MEQ SR TABLET PO (09:31)
[2018-05-19] MEDS: PANTOPRAZOLE 40MG TAB (PROTONIX) PO (09:32)
[2018-05-19] MEDS: ALVIMOPAN 12 MG CAPSULE (ENTEREG) PO (09:32)
[2018-05-19] MEDS: CYANOCOBALAMIN 250 MCG TABLET PO (09:32)
[2018-05-19] MEDS: FOLIC ACID 1 MG TAB PO (09:32)
[2018-05-19] MEDS: AMITRIPTYLINE 10 MG TAB PO (21:21)
[2018-05-20] MEDS: PERCOCET 5MG/325MG TAB PO ×2 (02:11→06:15)
[2018-05-20] MEDS: LEVOTHYROXINE 25MCG TABLET (0.025MG) PO (06:14)
[2018-05-20] MEDS: HEPARIN SOD (PORCINE) 5000 UNITS/ML VIAL SC ×2 (06:15→14:00)
[2018-05-20] MEDS: FOLIC ACID 1 MG TAB PO (10:03)
[2018-05-20] MEDS: POTASSIUM CHLORIDE 10 MEQ SR TABLET PO (10:03)
[2018-05-20] MEDS: PANTOPRAZOLE 40MG TAB (PROTONIX) PO (10:03)
[2018-05-20] MEDS: GABAPENTIN 300 MG CAP PO ×2 (10:03→16:56)
== END 2018-05-20 17:28 | disposition home or self-care (01) | DRG 223 ==
LOC: M SDC 09:22 → M MSPAV 05-20 13:37 → M OR 15:13 → M MS5PR 16:25
PROC: 0DBB4ZZ Excision of Ileum, Percutaneous Endoscopic Approach (ICD-10-PCS; principal; 2018-05-16 10:44)
PROC: 0DN84ZZ Release Small Intestine, Percutaneous Endoscopic Approach (ICD-10-PCS; 2018-05-16 10:44)
PROC: 0DQ84ZZ Repair Small Intestine, Percutaneous Endoscopic Approach (ICD-10-PCS; 2018-05-16 10:44)
DX: Z43.2 Encounter for attention to ileostomy (principal); K74.60 Unspecified cirrhosis of liver; Z79.899 Other long term (current) drug therapy

== ENCOUNTER → 2018-08-21 | Outpatient (REF) | payer OTHER ==
[~2018-08-21] MED LIST changes: +AMIT10TA PO; +ASPI1TAB15 PO; +ASPI81TA85 PO; +AZEL0.055; +Acetaminophen Tab PO; +CYCL10TA PO; +DIPH2.5T14 PO; +DRIS50003 PO; +FOLI1TAB11 PO; +GABA600T4 PO; +KLOR10TA76 PO; +LEVO25TA5 PO; +LIDO1CRE2 TOP; -LIDOCAINE 1% MDV 20ML VIAL SQ; +MAG400TA PO; +MAGN250T9 PO; +METAPKT PO; +NYST10CR TOP; +OMEP20CA3 PO; +PANT40TA3 PO; +PERCOCET PO; +POTA1TAB14 PO; +SERT-138 PO; +SYNT50TA PO; +THIA100TA PO; +TRIA1CR80 TOP; +TYLE500T78 PO; +VITA250L PO; +VITA500T53 PO; +VITMTA PO; +XIFA550T PO; +ZOLO25TA PO
[2018-08-21 15:31] LABS: ALBUMIN 3.6 GM/DL (3.2-5.2); ALT/SGPT 23 U/L (12-78); BILIRUBIN,TOTAL 0.6 MG/DL (0.2-1.0); BLOOD UREA NITROGEN 11 MG/DL (7-18); CALCIUM LEVEL 8.9 MG/DL (8.5-10.1); CARBON DIOXIDE LEVEL 31 MEQ/L (21-32); CHLORIDE LEVEL 105 MEQ/L (98-107); CREATININE FOR GFR 0.93 MG/DL (0.55-1.30); FREE T4 0.91 NG/DL (0.76-1.46); GLOMERULAR FILTRATION RATE > 60.0 (>51); GLUCOSE, FASTING 84 MG/DL (70-100); POTASSIUM SERUM 3.5 MEQ/L (3.5-5.1); SODIUM LEVEL 142 MEQ/L (136-145)
[2018-08-21 15:32] LABS: TOTAL 25(OH) VITAMIN D 36.1 NG/ML (30.0-100.0)
== END ==
LOC: M LABNEURO 14:46
PROVIDERS: ATTEND Nurse Practitioner Family
DX: E03.9 Hypothyroidism, unspecified (principal); I10 Essential (primary) hypertension; E55.9 Vitamin D deficiency, unspecified

== ENCOUNTER 2018-10-17 06:44 | Day surgery (SDC) | payer OTHER ==
[~2018-10-17] VITALS: Ht 165.1 cm; Wt 56.7 kg
[~2018-10-17 06:44] MED LIST changes: +ACET-897 PO; +AMIT50TA PO; +GABA800T4 PO; +KONS100P6 PO; -METAPKT PO; +MULTCAP PO; +VITA500T17 PO; +VITA500T3 PO; -VITA500T53 PO
[2018-10-17] MEDS ORDERED: CLINDAMYCIN 900 MG in APPROPRIATE DILUENT 1 EA IV ONE (07:00)
[2018-10-17] MEDS ORDERED: LR 1,000 ML IV ONE (07:00)
[2018-10-17] MEDS ORDERED: dexameTHASONE 4 MG/ML 1ML VIAL (J1100) IV ONE (07:00)
[2018-10-17] MEDS ORDERED: LIDOCAINE 2% W/ EPINEPHRINE 1.7 ML DENTAL INJ As Ordered ONE ×2 (09:09→10:08)
[2018-10-17] MEDS ORDERED: LIDOCAINE 2% INJ 100 MG/5 ML SDV (FOR ANES.) As Ordered ONE (09:53)
[2018-10-17] MEDS ORDERED: ROCURONIUM BROMIDE 50 MG/5 ML VIAL As Ordered ONE (09:53)
[2018-10-17] MEDS ORDERED: fentaNYL 250 MCG/5 ML INJECTION (J3010) As Ordered ONE (09:53)
[2018-10-17] MEDS ORDERED: SUGAMMADEX SODIUM 500 MG/5 ML VIAL (BRIDION) As Ordered ONE (09:53)
[2018-10-17] MEDS ORDERED: KETOROLAC 60 MG/2 ML VIAL (J1885) As Ordered ONE (09:53)
[2018-10-17] MEDS ORDERED: ONDANSETRON 4MG/2ML VIAL (J2405) As Ordered ONE (09:53)
[2018-10-17] MEDS ORDERED: PROPOFOL 200 MG/20 ML VIAL As Ordered ONE (09:53)
[2018-10-17] MEDS ORDERED: MIDAZOLAM INJ 2 MG/2 ML VIAL (J2250) As Ordered ONE (09:53)
[2018-10-17] MEDS ORDERED: PHENYLephrine HCL 500 MCG/5 ML (100MCG/ML) SYRINGE (J2370) As Ordered ONE (09:57)
[2018-10-17] MEDS ORDERED: NORCO, ANEXSIA 5/325MG TABLET (HYDROcodone/ACETAMINOPHEN) PO PRN (11:00)
[2018-10-17] MEDS ORDERED: fentaNYL 100 MCG/2 ML INJECTION (J3010) IV PRN (11:00)
[2018-10-17 12:20] VITALS: BP 120/70
--- NOTE | 2018-10-18 21:07 | RO ---
DATE OF PROCEDURE: 10/17/2018 PREOPERATIVE DIAGNOSES: 1. Bilateral mandibular savanna. 2. Hyperplastic frenum labial maxilla. 3. Grossly decayed and failing teeth number 3, 5, 6, 7, 8, 9, 11, 20, 21, 22, 23, 24, 25, 26, 27, 28, 29, 30 and 32. POSTOPERATIVE DIAGNOSES: 1. Status post bilateral mandibular savanna. 2. Status post hyperplastic frenum labial maxilla. 3. Status post grossly decayed and failing teeth number 3, 5, 6, 7, 8, 9, 11, 20, 21, 22, 23, 24, 25, 26, 27, 28, 29, 30 and 32. PROCEDURE PERFORMED: 1. Bilateral mandibular savanna removal. 2. Surgical excision of hyperplastic frenum. 3. Extraction of all the remaining teeth, namely the aforementioned teeth. SURGEON: Manuel Looney DMD, MD ANESTHESIA: General endotracheal anesthesia via nasal ERICH. SPECIMEN: Teeth for gross only. INDICATIONS FOR SURGERY: Trisha is a pleasant lady who was referred to my office for evaluation for extraction of all remaining teeth as well as removal mandibular savanna and high frenectomy. Upon review of her past medical history and her dental anxiety, I offered the patient two options - light intravenous (IV) sedation in the office versus general anesthesia in an operating room setting. She desired to have the procedure done in an operating room setting under general anesthesia. She was also preop'd medically and cleared by her physician. All the risks, benefits and alternative were explained to the patient in detail. A complete history and physical is in her chart as well as informed consent, which was reviewed and signed by the patient. DESCRIPTION OF PROCEDURE: The patient presented to preop holding area today where she was met by myself and the anesthesiologist. Any last minute questions were addressed. At that point, the history and physical and the consent were updated. She was then rolled down to the operating room. She was laid supine on the operating room table. Ulnar nerve protectors were placed. Noninvasive cardiac monitors were applied. At that point, the patient underwent general anesthesia was intubated with a nasal ERICH, which was secured to the patient's forehead. At this point, she was prepped and draped in the usual sterile fashion. A time-out procedure was performed identifying the patient, the procedure and any other precautions. Preoperative antibiotics and steroids were given in the IV. A moist throat pack was then inserted in the patient's oropharynx followed by the administration of multiple carpules of 2% lidocaine with 1:100,000 epinephrine as local infiltration and blocks. Procedure began with using cautery to make an elliptical incision around the high hyperplastic frenum in the labial maxilla down to the muscle layer. The specimen was removed. The wound edges were cauterized and undermined, and the wound was then closed in a continuous fashion with #3-0 chromic sutures. Attention was then given to the maxillary teeth where a full-thickness flap was released at sites number 3, 5, 6, 7, 8, 9, 11 with extension of the flaps posteriorly with a distal release. A Surgairtome was then used to remove bone buccal to those teeth to facilitate luxation and delivery, which was performed. The teeth, namely number 3, 5, 6, 7, 8, 9, and 11 were luxated and delivered. Alveoloplasty was performed to remove any sharp bony edges and undercuts down to a smooth finish. Irrigation was once again done and flaps were closed in an interrupted fashion with #3-0 chromic sutures. Attention was then given to the mandible where teeth [address] to 30 and 32 were to be removed where a full-thickness sulcular flap was released in each tooth area. Flaps were released in a subperiosteal fashion to expose all the facial cortices. Buccal bone was then removed from sites number 20, 21, 22, 27, 28, 29, 30 and 32. Teeth were then luxated and delivered and removed in their entirety. All the sockets were curetted and irrigated at this point. Then, attention was then given to the remainder of the teeth, namely 23, 24, 25 and 26, which were luxated with ease with forceps and removed. All the sockets were curetted and irrigated. Alveoloplasty was also performed on the lower left and lower right with a large football bur down to a smooth finish to remove all the undercuts and sharp bony edges. At this point, attention was then given to the mandibular savanna where the flaps were subperiosteally released in the areas of the savanna to fully expose them. A retractor was used to retract the lingual tissue and a large football bur was then used to shave down the savanna down to a smooth finish with copious irrigation. At this point, all the wounds were irrigated and curetted and the flaps were trimmed and closed with interrupted #3-0 chromic sutures in the mandibular arch. Once all the teeth were removed, at this point the oral cavity was irrigated and suctioned, the throat pack was removed, and the patient was then awakened from general anesthesia and taken back to the post-anesthesia care unit (PACU). Complications: None to mention at the time of surgery. Estimated blood loss: 20 mL. Drains: There were no drains placed.
== END 2018-10-17 12:34 | disposition home or self-care (01) ==
LOC: M SDC 06:44
PROVIDERS: ATTEND Dentist
DX: K02.9 Dental caries, unspecified (principal); M27.8 Other specified diseases of jaws; M26.01 Maxillary hyperplasia
CPT/HCPCS: 88300; D7210; D7310; D7473; D7970; D9223; J1100; J1885; J2250; J2370; J2405; J3010

== ENCOUNTER → 2019-03-22 | Outpatient (CLI) | payer OTHER ==
[~2019-03-22] MED LIST changes: +CYAN500T8 PO; -OMEP20CA3 PO; +OMEP20CA4 PO; -VITA500T3 PO
[2019-03-22 20:13] LABS: ALBUMIN 3.8 GM/DL (3.2-5.2); ALT/SGPT 87 U/L (12-78); BILIRUBIN,TOTAL 0.9 MG/DL (0.2-1.0); BLOOD UREA NITROGEN 17 MG/DL (7-18); CALCIUM LEVEL 9.4 MG/DL (8.5-10.1); CARBON DIOXIDE LEVEL 26 MEQ/L (21-32); CHLORIDE LEVEL 107 MEQ/L (98-107); CREATININE FOR GFR 1.07 MG/DL (0.55-1.30); FOLATE > 24.0 NG/ML (>5.4); FREE T4 0.95 NG/DL (0.76-1.46); GLOMERULAR FILTRATION RATE 56.3 (>51); GLUCOSE, FASTING 93 MG/DL (70-100); POTASSIUM SERUM 4.3 MEQ/L (3.5-5.1); SODIUM LEVEL 143 MEQ/L (136-145); TOTAL 25(OH) VITAMIN D 47.9 NG/ML (30.0-100.0); TOTAL PROTEIN 8.1 GM/DL (6.4-8.2); VITAMIN B12 LEVEL 1443 PG/ML (247-911)
== END ==
LOC: M SMT 14:35
PROVIDERS: ATTEND Nurse Practitioner Family
DX: E03.9 Hypothyroidism, unspecified (principal); E53.8 Deficiency of other specified B group vitamins; E55.9 Vitamin D deficiency, unspecified; I10 Essential (primary) hypertension

== ENCOUNTER 2019-05-20 12:43 | Outpatient (RCR) | payer OTHER | END 2019-05-25 | LOC: M PT 12:43 | PROVIDERS: ATTEND Physician Assistant | DX: Z47.89 Encounter for other orthopedic aftercare (principal) ==

== ENCOUNTER 2019-06-17 10:45 | Outpatient (RCR) | payer OTHER ==
[~2019-06-17 10:45] MED LIST changes: +OMEP-172 PO; -OMEP20CA4 PO
== END 2019-06-25 ==
LOC: M PT 10:45
PROVIDERS: ATTEND Physician Assistant
DX: Z47.89 Encounter for other orthopedic aftercare (principal)

== ENCOUNTER → 2020-05-18 | Outpatient (CLI) | payer OTHER ==
[~2020-05-18] MED LIST changes: +ASPI-546 PO; -ASPI1TAB15 PO; -ASPI81TA85 PO; +ASPI81TA86 PO; +CYCL-707 PO; -CYCL10TA PO; -OMEP-172 PO; +OMEP1CAP73 PO; +PANT40TA29 PO; -PANT40TA3 PO
--- NOTE | 2020-05-18 13:20 | REP ---
INDICATION: FORMER SMOKER COMPARISON: 09/28/2017 TECHNIQUE: Axial noncontrast images from the thoracic inlet to the upper abdomen using low-dose lung screening technique (LDCT). FINDINGS: The bilateral lung faustin are relatively well aerated. Minimal small focal areas of presumed scarring are suggested. A small 4 mm density with spiculation in the right upper lobe (image 24) likely represents scarring related to prior pulmonary process as compared to 09/28/2017. No consolidation, further significant nodule or mass lesion appreciated. No pleural effusion. No pneumothorax. Tracheobronchial tree is patent. IMPRESSION: Lung-RADS category 2 with small areas of presumed scarring up to 4 mm. Management recommendations include 12 month low-dose CT surveillance/follow-up. <Electronically signed by Miguel Montes > 05/18/20 [id number]
== END ==
LOC: M RAD 11:26
PROVIDERS: ATTEND Nurse Practitioner Family
DX: Z12.2 Encounter for screening for malignant neoplasm of respiratory organs (principal); Z87.891 Personal history of nicotine dependence; R91.8 Other nonspecific abnormal finding of lung field

== ENCOUNTER → 2020-05-27 | Outpatient (CLI) | payer OTHER ==
[~2020-05-27] MED LIST changes: +CYAN500T14 PO; -CYAN500T8 PO
--- NOTE | 2020-05-27 11:39 | REPMRS ---
Patient History The patient states she had a clinical breast exam in 06/14 Patient is postmenopausal and had first child at age 32. Family history of breast cancer at age 50 or over in mother. Benign excisional biopsy of the right breast, 2005. Digital Woman Screen Mammo: May 27, 2020 - Exam #: [id number] Bilateral MLO, CC, and XCCL view(s) were taken. Technologist: Joseline Estrella, Technologist Prior study comparison: 2018, bilateral digital mammo screening bilat, performed at [facility]. October 17, 2016, bilateral digital mammo screening bilat, performed at [facility]. February 25, 2015, bilateral digital mammo screening bilat, performed at [facility]. FINDINGS: There are scattered fibroglandular densities. The Volpara volumetric breast density category is:B. There has been no change in the appearance of the mammogram from the prior studies. There is a mild amount of scattered fibroglandular density which is fairly symmetric. There is no interval development of dominant mass, architectural distortion, or grouped microcalcification suggestive of malignancy. 3-D tomosynthesis shows no additional findings. Assessment: BI-RADS/ACR category 1 mammogram. Negative Mammogram. Recommendation Routine screening mammogram of both breasts in 1 year (for women over age 40). This patient's [facility] Lifetime Breast Cancer Risk is estimated at 17.7 %. This mammogram was interpreted with the aid of an FDA-approved computer-aided dectection system. Electronically Signed By: Collin Estevez MD 05/27/20 [id number]
--- NOTE | 2020-05-27 13:35 | DEXAMM ---
INDICATION: M87.051 AVASCULAR NECROSIS OF BONE OF R HIP. COMPARISON: None. TECHNIQUE: Bone density was measured using dual-energy x-ray absorptionmetry (DEXA). FINDINGS: AP SPINE L1-L4 BMD 1.020 g/cm2 Young Adult T-Score -1.4 Age Matched Z-Score -0.3. LT FEMUR, TOTAL BMD 0.656 g/cm2 Young Adult T-Score -2.8 Age Matched Z-Score -1.9. LT NECK BMD 0.603 g/cm2 Young Adult T-Score -3.1 Age Matched Z-Score -2.0. RT FEMUR, TOTAL BMD 0.721 g/cm2 Young Adult T-Score -2.3 Age Matched Z-Score -1.4. RT NECK BMD 0.692 g/cm2 Young Adult T-Score -2.5 Age Matched Z-Score -1.3. IMPRESSION: There is low bone density of the spine. There is osteoporosis of the left hip. There is low bone density of the right hip. FOLLOW-UP: Recommendation for the next bone density exam: 2 years. <Electronically signed by Collin sEtevez > 05/27/20 [id number]
== END ==
LOC: M WHC 09:52
PROVIDERS: ATTEND Nurse Practitioner Family
DX: Z12.31 Encounter for screening mammogram for malignant neoplasm of breast (principal); M87.051 Idiopathic aseptic necrosis of right femur; Z80.3 Family history of malignant neoplasm of breast; M81.0 Age-related osteoporosis without current pathological fracture; M85.88 Other specified disorders of bone density and structure, other site; M85.851 Other specified disorders of bone density and structure, right thigh

== ENCOUNTER → 2020-06-01 | Outpatient (CLI) | payer OTHER ==
[2020-06-01 09:47] LABS: ALBUMIN 3.6 GM/DL (3.2-5.2); ALT/SGPT 35 U/L (12-78); BILIRUBIN,TOTAL 0.4 MG/DL (0.2-1.0); BLOOD UREA NITROGEN 14 MG/DL (7-18); CALCIUM LEVEL 9.2 MG/DL (8.5-10.1); CARBON DIOXIDE LEVEL 29 MEQ/L (21-32); CHLORIDE LEVEL 106 MEQ/L (98-107); CHOLESTEROL LEVEL 192 MG/DL (<200); CHOLESTEROL RISK RATIO 4.173 (<5); CREATININE FOR GFR 1.04 MG/DL (0.55-1.30); FREE T4 1.09 NG/DL (0.76-1.46); GLOMERULAR FILTRATION RATE 57.9 (>51); GLUCOSE, FASTING 102 MG/DL (70-100); HDL CHOLESTEROL 46 MG/DL (>40); MAGNESIUM LEVEL 2.2 MG/DL (1.8-2.4); NON-HDL-C 146 MG/DL; POTASSIUM SERUM 3.8 MEQ/L (3.5-5.1); SODIUM LEVEL 140 MEQ/L (136-145); TRIGLYCERIDES LEVEL 542 MG/DL (<150)
== END ==
LOC: M LAB 08:36
PROVIDERS: ATTEND Nurse Practitioner Family
DX: K75.81 Nonalcoholic steatohepatitis (NASH) (principal); E03.9 Hypothyroidism, unspecified; K21.9 Gastro-esophageal reflux disease without esophagitis; E55.9 Vitamin D deficiency, unspecified

== ENCOUNTER → 2020-09-21 | Outpatient (CLI) | payer OTHER ==
[~2020-09-21] MED LIST changes: -AMIT10TA PO; +AMIT10TA7 PO; +ISOVUE-300 61% 50ML VIAL As Ordered ONE; +LIDOCAINE 1% MDV 20ML VIAL As Ordered ONE; -MAG400TA PO; +MAGN400T35 PO; +TRIAMCINOLONE ACETONIDE SUSP 40 MG/ML VIAL (J3301) As Ordered ONE
--- NOTE | 2020-09-21 15:19 | REP ---
INDICATION: OA OF RT HIP. COMPARISON: None. TECHNIQUE: The procedure was performed under the direct supervision of Dr. Estevez. The benefits and risks including but not limited to pain infection and bleeding and anaphylaxis were explained to the patient and informed consent was obtained. The right femoral neck was localized using fluoroscopic guidance. The skin was prepped and draped in a sterile fashion. 1% lidocaine was used as a local anesthetic. Using fluoroscopic guidance a 22-gauge spinal needle was inserted and advanced to the femoral neck. 0.5 ml of Isovue-300 was injected to verify placement. 6 ml of a solution containing 5 ml of 1% Xylocaine and 1 ml of Kenalog 40 mg was injected. The needle was then removed. The patient tolerated the procedure well and there were no immediate complications. Less than 6 seconds of fluoro time was utilized for this procedure. FINDINGS: None IMPRESSION: Fluoro guidance for right hip injection. <Electronically signed by Kurt Brewer > 09/21/20 2622 <Electronically signed by Collin Estevez > 09/21/20 [id number]
== END ==
LOC: M RADPRO 10:38
PROVIDERS: ATTEND Orthopaedic Surgery
DX: M16.11 Unilateral primary osteoarthritis, right hip (principal)
CPT/HCPCS: 20610; 77002; J3301; Q9967

== ENCOUNTER → 2020-11-28 | Outpatient (CLI) | payer OTHER ==
[~2020-11-28] MED LIST changes: -ISOVUE-300 61% 50ML VIAL As Ordered ONE; -LIDOCAINE 1% MDV 20ML VIAL As Ordered ONE; -TRIAMCINOLONE ACETONIDE SUSP 40 MG/ML VIAL (J3301) As Ordered ONE
[2020-11-28 10:01] LABS: ALBUMIN 3.5 GM/DL (3.2-5.2); ALT/SGPT 35 U/L (12-78); BILIRUBIN,TOTAL 0.4 MG/DL (0.2-1.0); BLOOD UREA NITROGEN 9 MG/DL (7-18); CALCIUM LEVEL 9.3 MG/DL (8.5-10.1); CARBON DIOXIDE LEVEL 31 MEQ/L (21-32); CHLORIDE LEVEL 109 MEQ/L (98-107); CHOLESTEROL LEVEL 163 MG/DL (<200); CHOLESTEROL RISK RATIO 2.173 (<5); CREATININE FOR GFR 0.89 MG/DL (0.55-1.30); FREE T4 0.92 NG/DL (0.76-1.46); GLOMERULAR FILTRATION RATE > 60.0 (>51); GLUCOSE, FASTING 92 MG/DL (70-100); HDL CHOLESTEROL 75 MG/DL (>40); LDL CHOLESTEROL 22 MG/DL (<100); NON-HDL-C 88 MG/DL; POTASSIUM SERUM 4.7 MEQ/L (3.5-5.1); SODIUM LEVEL 143 MEQ/L (136-145); TRIGLYCERIDES LEVEL 330 MG/DL (<150)
[2020-11-30 11:52] LABS: TOTAL 25(OH) VITAMIN D 42.6 NG/ML (30.0-100.0)
== END ==
LOC: M LAB 09:04
PROVIDERS: ATTEND Nurse Practitioner Family
DX: E78.1 Pure hyperglyceridemia (principal)

== ENCOUNTER → 2021-01-08 | Outpatient (CLI) | payer OTHER ==
[~2021-01-08] MED LIST changes: +ISOVUE-300 61% 50ML VIAL As Ordered ONE; +LIDOCAINE 1% MDV 20ML VIAL As Ordered ONE; +TRIAMCINOLONE ACETONIDE SUSP 40 MG/ML VIAL (J3301) As Ordered ONE
--- NOTE | 2021-01-08 13:15 | REP ---
INDICATION: OSTEOARTHRITIS RIGHT HIP. COMPARISON: None TECHNIQUE: The procedure was performed by MEENAKSHI Toledo, under the direct supervision of Dr. Estevez. The benefits and risks of the procedure were explained to the patient, and an informed consent was obtained. Directly prior to the start of the procedure, a formal time-out was completed in the procedure room. The right femoral neck joint space was localized using fluoroscopic guidance. The skin was prepped and draped in a sterile fashion. Approximately 5 mL of 1% Lidocaine 10 mg/ml was used as a local anesthetic. Using fluoroscopic guidance, a #22 gauge spinal needle was inserted and advanced into the right femoral neck joint space. Approximately 1 mL of Isovue 300 was injected to verify placement. Six mL of a solution containing 5 mL 1% lidocaine 10 mg/ml and 1 mL Kenalog 40 milligrams/milliliter was injected into the joint space. The needle was removed and hemostasis was achieved. FINDINGS: The patient tolerated the procedure well and there were no immediate complications. IMPRESSION: 1. Fluoroscopically guided right hip pain injection. 0.1 minutes of fluoroscopy time was utilized for this procedure. Some fluoroscopic images are performed with last image hold technology. These images require no additional radiation. <Electronically signed by Opal Red > 01/08/21 [id number] <Electronically signed by Collin Estevez > 01/08/21 1312
== END ==
LOC: M RADPRO 10:39
PROVIDERS: ATTEND Orthopaedic Surgery
DX: M16.11 Unilateral primary osteoarthritis, right hip (principal)
CPT/HCPCS: 20610; 77002; J3301; Q9967

== ENCOUNTER → 2021-03-10 | Outpatient (CLI) | payer OTHER ==
[~2021-03-10] MED LIST changes: -ISOVUE-300 61% 50ML VIAL As Ordered ONE; -KLOR10TA76 PO; -LIDOCAINE 1% MDV 20ML VIAL As Ordered ONE; +POTA-136 PO; -TRIAMCINOLONE ACETONIDE SUSP 40 MG/ML VIAL (J3301) As Ordered ONE
[2021-03-10 13:20] LABS: ALBUMIN 3.6 GM/DL (3.2-5.2); ALT/SGPT 38 U/L (12-78); BILIRUBIN,TOTAL 0.6 MG/DL (0.2-1.0); BLOOD UREA NITROGEN 6 MG/DL (7-18); CALCIUM LEVEL 9.8 MG/DL (8.5-10.1); CARBON DIOXIDE LEVEL 32 MEQ/L (21-32); CHLORIDE LEVEL 107 MEQ/L (98-107); CREATININE FOR GFR 0.87 MG/DL (0.55-1.30); GLOMERULAR FILTRATION RATE > 60.0 (>51); GLUCOSE, FASTING 105 MG/DL (70-100); MAGNESIUM LEVEL 2.4 MG/DL (1.8-2.4); POTASSIUM SERUM 4.3 MEQ/L (3.5-5.1); SODIUM LEVEL 141 MEQ/L (136-145)
== END ==
LOC: M LAB 11:34
PROVIDERS: ATTEND Physician Assistant
DX: R00.2 Palpitations (principal)

== ENCOUNTER → 2021-04-21 | Outpatient (CLI) | payer OTHER ==
[~2021-04-21] MED LIST changes: +ISOVUE-300 61% 50ML VIAL As Ordered ONE; +LIDOCAINE 1% MDV 20ML VIAL As Ordered ONE; +TRIAMCINOLONE ACETONIDE SUSP 40 MG/ML VIAL (J3301) As Ordered ONE
--- NOTE | 2021-04-21 18:50 | REP ---
INDICATION: RT HIP OA W/ PAIN. COMPARISON: None TECHNIQUE: The procedure was performed by MEENAKSHI Mazariegos, under the direct supervision of Dr. Kong. The benefits and risks of the procedure were explained to the patient, and an informed consent was obtained. Directly prior to the start of the procedure, a formal time-out was completed in the procedure room. The right hip joint space was localized using fluoroscopic guidance. The skin was prepped and draped in a sterile fashion. Approximately 5 mL of 1% Lidocaine 10 mg/ml was used as a local anesthetic. Using fluoroscopic guidance, a #22 gauge spinal needle was inserted and advanced into the right hip joint space. Approximately 2 mL of Isovue 300 was injected to verify placement. Six mL of a solution containing 5 mL 1% lidocaine 10 mg/ml and 1 mL Kenalog 40 mg/mL was injected into the joint space. The needle was removed and hemostasis was achieved. FINDINGS: The patient tolerated the procedure well and there were no immediate complications. IMPRESSION: 1. Technically successful right hip arthrogram. 0.1 minutes of fluoroscopy time was utilized for this procedure. Some fluoroscopic images are performed with last image hold technology. These images require no additional radiation. <Electronically signed by Isidra Meier > 04/21/21 133 <Electronically signed by David Kong > 04/21/21 [id number]
== END ==
LOC: M RADPRO 12:32
PROVIDERS: ATTEND Orthopaedic Surgery
DX: M16.11 Unilateral primary osteoarthritis, right hip (principal)
CPT/HCPCS: 20610; 77002; J3301; Q9967

== ENCOUNTER → 2021-06-23 | Outpatient (CLI) | payer OTHER ==
[~2021-06-23] MED LIST changes: -ISOVUE-300 61% 50ML VIAL As Ordered ONE; -LIDOCAINE 1% MDV 20ML VIAL As Ordered ONE; -TRIAMCINOLONE ACETONIDE SUSP 40 MG/ML VIAL (J3301) As Ordered ONE
--- NOTE | 2021-06-23 11:31 | REP ---
INDICATION: FORMER SMOKER COMPARISON: 05/18/2020 TECHNIQUE: Axial noncontrast images from the thoracic inlet to the upper abdomen using low-dose lung screening technique (LDCT). FINDINGS: Very minimal primarily biapical and medial right middle lobe scarring is appreciated and essentially unchanged. No acute consolidation, suspicious nodule or mass. No effusion. No pneumothorax. Tracheobronchial tree is patent. Limited evaluation of the mediastinum demonstrates atherosclerotic changes to the thoracic aorta and coronary arteries. IMPRESSION: Lung-RADS category 2. Stable chronic findings. Management recommendations include annual low-dose CT surveillance for high risk patients. <Electronically signed by Miguel Montes > 06/23/21 1127
== END ==
LOC: M RAD 10:32
PROVIDERS: ATTEND Nurse Practitioner Family
DX: Z87.891 Personal history of nicotine dependence (principal)

== ENCOUNTER → 2021-07-19 | Outpatient (CLI) | payer OTHER ==
[~2021-07-19] MED LIST changes: +ISOVUE-300 61% 50ML VIAL As Ordered ONE; +LIDOCAINE 1% MDV 20ML VIAL As Ordered ONE; +TRIAMCINOLONE ACETONIDE SUSP 40 MG/ML VIAL (J3301) As Ordered ONE
== END ==
LOC: M RADPRO 10:49
PROVIDERS: ATTEND Orthopaedic Surgery
DX: M16.11 Unilateral primary osteoarthritis, right hip (principal)
CPT/HCPCS: 20610; 77002; J3301; Q9967

== ENCOUNTER → 2021-09-02 | Outpatient (CLI) | payer OTHER ==
[~2021-09-02] MED LIST changes: -ISOVUE-300 61% 50ML VIAL As Ordered ONE; -LIDOCAINE 1% MDV 20ML VIAL As Ordered ONE; -TRIAMCINOLONE ACETONIDE SUSP 40 MG/ML VIAL (J3301) As Ordered ONE
== END ==
LOC: M RAD 07:26
PROVIDERS: ATTEND Orthopaedic Surgery
DX: M87.051 Idiopathic aseptic necrosis of right femur (principal)
CPT/HCPCS: 78315; A9503

== ENCOUNTER → 2022-02-17 | Outpatient (CLI) | payer OTHER ==
[~2022-02-17] MED LIST changes: +NYST-13 TOP; -NYST10CR TOP
[2022-02-17 11:10] LABS: BASO # 0.1 10^3/uL (0.0-0.2); BASO % 1.4 % (0.0-1.0); EOS # 0.1 10^3/uL (0.0-0.5); EOS % 1.6 % (0.0-3.0); HEMOGLOBIN 12.9 g/dl (12.0-15.5); LYMPH # 0.6 10^3/uL (1.5-5.0); LYMPH % 14.4 % (24.0-44.0); MEAN CORPUSCULAR HGB CONC 33.9 g/dl (32.0-36.5); MONO # 0.5 10^3/uL (0.0-0.8); MONO % 11.1 % (2.0-8.0); NEUTROPHILS # 3.1 10^3/uL (1.5-8.5); PLATELET COUNT, AUTOMATED 113 10^3/uL (150-450); RED BLOOD COUNT 3.69 10^6/uL (4.00-5.40); WHITE BLOOD COUNT 4.3 10^3/uL (4.0-10.0)
[2022-02-17 11:53] LABS: ALBUMIN 3.3 GM/DL (3.2-5.2); ALT/SGPT 34 U/L (12-78); BLOOD UREA NITROGEN 3 MG/DL (7-18); CALCIUM LEVEL 9.4 MG/DL (8.8-10.2); CARBON DIOXIDE LEVEL 30 MEQ/L (21-32); CHLORIDE LEVEL 99 MEQ/L (98-107); CREATININE FOR GFR 0.66 MG/DL (0.55-1.30); FREE T4 1.27 NG/DL (0.76-1.46); GLOMERULAR FILTRATION RATE > 60.0 (>45); GLUCOSE, FASTING 89 MG/DL (70-100); POTASSIUM SERUM 3.2 MEQ/L (3.5-5.1); SODIUM LEVEL 136 MEQ/L (136-145); TOTAL PROTEIN 8.1 GM/DL (6.4-8.2)
== END ==
LOC: M RAD 09:30 → M LAB 09:30
PROVIDERS: ATTEND Physician Assistant
DX: R05.9 Cough, unspecified (principal); E03.9 Hypothyroidism, unspecified

== ENCOUNTER → 2022-02-28 | Outpatient (CLI) | payer OTHER ==
[2022-02-28 10:34] LABS: INR 1.19; PROTHROMBIN TIME 15.5 SECONDS (12.7-14.5)
[2022-02-28 10:35] LABS: PARTIAL THROMBOPLASTIN TIME 33.8 SECONDS (25.9-37.0)
[2022-02-28 10:50] LABS: ALBUMIN 2.9 GM/DL (3.2-5.2); BLOOD UREA NITROGEN 3 MG/DL (7-18); CALCIUM LEVEL 9.6 MG/DL (8.8-10.2); CARBON DIOXIDE LEVEL 33 MEQ/L (21-32); CHLORIDE LEVEL 100 MEQ/L (98-107); FERRITIN 436 NG/ML (8-252); GLOMERULAR FILTRATION RATE > 60.0 (>45); GLUCOSE, FASTING 99 MG/DL (70-100); MAGNESIUM LEVEL 1.5 MG/DL (1.8-2.4); NT-PRO BNP 179 PG/ML (<125); PHOSPHORUS LEVEL 2.5 MG/DL (2.5-4.9); SODIUM LEVEL 138 MEQ/L (136-145)
[2022-03-01 11:19] LABS: VITAMIN B12 LEVEL 684 PG/ML (247-911)
== END ==
LOC: M LAB 09:19
PROVIDERS: ATTEND Family Medicine
DX: D61.818 Other pancytopenia (principal); I10 Essential (primary) hypertension

== ENCOUNTER 2022-03-12 14:42 | Inpatient (IN) | payer OTHER ==
[~2022-03-12] VITALS: Ht 165.1 cm; Wt 50.4 kg
[2022-03-12] MEDS: MAG SULF 1GM/100ML (MAG RUN) 1 GM in IV 1 EA IV SCH ×2 (01:14→23:25)
[2022-03-12 15:31] LABS: VENOUS BASE EXCESS 9.6 (-2.0-2.0); VENOUS HCO3 33.1 MEQ/L (23.0-27.0); VENOUS O2 SATURATION 63.5 % (60.0-80.0); VENOUS PARTIAL PRESSURE CO2 40.2 mmHg (38.0-50.0); VENOUS PH 7.533 UNITS (7.330-7.430); VENOUS STANDARD HCO3 32.6 MEQ/L; VENOUS TOTAL CO2 34.3 MEQ/L (24.0-28.0)
[2022-03-12 15:37] LABS: HEMATOCRIT 27.7 % (36.0-47.0); HEMOGLOBIN 9.8 g/dl (12.0-15.5); LYMPH # 0.5 10^3/uL (1.5-5.0); LYMPH % 12.2 % (24.0-44.0); MEAN CORPUSCULAR HEMOGLOBIN 35.9 pg (27.0-33.0); MEAN CORPUSCULAR HGB CONC 35.4 g/dl (32.0-36.5); MEAN CORPUSCULAR VOLUME 101.5 fl (80.0-96.0); MONO # 0.5 10^3/uL (0.0-0.8); MONO % 11.8 % (2.0-8.0); NEUTROPHILS # 3.3 10^3/uL (1.5-8.5); NEUTROPHILS % 75.5 % (36.0-66.0); RED BLOOD COUNT 2.73 10^6/uL (4.00-5.40); WHITE BLOOD COUNT 4.3 10^3/uL (4.0-10.0)
[2022-03-12 15:38] LABS: PLATELET COUNT, AUTOMATED 85 10^3/uL (150-450)
[2022-03-12 16:05] LABS: OSMOLALITY SERUM 274 MOSM/KG (275-295)
[2022-03-12 16:38] LABS: ALBUMIN 2.2 GM/DL (3.2-5.2); ALT/SGPT 18 U/L (12-78); BILIRUBIN,DIRECT 3.9 MG/DL (0.0-0.2); BILIRUBIN,TOTAL 5.4 MG/DL (0.2-1.0); BLOOD UREA NITROGEN 8 MG/DL (7-18); CALCIUM LEVEL 7.5 MG/DL (8.8-10.2); CARBON DIOXIDE LEVEL 32 MEQ/L (21-32); CHLORIDE LEVEL 94 MEQ/L (98-107); CREATININE FOR GFR 0.59 MG/DL (0.55-1.30); ETHYL ALCOHOL (ETHANOL) < 0.003 % (0.000-0.010); GLOMERULAR FILTRATION RATE > 60.0 (>45); GLUCOSE, FASTING 80 MG/DL (70-100); MAGNESIUM LEVEL 0.8 MG/DL (1.8-2.4); POTASSIUM SERUM 2.1 MEQ/L (3.5-5.1); SODIUM LEVEL 135 MEQ/L (136-145); THYROID STIMULATING HORMONE 0.538 uIU/ML (0.358-3.740)
[2022-03-12] MEDS ORDERED: ONDANSETRON 4MG 2ML VIAL IV ONE (16:50)
[2022-03-12] MEDS ORDERED: MAG SULF 1GM/100ML (MAG RUN) 1 GM in IV 1 EA IV ONE ×2 (16:50→18:30)
[2022-03-12] MEDS ORDERED: LORazepam 2 MG/ML VIAL IV STA (16:50)
[2022-03-12] MEDS ORDERED: KCL 10MEQ/100ML SWI (KRUN) 10 MEQ in IV 1 EA IV ONE ×2 (16:50→18:30)
[2022-03-12] MEDS ORDERED: TRAM50TA2 PO (18:07)
[2022-03-12] MEDS ORDERED: ELIQ2.5T PO (18:07)
[2022-03-12] MEDS ORDERED: FAMO40TA3 PO (18:07)
[2022-03-12] MEDS ORDERED: GABA600T4 PO (18:07)
[2022-03-12] MEDS ORDERED: ATOR1TAB19 PO (18:07)
[2022-03-12] MEDS ORDERED: CARV3.12 PO (18:07)
[2022-03-12] MEDS ORDERED: OXYC1TAB23 PO (18:07)
[2022-03-12] MEDS ORDERED: ALEN70TA82 PO (18:07)
[2022-03-12] MEDS ORDERED: HOME MED LIST COMPLETE! XX SCH (18:10)
[2022-03-12 19:15] LABS: LIPASE 139 U/L (73-393)
[2022-03-12] MEDS ORDERED: D5W/0.9% SODIUM CHLORIDE 1,000 ML IV SCH (19:15)
[2022-03-12] MEDS ORDERED: KCL 20MEQ IN D5/NS 1000ML 1,000 ML IV SCH (20:50)
[2022-03-12] MEDS ORDERED: NS 1,000 ML IV ONE (20:50)
[2022-03-12 21:00] LABS: INR 2.14; PROTHROMBIN TIME 24.3 SECONDS (12.7-14.5)
[2022-03-12] MEDS: PIPERACILLIN/TAZOBACTAM SOD 4.5 GM in D5W MINI-BAG PLUS 50 ML IV SCH (21:00)
[2022-03-12 21:01] LABS: PARTIAL THROMBOPLASTIN TIME 48.3 SECONDS (25.9-37.0)
[2022-03-12 21:17] LABS: MAGNESIUM LEVEL 1.8 MG/DL (1.8-2.4); POTASSIUM SERUM 2.1 MEQ/L (3.5-5.1)
[2022-03-12 21:18] LABS: PERCENT SATURATION 12.5 % (13.2-45.0)
[2022-03-12 21:20] VITALS: BP 138/66
[2022-03-12 21:27] LABS: FREE T4 1.38 NG/DL (0.76-1.46); THYROID STIMULATING HORMONE 0.571 uIU/ML (0.358-3.740)
[2022-03-12] MEDS ORDERED: MORPHINE 2 MG/ML 1ML VIAL IV PRN (21:35)
[2022-03-12] MEDS ORDERED: KCL 10MEQ/100ML SWI (KRUN) 10 MEQ in IV 1 EA IV SCH (22:40)
[2022-03-12] MEDS: ONDANSETRON 4MG 2ML VIAL IV PRN (22:46)
[2022-03-12] MEDS: CARVedilol 3.125 MG TAB PO SCH (22:47)
[2022-03-12] MEDS: KCL 10MEQ/100ML SWI (KRUN) 10 MEQ in IV 1 EA IV SCH (22:48)
[2022-03-12 23:00] VITALS: BP 138/66
[2022-03-12] MEDS ORDERED: LORazepam 2 MG/ML VIAL As Ordered ONE (23:23)
[2022-03-12] MEDS: LORazepam 2 MG/ML VIAL IV SCH (23:26)
[2022-03-13] VITALS (43 sets, daily range): BP systolic 86–163; BP diastolic 50–99
[2022-03-13] MEDS: KCL 10MEQ/100ML SWI (KRUN) 10 MEQ in IV 1 EA IV SCH ×9 (00:21→13:02)
[2022-03-13] MEDS: LORazepam 2 MG/ML VIAL IV SCH ×8 (00:45→23:58)
[2022-03-13] MEDS ORDERED: LORazepam 2 MG/ML VIAL IV ONE (02:00)
[2022-03-13] MEDS ORDERED: OXAZEPAM 15MG CAP PO SCH (02:00)
[2022-03-13] MEDS ORDERED: NS 500 ML IV ONE (02:00)
[2022-03-13] MEDS: PIPERACILLIN/TAZOBACTAM SOD 4.5 GM in D5W MINI-BAG PLUS 50 ML IV SCH ×4 (02:41→19:39)
[2022-03-13 04:41] LABS: BASO % 0.5 % (0.0-1.0); EOS # 0.1 10^3/uL (0.0-0.5); EOS % 1.6 % (0.0-3.0); HEMATOCRIT 28.2 % (36.0-47.0); HEMOGLOBIN 9.7 g/dl (12.0-15.5); LYMPH # 0.8 10^3/uL (1.5-5.0); LYMPH % 21.4 % (24.0-44.0); MEAN CORPUSCULAR HEMOGLOBIN 35.5 pg (27.0-33.0); MEAN CORPUSCULAR HGB CONC 34.4 g/dl (32.0-36.5); MEAN CORPUSCULAR VOLUME 103.3 fl (80.0-96.0); MONO # 0.5 10^3/uL (0.0-0.8); MONO % 12.1 % (2.0-8.0); NEUTROPHILS # 2.4 10^3/uL (1.5-8.5); NEUTROPHILS % 63.9 % (36.0-66.0); RED BLOOD COUNT 2.73 10^6/uL (4.00-5.40); WHITE BLOOD COUNT 3.7 10^3/uL (4.0-10.0)
[2022-03-13 04:42] LABS: PLATELET COUNT, AUTOMATED 76 10^3/uL (150-450)
[2022-03-13 05:10] LABS: ALT/SGPT 20 U/L (12-78); BILIRUBIN,TOTAL 3.2 MG/DL (0.2-1.0); BLOOD UREA NITROGEN 9 MG/DL (7-18); CALCIUM LEVEL 6.8 MG/DL (8.8-10.2); CARBON DIOXIDE LEVEL 28 MEQ/L (21-32); CHLORIDE LEVEL 98 MEQ/L (98-107); CREATININE FOR GFR 0.56 MG/DL (0.55-1.30); GLOMERULAR FILTRATION RATE > 60.0 (>45); GLUCOSE, FASTING 76 MG/DL (70-100); MAGNESIUM LEVEL 2.2 MG/DL (1.8-2.4); POTASSIUM SERUM 2.8 MEQ/L (3.5-5.1); SODIUM LEVEL 136 MEQ/L (136-145); TOTAL PROTEIN 5.5 GM/DL (6.4-8.2)
[2022-03-13] MEDS: LEVOTHYROXINE 25MCG TABLET (0.025MG) PO SCH (05:35)
[2022-03-13] MEDS ORDERED: LORazepam 2 MG/ML VIAL As Ordered ONE ×3 (08:12→14:41)
[2022-03-13] MEDS: PANTOPRAZOLE 40MG VIAL IV SCH (08:22)
[2022-03-13] MEDS: FOLIC ACID 1MG TAB PO SCH (08:26)
[2022-03-13] MEDS: CARVedilol 3.125 MG TAB PO SCH (08:26)
[2022-03-13] MEDS: MULTIVITAMINS/MINERALS THERAP 1 TAB PO SCH (08:26)
[2022-03-13 08:28] LABS: INR 2.02; PROTHROMBIN TIME 23.3 SECONDS (12.7-14.5)
[2022-03-13 08:29] LABS: PARTIAL THROMBOPLASTIN TIME 54.9 SECONDS (25.9-37.0)
[2022-03-13] MEDS ORDERED: THIAMINE 100 MG TAB PO SCH (09:00)
[2022-03-13 09:40] LABS: BILIRUBIN,DIRECT 2.1 MG/DL (0.0-0.2)
[2022-03-13] MEDS ORDERED: CALCIUM GLUCONATE 1,000 MG in D5W MINI-BAG PLUS 100 ML IV ONE ×2 (10:00→13:30)
[2022-03-13] MEDS: dexmedeTOMidine 200 MCG in IV 1 EA IV SCH ×2 (10:12→15:18)
[2022-03-13] MEDS: OXAZEPAM 15MG CAP PO SCH ×4 (10:12→20:47)
[2022-03-13] MEDS: MIDAZOLAM INJ 2MG/2ML VIAL (J2250 PER 1MG) IV PRN ×3 (10:26→21:03)
[2022-03-13] MEDS ORDERED: MIDAZOLAM INJ 2MG/2ML VIAL (J2250 PER 1MG) As Ordered ONE (11:01)
[2022-03-13] MEDS ORDERED: MIDAZOLAM INJ 2MG/2ML VIAL (J2250 PER 1MG) IV STA (11:45)
[2022-03-13] MEDS ORDERED: CALCIUM GLUCONATE 1,000MG/10ML VIAL (100MG/ML) (J0610) As Ordered ONE (12:58)
[2022-03-13 14:13] LABS: CK-MB VALUE MASS < 1.0 NG/ML (<3.6); CPK CREATINE PHOSPHOKINASE 96 U/L (26-192); MB/CK RELATIVE INDEX 1.04 (< OR =4)
[2022-03-13 14:15] LABS: PERCENT SATURATION 33.8 % (13.2-45.0)
[2022-03-13 14:19] LABS: ALBUMIN 1.6 GM/DL (3.2-5.2); ALT/SGPT 15 U/L (12-78); BILIRUBIN,TOTAL 2.8 MG/DL (0.2-1.0); BLOOD UREA NITROGEN 6 MG/DL (7-18); CALCIUM LEVEL 6.5 MG/DL (8.8-10.2); CARBON DIOXIDE LEVEL 31 MEQ/L (21-32); CHLORIDE LEVEL 98 MEQ/L (98-107); CREATININE FOR GFR 0.52 MG/DL (0.55-1.30); GLOMERULAR FILTRATION RATE > 60.0 (>45); GLUCOSE, FASTING 112 MG/DL (70-100); POTASSIUM SERUM 2.4 MEQ/L (3.5-5.1); SODIUM LEVEL 134 MEQ/L (136-145); TOTAL PROTEIN 5.1 GM/DL (6.4-8.2)
[2022-03-13] MEDS ORDERED: KCL 20MEQ IN 100ML SWI (KRUN) 20 MEQ in IV 1 EA IV ONE ×2 (14:20)
[2022-03-13] MEDS: THIAMINE INJection 500 MG in NS 100 ML IV SCH ×2 (14:24→19:39)
[2022-03-13] MEDS ORDERED: KCL 20MEQ IN 100ML SWI (KRUN) 20 MEQ in IV 1 EA IV SCH ×2 (14:25)
[2022-03-13] MEDS: KCL 40MEQ IN D5/NS 1000ML 1,000 ML IV SCH ×2 (14:40→20:29)
[2022-03-13] MEDS: MORPHINE 4 MG/ML 1ML VIAL/SYRINGE IV PRN ×2 (14:49→21:12)
[2022-03-13] MEDS: KCL 20MEQ IN 100ML SWI (KRUN) 20 MEQ in IV 1 EA IV SCH ×8 (14:49→18:29)
[2022-03-13 15:16] LABS: MAGNESIUM LEVEL 1.8 MG/DL (1.8-2.4)
[2022-03-13 20:52] LABS: ALBUMIN 1.8 GM/DL (3.2-5.2); ALT/SGPT 16 U/L (12-78); BILIRUBIN,TOTAL 2.5 MG/DL (0.2-1.0); BLOOD UREA NITROGEN 4 MG/DL (7-18); CALCIUM LEVEL 6.6 MG/DL (8.8-10.2); CARBON DIOXIDE LEVEL 28 MEQ/L (21-32); CHLORIDE LEVEL 107 MEQ/L (98-107); CREATININE FOR GFR 0.52 MG/DL (0.55-1.30); GLOMERULAR FILTRATION RATE > 60.0 (>45); GLUCOSE, FASTING 184 MG/DL (70-100); POTASSIUM SERUM 4.5 MEQ/L (3.5-5.1); SODIUM LEVEL 139 MEQ/L (136-145)
[2022-03-14] VITALS (32 sets, daily range): BP systolic 80–142; BP diastolic 53–91
[2022-03-14] MEDS: OXAZEPAM 15MG CAP PO SCH ×6 (01:00→21:00)
[2022-03-14] MEDS: KCL 40MEQ IN D5/NS 1000ML 1,000 ML IV SCH ×4 (01:40→21:09)
[2022-03-14] MEDS: PIPERACILLIN/TAZOBACTAM SOD 4.5 GM in D5W MINI-BAG PLUS 50 ML IV SCH ×4 (01:42→21:55)
[2022-03-14] MEDS: LEVOTHYROXINE 25MCG TABLET (0.025MG) PO SCH (04:08)
[2022-03-14] MEDS: THIAMINE INJection 500 MG in NS 100 ML IV SCH ×3 (04:08→21:08)
[2022-03-14] MEDS: MORPHINE 4 MG/ML 1ML VIAL/SYRINGE IV PRN ×2 (04:08→10:51)
[2022-03-14] MEDS: MIDAZOLAM INJ 2MG/2ML VIAL (J2250 PER 1MG) IV PRN ×7 (05:43→22:29)
[2022-03-14 05:45] LABS: HEMATOCRIT 24.4 % (36.0-47.0); HEMOGLOBIN 8.1 g/dl (12.0-15.5); MEAN CORPUSCULAR HEMOGLOBIN 35.4 pg (27.0-33.0); MEAN CORPUSCULAR HGB CONC 33.2 g/dl (32.0-36.5); MEAN CORPUSCULAR VOLUME 106.6 fl (80.0-96.0); PLATELET COUNT, AUTOMATED 79 10^3/uL (150-450); RED BLOOD COUNT 2.29 10^6/uL (4.00-5.40); WHITE BLOOD COUNT 2.9 10^3/uL (4.0-10.0)
[2022-03-14 05:54] LABS: INR 1.74; PROTHROMBIN TIME 20.8 SECONDS (12.7-14.5)
[2022-03-14 06:18] LABS: ALBUMIN 1.5 GM/DL (3.2-5.2); BLOOD UREA NITROGEN 3 MG/DL (7-18); CALCIUM LEVEL 6.7 MG/DL (8.8-10.2); CARBON DIOXIDE LEVEL 28 MEQ/L (21-32); CHLORIDE LEVEL 113 MEQ/L (98-107); CREATININE FOR GFR 0.46 MG/DL (0.55-1.30); GLOMERULAR FILTRATION RATE > 60.0 (>45); GLUCOSE, FASTING 133 MG/DL (70-100); PHOSPHORUS LEVEL 0.6 MG/DL (2.5-4.9); SODIUM LEVEL 143 MEQ/L (136-145)
[2022-03-14] MEDS: MULTIVITAMINS/MINERALS THERAP 1 TAB PO SCH (08:07)
[2022-03-14] MEDS: FOLIC ACID 1MG TAB PO SCH (08:08)
[2022-03-14] MEDS: PANTOPRAZOLE 40MG VIAL IV SCH (08:24)
[2022-03-14 15:26] LABS: ABG BASE EXCESS 2.4 (-2.0-2.0); ABG HCO3 27.9 MEQ/L (22.0-26.0); ABG O2 SATURATION 58.9 % (95.0-99.0); ABG PARTIAL PRESSURE CO2 47.5 mmHg (35.0-45.0); ABG TOTAL CO2 29.4 MEQ/L (23.0-31.0); ABG pH (ARTERIAL) 7.387 UNITS (7.350-7.450)
[2022-03-14 15:32] LABS: ABG PARTIAL PRESSURE O2 32.1 mmHg (75.0-100.0)
[2022-03-14] MEDS ORDERED: ISOVUE-300 61% 50ML VIAL As Ordered ONE (15:35)
[2022-03-14] MEDS ORDERED: SUGAMMADEX SODIUM 500 MG/5 ML VIAL (BRIDION) As Ordered ONE (16:59)
[2022-03-14] MEDS ORDERED: fentaNYL 100 MCG/2 ML INJECTION As Ordered ONE (16:59)
[2022-03-14] MEDS ORDERED: ROCURONIUM BROMIDE 50 MG/5 ML VIAL As Ordered ONE (16:59)
[2022-03-14] MEDS ORDERED: dexameTHASONE 4 MG/ML 1ML VIAL (J1100 PER 1MG) As Ordered ONE (16:59)
[2022-03-14] MEDS ORDERED: MIDAZOLAM INJ 2MG/2ML VIAL (J2250 PER 1MG) As Ordered ONE ×2 (16:59→19:40)
[2022-03-14] MEDS ORDERED: propofoL 200 MG/20 ML VIAL As Ordered ONE (16:59)
[2022-03-14] MEDS ORDERED: ONDANSETRON 4MG 2ML VIAL As Ordered ONE (16:59)
[2022-03-14] MEDS ORDERED: LIDOCAINE 2% 100MG/5ML SDV (FOR ANES.) As Ordered ONE (16:59)
[2022-03-14] MEDS ORDERED: PHENYLephrine 500MCG 5ML (100MCG/ML) SYRINGE As Ordered ONE (17:43)
[2022-03-14] MEDS ORDERED: MORPHINE 2 MG/ML 1ML VIAL IV PRN (19:30)
[2022-03-14] MEDS ORDERED: fentaNYL 100 MCG/2 ML INJECTION IV PRN (19:30)
[2022-03-14] MEDS ORDERED: ONDANSETRON 4MG 2ML VIAL IV PRN (19:30)
[2022-03-14] MEDS ORDERED: LR 1,000 ML IV SCH (19:30)
[2022-03-14] MEDS: dexmedeTOMidine 200 MCG in IV 1 EA IV SCH (21:12)
[2022-03-14] MEDS ORDERED: MORPHINE 2 MG/ML 1ML VIAL IV ONE (23:00)
[2022-03-15] VITALS (32 sets, daily range): BP systolic 81–147; BP diastolic 50–95
[2022-03-15] MEDS: MORPHINE 4 MG/ML 1ML VIAL/SYRINGE IV PRN ×3 (01:15→20:33)
[2022-03-15] MEDS: MIDAZOLAM INJ 2MG/2ML VIAL (J2250 PER 1MG) IV PRN ×4 (01:30→06:10)
[2022-03-15] MEDS: PIPERACILLIN/TAZOBACTAM SOD 4.5 GM in D5W MINI-BAG PLUS 50 ML IV SCH ×4 (01:34→19:38)
[2022-03-15] MEDS: OXAZEPAM 15MG CAP PO SCH ×6 (05:00→19:38)
[2022-03-15] MEDS: LEVOTHYROXINE 25MCG TABLET (0.025MG) PO SCH (05:06)
[2022-03-15] MEDS: THIAMINE INJection 500 MG in NS 100 ML IV SCH ×3 (05:06→20:27)
[2022-03-15 05:15] LABS: HEMATOCRIT 26.2 % (36.0-47.0); HEMOGLOBIN 8.5 g/dl (12.0-15.5); MEAN CORPUSCULAR HEMOGLOBIN 35.4 pg (27.0-33.0); MEAN CORPUSCULAR HGB CONC 32.4 g/dl (32.0-36.5); MEAN CORPUSCULAR VOLUME 109.2 fl (80.0-96.0); PLATELET COUNT, AUTOMATED 83 10^3/uL (150-450); WHITE BLOOD COUNT 2.4 10^3/uL (4.0-10.0)
[2022-03-15 05:23] LABS: INR 1.41; PROTHROMBIN TIME 17.7 SECONDS (12.7-14.5)
[2022-03-15 05:52] LABS: ALBUMIN 1.6 GM/DL (3.2-5.2); BLOOD UREA NITROGEN 2 MG/DL (7-18); CALCIUM LEVEL 7.1 MG/DL (8.8-10.2); CARBON DIOXIDE LEVEL 27 MEQ/L (21-32); CHLORIDE LEVEL 113 MEQ/L (98-107); CREATININE FOR GFR 0.49 MG/DL (0.55-1.30); GLOMERULAR FILTRATION RATE > 60.0 (>45); GLUCOSE, FASTING 152 MG/DL (70-100); PHOSPHORUS LEVEL 1.2 MG/DL (2.5-4.9); POTASSIUM SERUM 4.2 MEQ/L (3.5-5.1); SODIUM LEVEL 141 MEQ/L (136-145)
[2022-03-15] MEDS: dexmedeTOMidine 200 MCG in IV 1 EA IV SCH ×3 (05:54→21:23)
[2022-03-15] MEDS: KCL 40MEQ IN D5/NS 1000ML 1,000 ML IV SCH (06:49)
[2022-03-15 07:52] LABS: MAGNESIUM LEVEL 1.5 MG/DL (1.8-2.4)
[2022-03-15] MEDS ORDERED: MAG SULF 1GM/100ML (MAG RUN) 1 GM in IV 1 EA IV ONE (09:00)
[2022-03-15] MEDS: FOLIC ACID 1MG TAB PO SCH (09:00)
[2022-03-15] MEDS: MULTIVITAMINS/MINERALS THERAP 1 TAB PO SCH (09:00)
[2022-03-15] MEDS ORDERED: LORazepam 2 MG/ML VIAL As Ordered ONE ×2 (09:04→14:12)
[2022-03-15] MEDS: LORazepam 2 MG/ML VIAL IV SCH ×3 (09:06→22:33)
[2022-03-15 09:22] LABS: ALT/SGPT 14 U/L (12-78); BILIRUBIN,DIRECT 1.1 MG/DL (0.0-0.2); BILIRUBIN,TOTAL 1.6 MG/DL (0.2-1.0); TOTAL PROTEIN 5.5 GM/DL (6.4-8.2)
[2022-03-15] MEDS: PANTOPRAZOLE 40MG VIAL IV SCH (09:51)
[2022-03-15] MEDS ORDERED: POTASSIUM PHOSPHATE INJ 20 MMOL in D5W 250 ML IV ONE (10:00)
[2022-03-15 10:08] LABS: FOLATE 5.2 ng/mL (>3.0)
[2022-03-15] MEDS ORDERED: fentaNYL 100 MCG/2 ML INJECTION As Ordered ONE (14:29)
[2022-03-15] MEDS ORDERED: MIDAZOLAM INJ 2MG/2ML VIAL (J2250 PER 1MG) As Ordered ONE (14:30)
[2022-03-15] MEDS ORDERED: ISOVUE-370 76% 100ML VIAL As Ordered ONE (14:42)
[2022-03-15] MEDS ORDERED: LIDOCAINE 1% MDV 20ML VIAL As Ordered ONE (14:51)
[2022-03-15] MEDS: D5W/0.45% SODIUM CHLORIDE 1,000 ML IV SCH (18:49)
[2022-03-16] VITALS (19 sets, daily range): BP systolic 112–153; BP diastolic 65–92
[2022-03-16] MEDS: MIDAZOLAM INJ 2MG/2ML VIAL (J2250 PER 1MG) IV PRN (00:21)
[2022-03-16] MEDS: MORPHINE 4 MG/ML 1ML VIAL/SYRINGE IV PRN (01:05)
[2022-03-16] MEDS: PIPERACILLIN/TAZOBACTAM SOD 4.5 GM in D5W MINI-BAG PLUS 50 ML IV SCH ×4 (01:59→20:58)
[2022-03-16] MEDS: OXAZEPAM 15MG CAP PO SCH ×2 (02:18→09:00)
[2022-03-16] MEDS: LEVOTHYROXINE 25MCG TABLET (0.025MG) PO SCH (02:19)
[2022-03-16] MEDS: THIAMINE INJection 500 MG in NS 100 ML IV SCH ×3 (04:27→21:38)
[2022-03-16 04:34] LABS: HEMATOCRIT 25.2 % (36.0-47.0); HEMOGLOBIN 8.3 g/dl (12.0-15.5); MEAN CORPUSCULAR HEMOGLOBIN 35.6 pg (27.0-33.0); MEAN CORPUSCULAR HGB CONC 32.9 g/dl (32.0-36.5); MEAN CORPUSCULAR VOLUME 108.2 fl (80.0-96.0); RED BLOOD COUNT 2.33 10^6/uL (4.00-5.40); WHITE BLOOD COUNT 3.2 10^3/uL (4.0-10.0)
[2022-03-16 04:35] LABS: PLATELET COUNT, AUTOMATED 86 10^3/uL (150-450)
[2022-03-16 04:43] LABS: INR 1.43; PROTHROMBIN TIME 17.9 SECONDS (12.7-14.5)
[2022-03-16 05:06] LABS: ALBUMIN 1.7 GM/DL (3.2-5.2); ALT/SGPT 12 U/L (12-78); BILIRUBIN,TOTAL 1.6 MG/DL (0.2-1.0); BLOOD UREA NITROGEN 3 MG/DL (7-18); CALCIUM LEVEL 6.8 MG/DL (8.8-10.2); CARBON DIOXIDE LEVEL 28 MEQ/L (21-32); CHLORIDE LEVEL 107 MEQ/L (98-107); CREATININE FOR GFR 0.45 MG/DL (0.55-1.30); GLOMERULAR FILTRATION RATE > 60.0 (>45); GLUCOSE, FASTING 113 MG/DL (70-100); PHOSPHORUS LEVEL 1.7 MG/DL (2.5-4.9); SODIUM LEVEL 139 MEQ/L (136-145); TOTAL PROTEIN 5.2 GM/DL (6.4-8.2)
[2022-03-16] MEDS: dexmedeTOMidine 200 MCG in IV 1 EA IV SCH (05:28)
[2022-03-16] MEDS: D5W/0.45% SODIUM CHLORIDE 1,000 ML IV SCH (05:28)
[2022-03-16 05:54] LABS: ABG BASE EXCESS 1.5 (-2.0-2.0); ABG HCO3 24.9 MEQ/L (22.0-26.0); ABG O2 SATURATION 96.6 % (95.0-99.0); ABG PARTIAL PRESSURE CO2 34.6 mmHg (35.0-45.0); ABG PARTIAL PRESSURE O2 84.6 mmHg (75.0-100.0); ABG STANDARD HCO3 25.8 MEQ/L (22.0-26.0); ABG pH (ARTERIAL) 7.475 UNITS (7.350-7.450)
[2022-03-16] MEDS ORDERED: POTASSIUM CHLORIDE 10% LIQ 20 MEQ/15 ML UDC PO ONE (06:10)
[2022-03-16] MEDS: KCL 10MEQ/100ML SWI (KRUN) 10 MEQ in IV 1 EA IV SCH ×2 (06:30→07:28)
[2022-03-16] MEDS: MULTIVITAMINS/MINERALS THERAP 1 TAB PO SCH (09:00)
[2022-03-16] MEDS: FOLIC ACID 1MG TAB PO SCH (09:00)
[2022-03-16] MEDS: PANTOPRAZOLE 40MG VIAL IV SCH (09:34)
[2022-03-16 09:40] LABS: MAGNESIUM LEVEL 1.7 MG/DL (1.8-2.4)
[2022-03-16] MEDS ORDERED: KCL 40MEQ IN D5/0.45NS 1000ML 1,000 ML IV SCH (10:00)
[2022-03-16] MEDS: LORazepam 2 MG/ML VIAL IV SCH (10:11)
[2022-03-16] MEDS ORDERED: MAG SULF 1GM/100ML (MAG RUN) 1 GM in IV 1 EA IV ONE (11:00)
[2022-03-16] MEDS ORDERED: LORazepam 2 MG TAB NG PRN (14:15)
[2022-03-16] MEDS ORDERED: LACTULOSE 20 GM/30 ML SYRUP UD NG SCH (16:30)
[2022-03-16] MEDS: MORPHINE 2 MG/ML 1ML VIAL IV PRN ×2 (17:37→21:38)
[2022-03-16] MEDS: LACTULOSE 20 GM/30 ML SYRUP UD PR SCH (17:37)
[2022-03-16] MEDS ORDERED: SODIUM CHLORIDE IV SCH ×9 (18:00)
[2022-03-16] MEDS: INSULIN LISPRO (NovoLOG) PER UNIT SC SCH ×2 (18:00→23:20)
[2022-03-16] MEDS ORDERED: FAT EMULSION IV 250 ML IV ONE (18:00)
[2022-03-16] MEDS ORDERED: [UNRECOGNIZED DRUG - OTHER] IV SCH ×9 (18:00)
[2022-03-16] MEDS ORDERED: SODIUM ACETATE IV SCH ×9 (18:00)
[2022-03-16] MEDS: LORazepam 2 MG/ML VIAL IV PRN ×2 (20:59→23:22)
[2022-03-17] VITALS (16 sets, daily range): BP systolic 106–157; BP diastolic 63–96
[2022-03-17] MEDS: MORPHINE 2 MG/ML 1ML VIAL IV PRN ×3 (00:45→23:12)
[2022-03-17] MEDS: ONDANSETRON 4MG 2ML VIAL IV PRN ×2 (00:46→22:33)
[2022-03-17] MEDS: PIPERACILLIN/TAZOBACTAM SOD 4.5 GM in D5W MINI-BAG PLUS 50 ML IV SCH ×4 (02:51→20:04)
[2022-03-17] MEDS: LORazepam 2 MG/ML VIAL IV PRN (02:58)
[2022-03-17] MEDS: THIAMINE INJection 500 MG in NS 100 ML IV SCH ×3 (05:08→20:04)
[2022-03-17] MEDS: LEVOTHYROXINE 25MCG TABLET (0.025MG) PO SCH (05:08)
[2022-03-17 05:35] LABS: HEMATOCRIT 26.9 % (36.0-47.0); HEMOGLOBIN 9.2 g/dl (12.0-15.5); MEAN CORPUSCULAR HEMOGLOBIN 35.7 pg (27.0-33.0); MEAN CORPUSCULAR HGB CONC 34.2 g/dl (32.0-36.5); MEAN CORPUSCULAR VOLUME 104.3 fl (80.0-96.0); PLATELET COUNT, AUTOMATED 117 10^3/uL (150-450); RED BLOOD COUNT 2.58 10^6/uL (4.00-5.40); WHITE BLOOD COUNT 5.5 10^3/uL (4.0-10.0)
[2022-03-17 05:49] LABS: INR 1.4; PROTHROMBIN TIME 17.6 SECONDS (12.7-14.5)
[2022-03-17] MEDS: INSULIN LISPRO (NovoLOG) PER UNIT SC SCH ×2 (06:00→11:45)
[2022-03-17 06:26] LABS: ALBUMIN 1.7 GM/DL (3.2-5.2); ALT/SGPT 11 U/L (12-78); BILIRUBIN,TOTAL 1.8 MG/DL (0.2-1.0); BLOOD UREA NITROGEN 6 MG/DL (7-18); CALCIUM LEVEL 6.9 MG/DL (8.8-10.2); CARBON DIOXIDE LEVEL 28 MEQ/L (21-32); CHLORIDE LEVEL 102 MEQ/L (98-107); CREATININE FOR GFR 0.51 MG/DL (0.55-1.30); GLOMERULAR FILTRATION RATE > 60.0 (>45); GLUCOSE, FASTING 128 MG/DL (70-100); MAGNESIUM LEVEL 1.8 MG/DL (1.8-2.4); PHOSPHORUS LEVEL 1.5 MG/DL (2.5-4.9); POTASSIUM SERUM 2.7 MEQ/L (3.5-5.1); SODIUM LEVEL 136 MEQ/L (136-145); TOTAL PROTEIN 4.9 GM/DL (6.4-8.2)
[2022-03-17] MEDS: KCL 20MEQ IN 100ML SWI (KRUN) 20 MEQ in IV 1 EA IV SCH ×12 (07:40→22:56)
[2022-03-17] MEDS ORDERED: LR 1,000 ML IV SCH (07:40)
[2022-03-17] MEDS ORDERED: D5W/0.45% SODIUM CHLORIDE 1,000 ML IV SCH (07:40)
[2022-03-17] MEDS: MULTIVITAMINS/MINERALS THERAP 1 TAB PO SCH (08:39)
[2022-03-17] MEDS: FOLIC ACID 1MG TAB PO SCH (08:56)
[2022-03-17] MEDS: PANTOPRAZOLE 40MG VIAL IV SCH (08:57)
[2022-03-17] MEDS ORDERED: ACETAMINOPHEN 650 MG SUPP PR PRN (09:30)
[2022-03-17] MEDS: LACTULOSE 20 GM/30 ML SYRUP UD PR SCH (10:31)
[2022-03-17] MEDS ORDERED: POTASSIUM PHOSPHATE INJ 20 MMOL in D5W 250 ML IV ONE (11:00)
[2022-03-17] MEDS ORDERED: NS 250 ML IV ONE (13:20)
[2022-03-17] MEDS ORDERED: ISOVUE-370 76% 100ML VIAL As Ordered ONE (13:56)
[2022-03-17] MEDS ORDERED: fentaNYL 100 MCG/2 ML INJECTION As Ordered ONE (15:47)
[2022-03-17] MEDS ORDERED: diphenhydrAMINE 50MG/ML VIAL (J1200) As Ordered ONE (15:47)
[2022-03-17] MEDS ORDERED: ISOVUE-300 61% 50ML VIAL As Ordered ONE (15:48)
[2022-03-17] MEDS ORDERED: LIDOCAINE 1% MDV 20ML VIAL As Ordered ONE (15:48)
[2022-03-17] MEDS ORDERED: MIDAZOLAM INJ 2MG/2ML VIAL (J2250 PER 1MG) As Ordered ONE (15:48)
[2022-03-17] MEDS ORDERED: VANCOMYCIN HCL 750 MG, VIAL MATE ADAPTER 1 EACH in D5W 250 ML IV ONE (17:00)
[2022-03-17] MEDS ORDERED: D5W/0.9% SODIUM CHLORIDE 1,000 ML IV ONE (17:15)
[2022-03-17 18:00] LABS: ABG BASE EXCESS -1.5 (-2.0-2.0); ABG HCO3 20.7 MEQ/L (22.0-26.0); ABG O2 SATURATION 96.2 % (95.0-99.0); ABG PARTIAL PRESSURE CO2 27.5 mmHg (35.0-45.0); ABG PARTIAL PRESSURE O2 82.7 mmHg (75.0-100.0); ABG STANDARD HCO3 23.2 MEQ/L (22.0-26.0); ABG TOTAL CO2 21.6 MEQ/L (23.0-31.0); ABG pH (ARTERIAL) 7.495 UNITS (7.350-7.450)
[2022-03-17] MEDS ORDERED: VANCOMYCIN HCL 500 MG in D5W MINI-BAG PLUS 100 ML IV ONE (18:00)
[2022-03-17] MEDS ORDERED: KETOROLAC 30 MG/ML 1ML VIAL IV ONE (18:25)
[2022-03-17 18:28] LABS: ALBUMIN 1.8 GM/DL (3.2-5.2); ALT/SGPT 14 U/L (12-78); BILIRUBIN,TOTAL 2.3 MG/DL (0.2-1.0); BLOOD UREA NITROGEN 5 MG/DL (7-18); CALCIUM LEVEL 7.5 MG/DL (8.8-10.2); CARBON DIOXIDE LEVEL 23 MEQ/L (21-32); CHLORIDE LEVEL 103 MEQ/L (98-107); CREATININE FOR GFR 0.55 MG/DL (0.55-1.30); GLOMERULAR FILTRATION RATE > 60.0 (>45); GLUCOSE, FASTING 163 MG/DL (70-100); POTASSIUM SERUM 3.4 MEQ/L (3.5-5.1); SODIUM LEVEL 134 MEQ/L (136-145); TOTAL PROTEIN 6.4 GM/DL (6.4-8.2)
[2022-03-17 20:15] LABS: HEMATOCRIT 30.1 % (36.0-47.0); HEMOGLOBIN 10.5 g/dl (12.0-15.5); MEAN CORPUSCULAR HEMOGLOBIN 35.7 pg (27.0-33.0); MEAN CORPUSCULAR HGB CONC 34.9 g/dl (32.0-36.5); MEAN CORPUSCULAR VOLUME 102.4 fl (80.0-96.0); PLATELET COUNT, AUTOMATED 145 10^3/uL (150-450); RED BLOOD COUNT 2.94 10^6/uL (4.00-5.40); WHITE BLOOD COUNT 6.6 10^3/uL (4.0-10.0)
[2022-03-17 20:54] LABS: BLOOD UREA NITROGEN 6 MG/DL (7-18); CALCIUM LEVEL 7.3 MG/DL (8.8-10.2); CARBON DIOXIDE LEVEL 25 MEQ/L (21-32); CHLORIDE LEVEL 102 MEQ/L (98-107); CREATININE FOR GFR 0.45 MG/DL (0.55-1.30); GLOMERULAR FILTRATION RATE > 60.0 (>45); GLUCOSE, FASTING 135 MG/DL (70-100); MAGNESIUM LEVEL 1.7 MG/DL (1.8-2.4); PHOSPHORUS LEVEL 1.4 MG/DL (2.5-4.9); POTASSIUM SERUM 2.8 MEQ/L (3.5-5.1); SODIUM LEVEL 134 MEQ/L (136-145)
[2022-03-18] VITALS (21 sets, daily range): BP systolic 96–156; BP diastolic 63–81
[2022-03-18 00:53] LABS: BLOOD UREA NITROGEN 5 MG/DL (7-18); CALCIUM LEVEL 7.1 MG/DL (8.8-10.2); CARBON DIOXIDE LEVEL 25 MEQ/L (21-32); CHLORIDE LEVEL 105 MEQ/L (98-107); CREATININE FOR GFR 0.41 MG/DL (0.55-1.30); GLOMERULAR FILTRATION RATE > 60.0 (>45); GLUCOSE, FASTING 136 MG/DL (70-100); POTASSIUM SERUM 3.4 MEQ/L (3.5-5.1); SODIUM LEVEL 136 MEQ/L (136-145)
[2022-03-18] MEDS: PIPERACILLIN/TAZOBACTAM SOD 4.5 GM in D5W MINI-BAG PLUS 50 ML IV SCH ×4 (01:26→19:54)
[2022-03-18] MEDS: VANCOMYCIN HCL 1,000 MG, VIAL MATE ADAPTER 1 EACH in NS 250 ML IV SCH ×2 (02:44→15:00)
[2022-03-18] MEDS: MORPHINE 2 MG/ML 1ML VIAL IV PRN ×5 (03:46→22:16)
[2022-03-18] MEDS: THIAMINE INJection 500 MG in NS 100 ML IV SCH ×3 (04:08→20:57)
[2022-03-18] MEDS: LEVOTHYROXINE 25MCG TABLET (0.025MG) PO SCH (05:24)
[2022-03-18 05:40] LABS: HEMATOCRIT 27.5 % (36.0-47.0); HEMOGLOBIN 9.5 g/dl (12.0-15.5); MEAN CORPUSCULAR HEMOGLOBIN 35.3 pg (27.0-33.0); MEAN CORPUSCULAR HGB CONC 34.5 g/dl (32.0-36.5); MEAN CORPUSCULAR VOLUME 102.2 fl (80.0-96.0); PLATELET COUNT, AUTOMATED 134 10^3/uL (150-450); RED BLOOD COUNT 2.69 10^6/uL (4.00-5.40); WHITE BLOOD COUNT 4.1 10^3/uL (4.0-10.0)
[2022-03-18 06:07] LABS: ALBUMIN 1.7 GM/DL (3.2-5.2); ALT/SGPT 12 U/L (12-78); BILIRUBIN,TOTAL 2.6 MG/DL (0.2-1.0); BLOOD UREA NITROGEN 3 MG/DL (7-18); CALCIUM LEVEL 7.1 MG/DL (8.8-10.2); CARBON DIOXIDE LEVEL 26 MEQ/L (21-32); CHLORIDE LEVEL 104 MEQ/L (98-107); CREATININE FOR GFR 0.38 MG/DL (0.55-1.30); GLOMERULAR FILTRATION RATE > 60.0 (>45); GLUCOSE, FASTING 116 MG/DL (70-100); MAGNESIUM LEVEL 1.6 MG/DL (1.8-2.4); PHOSPHORUS LEVEL 1.2 MG/DL (2.5-4.9); POTASSIUM SERUM 2.8 MEQ/L (3.5-5.1); SODIUM LEVEL 136 MEQ/L (136-145); TOTAL PROTEIN 5.3 GM/DL (6.4-8.2)
[2022-03-18] MEDS: KCL 20MEQ IN 100ML SWI (KRUN) 20 MEQ in IV 1 EA IV SCH ×6 (06:30→09:10)
[2022-03-18] MEDS ORDERED: MAG SULF 1GM/100ML (MAG RUN) 1 GM in IV 1 EA IV ONE (08:10)
[2022-03-18] MEDS: PANTOPRAZOLE 40MG VIAL IV SCH (08:26)
[2022-03-18] MEDS: LACTULOSE 20 GM/30 ML SYRUP UD PR SCH (09:00)
[2022-03-18] MEDS: FOLIC ACID 1MG TAB PO SCH (09:00)
[2022-03-18] MEDS: MULTIVITAMINS/MINERALS THERAP 1 TAB PO SCH (09:00)
[2022-03-18] MEDS ORDERED: FLEET ENEMA PR ONE (09:35)
[2022-03-18] MEDS ORDERED: KETOROLAC 30 MG/ML 1ML VIAL IV ONE (10:15)
[2022-03-18] MEDS: LORazepam 2 MG/ML VIAL IV PRN ×2 (16:14→20:38)
[2022-03-18] MEDS ORDERED: MULTIVITAMIN -ADULT INJECTION 10 ML, ZINC/COPPER/MANGANESE/SELENIUM 1 ML in AMINO AC/EL... IV SCH (18:00)
[2022-03-18 18:10] LABS: MAGNESIUM LEVEL 1.8 MG/DL (1.8-2.4); POTASSIUM SERUM 3.5 MEQ/L (3.5-5.1)
[2022-03-18] MEDS ORDERED: KCL 10MEQ/100ML SWI (KRUN) 10 MEQ in IV 1 EA IV ONE (18:20)
[2022-03-18] MEDS: HEPARIN SOD (PORCINE) 5000UNITS/ML 1ML VIAL/SYRINGE SQ SCH (22:17)
[2022-03-19] VITALS (17 sets, daily range): BP systolic 99–146; BP diastolic 60–82
[2022-03-19] MEDS: LORazepam 2 MG/ML VIAL IV PRN ×5 (00:38→22:04)
[2022-03-19] MEDS: PIPERACILLIN/TAZOBACTAM SOD 4.5 GM in D5W MINI-BAG PLUS 50 ML IV SCH ×4 (01:54→19:44)
[2022-03-19] MEDS: MORPHINE 2 MG/ML 1ML VIAL IV PRN ×8 (02:17→23:47)
[2022-03-19] MEDS: VANCOMYCIN HCL 1,000 MG, VIAL MATE ADAPTER 1 EACH in NS 250 ML IV SCH ×2 (03:06→16:41)
[2022-03-19] MEDS: THIAMINE INJection 500 MG in NS 100 ML IV SCH ×3 (04:15→19:44)
[2022-03-19 04:28] LABS: HEMATOCRIT 24.8 % (36.0-47.0); HEMOGLOBIN 8.3 g/dl (12.0-15.5); MEAN CORPUSCULAR HGB CONC 33.5 g/dl (32.0-36.5); MEAN CORPUSCULAR VOLUME 104.6 fl (80.0-96.0); PLATELET COUNT, AUTOMATED 139 10^3/uL (150-450); RED BLOOD COUNT 2.37 10^6/uL (4.00-5.40); WHITE BLOOD COUNT 4.1 10^3/uL (4.0-10.0)
[2022-03-19] MEDS: LEVOTHYROXINE 25MCG TABLET (0.025MG) PO SCH (04:41)
[2022-03-19 05:07] LABS: ALBUMIN 1.5 GM/DL (3.2-5.2); ALBUMIN 1.6 GM/DL (3.2-5.2); ALT/SGPT 10 U/L (12-78); BILIRUBIN,TOTAL 2.3 MG/DL (0.2-1.0); BLOOD UREA NITROGEN 5 MG/DL (7-18); CALCIUM LEVEL 7.7 MG/DL (8.8-10.2); CARBON DIOXIDE LEVEL 28 MEQ/L (21-32); CHLORIDE LEVEL 105 MEQ/L (98-107); CREATININE FOR GFR 0.48 MG/DL (0.55-1.30); GLOMERULAR FILTRATION RATE > 60.0 (>45); GLUCOSE, FASTING 116 MG/DL (70-100); GLUCOSE, FASTING 120 MG/DL (70-100); MAGNESIUM LEVEL 1.6 MG/DL (1.8-2.4); PHOSPHORUS LEVEL 1.8 MG/DL (2.5-4.9); POTASSIUM SERUM 3.1 MEQ/L (3.5-5.1); SODIUM LEVEL 137 MEQ/L (136-145); TOTAL PROTEIN 5.3 GM/DL (6.4-8.2)
[2022-03-19] MEDS: HEPARIN SOD (PORCINE) 5000UNITS/ML 1ML VIAL/SYRINGE SQ SCH ×3 (05:36→22:03)
[2022-03-19] MEDS ORDERED: MAG SULF 1GM/100ML (MAG RUN) 1 GM in IV 1 EA IV ONE (06:00)
[2022-03-19] MEDS: KCL 20MEQ IN 100ML SWI (KRUN) 20 MEQ in IV 1 EA IV SCH ×4 (06:17→08:34)
[2022-03-19] MEDS: MULTIVITAMINS/MINERALS THERAP 1 TAB PO SCH (08:34)
[2022-03-19] MEDS: FOLIC ACID 1MG TAB PO SCH (08:34)
[2022-03-19] MEDS: PANTOPRAZOLE 40MG VIAL IV SCH (08:34)
[2022-03-19] MEDS: LACTULOSE 20 GM/30 ML SYRUP UD PR SCH (09:00)
[2022-03-19] MEDS: ONDANSETRON 4MG 2ML VIAL IV PRN (15:12)
[2022-03-19] MEDS: MICAFUNGIN SODIUM 100 MG in D5W MINI-BAG PLUS 100 ML IV SCH (16:46)
[2022-03-19] MEDS ORDERED: AMINO AC/ELECTROLYTE/DEX/CALC 1,000 ML IV SCH (18:00)
[2022-03-20] VITALS (22 sets, daily range): BP systolic 99–167; BP diastolic 59–88
[2022-03-20] MEDS: PIPERACILLIN/TAZOBACTAM SOD 4.5 GM in D5W MINI-BAG PLUS 50 ML IV SCH ×4 (02:21→20:11)
[2022-03-20] MEDS: LORazepam 2 MG/ML VIAL IV PRN ×4 (02:41→20:12)
[2022-03-20] MEDS: VANCOMYCIN HCL 1,000 MG, VIAL MATE ADAPTER 1 EACH in NS 250 ML IV SCH ×2 (02:51→16:03)
[2022-03-20] MEDS: MORPHINE 2 MG/ML 1ML VIAL IV PRN ×4 (03:56→22:01)
[2022-03-20 04:22] LABS: HEMATOCRIT 24.4 % (36.0-47.0); HEMOGLOBIN 8.3 g/dl (12.0-15.5); MEAN CORPUSCULAR HEMOGLOBIN 35.3 pg (27.0-33.0); MEAN CORPUSCULAR VOLUME 103.8 fl (80.0-96.0); PLATELET COUNT, AUTOMATED 129 10^3/uL (150-450); RED BLOOD COUNT 2.35 10^6/uL (4.00-5.40); WHITE BLOOD COUNT 3.7 10^3/uL (4.0-10.0)
[2022-03-20] MEDS: HEPARIN SOD (PORCINE) 5000UNITS/ML 1ML VIAL/SYRINGE SQ SCH ×3 (05:04→22:01)
[2022-03-20] MEDS: THIAMINE INJection 500 MG in NS 100 ML IV SCH ×3 (05:04→20:12)
[2022-03-20] MEDS: LEVOTHYROXINE 25MCG TABLET (0.025MG) PO SCH (05:04)
[2022-03-20 05:15] LABS: ALBUMIN 1.6 GM/DL (3.2-5.2); BLOOD UREA NITROGEN 4 MG/DL (7-18); CALCIUM LEVEL 7.8 MG/DL (8.8-10.2); CARBON DIOXIDE LEVEL 27 MEQ/L (21-32); CHLORIDE LEVEL 101 MEQ/L (98-107); CREATININE FOR GFR 0.43 MG/DL (0.55-1.30); GLOMERULAR FILTRATION RATE > 60.0 (>45); GLUCOSE, FASTING 120 MG/DL (70-100); PHOSPHORUS LEVEL 1.5 MG/DL (2.5-4.9); POTASSIUM SERUM 2.6 MEQ/L (3.5-5.1); SODIUM LEVEL 133 MEQ/L (136-145)
[2022-03-20 05:16] LABS: ALBUMIN 1.6 GM/DL (3.2-5.2); ALT/SGPT 12 U/L (12-78); BILIRUBIN,TOTAL 3.2 MG/DL (0.2-1.0); BLOOD UREA NITROGEN 4 MG/DL (7-18); CALCIUM LEVEL 7.6 MG/DL (8.8-10.2); CARBON DIOXIDE LEVEL 27 MEQ/L (21-32); CHLORIDE LEVEL 102 MEQ/L (98-107); CREATININE FOR GFR 0.43 MG/DL (0.55-1.30); GLOMERULAR FILTRATION RATE > 60.0 (>45); GLUCOSE, FASTING 117 MG/DL (70-100); MAGNESIUM LEVEL 1.6 MG/DL (1.8-2.4); POTASSIUM SERUM 2.6 MEQ/L (3.5-5.1); SODIUM LEVEL 133 MEQ/L (136-145); TOTAL PROTEIN 5.6 GM/DL (6.4-8.2)
[2022-03-20] MEDS ORDERED: MAG SULF 1GM/100ML (MAG RUN) 1 GM in IV 1 EA IV ONE ×2 (06:00→18:00)
[2022-03-20] MEDS: KCL 20MEQ IN 100ML SWI (KRUN) 20 MEQ in IV 1 EA IV SCH ×6 (06:28→08:41)
[2022-03-20] MEDS: LACTULOSE 20 GM/30 ML SYRUP UD PR SCH (08:13)
[2022-03-20] MEDS: MULTIVITAMINS/MINERALS THERAP 1 TAB PO SCH (08:26)
[2022-03-20] MEDS: PANTOPRAZOLE 40MG VIAL IV SCH (08:26)
[2022-03-20] MEDS: FOLIC ACID 1MG TAB PO SCH (08:26)
[2022-03-20] MEDS: ONDANSETRON 4MG 2ML VIAL IV PRN ×2 (09:50→18:02)
[2022-03-20 15:00] LABS: BLOOD UREA NITROGEN 5 MG/DL (7-18); CALCIUM LEVEL 7.6 MG/DL (8.8-10.2); CARBON DIOXIDE LEVEL 27 MEQ/L (21-32); CHLORIDE LEVEL 100 MEQ/L (98-107); CREATININE FOR GFR 0.42 MG/DL (0.55-1.30); GLOMERULAR FILTRATION RATE > 60.0 (>45); GLUCOSE, FASTING 110 MG/DL (70-100); MAGNESIUM LEVEL 1.7 MG/DL (1.8-2.4); POTASSIUM SERUM 3.4 MEQ/L (3.5-5.1); SODIUM LEVEL 132 MEQ/L (136-145)
[2022-03-20] MEDS: MICAFUNGIN SODIUM 100 MG in D5W MINI-BAG PLUS 100 ML IV SCH (17:21)
[2022-03-20] MEDS: INSULIN LISPRO (NovoLOG) PER UNIT SC SCH ×2 (17:29→23:42)
[2022-03-20] MEDS ORDERED: ELECTROLYTE IV SCH (18:00)
[2022-03-20] MEDS ORDERED: CALC IV SCH (18:00)
[2022-03-20] MEDS ORDERED: POTASSIUM CHLORIDE IV SCH (18:00)
[2022-03-20] MEDS ORDERED: DEX IV SCH (18:00)
[2022-03-20] MEDS ORDERED: POTASSIUM CHLORIDE 10% LIQ 20 MEQ/15 ML UDC PO ONE (18:00)
[2022-03-20] MEDS ORDERED: AMINO AC IV SCH (18:00)
[2022-03-20] MEDS: HYDROMORPHONE HCL 0.5 MG/ 0.5 ML SYRINGE (J1170 PER 1) IV PRN (22:45)
[2022-03-21] VITALS (22 sets, daily range): BP systolic 96–130; BP diastolic 57–83
[2022-03-21] MEDS: PIPERACILLIN/TAZOBACTAM SOD 4.5 GM in D5W MINI-BAG PLUS 50 ML IV SCH ×4 (01:11→19:51)
[2022-03-21] MEDS: VANCOMYCIN HCL 1,000 MG, VIAL MATE ADAPTER 1 EACH in NS 250 ML IV SCH ×2 (02:08→15:36)
[2022-03-21] MEDS: THIAMINE INJection 500 MG in NS 100 ML IV SCH (03:09)
[2022-03-21] MEDS ORDERED: NS 1,000 ML IV SCH (04:10)
[2022-03-21] MEDS ORDERED: ACETAMINOPHEN 1000MG 100ML IV BTL (OFIRMEV) (J0131 PER 10MG) IV ONE (05:00)
[2022-03-21] MEDS: HEPARIN SOD (PORCINE) 5000UNITS/ML 1ML VIAL/SYRINGE SQ SCH ×3 (05:20→21:29)
[2022-03-21] MEDS: LEVOTHYROXINE 100MCG (0.1MG) 5ML SDV PF (SOLUTION FORM) IV SCH (05:20)
[2022-03-21] MEDS: INSULIN LISPRO (NovoLOG) PER UNIT SC SCH ×4 (05:20→23:57)
[2022-03-21 05:29] LABS: HEMATOCRIT 23.2 % (36.0-47.0); HEMOGLOBIN 7.9 g/dl (12.0-15.5); MEAN CORPUSCULAR HEMOGLOBIN 35.3 pg (27.0-33.0); MEAN CORPUSCULAR HGB CONC 34.1 g/dl (32.0-36.5); MEAN CORPUSCULAR VOLUME 103.6 fl (80.0-96.0); PLATELET COUNT, AUTOMATED 132 10^3/uL (150-450); RED BLOOD COUNT 2.24 10^6/uL (4.00-5.40); WHITE BLOOD COUNT 3.6 10^3/uL (4.0-10.0)
[2022-03-21 06:04] LABS: ALBUMIN 1.5 GM/DL (3.2-5.2); ALT/SGPT 16 U/L (12-78); BILIRUBIN,TOTAL 3.7 MG/DL (0.2-1.0); BLOOD UREA NITROGEN 6 MG/DL (7-18); CALCIUM LEVEL 7.6 MG/DL (8.8-10.2); CARBON DIOXIDE LEVEL 28 MEQ/L (21-32); CHLORIDE LEVEL 98 MEQ/L (98-107); CREATININE FOR GFR 0.45 MG/DL (0.55-1.30); GLOMERULAR FILTRATION RATE > 60.0 (>45); GLUCOSE, FASTING 118 MG/DL (70-100); MAGNESIUM LEVEL 1.7 MG/DL (1.8-2.4); PHOSPHORUS LEVEL 1.4 MG/DL (2.5-4.9); POTASSIUM SERUM 2.9 MEQ/L (3.5-5.1); SODIUM LEVEL 131 MEQ/L (136-145); TOTAL PROTEIN 5.4 GM/DL (6.4-8.2)
[2022-03-21] MEDS: KCL 20MEQ IN 100ML SWI (KRUN) 20 MEQ in IV 1 EA IV SCH ×4 (06:28→08:44)
[2022-03-21] MEDS ORDERED: MAG SULF 1GM/100ML (MAG RUN) 1 GM in IV 1 EA IV ONE (08:05)
[2022-03-21] MEDS: HYDROMORPHONE HCL 0.5 MG/ 0.5 ML SYRINGE (J1170 PER 1) IV PRN ×2 (08:45→19:52)
[2022-03-21] MEDS: PANTOPRAZOLE 40MG VIAL IV SCH (09:39)
[2022-03-21] MEDS: THIAMINE 200MG 2ML VIAL IM SCH (09:40)
[2022-03-21] MEDS: NS 1,000 ML IV SCH (10:00)
[2022-03-21] MEDS: KETOROLAC 30 MG/ML 1ML VIAL IV PRN (14:49)
[2022-03-21 15:18] LABS: BLOOD UREA NITROGEN 6 MG/DL (7-18); CARBON DIOXIDE LEVEL 29 MEQ/L (21-32); CHLORIDE LEVEL 98 MEQ/L (98-107); CREATININE FOR GFR 0.44 MG/DL (0.55-1.30); GLOMERULAR FILTRATION RATE > 60.0 (>45); GLUCOSE, FASTING 105 MG/DL (70-100); MAGNESIUM LEVEL 2.3 MG/DL (1.8-2.4); POTASSIUM SERUM 3.8 MEQ/L (3.5-5.1); SODIUM LEVEL 132 MEQ/L (136-145)
[2022-03-21] MEDS: ONDANSETRON 4MG 2ML VIAL IV PRN (16:46)
[2022-03-21] MEDS: MICAFUNGIN SODIUM 100 MG in D5W MINI-BAG PLUS 100 ML IV SCH (17:01)
[2022-03-21] MEDS: LORazepam 2 MG/ML VIAL IV PRN (17:02)
[2022-03-21] MEDS ORDERED: FAT EMULSION IV 250 ML IV ONE (18:00)
[2022-03-21] MEDS ORDERED: MULTIVITAMIN -ADULT INJECTION 10 ML, ZINC/COPPER/MANGANESE/SELENIUM 1 ML in AMINO AC/EL... IV SCH (18:00)
[2022-03-22] VITALS (27 sets, daily range): BP systolic 86–173; BP diastolic 55–104
[2022-03-22] MEDS: KETOROLAC 30 MG/ML 1ML VIAL IV PRN ×2 (00:11→09:04)
[2022-03-22] MEDS: PIPERACILLIN/TAZOBACTAM SOD 4.5 GM in D5W MINI-BAG PLUS 50 ML IV SCH ×4 (01:42→21:13)
[2022-03-22] MEDS: HYDROMORPHONE HCL 0.5 MG/ 0.5 ML SYRINGE (J1170 PER 1) IV PRN ×2 (03:24→21:43)
[2022-03-22] MEDS: INSULIN LISPRO (NovoLOG) PER UNIT SC SCH ×4 (05:15→23:38)
[2022-03-22] MEDS: HEPARIN SOD (PORCINE) 5000UNITS/ML 1ML VIAL/SYRINGE SQ SCH ×3 (05:24→21:13)
[2022-03-22] MEDS: LEVOTHYROXINE 100MCG (0.1MG) 5ML SDV PF (SOLUTION FORM) IV SCH (05:24)
[2022-03-22] MEDS: NS 1,000 ML IV SCH (05:37)
[2022-03-22 06:43] LABS: ALBUMIN 1.6 GM/DL (3.2-5.2); ALT/SGPT 22 U/L (12-78); BILIRUBIN,TOTAL 3.6 MG/DL (0.2-1.0); BLOOD UREA NITROGEN 8 MG/DL (7-18); CALCIUM LEVEL 8.3 MG/DL (8.8-10.2); CARBON DIOXIDE LEVEL 31 MEQ/L (21-32); CHLORIDE LEVEL 98 MEQ/L (98-107); CREATININE FOR GFR 0.49 MG/DL (0.55-1.30); GLOMERULAR FILTRATION RATE > 60.0 (>45); GLUCOSE, FASTING 116 MG/DL (70-100); PHOSPHORUS LEVEL 2.1 MG/DL (2.5-4.9); POTASSIUM SERUM 3.5 MEQ/L (3.5-5.1); SODIUM LEVEL 132 MEQ/L (136-145); TOTAL PROTEIN 5.4 GM/DL (6.4-8.2)
[2022-03-22] MEDS: PANTOPRAZOLE 40MG VIAL IV SCH (09:03)
[2022-03-22] MEDS: THIAMINE 200MG 2ML VIAL IM SCH (09:03)
[2022-03-22] MEDS ORDERED: LIDOCAINE 1% MDV 20ML VIAL As Ordered ONE (15:32)
[2022-03-22] MEDS: MICAFUNGIN SODIUM 100 MG in D5W MINI-BAG PLUS 100 ML IV SCH (17:48)
[2022-03-22] MEDS ORDERED: AMINO AC/ELECTROLYTE/DEX/CALC 1,000 ML IV SCH (18:00)
[2022-03-22] MEDS: SODIUM CHLORIDE 0.9% INJ 10 ML SYR IV SCH (18:00)
[2022-03-22] MEDS ORDERED: FAT EMULSION IV 250 ML IV ONE (18:00)
[2022-03-22] MEDS ORDERED: ISOVUE-370 76% 100ML VIAL As Ordered ONE (18:57)
[2022-03-22] MEDS: METOPROLOL 5 MG/5 ML VIAL IV SCH ×3 (18:59→20:30)
[2022-03-22 19:34] LABS: ERYTHROCYTE SEDIMENTATION RATE 107 mm/hr (0-30)
[2022-03-22 19:41] LABS: ALBUMIN 1.8 GM/DL (3.2-5.2); ALT/SGPT 24 U/L (12-78); BILIRUBIN,TOTAL 4.3 MG/DL (0.2-1.0); BLOOD UREA NITROGEN 9 MG/DL (7-18); C REACTIVE PROTEIN QUANTITATIV 7.42 MG/DL (0.00-0.30); CALCIUM LEVEL 8.4 MG/DL (8.8-10.2); CARBON DIOXIDE LEVEL 28 MEQ/L (21-32); CHLORIDE LEVEL 98 MEQ/L (98-107); CREATININE FOR GFR 0.57 MG/DL (0.55-1.30); GLOMERULAR FILTRATION RATE > 60.0 (>45); GLUCOSE, FASTING 116 MG/DL (70-100); MAGNESIUM LEVEL 1.8 MG/DL (1.8-2.4); SODIUM LEVEL 132 MEQ/L (136-145); TOTAL PROTEIN 6.6 GM/DL (6.4-8.2)
[2022-03-22] MEDS ORDERED: CALCIUM GLUCONATE 1,000 MG in D5W MINI-BAG PLUS 100 ML IV ONE (20:00)
[2022-03-22 20:38] LABS: HEMATOCRIT 26.1 % (36.0-47.0); HEMOGLOBIN 8.9 g/dl (12.0-15.5); MEAN CORPUSCULAR HEMOGLOBIN 35.2 pg (27.0-33.0); MEAN CORPUSCULAR HGB CONC 34.1 g/dl (32.0-36.5); MEAN CORPUSCULAR VOLUME 103.2 fl (80.0-96.0); PLATELET COUNT, AUTOMATED 180 10^3/uL (150-450); RED BLOOD COUNT 2.53 10^6/uL (4.00-5.40); WHITE BLOOD COUNT 6.5 10^3/uL (4.0-10.0)
[2022-03-22] MEDS: ONDANSETRON 4MG 2ML VIAL IV PRN (21:12)
[2022-03-23] VITALS (13 sets, daily range): BP systolic 93–167; BP diastolic 51–93
[2022-03-23] MEDS: PIPERACILLIN/TAZOBACTAM SOD 4.5 GM in D5W MINI-BAG PLUS 50 ML IV SCH ×4 (02:06→19:58)
[2022-03-23] MEDS: LORazepam 2 MG/ML VIAL IV PRN ×2 (02:11→10:54)
[2022-03-23] MEDS: HYDROMORPHONE HCL 0.5 MG/ 0.5 ML SYRINGE (J1170 PER 1) IV PRN ×2 (04:53→21:09)
[2022-03-23] MEDS: INSULIN LISPRO (NovoLOG) PER UNIT SC SCH ×3 (05:25→17:43)
[2022-03-23] MEDS: SODIUM CHLORIDE 0.9% INJ 10 ML SYR IV SCH ×2 (05:27→17:50)
[2022-03-23] MEDS: HEPARIN SOD (PORCINE) 5000UNITS/ML 1ML VIAL/SYRINGE SQ SCH ×3 (05:27→21:07)
[2022-03-23] MEDS: LEVOTHYROXINE 100MCG (0.1MG) 5ML SDV PF (SOLUTION FORM) IV SCH (05:28)
[2022-03-23] MEDS: PANTOPRAZOLE 40MG VIAL IV SCH (08:19)
[2022-03-23] MEDS: KCL 20MEQ IN 100ML SWI (KRUN) 20 MEQ in IV 1 EA IV SCH ×4 (08:19→09:32)
[2022-03-23 08:26] LABS: HEMATOCRIT 26.1 % (36.0-47.0); HEMOGLOBIN 8.8 g/dl (12.0-15.5); MEAN CORPUSCULAR HEMOGLOBIN 35.1 pg (27.0-33.0); MEAN CORPUSCULAR HGB CONC 33.7 g/dl (32.0-36.5); PLATELET COUNT, AUTOMATED 143 10^3/uL (150-450); RED BLOOD COUNT 2.51 10^6/uL (4.00-5.40); WHITE BLOOD COUNT 6.4 10^3/uL (4.0-10.0)
[2022-03-23 09:01] LABS: ALBUMIN 1.7 GM/DL (3.2-5.2); ALT/SGPT 24 U/L (12-78); BILIRUBIN,TOTAL 3.4 MG/DL (0.2-1.0); BLOOD UREA NITROGEN 7 MG/DL (7-18); C REACTIVE PROTEIN QUANTITATIV 7.63 MG/DL (0.00-0.30); CALCIUM LEVEL 7.9 MG/DL (8.8-10.2); CARBON DIOXIDE LEVEL 31 MEQ/L (21-32); CHLORIDE LEVEL 97 MEQ/L (98-107); CREATININE FOR GFR 0.48 MG/DL (0.55-1.30); GLOMERULAR FILTRATION RATE > 60.0 (>45); GLUCOSE, FASTING 109 MG/DL (70-100); MAGNESIUM LEVEL 1.8 MG/DL (1.8-2.4); POTASSIUM SERUM 2.8 MEQ/L (3.5-5.1); SODIUM LEVEL 132 MEQ/L (136-145); TOTAL PROTEIN 5.8 GM/DL (6.4-8.2)
[2022-03-23 09:28] LABS: ERYTHROCYTE SEDIMENTATION RATE 103 mm/hr (0-30)
[2022-03-23] MEDS: NS 1,000 ML IV SCH (09:32)
[2022-03-23 09:36] LABS: EOSINOPHILS 2 % (0-3); LYMPHOCYTES 13 % (16-44); MONOCYTES 9 % (0-5); NEUTROPHILS 64 % (28-66)
[2022-03-23 09:37] LABS: PLATELET ESTIMATE NORMAL (NORMAL)
[2022-03-23] MEDS: KETOROLAC 30 MG/ML 1ML VIAL IV PRN (10:53)
[2022-03-23] MEDS: MICAFUNGIN SODIUM 100 MG in D5W MINI-BAG PLUS 100 ML IV SCH (17:40)
[2022-03-23] MEDS ORDERED: MULTIVITAMIN -ADULT INJECTION 10 ML, ZINC/COPPER/MANGANESE/SELENIUM 1 ML in AMINO AC/EL... IV SCH (18:00)
[2022-03-23] MEDS ORDERED: FAT EMULSION IV 250 ML IV ONE (18:00)
[2022-03-24] VITALS (7 sets, daily range): BP systolic 113–154; BP diastolic 77–87
[2022-03-24] MEDS: PIPERACILLIN/TAZOBACTAM SOD 4.5 GM in D5W MINI-BAG PLUS 50 ML IV SCH ×4 (01:02→19:54)
[2022-03-24] MEDS: KETOROLAC 30 MG/ML 1ML VIAL IV PRN ×2 (01:02→20:04)
[2022-03-24 05:02] LABS: HEMATOCRIT 23.3 % (36.0-47.0); MEAN CORPUSCULAR HEMOGLOBIN 35.4 pg (27.0-33.0); MEAN CORPUSCULAR HGB CONC 34.3 g/dl (32.0-36.5); MEAN CORPUSCULAR VOLUME 103.1 fl (80.0-96.0); PLATELET COUNT, AUTOMATED 138 10^3/uL (150-450); RED BLOOD COUNT 2.26 10^6/uL (4.00-5.40); WHITE BLOOD COUNT 4.5 10^3/uL (4.0-10.0)
[2022-03-24] MEDS: LEVOTHYROXINE 100MCG (0.1MG) 5ML SDV PF (SOLUTION FORM) IV SCH (05:15)
[2022-03-24] MEDS: HEPARIN SOD (PORCINE) 5000UNITS/ML 1ML VIAL/SYRINGE SQ SCH ×3 (05:16→21:26)
[2022-03-24] MEDS: SODIUM CHLORIDE 0.9% INJ 10 ML SYR IV SCH ×2 (05:17→17:49)
[2022-03-24 05:24] LABS: EOSINOPHILS 3 % (0-3); LYMPHOCYTES 15 % (16-44); MONOCYTES 5 % (0-5); NEUTROPHILS 77 % (28-66); PLATELET ESTIMATE DECREASED (NORMAL)
[2022-03-24 05:29] LABS: ALBUMIN 1.6 GM/DL (3.2-5.2); ALT/SGPT 25 U/L (12-78); BILIRUBIN,TOTAL 3.5 MG/DL (0.2-1.0); BLOOD UREA NITROGEN 7 MG/DL (7-18); CALCIUM LEVEL 8.3 MG/DL (8.8-10.2); CARBON DIOXIDE LEVEL 30 MEQ/L (21-32); CHLORIDE LEVEL 99 MEQ/L (98-107); CREATININE FOR GFR 0.49 MG/DL (0.55-1.30); GLOMERULAR FILTRATION RATE > 60.0 (>45); GLUCOSE, FASTING 118 MG/DL (70-100); MAGNESIUM LEVEL 1.8 MG/DL (1.8-2.4); POTASSIUM SERUM 2.6 MEQ/L (3.5-5.1); SODIUM LEVEL 134 MEQ/L (136-145); TOTAL PROTEIN 6.5 GM/DL (6.4-8.2)
[2022-03-24] MEDS: INSULIN LISPRO (NovoLOG) PER UNIT SC SCH ×5 (05:59→23:52)
[2022-03-24] MEDS: KCL 20MEQ IN 100ML SWI (KRUN) 20 MEQ in IV 1 EA IV SCH ×10 (06:21→17:50)
[2022-03-24] MEDS ORDERED: KCL 20MEQ IN 100ML SWI (KRUN) 20 MEQ in IV 1 EA IV ONE ×2 (08:30)
[2022-03-24] MEDS ORDERED: MAG SULF 1GM/100ML (MAG RUN) 1 GM in IV 1 EA IV ONE (09:00)
[2022-03-24 09:42] LABS: POTASSIUM SERUM 3.4 MEQ/L (3.5-5.1)
[2022-03-24 09:43] LABS: MAGNESIUM LEVEL 1.9 MG/DL (1.8-2.4)
[2022-03-24] MEDS: PANTOPRAZOLE 40MG VIAL IV SCH (09:46)
[2022-03-24] MEDS: NS 1,000 ML IV SCH (09:47)
[2022-03-24] MEDS ORDERED: CALCIUM GLUCONATE 1,000 MG in D5W MINI-BAG PLUS 100 ML IV ONE (10:00)
[2022-03-24 14:12] LABS: MAGNESIUM LEVEL 2.1 MG/DL (1.8-2.4); POTASSIUM SERUM 2.9 MEQ/L (3.5-5.1)
[2022-03-24] MEDS: MICAFUNGIN SODIUM 100 MG in D5W MINI-BAG PLUS 100 ML IV SCH (16:26)
[2022-03-24] MEDS ORDERED: AMINO AC/ELECTROLYTE/DEX/CALC 1,000 ML IV SCH (18:00)
[2022-03-25] VITALS (19 sets, daily range): BP systolic 114–155; BP diastolic 57–92
[2022-03-25] MEDS: KCL 20MEQ IN 100ML SWI (KRUN) 20 MEQ in IV 1 EA IV SCH ×12 (00:28→22:00)
[2022-03-25] MEDS: KETOROLAC 30 MG/ML 1ML VIAL IV PRN ×2 (01:06→21:42)
[2022-03-25] MEDS: PIPERACILLIN/TAZOBACTAM SOD 4.5 GM in D5W MINI-BAG PLUS 50 ML IV SCH ×3 (01:45→14:37)
[2022-03-25 05:05] LABS: MEAN CORPUSCULAR HEMOGLOBIN 35.2 pg (27.0-33.0); MEAN CORPUSCULAR HGB CONC 33.8 g/dl (32.0-36.5); PLATELET COUNT, AUTOMATED 141 10^3/uL (150-450); RED BLOOD COUNT 1.99 10^6/uL (4.00-5.40); WHITE BLOOD COUNT 5.4 10^3/uL (4.0-10.0)
[2022-03-25 05:22] LABS: HEMATOCRIT 20.7 % (36.0-47.0)
[2022-03-25 05:26] LABS: ALBUMIN 1.7 GM/DL (3.2-5.2); ALT/SGPT 27 U/L (12-78); BILIRUBIN,TOTAL 4.4 MG/DL (0.2-1.0); BLOOD UREA NITROGEN 7 MG/DL (7-18); CARBON DIOXIDE LEVEL 29 MEQ/L (21-32); CHLORIDE LEVEL 103 MEQ/L (98-107); CREATININE FOR GFR 0.48 MG/DL (0.55-1.30); GLOMERULAR FILTRATION RATE > 60.0 (>45); GLUCOSE, FASTING 122 MG/DL (70-100); POTASSIUM SERUM 3.3 MEQ/L (3.5-5.1); SODIUM LEVEL 135 MEQ/L (136-145); TOTAL PROTEIN 5.9 GM/DL (6.4-8.2)
[2022-03-25] MEDS: INSULIN LISPRO (NovoLOG) PER UNIT SC SCH ×3 (05:43→17:41)
[2022-03-25 05:44] LABS: ATYPICAL LYMPH 2 % (0-5); EOSINOPHILS 2 % (0-3); LYMPHOCYTES 17 % (16-44); MONOCYTES 1 % (0-5); NEUTROPHILS 78 % (28-66); PLATELET ESTIMATE NORMAL (NORMAL)
[2022-03-25] MEDS: HEPARIN SOD (PORCINE) 5000UNITS/ML 1ML VIAL/SYRINGE SQ SCH ×3 (06:03→21:42)
[2022-03-25] MEDS: SODIUM CHLORIDE 0.9% INJ 10 ML SYR IV SCH ×2 (06:03→17:55)
[2022-03-25] MEDS: LEVOTHYROXINE 100MCG (0.1MG) 5ML SDV PF (SOLUTION FORM) IV SCH (06:03)
[2022-03-25] MEDS: PANTOPRAZOLE 40MG VIAL IV SCH (08:55)
[2022-03-25] MEDS: NS 1,000 ML IV SCH (10:20)
[2022-03-25 16:50] LABS: HEMATOCRIT 29.1 % (36.0-47.0)
[2022-03-25] MEDS ORDERED: FLUCONAZOLE 400 MG in IV 1 EA IV SCH (17:00)
[2022-03-25 17:11] LABS: HEMOGLOBIN 9.8 g/dl (12.0-15.5)
[2022-03-25] MEDS ORDERED: MULTIVITAMIN -ADULT INJECTION 10 ML, ZINC/COPPER/MANGANESE/SELENIUM 1 ML, POTASSIUM CHL... IV SCH ×4 (18:00)
[2022-03-25] MEDS: FLUCONAZOLE 400 MG in IV 1 EA IV SCH (19:29)
[2022-03-25 21:50] LABS: HEMATOCRIT 28.1 % (36.0-47.0); HEMOGLOBIN 9.7 g/dl (12.0-15.5)
[2022-03-26] VITALS (13 sets, daily range): BP systolic 125–151; BP diastolic 75–109
[2022-03-26] MEDS: KCL 20MEQ IN 100ML SWI (KRUN) 20 MEQ in IV 1 EA IV SCH ×4 (02:01→05:34)
[2022-03-26] MEDS: NS 1,000 ML IV SCH (02:58)
[2022-03-26 04:51] LABS: HEMATOCRIT 27.2 % (36.0-47.0); HEMOGLOBIN 9.1 g/dl (12.0-15.5); MEAN CORPUSCULAR HEMOGLOBIN 33.7 pg (27.0-33.0); MEAN CORPUSCULAR HGB CONC 33.5 g/dl (32.0-36.5); MEAN CORPUSCULAR VOLUME 100.7 fl (80.0-96.0); PLATELET COUNT, AUTOMATED 151 10^3/uL (150-450); WHITE BLOOD COUNT 6.2 10^3/uL (4.0-10.0)
[2022-03-26 05:03] LABS: BASOPHILS 2 % (0-1); LYMPHOCYTES 14 % (16-44); MONOCYTES 5 % (0-5); NEUTROPHILS 76 % (28-66); PLATELET ESTIMATE NORMAL (NORMAL)
[2022-03-26 05:04] LABS: ANISOCYTOSIS 1+; PLATELET CLUMPS SMALL AMT
[2022-03-26 05:22] LABS: ALBUMIN 1.8 GM/DL (3.2-5.2); ALT/SGPT 33 U/L (12-78); BLOOD UREA NITROGEN 7 MG/DL (7-18); CALCIUM LEVEL 8.1 MG/DL (8.8-10.2); CARBON DIOXIDE LEVEL 24 MEQ/L (21-32); CHLORIDE LEVEL 105 MEQ/L (98-107); CREATININE FOR GFR 0.47 MG/DL (0.55-1.30); GLOMERULAR FILTRATION RATE > 60.0 (>45); GLUCOSE, FASTING 109 MG/DL (70-100); MAGNESIUM LEVEL 1.9 MG/DL (1.8-2.4); POTASSIUM SERUM 4.5 MEQ/L (3.5-5.1); SODIUM LEVEL 134 MEQ/L (136-145); TOTAL PROTEIN 6.3 GM/DL (6.4-8.2)
[2022-03-26] MEDS: SODIUM CHLORIDE 0.9% INJ 10 ML SYR IV SCH ×2 (05:35→17:25)
[2022-03-26] MEDS: INSULIN LISPRO (NovoLOG) PER UNIT SC SCH ×4 (05:44→17:15)
[2022-03-26] MEDS: LEVOTHYROXINE 100MCG (0.1MG) 5ML SDV PF (SOLUTION FORM) IV SCH (05:45)
[2022-03-26] MEDS: KETOROLAC 30 MG/ML 1ML VIAL IV PRN (05:45)
[2022-03-26] MEDS: HEPARIN SOD (PORCINE) 5000UNITS/ML 1ML VIAL/SYRINGE SQ SCH ×3 (05:45→23:31)
[2022-03-26] MEDS: PANTOPRAZOLE 40MG VIAL IV SCH (08:14)
[2022-03-26 09:05] LABS: LDH LACTATE DEHYDROGENASE 244 U/L (84-246)
[2022-03-26] MEDS: METOPROLOL 5 MG/5 ML VIAL IV SCH ×3 (11:31→23:31)
[2022-03-26] MEDS: DIGOXIN INJ 0.5 MG/2 ML AMP (J1160) IV SCH ×2 (11:32→17:25)
[2022-03-26] MEDS: FLUCONAZOLE 400 MG in IV 1 EA IV SCH (17:24)
[2022-03-26] MEDS ORDERED: POTASSIUM CHLORIDE INJ 55.6 MEQ in AMINO AC/ELECTROLYTE/DEX/CALC 2,000 ML IV SCH (18:00)
[2022-03-27] VITALS (25 sets, daily range): BP systolic 112–157; BP diastolic 58–94
[2022-03-27] MEDS: DIGOXIN INJ 0.5 MG/2 ML AMP (J1160) IV SCH (00:08)
[2022-03-27] MEDS: METOPROLOL 5 MG/5 ML VIAL IV SCH (03:30)
[2022-03-27] MEDS: HYDROMORPHONE HCL 0.5 MG/ 0.5 ML SYRINGE (J1170 PER 1) IV PRN (03:30)
[2022-03-27] MEDS: INSULIN LISPRO (NovoLOG) PER UNIT SC SCH ×4 (05:38→18:00)
[2022-03-27] MEDS: LEVOTHYROXINE 100MCG (0.1MG) 5ML SDV PF (SOLUTION FORM) IV SCH (05:40)
[2022-03-27] MEDS: SODIUM CHLORIDE 0.9% INJ 10 ML SYR IV SCH ×2 (05:41→18:00)
[2022-03-27] MEDS: HEPARIN SOD (PORCINE) 5000UNITS/ML 1ML VIAL/SYRINGE SQ SCH ×3 (05:41→21:48)
[2022-03-27 06:05] LABS: HEMATOCRIT 27.1 % (36.0-47.0); MEAN CORPUSCULAR HEMOGLOBIN 33.8 pg (27.0-33.0); MEAN CORPUSCULAR HGB CONC 33.2 g/dl (32.0-36.5); MEAN CORPUSCULAR VOLUME 101.9 fl (80.0-96.0); PLATELET COUNT, AUTOMATED 167 10^3/uL (150-450); RED BLOOD COUNT 2.66 10^6/uL (4.00-5.40)
[2022-03-27 06:41] LABS: BASOPHILS 1 % (0-1); EOSINOPHILS 1 % (0-3); LYMPHOCYTES 9 % (16-44); MONOCYTES 3 % (0-5); NEUTROPHILS 83 % (28-66); PLASMA CELL 2 % (0-0)
[2022-03-27 06:42] LABS: ANISOCYTOSIS 1+; PLATELET ESTIMATE NORMAL (NORMAL)
[2022-03-27 06:43] LABS: POLYCHROMASIA 1+
[2022-03-27 06:52] LABS: ALBUMIN 1.9 GM/DL (3.2-5.2); ALT/SGPT 36 U/L (12-78); BLOOD UREA NITROGEN 12 MG/DL (7-18); CALCIUM LEVEL 8.5 MG/DL (8.8-10.2); CARBON DIOXIDE LEVEL 25 MEQ/L (21-32); CHLORIDE LEVEL 106 MEQ/L (98-107); CREATININE FOR GFR 0.53 MG/DL (0.55-1.30); DIGOXIN LEVEL 0.9 NG/ML (0.5-2.0); GLOMERULAR FILTRATION RATE > 60.0 (>45); GLUCOSE, FASTING 114 MG/DL (70-100); POTASSIUM SERUM 3.9 MEQ/L (3.5-5.1); SODIUM LEVEL 137 MEQ/L (136-145); TOTAL PROTEIN 6.6 GM/DL (6.4-8.2)
[2022-03-27] MEDS: NS 1,000 ML IV SCH (08:45)
[2022-03-27] MEDS: DIGOXIN 0.125 MG TAB NG SCH (09:19)
[2022-03-27] MEDS: PANTOPRAZOLE 40MG VIAL IV SCH (09:19)
[2022-03-27] MEDS: METOPROLOL TART 25 MG TABLET NG SCH ×2 (11:27→18:13)
[2022-03-27] MEDS ORDERED: diphenhydrAMINE 50MG/ML VIAL (J1200) IV STA (13:47)
[2022-03-27] MEDS ORDERED: LORazepam 2 MG/ML VIAL IV STA (13:48)
[2022-03-27] MEDS ORDERED: PROMETHAZINE 25MG/ML 1ML VIAL IV ONE (14:00)
[2022-03-27] MEDS ORDERED: diphenhydrAMINE 25MG CAP PO PRN (17:10)
[2022-03-27] MEDS ORDERED: ELECTROLYTE IV SCH (18:00)
[2022-03-27] MEDS ORDERED: POTASSIUM CHLORIDE IV SCH (18:00)
[2022-03-27] MEDS ORDERED: CALC IV SCH (18:00)
[2022-03-27] MEDS ORDERED: AMINO AC IV SCH (18:00)
[2022-03-27] MEDS ORDERED: DEX IV SCH (18:00)
[2022-03-27] MEDS: FLUCONAZOLE 400 MG in IV 1 EA IV SCH (18:13)
[2022-03-28] VITALS (7 sets, daily range): BP systolic 99–155; BP diastolic 59–78
[2022-03-28] MEDS: METOPROLOL TART 25 MG TABLET NG SCH ×4 (00:11→17:56)
[2022-03-28] MEDS: INSULIN LISPRO (NovoLOG) PER UNIT SC SCH ×4 (00:20→17:56)
[2022-03-28] MEDS: HYDROMORPHONE HCL 0.5 MG/ 0.5 ML SYRINGE (J1170 PER 1) IV PRN (01:40)
[2022-03-28] MEDS: LEVOTHYROXINE 100MCG (0.1MG) 5ML SDV PF (SOLUTION FORM) IV SCH (05:38)
[2022-03-28] MEDS: SODIUM CHLORIDE 0.9% INJ 10 ML SYR IV SCH ×2 (05:38→17:57)
[2022-03-28] MEDS: HEPARIN SOD (PORCINE) 5000UNITS/ML 1ML VIAL/SYRINGE SQ SCH ×4 (05:39→21:53)
[2022-03-28 05:57] LABS: BASO % 0.5 % (0.0-1.0); EOS # 0.2 10^3/uL (0.0-0.5); EOS % 1.8 % (0.0-3.0); HEMATOCRIT 27.3 % (36.0-47.0); LYMPH # 1.3 10^3/uL (1.5-5.0); LYMPH % 14.7 % (24.0-44.0); MEAN CORPUSCULAR HEMOGLOBIN 33.6 pg (27.0-33.0); MEAN CORPUSCULAR VOLUME 101.9 fl (80.0-96.0); MONO # 0.7 10^3/uL (0.0-0.8); MONO % 7.6 % (2.0-8.0); NEUTROPHILS # 6.4 10^3/uL (1.5-8.5); NEUTROPHILS % 74.6 % (36.0-66.0); PLATELET COUNT, AUTOMATED 187 10^3/uL (150-450); RED BLOOD COUNT 2.68 10^6/uL (4.00-5.40); WHITE BLOOD COUNT 8.6 10^3/uL (4.0-10.0)
[2022-03-28 06:50] LABS: ALBUMIN 1.9 GM/DL (3.2-5.2); ALT/SGPT 42 U/L (12-78); BILIRUBIN,TOTAL 6.4 MG/DL (0.2-1.0); BLOOD UREA NITROGEN 14 MG/DL (7-18); CALCIUM LEVEL 8.3 MG/DL (8.8-10.2); CARBON DIOXIDE LEVEL 26 MEQ/L (21-32); CHLORIDE LEVEL 101 MEQ/L (98-107); CREATININE FOR GFR 0.49 MG/DL (0.55-1.30); DIGOXIN LEVEL 0.8 NG/ML (0.5-2.0); GLOMERULAR FILTRATION RATE > 60.0 (>45); GLUCOSE, FASTING 90 MG/DL (70-100); MAGNESIUM LEVEL 1.9 MG/DL (1.8-2.4); POTASSIUM SERUM 4.4 MEQ/L (3.5-5.1); SODIUM LEVEL 131 MEQ/L (136-145)
[2022-03-28] MEDS: DIGOXIN 0.125 MG TAB NG SCH (09:12)
[2022-03-28] MEDS: PANTOPRAZOLE 40MG VIAL IV SCH (09:12)
[2022-03-28] MEDS: NS 1,000 ML IV SCH (09:24)
[2022-03-28 11:31] LABS: PHOSPHORUS LEVEL 3.3 MG/DL (2.5-4.9)
[2022-03-28] MEDS ORDERED: KETOROLAC 30 MG/ML 1ML VIAL As Ordered ONE (12:38)
[2022-03-28] MEDS ORDERED: KETOROLAC 30 MG/ML 1ML VIAL IV ONE (12:40)
[2022-03-28] MEDS ORDERED: MULTIVITAMIN -ADULT INJECTION 10 ML, ZINC/COPPER/MANGANESE/SELENIUM 1 ML, POTASSIUM CHL... IV SCH ×4 (18:00)
[2022-03-28] MEDS: FLUCONAZOLE 400 MG in IV 1 EA IV SCH (18:23)
[2022-03-28] MEDS: predniSONE 20 MG TAB NG SCH (21:53)
[2022-03-29] VITALS: BP 142/73
[2022-03-29] MEDS: METOPROLOL TART 25 MG TABLET NG SCH ×3 (00:36→12:40)
[2022-03-29] MEDS: INSULIN LISPRO (NovoLOG) PER UNIT SC SCH ×4 (00:40→18:00)
[2022-03-29 05:00] VITALS: BP 157/83
[2022-03-29] MEDS: SODIUM CHLORIDE 0.9% INJ 10 ML SYR IV SCH ×2 (06:00→17:09)
[2022-03-29 06:43] LABS: BASO % 0.2 % (0.0-1.0); HEMATOCRIT 26.9 % (36.0-47.0); HEMOGLOBIN 8.8 g/dl (12.0-15.5); LYMPH # 0.3 10^3/uL (1.5-5.0); LYMPH % 5.1 % (24.0-44.0); MEAN CORPUSCULAR HEMOGLOBIN 33.2 pg (27.0-33.0); MEAN CORPUSCULAR HGB CONC 32.7 g/dl (32.0-36.5); MEAN CORPUSCULAR VOLUME 101.5 fl (80.0-96.0); MONO # 0.2 10^3/uL (0.0-0.8); MONO % 2.5 % (2.0-8.0); NEUTROPHILS # 5.6 10^3/uL (1.5-8.5); NEUTROPHILS % 91.4 % (36.0-66.0); PLATELET COUNT, AUTOMATED 164 10^3/uL (150-450); RED BLOOD COUNT 2.65 10^6/uL (4.00-5.40); WHITE BLOOD COUNT 6.1 10^3/uL (4.0-10.0)
[2022-03-29] MEDS: LEVOTHYROXINE 100MCG (0.1MG) 5ML SDV PF (SOLUTION FORM) IV SCH (06:46)
[2022-03-29] MEDS: HEPARIN SOD (PORCINE) 5000UNITS/ML 1ML VIAL/SYRINGE SQ SCH ×3 (06:46→21:37)
[2022-03-29 07:24] LABS: ALBUMIN 2.1 GM/DL (3.2-5.2); ALT/SGPT 41 U/L (12-78); BILIRUBIN,TOTAL 5.6 MG/DL (0.2-1.0); BLOOD UREA NITROGEN 18 MG/DL (7-18); CALCIUM LEVEL 8.6 MG/DL (8.8-10.2); CARBON DIOXIDE LEVEL 25 MEQ/L (21-32); CHLORIDE LEVEL 104 MEQ/L (98-107); CREATININE FOR GFR 0.57 MG/DL (0.55-1.30); GLOMERULAR FILTRATION RATE > 60.0 (>45); GLUCOSE, FASTING 178 MG/DL (70-100); POTASSIUM SERUM 3.7 MEQ/L (3.5-5.1); SODIUM LEVEL 135 MEQ/L (136-145)
[2022-03-29 08:00] VITALS: BP 128/77
[2022-03-29] MEDS: predniSONE 20 MG TAB NG SCH (08:59)
[2022-03-29] MEDS: PANTOPRAZOLE 40MG VIAL IV SCH (08:59)
[2022-03-29] MEDS ORDERED: predniSONE 20 MG TAB NG SCH (09:00)
[2022-03-29] MEDS ORDERED: [UNRECOGNIZED DRUG - REMARK] XX SCH (09:00)
[2022-03-29] MEDS: DIGOXIN 0.125 MG TAB NG SCH (09:00)
[2022-03-29] MEDS: NS 1,000 ML IV SCH (10:50)
[2022-03-29 12:00] VITALS: BP 137/73
[2022-03-29] MEDS: THIAMINE 200MG 2ML VIAL IV SCH (12:40)
[2022-03-29] MEDS: FOLIC ACID 1MG TAB PO SCH (12:40)
[2022-03-29] MEDS ORDERED: HALOPERIDOL 5MG/ML VIAL (J1630 PER 1) IV ONE (15:25)
[2022-03-29] MEDS ORDERED: LORazepam 2 MG/ML VIAL IV ONE (15:25)
[2022-03-29 16:00] VITALS: BP 127/96
[2022-03-29] MEDS: FLUCONAZOLE 400 MG in IV 1 EA IV SCH (17:08)
[2022-03-29] MEDS: METOPROLOL TART 25 MG TABLET PO SCH (17:11)
[2022-03-29] MEDS ORDERED: flumazeniL 0.5 MG/5 ML VIAL As Ordered ONE (17:26)
[2022-03-29] MEDS ORDERED: POTASSIUM CHLORIDE INJ 55.6 MEQ in AMINO AC/ELECTROLYTE/DEX/CALC 2,000 ML IV SCH (18:00)
[2022-03-29] MEDS: MULTIVITAMINS/MINERALS THERAP 1 TAB PO SCH (20:28)
[2022-03-29] MEDS: OLANZapine ORAL DISINTEGRATING TAB 5MG PO PRN (21:37)
[2022-03-29 22:00] VITALS: BP 156/82
[2022-03-30] MEDS: METOPROLOL TART 25 MG TABLET PO SCH ×5 (00:33→23:53)
[2022-03-30 06:00] VITALS: BP 124/65
[2022-03-30] MEDS: SODIUM CHLORIDE 0.9% INJ 10 ML SYR IV SCH ×2 (06:00→18:20)
[2022-03-30] MEDS: INSULIN LISPRO (NovoLOG) PER UNIT SC SCH ×2 (06:00)
[2022-03-30 06:07] LABS: BASO % 0.3 % (0.0-1.0); EOS # 0.1 10^3/uL (0.0-0.5); EOS % 0.9 % (0.0-3.0); HEMATOCRIT 28.3 % (36.0-47.0); HEMOGLOBIN 9.5 g/dl (12.0-15.5); LYMPH # 0.9 10^3/uL (1.5-5.0); LYMPH % 10.7 % (24.0-44.0); MEAN CORPUSCULAR HEMOGLOBIN 34.3 pg (27.0-33.0); MEAN CORPUSCULAR HGB CONC 33.6 g/dl (32.0-36.5); MEAN CORPUSCULAR VOLUME 102.2 fl (80.0-96.0); MONO # 0.4 10^3/uL (0.0-0.8); MONO % 5.3 % (2.0-8.0); NEUTROPHILS # 6.5 10^3/uL (1.5-8.5); PLATELET COUNT, AUTOMATED 193 10^3/uL (150-450); RED BLOOD COUNT 2.77 10^6/uL (4.00-5.40); WHITE BLOOD COUNT 7.9 10^3/uL (4.0-10.0)
[2022-03-30] MEDS: HEPARIN SOD (PORCINE) 5000UNITS/ML 1ML VIAL/SYRINGE SQ SCH ×3 (06:09→22:01)
[2022-03-30 06:37] LABS: ALBUMIN 2.1 GM/DL (3.2-5.2); ALT/SGPT 53 U/L (12-78); BILIRUBIN,TOTAL 6.1 MG/DL (0.2-1.0); BLOOD UREA NITROGEN 19 MG/DL (7-18); CALCIUM LEVEL 8.7 MG/DL (8.8-10.2); CARBON DIOXIDE LEVEL 24 MEQ/L (21-32); CHLORIDE LEVEL 103 MEQ/L (98-107); CREATININE FOR GFR 0.62 MG/DL (0.55-1.30); GLOMERULAR FILTRATION RATE > 60.0 (>45); GLUCOSE, FASTING 117 MG/DL (70-100); POTASSIUM SERUM 4.1 MEQ/L (3.5-5.1); SODIUM LEVEL 132 MEQ/L (136-145); TOTAL PROTEIN 7.3 GM/DL (6.4-8.2)
[2022-03-30] MEDS: LEVOTHYROXINE 100MCG (0.1MG) 5ML SDV PF (SOLUTION FORM) IV SCH (07:08)
[2022-03-30] MEDS ORDERED: [UNRECOGNIZED DRUG - REMARK] XX SCH (09:00)
[2022-03-30] MEDS: FOLIC ACID 1MG TAB PO SCH (09:40)
[2022-03-30] MEDS: PANTOPRAZOLE 40MG VIAL IV SCH (09:40)
[2022-03-30] MEDS: MULTIVITAMINS/MINERALS THERAP 1 TAB PO SCH ×2 (09:40→21:59)
[2022-03-30] MEDS: DIGOXIN 0.125 MG TAB PO SCH (09:42)
[2022-03-30] MEDS: THIAMINE 200MG 2ML VIAL IV SCH (10:00)
[2022-03-30] MEDS ORDERED: FLUBLOK(EGG FREE)(QUAD)INFLUENZA VACC 0.5ML SYRINGE 18YRS & OLDER IM.IMMUN ONE (10:00)
[2022-03-30] MEDS: NS 1,000 ML IV SCH (10:02)
[2022-03-30 14:00] VITALS: BP 142/91
[2022-03-30] MEDS: FLUCONAZOLE 400 MG in IV 1 EA IV SCH (18:20)
[2022-03-30] MEDS ORDERED: KETOROLAC 30 MG/ML 1ML VIAL IV PRN (19:50)
[2022-03-30] MEDS ORDERED: traMADol 50 MG TAB PO PRN (19:50)
[2022-03-30 21:05] VITALS: BP 130/78
[2022-03-30] MEDS: OLANZapine ORAL DISINTEGRATING TAB 5MG PO PRN (21:59)
[2022-03-30] MEDS: THIAMINE 100 MG TAB PO SCH (21:59)
[2022-03-31] MEDS: SODIUM CHLORIDE 0.9% INJ 10 ML SYR IV SCH ×2 (05:32→17:56)
[2022-03-31] MEDS: LEVOTHYROXINE 25MCG TABLET (0.025MG) PO SCH (05:32)
[2022-03-31] MEDS: METOPROLOL TART 25 MG TABLET PO SCH ×3 (05:32→17:56)
[2022-03-31] MEDS: HEPARIN SOD (PORCINE) 5000UNITS/ML 1ML VIAL/SYRINGE SQ SCH ×3 (05:34→21:29)
[2022-03-31 06:37] LABS: BASO % 0.6 % (0.0-1.0); EOS # 0.2 10^3/uL (0.0-0.5); EOS % 2.2 % (0.0-3.0); HEMATOCRIT 27.4 % (36.0-47.0); HEMOGLOBIN 9.2 g/dl (12.0-15.5); LYMPH # 0.9 10^3/uL (1.5-5.0); LYMPH % 12.5 % (24.0-44.0); MEAN CORPUSCULAR HEMOGLOBIN 34.5 pg (27.0-33.0); MEAN CORPUSCULAR HGB CONC 33.6 g/dl (32.0-36.5); MEAN CORPUSCULAR VOLUME 102.6 fl (80.0-96.0); MONO # 0.5 10^3/uL (0.0-0.8); MONO % 6.7 % (2.0-8.0); NEUTROPHILS # 5.6 10^3/uL (1.5-8.5); NEUTROPHILS % 77.4 % (36.0-66.0); PLATELET COUNT, AUTOMATED 172 10^3/uL (150-450); RED BLOOD COUNT 2.67 10^6/uL (4.00-5.40); WHITE BLOOD COUNT 7.3 10^3/uL (4.0-10.0)
[2022-03-31 06:38] VITALS: BP 125/77
[2022-03-31 07:07] LABS: ALBUMIN 2.1 GM/DL (3.2-5.2); ALT/SGPT 68 U/L (12-78); BILIRUBIN,TOTAL 7.1 MG/DL (0.2-1.0); BLOOD UREA NITROGEN 14 MG/DL (7-18); CALCIUM LEVEL 8.8 MG/DL (8.8-10.2); CARBON DIOXIDE LEVEL 24 MEQ/L (21-32); CHLORIDE LEVEL 100 MEQ/L (98-107); CREATININE FOR GFR 0.61 MG/DL (0.55-1.30); GLOMERULAR FILTRATION RATE > 60.0 (>45); GLUCOSE, FASTING 92 MG/DL (70-100); POTASSIUM SERUM 3.6 MEQ/L (3.5-5.1); SODIUM LEVEL 132 MEQ/L (136-145)
[2022-03-31] MEDS ORDERED: LACTULOSE 20 GM/30 ML SYRUP UD PO ONE (09:50)
[2022-03-31] MEDS: MULTIVITAMINS/MINERALS THERAP 1 TAB PO SCH ×3 (09:59→21:29)
[2022-03-31] MEDS: FOLIC ACID 1MG TAB PO SCH ×2 (09:59→10:09)
[2022-03-31] MEDS: DIGOXIN 0.125 MG TAB PO SCH ×2 (09:59→10:10)
[2022-03-31] MEDS: PANTOPRAZOLE 40MG TAB (PROTONIX) PO SCH ×2 (10:00→10:10)
[2022-03-31] MEDS: THIAMINE 100 MG TAB PO SCH ×3 (10:00→21:29)
[2022-03-31] MEDS: NS 1,000 ML IV SCH (10:01)
[2022-03-31 14:00] VITALS: BP 143/80
[2022-03-31] MEDS: FLUCONAZOLE 400 MG in IV 1 EA IV SCH (17:56)
[2022-03-31 21:00] VITALS: BP 120/68
[2022-03-31] MEDS: OLANZapine ORAL DISINTEGRATING TAB 5MG PO PRN (21:29)
[2022-04-01] MEDS: METOPROLOL TART 25 MG TABLET PO SCH ×4 (00:17→17:13)
[2022-04-01] MEDS: LEVOTHYROXINE 25MCG TABLET (0.025MG) PO SCH (05:56)
[2022-04-01] MEDS: HEPARIN SOD (PORCINE) 5000UNITS/ML 1ML VIAL/SYRINGE SQ SCH ×3 (05:57→21:38)
[2022-04-01] MEDS: SODIUM CHLORIDE 0.9% INJ 10 ML SYR IV SCH ×2 (05:57→17:13)
[2022-04-01 06:04] VITALS: BP 140/74
[2022-04-01 06:37] LABS: BASO % 0.5 % (0.0-1.0); EOS # 0.1 10^3/uL (0.0-0.5); EOS % 1.7 % (0.0-3.0); HEMATOCRIT 28.7 % (36.0-47.0); HEMOGLOBIN 9.6 g/dl (12.0-15.5); LYMPH # 0.9 10^3/uL (1.5-5.0); LYMPH % 11.1 % (24.0-44.0); MEAN CORPUSCULAR HEMOGLOBIN 34.3 pg (27.0-33.0); MEAN CORPUSCULAR HGB CONC 33.4 g/dl (32.0-36.5); MEAN CORPUSCULAR VOLUME 102.5 fl (80.0-96.0); MONO # 0.5 10^3/uL (0.0-0.8); MONO % 6.3 % (2.0-8.0); NEUTROPHILS # 6.2 10^3/uL (1.5-8.5); NEUTROPHILS % 79.8 % (36.0-66.0); PLATELET COUNT, AUTOMATED 181 10^3/uL (150-450); WHITE BLOOD COUNT 7.8 10^3/uL (4.0-10.0)
[2022-04-01 07:17] LABS: ALBUMIN 2.2 GM/DL (3.2-5.2); ALT/SGPT 80 U/L (12-78); BLOOD UREA NITROGEN 12 MG/DL (7-18); CALCIUM LEVEL 9.2 MG/DL (8.8-10.2); CARBON DIOXIDE LEVEL 25 MEQ/L (21-32); CHLORIDE LEVEL 102 MEQ/L (98-107); GLOMERULAR FILTRATION RATE > 60.0 (>45); GLUCOSE, FASTING 105 MG/DL (70-100); POTASSIUM SERUM 3.3 MEQ/L (3.5-5.1); SODIUM LEVEL 134 MEQ/L (136-145); TOTAL PROTEIN 7.3 GM/DL (6.4-8.2)
[2022-04-01] MEDS: KCL 10MEQ/100ML SWI (KRUN) 10 MEQ in IV 2 EA IV SCH ×2 (08:39→10:46)
[2022-04-01] MEDS: PANTOPRAZOLE 40MG TAB (PROTONIX) PO SCH (08:39)
[2022-04-01] MEDS: MULTIVITAMINS/MINERALS THERAP 1 TAB PO SCH ×2 (08:39→20:13)
[2022-04-01] MEDS: DIGOXIN 0.125 MG TAB PO SCH (08:41)
[2022-04-01] MEDS: THIAMINE 100 MG TAB PO SCH ×2 (08:41→20:13)
[2022-04-01] MEDS: FOLIC ACID 1MG TAB PO SCH (08:41)
[2022-04-01] MEDS: NS 1,000 ML IV SCH (10:45)
[2022-04-01] MEDS: LACTULOSE 20 GM/30 ML SYRUP UD PO SCH ×2 (12:00→20:13)
[2022-04-01] MEDS: FLUCONAZOLE 400 MG in IV 1 EA IV SCH (17:13)
[2022-04-01 21:20] VITALS: BP 124/64
[2022-04-02] MEDS: METOPROLOL TART 25 MG TABLET PO SCH ×5 (00:28→23:16)
[2022-04-02 04:50] VITALS: BP 122/70
[2022-04-02] MEDS: SODIUM CHLORIDE 0.9% INJ 10 ML SYR IV SCH ×2 (05:26→18:28)
[2022-04-02] MEDS: HEPARIN SOD (PORCINE) 5000UNITS/ML 1ML VIAL/SYRINGE SQ SCH ×3 (05:26→23:10)
[2022-04-02] MEDS: LEVOTHYROXINE 25MCG TABLET (0.025MG) PO SCH (05:26)
[2022-04-02 06:09] LABS: BASO # 0.1 10^3/uL (0.0-0.2); BASO % 0.6 % (0.0-1.0); EOS # 0.1 10^3/uL (0.0-0.5); EOS % 1.2 % (0.0-3.0); HEMATOCRIT 29.9 % (36.0-47.0); HEMOGLOBIN 9.7 g/dl (12.0-15.5); LYMPH # 0.9 10^3/uL (1.5-5.0); MEAN CORPUSCULAR HEMOGLOBIN 34.3 pg (27.0-33.0); MEAN CORPUSCULAR HGB CONC 32.4 g/dl (32.0-36.5); MEAN CORPUSCULAR VOLUME 105.7 fl (80.0-96.0); MONO # 0.5 10^3/uL (0.0-0.8); MONO % 5.9 % (2.0-8.0); NEUTROPHILS # 7.1 10^3/uL (1.5-8.5); NEUTROPHILS % 81.7 % (36.0-66.0); PLATELET COUNT, AUTOMATED 170 10^3/uL (150-450); RED BLOOD COUNT 2.83 10^6/uL (4.00-5.40); WHITE BLOOD COUNT 8.6 10^3/uL (4.0-10.0)
[2022-04-02 06:49] LABS: ALBUMIN 2.3 GM/DL (3.2-5.2); ALT/SGPT 76 U/L (12-78); BILIRUBIN,TOTAL 9.7 MG/DL (0.2-1.0); BLOOD UREA NITROGEN 9 MG/DL (7-18); CALCIUM LEVEL 8.9 MG/DL (8.8-10.2); CARBON DIOXIDE LEVEL 26 MEQ/L (21-32); CHLORIDE LEVEL 104 MEQ/L (98-107); CREATININE FOR GFR 0.64 MG/DL (0.55-1.30); GLOMERULAR FILTRATION RATE > 60.0 (>45); GLUCOSE, FASTING 101 MG/DL (70-100); POTASSIUM SERUM 3.4 MEQ/L (3.5-5.1); SODIUM LEVEL 137 MEQ/L (136-145)
[2022-04-02 08:00] VITALS: BP 127/77
[2022-04-02] MEDS ORDERED: KCL 10MEQ/100ML SWI (KRUN) 10 MEQ in IV 1 EA IV ONE (09:00)
[2022-04-02] MEDS: FOLIC ACID 1MG TAB PO SCH (09:43)
[2022-04-02] MEDS: MULTIVITAMINS/MINERALS THERAP 1 TAB PO SCH ×2 (09:43→20:17)
[2022-04-02] MEDS: DIGOXIN 0.125 MG TAB PO SCH (09:43)
[2022-04-02] MEDS: PANTOPRAZOLE 40MG TAB (PROTONIX) PO SCH (09:43)
[2022-04-02] MEDS: LACTULOSE 20 GM/30 ML SYRUP UD PO SCH ×2 (09:44→20:17)
[2022-04-02] MEDS: THIAMINE 100 MG TAB PO SCH ×2 (09:44→20:17)
[2022-04-02] MEDS: KCL 40MEQ in NS 1000ML 1,000 ML IV SCH (11:08)
[2022-04-02 14:00] VITALS: BP 128/79
[2022-04-02] MEDS: OLANZapine ORAL DISINTEGRATING TAB 5MG PO PRN (15:46)
[2022-04-02] MEDS: FLUCONAZOLE 400 MG in IV 1 EA IV SCH (18:15)
[2022-04-02 20:00] VITALS: BP 112/68
[2022-04-03 04:40] VITALS: BP 118/60
[2022-04-03] MEDS: SODIUM CHLORIDE 0.9% INJ 10 ML SYR IV SCH ×2 (05:51→17:38)
[2022-04-03] MEDS: HEPARIN SOD (PORCINE) 5000UNITS/ML 1ML VIAL/SYRINGE SQ SCH ×3 (05:51→23:30)
[2022-04-03] MEDS: LEVOTHYROXINE 25MCG TABLET (0.025MG) PO SCH (05:51)
[2022-04-03] MEDS: METOPROLOL TART 25 MG TABLET PO SCH ×4 (05:52→23:30)
[2022-04-03 06:31] LABS: BASO % 0.3 % (0.0-1.0); EOS # 0.1 10^3/uL (0.0-0.5); EOS % 1.3 % (0.0-3.0); HEMATOCRIT 26.5 % (36.0-47.0); HEMOGLOBIN 8.8 g/dl (12.0-15.5); LYMPH # 0.9 10^3/uL (1.5-5.0); LYMPH % 12.4 % (24.0-44.0); MEAN CORPUSCULAR HEMOGLOBIN 34.9 pg (27.0-33.0); MEAN CORPUSCULAR HGB CONC 33.2 g/dl (32.0-36.5); MEAN CORPUSCULAR VOLUME 105.2 fl (80.0-96.0); MONO # 0.6 10^3/uL (0.0-0.8); MONO % 7.8 % (2.0-8.0); NEUTROPHILS # 5.5 10^3/uL (1.5-8.5); NEUTROPHILS % 77.6 % (36.0-66.0); PLATELET COUNT, AUTOMATED 167 10^3/uL (150-450); RED BLOOD COUNT 2.52 10^6/uL (4.00-5.40); WHITE BLOOD COUNT 7.1 10^3/uL (4.0-10.0)
[2022-04-03 06:41] LABS: INR 1.43; PROTHROMBIN TIME 17.9 SECONDS (12.7-14.5)
[2022-04-03 06:43] LABS: PARTIAL THROMBOPLASTIN TIME 57.9 SECONDS (25.9-37.0)
[2022-04-03 07:07] LABS: ALBUMIN 2.1 GM/DL (3.2-5.2); ALT/SGPT 69 U/L (12-78); BILIRUBIN,TOTAL 10.3 MG/DL (0.2-1.0); BLOOD UREA NITROGEN 12 MG/DL (7-18); CALCIUM LEVEL 8.7 MG/DL (8.8-10.2); CARBON DIOXIDE LEVEL 25 MEQ/L (21-32); CHLORIDE LEVEL 106 MEQ/L (98-107); CREATININE FOR GFR 0.63 MG/DL (0.55-1.30); GLOMERULAR FILTRATION RATE > 60.0 (>45); GLUCOSE, FASTING 113 MG/DL (70-100); POTASSIUM SERUM 3.8 MEQ/L (3.5-5.1); SODIUM LEVEL 138 MEQ/L (136-145); TOTAL PROTEIN 6.7 GM/DL (6.4-8.2)
[2022-04-03] MEDS: FOLIC ACID 1MG TAB PO SCH (08:13)
[2022-04-03] MEDS: DIGOXIN 0.125 MG TAB PO SCH (08:14)
[2022-04-03] MEDS: PANTOPRAZOLE 40MG TAB (PROTONIX) PO SCH (08:14)
[2022-04-03] MEDS: MULTIVITAMINS/MINERALS THERAP 1 TAB PO SCH ×2 (08:15→20:13)
[2022-04-03] MEDS: THIAMINE 100 MG TAB PO SCH ×2 (08:15→20:13)
[2022-04-03] MEDS: LACTULOSE 20 GM/30 ML SYRUP UD PO SCH ×2 (08:15→20:13)
[2022-04-03 08:52] LABS: BILIRUBIN,DIRECT 8.3 MG/DL (0.0-0.2)
[2022-04-03] MEDS: KCL 40MEQ in NS 1000ML 1,000 ML IV SCH (09:54)
[2022-04-03] MEDS: FLUCONAZOLE 400 MG in IV 1 EA IV SCH (17:23)
[2022-04-03] MEDS: INSULIN LISPRO (NovoLOG) PER UNIT SC SCH ×2 (17:47→23:31)
[2022-04-03] MEDS ORDERED: FAT EMULSION IV 250 ML IV ONE (18:00)
[2022-04-03] MEDS ORDERED: DEX IV SCH (18:00)
[2022-04-03] MEDS ORDERED: AMINO AC IV SCH (18:00)
[2022-04-03] MEDS ORDERED: CALC IV SCH (18:00)
[2022-04-03] MEDS ORDERED: ELECTROLYTE IV SCH (18:00)
[2022-04-03] MEDS ORDERED: POTASSIUM CHLORIDE IV SCH (18:00)
[2022-04-03 21:00] VITALS: BP 130/70
[2022-04-04] MEDS: SODIUM CHLORIDE 0.9% INJ 10 ML SYR IV SCH ×2 (06:00→20:20)
[2022-04-04] MEDS: HEPARIN SOD (PORCINE) 5000UNITS/ML 1ML VIAL/SYRINGE SQ SCH ×3 (06:11→20:21)
[2022-04-04] MEDS: METOPROLOL TART 25 MG TABLET PO SCH ×3 (06:11→17:33)
[2022-04-04] MEDS: LEVOTHYROXINE 25MCG TABLET (0.025MG) PO SCH (06:11)
[2022-04-04] MEDS: INSULIN LISPRO (NovoLOG) PER UNIT SC SCH ×3 (06:22→17:26)
[2022-04-04 06:44] LABS: BASO % 0.5 % (0.0-1.0); EOS # 0.1 10^3/uL (0.0-0.5); EOS % 2.5 % (0.0-3.0); HEMATOCRIT 26.5 % (36.0-47.0); HEMOGLOBIN 8.7 g/dl (12.0-15.5); LYMPH # 0.9 10^3/uL (1.5-5.0); MEAN CORPUSCULAR HEMOGLOBIN 34.4 pg (27.0-33.0); MEAN CORPUSCULAR HGB CONC 32.8 g/dl (32.0-36.5); MEAN CORPUSCULAR VOLUME 104.7 fl (80.0-96.0); MONO # 0.4 10^3/uL (0.0-0.8); MONO % 6.9 % (2.0-8.0); NEUTROPHILS # 4.2 10^3/uL (1.5-8.5); NEUTROPHILS % 73.6 % (36.0-66.0); PLATELET COUNT, AUTOMATED 157 10^3/uL (150-450); RED BLOOD COUNT 2.53 10^6/uL (4.00-5.40); WHITE BLOOD COUNT 5.6 10^3/uL (4.0-10.0)
[2022-04-04 06:57] VITALS: BP 122/80
[2022-04-04 07:25] LABS: ALBUMIN 2.1 GM/DL (3.2-5.2); ALT/SGPT 61 U/L (12-78); BILIRUBIN,TOTAL 6.9 MG/DL (0.2-1.0); BLOOD UREA NITROGEN 11 MG/DL (7-18); CALCIUM LEVEL 8.4 MG/DL (8.8-10.2); CARBON DIOXIDE LEVEL 25 MEQ/L (21-32); CHLORIDE LEVEL 105 MEQ/L (98-107); CREATININE FOR GFR 0.56 MG/DL (0.55-1.30); GLOMERULAR FILTRATION RATE > 60.0 (>45); GLUCOSE, FASTING 143 MG/DL (70-100); POTASSIUM SERUM 3.7 MEQ/L (3.5-5.1); SODIUM LEVEL 137 MEQ/L (136-145); TOTAL PROTEIN 6.5 GM/DL (6.4-8.2)
[2022-04-04] MEDS: MULTIVITAMINS/MINERALS THERAP 1 TAB PO SCH ×2 (10:11→20:21)
[2022-04-04] MEDS: FOLIC ACID 1MG TAB PO SCH (10:11)
[2022-04-04] MEDS: DIGOXIN 0.125 MG TAB PO SCH (10:11)
[2022-04-04] MEDS: THIAMINE 100 MG TAB PO SCH ×2 (10:11→20:21)
[2022-04-04] MEDS: LACTULOSE 20 GM/30 ML SYRUP UD PO SCH ×2 (10:13→20:21)
[2022-04-04] MEDS: KCL 40MEQ in NS 1000ML 1,000 ML IV SCH (10:13)
[2022-04-04] MEDS: PANTOPRAZOLE 40MG TAB (PROTONIX) PO SCH (10:13)
[2022-04-04] MEDS: SODIUM CHLORIDE 0.9% INJ 10 ML SYR IV PRN (12:33)
[2022-04-04 14:00] VITALS: BP 123/73
[2022-04-04] MEDS: FLUCONAZOLE 400 MG in IV 1 EA IV SCH (17:34)
[2022-04-04] MEDS ORDERED: FAT EMULSION IV 250 ML IV ONE (18:00)
[2022-04-04] MEDS ORDERED: MULTIVITAMIN -ADULT INJECTION 10 ML, ZINC/COPPER/MANGANESE/SELENIUM 1 ML, POTASSIUM CHL... IV SCH ×4 (18:00)
[2022-04-04 22:00] VITALS: BP 135/75
[2022-04-05] MEDS: METOPROLOL TART 25 MG TABLET PO SCH ×4 (00:47→18:08)
[2022-04-05] MEDS: INSULIN LISPRO (NovoLOG) PER UNIT SC SCH ×4 (01:19→18:34)
[2022-04-05] MEDS: SODIUM CHLORIDE 0.9% INJ 10 ML SYR IV SCH ×2 (05:54→18:09)
[2022-04-05] MEDS: HEPARIN SOD (PORCINE) 5000UNITS/ML 1ML VIAL/SYRINGE SQ SCH ×3 (05:55→20:21)
[2022-04-05] MEDS: LEVOTHYROXINE 25MCG TABLET (0.025MG) PO SCH (05:55)
[2022-04-05 06:32] LABS: BASO % 0.3 % (0.0-1.0); EOS # 0.2 10^3/uL (0.0-0.5); EOS % 2.6 % (0.0-3.0); HEMATOCRIT 26.3 % (36.0-47.0); HEMOGLOBIN 8.5 g/dl (12.0-15.5); LYMPH # 0.8 10^3/uL (1.5-5.0); LYMPH % 14.4 % (24.0-44.0); MEAN CORPUSCULAR HEMOGLOBIN 34.4 pg (27.0-33.0); MEAN CORPUSCULAR HGB CONC 32.3 g/dl (32.0-36.5); MEAN CORPUSCULAR VOLUME 106.5 fl (80.0-96.0); MONO # 0.4 10^3/uL (0.0-0.8); MONO % 6.1 % (2.0-8.0); NEUTROPHILS # 4.4 10^3/uL (1.5-8.5); NEUTROPHILS % 75.7 % (36.0-66.0); PLATELET COUNT, AUTOMATED 138 10^3/uL (150-450); RED BLOOD COUNT 2.47 10^6/uL (4.00-5.40); WHITE BLOOD COUNT 5.8 10^3/uL (4.0-10.0)
[2022-04-05 07:08] LABS: ALT/SGPT 60 U/L (12-78); BILIRUBIN,TOTAL 5.8 MG/DL (0.2-1.0); BLOOD UREA NITROGEN 11 MG/DL (7-18); CALCIUM LEVEL 8.4 MG/DL (8.8-10.2); CARBON DIOXIDE LEVEL 25 MEQ/L (21-32); CHLORIDE LEVEL 102 MEQ/L (98-107); CREATININE FOR GFR 0.52 MG/DL (0.55-1.30); GLOMERULAR FILTRATION RATE > 60.0 (>45); GLUCOSE, FASTING 129 MG/DL (70-100); POTASSIUM SERUM 3.4 MEQ/L (3.5-5.1); SODIUM LEVEL 134 MEQ/L (136-145); TOTAL PROTEIN 6.5 GM/DL (6.4-8.2)
[2022-04-05] MEDS: LACTULOSE 20 GM/30 ML SYRUP UD PO SCH ×2 (09:18→20:20)
[2022-04-05] MEDS: FOLIC ACID 1MG TAB PO SCH (09:18)
[2022-04-05] MEDS: MULTIVITAMINS/MINERALS THERAP 1 TAB PO SCH ×2 (09:18→20:21)
[2022-04-05] MEDS: DIGOXIN 0.125 MG TAB PO SCH (09:19)
[2022-04-05] MEDS: THIAMINE 100 MG TAB PO SCH ×2 (09:19→20:20)
[2022-04-05] MEDS: PANTOPRAZOLE 40MG TAB (PROTONIX) PO SCH (09:19)
[2022-04-05 14:00] VITALS: BP 106/72
[2022-04-05] MEDS ORDERED: CALC IV SCH (18:00)
[2022-04-05] MEDS ORDERED: ELECTROLYTE IV SCH (18:00)
[2022-04-05] MEDS ORDERED: DEX IV SCH (18:00)
[2022-04-05] MEDS ORDERED: POTASSIUM CHLORIDE IV SCH (18:00)
[2022-04-05] MEDS ORDERED: AMINO AC IV SCH (18:00)
[2022-04-05] MEDS ORDERED: FAT EMULSION IV 250 ML IV ONE (18:00)
[2022-04-05] MEDS: FLUCONAZOLE 400 MG in IV 1 EA IV SCH (18:08)
[2022-04-05 22:00] VITALS: BP 117/74
[2022-04-06] MEDS: METOPROLOL TART 25 MG TABLET PO SCH ×4 (00:08→17:09)
[2022-04-06] MEDS: INSULIN LISPRO (NovoLOG) PER UNIT SC SCH ×4 (00:49→17:06)
[2022-04-06 06:00] VITALS: BP 102/68
[2022-04-06] MEDS: HEPARIN SOD (PORCINE) 5000UNITS/ML 1ML VIAL/SYRINGE SQ SCH ×3 (06:36→21:31)
[2022-04-06] MEDS: SODIUM CHLORIDE 0.9% INJ 10 ML SYR IV SCH ×2 (06:36→19:12)
[2022-04-06] MEDS: LEVOTHYROXINE 25MCG TABLET (0.025MG) PO SCH (06:36)
[2022-04-06] MEDS: FOLIC ACID 1MG TAB PO SCH (09:19)
[2022-04-06] MEDS: THIAMINE 100 MG TAB PO SCH ×2 (09:19→21:31)
[2022-04-06] MEDS: PANTOPRAZOLE 40MG TAB (PROTONIX) PO SCH (09:19)
[2022-04-06] MEDS: DIGOXIN 0.125 MG TAB PO SCH (09:20)
[2022-04-06] MEDS: MULTIVITAMINS/MINERALS THERAP 1 TAB PO SCH ×2 (09:20→21:31)
[2022-04-06] MEDS: LACTULOSE 20 GM/30 ML SYRUP UD PO SCH ×2 (09:20→21:32)
[2022-04-06 09:27] LABS: BASO % 0.3 % (0.0-1.0); EOS # 0.2 10^3/uL (0.0-0.5); EOS % 2.5 % (0.0-3.0); HEMATOCRIT 27.2 % (36.0-47.0); HEMOGLOBIN 8.7 g/dl (12.0-15.5); LYMPH # 0.8 10^3/uL (1.5-5.0); LYMPH % 13.1 % (24.0-44.0); MEAN CORPUSCULAR HEMOGLOBIN 33.9 pg (27.0-33.0); MEAN CORPUSCULAR VOLUME 105.8 fl (80.0-96.0); MONO # 0.4 10^3/uL (0.0-0.8); MONO % 6.4 % (2.0-8.0); NEUTROPHILS # 4.7 10^3/uL (1.5-8.5); PLATELET COUNT, AUTOMATED 140 10^3/uL (150-450); RED BLOOD COUNT 2.57 10^6/uL (4.00-5.40); WHITE BLOOD COUNT 6.1 10^3/uL (4.0-10.0)
[2022-04-06 10:09] LABS: ALT/SGPT 53 U/L (12-78); BILIRUBIN,TOTAL 5.5 MG/DL (0.2-1.0); BLOOD UREA NITROGEN 13 MG/DL (7-18); CALCIUM LEVEL 8.7 MG/DL (8.8-10.2); CARBON DIOXIDE LEVEL 28 MEQ/L (21-32); CHLORIDE LEVEL 101 MEQ/L (98-107); GLOMERULAR FILTRATION RATE > 60.0 (>45); GLUCOSE, FASTING 120 MG/DL (70-100); POTASSIUM SERUM 3.7 MEQ/L (3.5-5.1); SODIUM LEVEL 134 MEQ/L (136-145); TOTAL PROTEIN 6.6 GM/DL (6.4-8.2)
[2022-04-06 14:00] VITALS: BP 104/69
[2022-04-06] MEDS: FLUCONAZOLE 400 MG in IV 1 EA IV SCH (17:06)
[2022-04-06] MEDS ORDERED: MULTIVITAMIN -ADULT INJECTION 10 ML, ZINC/COPPER/MANGANESE/SELENIUM 1 ML, POTASSIUM CHL... IV SCH ×4 (18:00)
[2022-04-06] MEDS ORDERED: FAT EMULSION IV 250 ML IV ONE (18:00)
[2022-04-06 22:00] VITALS: BP 98/62
[2022-04-07] MEDS: INSULIN LISPRO (NovoLOG) PER UNIT SC SCH ×4 (00:33→17:45)
[2022-04-07 05:30] VITALS: BP 96/66
[2022-04-07] MEDS: LEVOTHYROXINE 25MCG TABLET (0.025MG) PO SCH (05:57)
[2022-04-07] MEDS: HEPARIN SOD (PORCINE) 5000UNITS/ML 1ML VIAL/SYRINGE SQ SCH ×3 (05:58→21:38)
[2022-04-07] MEDS: METOPROLOL TART 25 MG TABLET PO SCH ×4 (06:00→18:07)
[2022-04-07] MEDS: SODIUM CHLORIDE 0.9% INJ 10 ML SYR IV SCH ×2 (06:00→17:58)
[2022-04-07 07:01] LABS: BASO % 0.5 % (0.0-1.0); EOS # 0.1 10^3/uL (0.0-0.5); EOS % 1.6 % (0.0-3.0); HEMATOCRIT 25.3 % (36.0-47.0); HEMOGLOBIN 8.4 g/dl (12.0-15.5); LYMPH # 0.7 10^3/uL (1.5-5.0); LYMPH % 11.3 % (24.0-44.0); MEAN CORPUSCULAR HEMOGLOBIN 34.9 pg (27.0-33.0); MEAN CORPUSCULAR HGB CONC 33.2 g/dl (32.0-36.5); MONO # 0.3 10^3/uL (0.0-0.8); MONO % 4.9 % (2.0-8.0); NEUTROPHILS # 4.7 10^3/uL (1.5-8.5); NEUTROPHILS % 81.2 % (36.0-66.0); PLATELET COUNT, AUTOMATED 112 10^3/uL (150-450); RED BLOOD COUNT 2.41 10^6/uL (4.00-5.40); WHITE BLOOD COUNT 5.7 10^3/uL (4.0-10.0)
[2022-04-07 07:40] LABS: ALT/SGPT 50 U/L (12-78); BILIRUBIN,TOTAL 5.5 MG/DL (0.2-1.0); BLOOD UREA NITROGEN 11 MG/DL (7-18); CALCIUM LEVEL 8.6 MG/DL (8.8-10.2); CARBON DIOXIDE LEVEL 28 MEQ/L (21-32); CHLORIDE LEVEL 101 MEQ/L (98-107); CREATININE FOR GFR 0.56 MG/DL (0.55-1.30); GLOMERULAR FILTRATION RATE > 60.0 (>45); GLUCOSE, FASTING 113 MG/DL (70-100); POTASSIUM SERUM 3.6 MEQ/L (3.5-5.1); SODIUM LEVEL 134 MEQ/L (136-145); TOTAL PROTEIN 6.7 GM/DL (6.4-8.2)
[2022-04-07] MEDS: THIAMINE 100 MG TAB PO SCH ×2 (09:01→21:37)
[2022-04-07] MEDS: LACTULOSE 20 GM/30 ML SYRUP UD PO SCH ×2 (09:01→21:38)
[2022-04-07] MEDS: FOLIC ACID 1MG TAB PO SCH (09:01)
[2022-04-07] MEDS: DIGOXIN 0.125 MG TAB PO SCH (09:01)
[2022-04-07] MEDS: PANTOPRAZOLE 40MG TAB (PROTONIX) PO SCH (09:01)
[2022-04-07] MEDS: MULTIVITAMINS/MINERALS THERAP 1 TAB PO SCH ×2 (09:01→21:37)
[2022-04-07 16:00] VITALS: BP 106/54
[2022-04-07] MEDS: FLUCONAZOLE 400 MG in IV 1 EA IV SCH (17:47)
[2022-04-07] MEDS ORDERED: FAT EMULSION IV 250 ML IV ONE (18:00)
[2022-04-07] MEDS ORDERED: DEX IV SCH (18:00)
[2022-04-07] MEDS ORDERED: POTASSIUM CHLORIDE IV SCH (18:00)
[2022-04-07] MEDS ORDERED: AMINO AC IV SCH (18:00)
[2022-04-07] MEDS ORDERED: CALC IV SCH (18:00)
[2022-04-07] MEDS ORDERED: ELECTROLYTE IV SCH (18:00)
[2022-04-07 21:00] VITALS: BP 102/68
[2022-04-07] MEDS: OLANZapine ORAL DISINTEGRATING TAB 5MG PO PRN (21:37)
[2022-04-08] MEDS: INSULIN LISPRO (NovoLOG) PER UNIT SC SCH ×4 (00:14→18:00)
[2022-04-08] MEDS: METOPROLOL TART 25 MG TABLET PO SCH ×2 (05:26)
[2022-04-08] MEDS: HEPARIN SOD (PORCINE) 5000UNITS/ML 1ML VIAL/SYRINGE SQ SCH ×3 (05:40→20:59)
[2022-04-08] MEDS: LEVOTHYROXINE 25MCG TABLET (0.025MG) PO SCH (05:40)
[2022-04-08] MEDS: SODIUM CHLORIDE 0.9% INJ 10 ML SYR IV SCH ×2 (05:45→18:46)
[2022-04-08 05:59] VITALS: BP 125/75
[2022-04-08 06:33] LABS: BASO % 0.4 % (0.0-1.0); EOS # 0.1 10^3/uL (0.0-0.5); EOS % 1.1 % (0.0-3.0); HEMATOCRIT 27.4 % (36.0-47.0); HEMOGLOBIN 9.3 g/dl (12.0-15.5); LYMPH # 0.4 10^3/uL (1.5-5.0); MEAN CORPUSCULAR HEMOGLOBIN 35.2 pg (27.0-33.0); MEAN CORPUSCULAR HGB CONC 33.9 g/dl (32.0-36.5); MEAN CORPUSCULAR VOLUME 103.8 fl (80.0-96.0); MONO # 0.4 10^3/uL (0.0-0.8); NEUTROPHILS # 6.4 10^3/uL (1.5-8.5); NEUTROPHILS % 87.1 % (36.0-66.0); PLATELET COUNT, AUTOMATED 127 10^3/uL (150-450); RED BLOOD COUNT 2.64 10^6/uL (4.00-5.40); WHITE BLOOD COUNT 7.4 10^3/uL (4.0-10.0)
[2022-04-08 06:58] LABS: ALBUMIN 2.1 GM/DL (3.2-5.2); ALT/SGPT 54 U/L (12-78); BILIRUBIN,TOTAL 6.6 MG/DL (0.2-1.0); BLOOD UREA NITROGEN 12 MG/DL (7-18); CALCIUM LEVEL 8.8 MG/DL (8.8-10.2); CARBON DIOXIDE LEVEL 25 MEQ/L (21-32); CHLORIDE LEVEL 99 MEQ/L (98-107); CREATININE FOR GFR 0.56 MG/DL (0.55-1.30); GLOMERULAR FILTRATION RATE > 60.0 (>45); GLUCOSE, FASTING 133 MG/DL (70-100); POTASSIUM SERUM 4.2 MEQ/L (3.5-5.1); SODIUM LEVEL 131 MEQ/L (136-145); TOTAL PROTEIN 7.2 GM/DL (6.4-8.2)
[2022-04-08] MEDS ORDERED: oxyCODONE 5MG TAB PO ONE (09:00)
[2022-04-08] MEDS ORDERED: atenoloL 25 MG TAB PO ONE (09:00)
[2022-04-08] MEDS: THIAMINE 100 MG TAB PO SCH ×2 (10:00→21:00)
[2022-04-08] MEDS: LACTULOSE 20 GM/30 ML SYRUP UD PO SCH ×2 (10:00→21:00)
[2022-04-08] MEDS: FOLIC ACID 1MG TAB PO SCH (10:00)
[2022-04-08] MEDS: MULTIVITAMINS/MINERALS THERAP 1 TAB PO SCH ×2 (10:00→21:00)
[2022-04-08] MEDS: PANTOPRAZOLE 40MG TAB (PROTONIX) PO SCH (10:00)
[2022-04-08 10:04] VITALS: BP 92/64
[2022-04-08] MEDS: DIGOXIN 0.125 MG TAB PO SCH (10:07)
[2022-04-08] MEDS: MIDODRINE 5 MG TAB PO SCH ×3 (10:09→18:47)
[2022-04-08] MEDS: ONDANSETRON 4MG 2ML VIAL IV PRN (10:57)
[2022-04-08] MEDS: OLANZapine ORAL DISINTEGRATING TAB 5MG PO PRN (14:17)
[2022-04-08] MEDS ORDERED: FAT EMULSION IV 250 ML IV ONE (18:00)
[2022-04-08] MEDS ORDERED: MULTIVITAMIN -ADULT INJECTION 10 ML, ZINC/COPPER/MANGANESE/SELENIUM 1 ML in AMINO AC/EL... IV SCH (18:00)
[2022-04-08] MEDS: FLUCONAZOLE 400 MG in IV 1 EA IV SCH (18:45)
[2022-04-08 19:26] VITALS: BP 102/60
[2022-04-08] MEDS ORDERED: TAMSULOSIN 0.4 MG CAP PO ONE (20:05)
[2022-04-09] MEDS: INSULIN LISPRO (NovoLOG) PER UNIT SC SCH ×4 (01:08→17:58)
[2022-04-09] MEDS ORDERED: oxyCODONE 5MG TAB PO ONE (02:25)
[2022-04-09 06:20] VITALS: BP 124/54
[2022-04-09] MEDS: SODIUM CHLORIDE 0.9% INJ 10 ML SYR IV SCH ×2 (06:22→17:59)
[2022-04-09] MEDS: HEPARIN SOD (PORCINE) 5000UNITS/ML 1ML VIAL/SYRINGE SQ SCH ×3 (06:23→21:08)
[2022-04-09] MEDS: LEVOTHYROXINE 25MCG TABLET (0.025MG) PO SCH (06:23)
[2022-04-09 06:26] LABS: BASO % 0.4 % (0.0-1.0); EOS # 0.1 10^3/uL (0.0-0.5); HEMATOCRIT 25.7 % (36.0-47.0); HEMOGLOBIN 8.6 g/dl (12.0-15.5); LYMPH # 0.8 10^3/uL (1.5-5.0); LYMPH % 13.4 % (24.0-44.0); MEAN CORPUSCULAR HEMOGLOBIN 35.2 pg (27.0-33.0); MEAN CORPUSCULAR HGB CONC 33.5 g/dl (32.0-36.5); MEAN CORPUSCULAR VOLUME 105.3 fl (80.0-96.0); MONO # 0.4 10^3/uL (0.0-0.8); MONO % 7.5 % (2.0-8.0); NEUTROPHILS # 4.3 10^3/uL (1.5-8.5); NEUTROPHILS % 75.8 % (36.0-66.0); PLATELET COUNT, AUTOMATED 112 10^3/uL (150-450); RED BLOOD COUNT 2.44 10^6/uL (4.00-5.40); WHITE BLOOD COUNT 5.6 10^3/uL (4.0-10.0)
[2022-04-09 06:57] LABS: ALT/SGPT 48 U/L (12-78); BILIRUBIN,TOTAL 6.5 MG/DL (0.2-1.0); BLOOD UREA NITROGEN 16 MG/DL (7-18); CALCIUM LEVEL 8.6 MG/DL (8.8-10.2); CARBON DIOXIDE LEVEL 26 MEQ/L (21-32); CHLORIDE LEVEL 100 MEQ/L (98-107); CREATININE FOR GFR 0.55 MG/DL (0.55-1.30); GLOMERULAR FILTRATION RATE > 60.0 (>45); GLUCOSE, FASTING 120 MG/DL (70-100); POTASSIUM SERUM 3.8 MEQ/L (3.5-5.1); SODIUM LEVEL 133 MEQ/L (136-145); TOTAL PROTEIN 6.6 GM/DL (6.4-8.2)
[2022-04-09] MEDS ORDERED: atenoloL 25 MG TAB PO SCH (09:00)
[2022-04-09] MEDS: PANTOPRAZOLE 40MG TAB (PROTONIX) PO SCH (09:55)
[2022-04-09] MEDS: MIDODRINE 5 MG TAB PO SCH ×3 (09:55→16:12)
[2022-04-09] MEDS: FOLIC ACID 1MG TAB PO SCH (09:55)
[2022-04-09] MEDS: THIAMINE 100 MG TAB PO SCH ×2 (09:55→21:07)
[2022-04-09] MEDS: DIGOXIN 0.125 MG TAB PO SCH (09:55)
[2022-04-09] MEDS: MULTIVITAMINS/MINERALS THERAP 1 TAB PO SCH ×2 (09:56→21:07)
[2022-04-09] MEDS: LACTULOSE 20 GM/30 ML SYRUP UD PO SCH ×2 (09:57→21:08)
[2022-04-09 11:18] LABS: DIGOXIN LEVEL 0.7 NG/ML (0.5-2.0)
[2022-04-09] MEDS ORDERED: NS 1,000 ML IV ONE (11:30)
[2022-04-09] MEDS: METOPROLOL TART 12.5 MG PER 1/2 TAB PO SCH ×2 (12:00→17:59)
[2022-04-09 14:00] VITALS: BP 102/60
[2022-04-09 16:13] VITALS: BP 102/64
[2022-04-09 17:32] VITALS: BP 90/60
[2022-04-09] MEDS ORDERED: FAT EMULSION IV 250 ML IV ONE (18:00)
[2022-04-09] MEDS ORDERED: NS 500 ML IV ONE (18:00)
[2022-04-09] MEDS ORDERED: AMINO AC/ELECTROLYTE/DEX/CALC 2,000 ML IV SCH (18:00)
[2022-04-09 18:49] VITALS: BP 102/60
[2022-04-09 20:00] VITALS: BP 98/46
[2022-04-09] MEDS: oxyCODONE 5MG TAB PO PRN (21:08)
[2022-04-10] VITALS (7 sets, daily range): BP systolic 86–116; BP diastolic 50–72
[2022-04-10] MEDS: INSULIN LISPRO (NovoLOG) PER UNIT SC SCH ×4 (00:30→16:48)
[2022-04-10] MEDS: OLANZapine ORAL DISINTEGRATING TAB 5MG PO PRN ×2 (02:14→21:14)
[2022-04-10] MEDS: METOPROLOL TART 12.5 MG PER 1/2 TAB PO SCH ×4 (05:54→17:02)
[2022-04-10] MEDS: LEVOTHYROXINE 25MCG TABLET (0.025MG) PO SCH (06:20)
[2022-04-10] MEDS: HEPARIN SOD (PORCINE) 5000UNITS/ML 1ML VIAL/SYRINGE SQ SCH (06:21)
[2022-04-10] MEDS: SODIUM CHLORIDE 0.9% INJ 10 ML SYR IV SCH ×2 (06:21→17:44)
[2022-04-10 06:56] LABS: BASO % 0.4 % (0.0-1.0); EOS # 0.1 10^3/uL (0.0-0.5); EOS % 2.7 % (0.0-3.0); HEMATOCRIT 24.5 % (36.0-47.0); HEMOGLOBIN 8.1 g/dl (12.0-15.5); LYMPH # 0.6 10^3/uL (1.5-5.0); MEAN CORPUSCULAR HEMOGLOBIN 35.2 pg (27.0-33.0); MEAN CORPUSCULAR HGB CONC 33.1 g/dl (32.0-36.5); MEAN CORPUSCULAR VOLUME 106.5 fl (80.0-96.0); MONO # 0.4 10^3/uL (0.0-0.8); MONO % 7.5 % (2.0-8.0); NEUTROPHILS # 3.7 10^3/uL (1.5-8.5); NEUTROPHILS % 75.8 % (36.0-66.0); PLATELET COUNT, AUTOMATED 104 10^3/uL (150-450); WHITE BLOOD COUNT 4.8 10^3/uL (4.0-10.0)
[2022-04-10 07:12] LABS: ALBUMIN 1.8 GM/DL (3.2-5.2); ALT/SGPT 43 U/L (12-78); BILIRUBIN,TOTAL 5.9 MG/DL (0.2-1.0); BLOOD UREA NITROGEN 13 MG/DL (7-18); CALCIUM LEVEL 8.3 MG/DL (8.8-10.2); CARBON DIOXIDE LEVEL 24 MEQ/L (21-32); CHLORIDE LEVEL 104 MEQ/L (98-107); CREATININE FOR GFR 0.52 MG/DL (0.55-1.30); GLOMERULAR FILTRATION RATE > 60.0 (>45); GLUCOSE, FASTING 127 MG/DL (70-100); POTASSIUM SERUM 3.8 MEQ/L (3.5-5.1); SODIUM LEVEL 135 MEQ/L (136-145); TOTAL PROTEIN 6.2 GM/DL (6.4-8.2)
[2022-04-10] MEDS ORDERED: NS 500 ML IV ONE ×2 (08:05→11:00)
[2022-04-10] MEDS: LACTULOSE 20 GM/30 ML SYRUP UD PO SCH ×2 (08:22→21:13)
[2022-04-10] MEDS: MIDODRINE 5 MG TAB PO SCH ×3 (08:22→15:00)
[2022-04-10] MEDS: THIAMINE 100 MG TAB PO SCH ×2 (08:22→21:14)
[2022-04-10] MEDS: MULTIVITAMINS/MINERALS THERAP 1 TAB PO SCH ×2 (08:22→21:14)
[2022-04-10] MEDS: PANTOPRAZOLE 40MG TAB (PROTONIX) PO SCH (08:22)
[2022-04-10] MEDS: FOLIC ACID 1MG TAB PO SCH (08:22)
[2022-04-10] MEDS: DIGOXIN 0.25 MG TAB PO SCH ×2 (08:23→14:58)
[2022-04-10] MEDS ORDERED: DIGOXIN 0.25 MG TAB PO SCH (09:00)
[2022-04-10] MEDS ORDERED: AMINO AC/ELECTROLYTE/DEX/CALC 2,000 ML IV SCH (18:00)
[2022-04-10] MEDS ORDERED: FAT EMULSION IV 250 ML IV ONE (18:00)
[2022-04-11] MEDS: INSULIN LISPRO (NovoLOG) PER UNIT SC SCH ×4 (01:24→18:14)
[2022-04-11] MEDS: LEVOTHYROXINE 25MCG TABLET (0.025MG) PO SCH (05:22)
[2022-04-11] MEDS: SODIUM CHLORIDE 0.9% INJ 10 ML SYR IV SCH ×2 (05:23→18:15)
[2022-04-11 05:34] VITALS: BP 110/62
[2022-04-11] MEDS: METOPROLOL TART 12.5 MG PER 1/2 TAB PO SCH ×2 (06:00)
[2022-04-11 06:04] LABS: BASO % 0.2 % (0.0-1.0); EOS # 0.1 10^3/uL (0.0-0.5); EOS % 1.9 % (0.0-3.0); HEMATOCRIT 26.1 % (36.0-47.0); HEMOGLOBIN 8.4 g/dl (12.0-15.5); LYMPH # 0.5 10^3/uL (1.5-5.0); MEAN CORPUSCULAR HEMOGLOBIN 34.9 pg (27.0-33.0); MEAN CORPUSCULAR HGB CONC 32.2 g/dl (32.0-36.5); MEAN CORPUSCULAR VOLUME 108.3 fl (80.0-96.0); MONO # 0.4 10^3/uL (0.0-0.8); MONO % 7.5 % (2.0-8.0); NEUTROPHILS # 3.8 10^3/uL (1.5-8.5); NEUTROPHILS % 78.8 % (36.0-66.0); PLATELET COUNT, AUTOMATED 135 10^3/uL (150-450); RED BLOOD COUNT 2.41 10^6/uL (4.00-5.40); WHITE BLOOD COUNT 4.8 10^3/uL (4.0-10.0)
[2022-04-11 06:38] LABS: BLOOD UREA NITROGEN 9 MG/DL (7-18); CARBON DIOXIDE LEVEL 25 MEQ/L (21-32); CHLORIDE LEVEL 103 MEQ/L (98-107); CREATININE FOR GFR 0.56 MG/DL (0.55-1.30); GLOMERULAR FILTRATION RATE > 60.0 (>45); GLUCOSE, FASTING 127 MG/DL (70-100); POTASSIUM SERUM 3.3 MEQ/L (3.5-5.1); SODIUM LEVEL 135 MEQ/L (136-145)
[2022-04-11 06:39] LABS: ALBUMIN 1.9 GM/DL (3.2-5.2); ALT/SGPT 46 U/L (12-78); BILIRUBIN,TOTAL 6.2 MG/DL (0.2-1.0); CALCIUM LEVEL 8.4 MG/DL (8.8-10.2); TOTAL PROTEIN 6.6 GM/DL (6.4-8.2)
[2022-04-11] MEDS ORDERED: NS 500 ML IV ONE (08:10)
[2022-04-11] MEDS ORDERED: POTASSIUM CHLORIDE 10MEQ SR TABLET PO ONE (09:00)
[2022-04-11] MEDS: atenoloL 25 MG TAB PO SCH (09:00)
[2022-04-11 09:14] LABS: DIGOXIN LEVEL 0.8 NG/ML (0.5-2.0)
[2022-04-11] MEDS: SODIUM CHLORIDE 0.9% INJ 10 ML SYR IV PRN (09:34)
[2022-04-11] MEDS: LACTULOSE 20 GM/30 ML SYRUP UD PO SCH ×2 (09:34→19:57)
[2022-04-11] MEDS: PANTOPRAZOLE 40MG TAB (PROTONIX) PO SCH (09:35)
[2022-04-11] MEDS: FOLIC ACID 1MG TAB PO SCH (09:35)
[2022-04-11] MEDS: THIAMINE 100 MG TAB PO SCH ×2 (09:35→19:57)
[2022-04-11] MEDS: MULTIVITAMINS/MINERALS THERAP 1 TAB PO SCH ×2 (09:35→19:57)
[2022-04-11 09:38] VITALS: BP 100/62
[2022-04-11] MEDS: DIGOXIN 0.25 MG TAB PO SCH (09:41)
[2022-04-11] MEDS: MIDODRINE 5 MG TAB PO SCH ×3 (09:42→18:16)
[2022-04-11 12:43] VITALS: BP 122/74
[2022-04-11 14:00] VITALS: BP 109/65
[2022-04-11] MEDS ORDERED: MULTIVITAMIN -ADULT INJECTION 10 ML, ZINC/COPPER/MANGANESE/SELENIUM 1 ML in AMINO AC/EL... IV SCH (18:00)
[2022-04-11] MEDS ORDERED: FAT EMULSION IV 250 ML IV ONE (18:00)
[2022-04-11 20:00] VITALS: BP 108/64
[2022-04-12] MEDS: INSULIN LISPRO (NovoLOG) PER UNIT SC SCH ×3 (00:09→12:17)
[2022-04-12] MEDS: oxyCODONE 5MG TAB PO PRN ×2 (04:42→12:13)
[2022-04-12 05:00] VITALS: BP 112/72
[2022-04-12] MEDS: LEVOTHYROXINE 25MCG TABLET (0.025MG) PO SCH (05:25)
[2022-04-12] MEDS: SODIUM CHLORIDE 0.9% INJ 10 ML SYR IV SCH (05:27)
[2022-04-12 06:18] LABS: BASO % 0.6 % (0.0-1.0); EOS # 0.1 10^3/uL (0.0-0.5); HEMATOCRIT 26.4 % (36.0-47.0); HEMOGLOBIN 8.4 g/dl (12.0-15.5); LYMPH # 0.6 10^3/uL (1.5-5.0); LYMPH % 11.2 % (24.0-44.0); MEAN CORPUSCULAR HEMOGLOBIN 34.6 pg (27.0-33.0); MEAN CORPUSCULAR HGB CONC 31.8 g/dl (32.0-36.5); MEAN CORPUSCULAR VOLUME 108.6 fl (80.0-96.0); MONO # 0.5 10^3/uL (0.0-0.8); NEUTROPHILS # 3.7 10^3/uL (1.5-8.5); NEUTROPHILS % 75.2 % (36.0-66.0); PLATELET COUNT, AUTOMATED 137 10^3/uL (150-450); RED BLOOD COUNT 2.43 10^6/uL (4.00-5.40); WHITE BLOOD COUNT 4.9 10^3/uL (4.0-10.0)
[2022-04-12 06:57] LABS: ALBUMIN 1.9 GM/DL (3.2-5.2); ALT/SGPT 50 U/L (12-78); BLOOD UREA NITROGEN 11 MG/DL (7-18); CALCIUM LEVEL 8.3 MG/DL (8.8-10.2); CARBON DIOXIDE LEVEL 26 MEQ/L (21-32); CHLORIDE LEVEL 101 MEQ/L (98-107); CREATININE FOR GFR 0.46 MG/DL (0.55-1.30); DIGOXIN LEVEL 0.8 NG/ML (0.5-2.0); GLOMERULAR FILTRATION RATE > 60.0 (>45); GLUCOSE, FASTING 131 MG/DL (70-100); POTASSIUM SERUM 3.6 MEQ/L (3.5-5.1); SODIUM LEVEL 134 MEQ/L (136-145); TOTAL PROTEIN 6.8 GM/DL (6.4-8.2)
[2022-04-12] MEDS: THIAMINE 100 MG TAB PO SCH (08:44)
[2022-04-12] MEDS: PANTOPRAZOLE 40MG TAB (PROTONIX) PO SCH (08:44)
[2022-04-12] MEDS: MULTIVITAMINS/MINERALS THERAP 1 TAB PO SCH (08:44)
[2022-04-12] MEDS: DIGOXIN 0.25 MG TAB PO SCH (08:44)
[2022-04-12] MEDS: MIDODRINE 5 MG TAB PO SCH ×3 (08:45→16:57)
[2022-04-12] MEDS: LACTULOSE 20 GM/30 ML SYRUP UD PO SCH (08:45)
[2022-04-12] MEDS: FOLIC ACID 1MG TAB PO SCH (08:45)
[2022-04-12 08:46] VITALS: BP 98/56
[2022-04-12] MEDS: atenoloL 25 MG TAB PO SCH (08:46)
[2022-04-12] MEDS: ONDANSETRON 4MG 2ML VIAL IV PRN (13:01)
[2022-04-12 14:00] VITALS: BP 95/82
[2022-04-12] MEDS ORDERED: THIA100TA PO (15:55)
[2022-04-12] MEDS ORDERED: FOLI1TAB11 PO (15:55)
[2022-04-12] MEDS ORDERED: MIDO5TA PO (15:55)
[2022-04-12] MEDS ORDERED: DIGO0.253 PO (15:55)
[2022-04-12] MEDS ORDERED: ATEN25TA PO (15:55)
[2022-04-12] MEDS ORDERED: VITMTA PO (15:55)
[2022-04-12] MEDS: SODIUM CHLORIDE 0.9% INJ 10 ML SYR IV PRN (16:58)
[2022-04-12] MEDS ORDERED: FAT EMULSION IV 250 ML IV ONE (18:00)
[2022-04-12] MEDS ORDERED: AMINO AC/ELECTROLYTE/DEX/CALC 2,000 ML IV SCH (18:00)
[2022-04-12] MEDS ORDERED: INSULIN LISPRO (NovoLOG) PER UNIT SC SCH (18:00)
[2022-04-12] MEDS: OLANZapine ORAL DISINTEGRATING TAB 5MG PO PRN (18:33)
[2023-03-28] MEDS ORDERED: predniSONE 20 MG TAB NG SCH (09:00)
== END 2022-04-12 18:49 | disposition short-term general hospital (02) | DRG 261 ==
LOC: M ED 14:42 → EDBD 14:42 → M ED INP 19:01 → M PCU 21:19 → M ICU 03-13 09:32 → M MSPAV 03-29 18:56
PROVIDERS: ADMIT Family Medicine; ATTEND Internal Medicine
PROC: 05HM33Z Insertion of Infusion Device into Right Internal Jugular Vein, Percutaneous Approach (ICD-10-PCS; principal; 2022-03-13)
PROC: 0F7D8DZ Dilation of Pancreatic Duct with Intraluminal Device, Via Natural or Artificial Opening Endoscopic (ICD-10-PCS; 2022-03-14)
PROC: 0F9430Z Drainage of Gallbladder with Drainage Device, Percutaneous Approach (ICD-10-PCS; 2022-03-15)
PROC: 0F9430Z Drainage of Gallbladder with Drainage Device, Percutaneous Approach (ICD-10-PCS; 2022-03-17)
PROC: 02HV33Z Insertion of Infusion Device into Superior Vena Cava, Percutaneous Approach (ICD-10-PCS; 2022-03-22)
PROC: 30233N1 Transfusion of Nonautologous Red Blood Cells into Peripheral Vein, Percutaneous Approach (ICD-10-PCS; 2022-03-25)
DX: K80.66 Calculus of gallbladder and bile duct with acute and chronic cholecystitis without obstruction (principal); E43 Unspecified severe protein-calorie malnutrition; G93.41 Metabolic encephalopathy; A41.9 Sepsis, unspecified organism; D61.818 Other pancytopenia; E87.0 Hyperosmolality and hypernatremia; D69.6 Thrombocytopenia, unspecified; I48.92 Unspecified atrial flutter; D62 Acute posthemorrhagic anemia; K56.7 Ileus, unspecified; E83.39 Other disorders of phosphorus metabolism; E83.42 Hypomagnesemia; E87.1 Hypo-osmolality and hyponatremia; K70.30 Alcoholic cirrhosis of liver without ascites; E03.9 Hypothyroidism, unspecified; E87.6 Hypokalemia; E51.2 Wernicke's encephalopathy; K21.9 Gastro-esophageal reflux disease without esophagitis; M19.90 Unspecified osteoarthritis, unspecified site; K57.30 Diverticulosis of large intestine without perforation or abscess without bleeding; Z96.641 Presence of right artificial hip joint; Z79.899 Other long term (current) drug therapy; E86.0 Dehydration; F10.239 Alcohol dependence with withdrawal, unspecified; K44.9 Diaphragmatic hernia without obstruction or gangrene; J44.9 Chronic obstructive pulmonary disease, unspecified; Z87.891 Personal history of nicotine dependence; Y83.1 Surgical operation with implant of artificial internal device as the cause of abnormal reaction of the patient, or of later complication, without mention of misadventure at the time of the procedure; K80.42 Calculus of bile duct with acute cholecystitis without obstruction; T85.628A Displacement of other specified internal prosthetic devices, implants and grafts, initial encounter

== ENCOUNTER → 2022-05-15 | Outpatient (CLI) | payer OTHER ==
[~2022-05-15] MED LIST changes: +ALEN70TA82 PO; +ATEN25TA PO; +ATOR1TAB19 PO; +CARV3.12 PO; +DIGO0.253 PO; +ELIQ2.5T PO; +FAMO40TA3 PO; +MIDO5TA PO; +OXYC1TAB23 PO; +TRAM50TA2 PO
[2022-05-15 14:30] LABS: OSMOLALITY SERUM 273 MOSM/KG (275-295)
[2022-05-15 14:51] LABS: BLOOD UREA NITROGEN 12 MG/DL (9-23); CALCIUM LEVEL 9.4 MG/DL (8.3-10.6); CARBON DIOXIDE LEVEL 22 MMOL/L (20-31); CHLORIDE LEVEL 101 MMOL/L (98-107); CREATININE FOR GFR 0.62 MG/DL (0.55-1.30); GLOMERULAR FILTRATION RATE > 60.0 (>45); GLUCOSE, FASTING 120 MG/DL (74-106); POTASSIUM SERUM 3.4 MMOL/L (3.5-5.1); SODIUM LEVEL 133 MMOL/L (136-145)
[2022-05-15 14:57] LABS: CHLORIDE,RANDOM URINE 85 MMOL/L; SODIUM,RANDOM URINE < 10 MMOL/L
== END ==
LOC: M LAB 14:07
DX: E87.6 Hypokalemia (principal); E22.2 Syndrome of inappropriate secretion of antidiuretic hormone

== ENCOUNTER → 2022-09-09 | Outpatient (CLI) | payer OTHER | LOC: M RAD 07:19 | PROVIDERS: ATTEND Physician Assistant | DX: Z12.2 Encounter for screening for malignant neoplasm of respiratory organs (principal); Z87.891 Personal history of nicotine dependence ==

== ENCOUNTER 2023-04-18 10:20 | Outpatient (RCR) | payer OTHER ==
[~2023-04-18 10:20] MED LIST changes: +POTA-298 PO; -POTA1TAB14 PO
== END 2023-04-25 ==
LOC: M PT 10:20
PROVIDERS: ATTEND Family Medicine
DX: M99.02 Segmental and somatic dysfunction of thoracic region (principal)

== ENCOUNTER 2023-05-09 12:49 | Outpatient (RCR) | payer OTHER | END 2023-05-25 | LOC: M PT 12:49 | PROVIDERS: ATTEND Family Medicine | DX: M99.02 Segmental and somatic dysfunction of thoracic region (principal); M62.830 Muscle spasm of back ==

== ENCOUNTER 2023-11-26 13:50 | Inpatient (IN) | payer OTHER ==
[~2023-11-26] VITALS: Ht 157.5 cm; Wt 57.7 kg
[~2023-11-26 13:50] MED LIST changes: -AZEL0.055; +AZEL1SPR4; +DIPH1TAB80 PO; -DIPH2.5T14 PO
[2023-11-26 14:34] LABS: BASO % 0.2 % (0.0-1.0); HEMATOCRIT 43.4 % (36.0-47.0); HEMOGLOBIN 14.9 g/dl (12.0-15.5); LYMPH # 0.8 10^3/uL (1.5-5.0); MEAN CORPUSCULAR HEMOGLOBIN 34.7 pg (27.0-33.0); MEAN CORPUSCULAR HGB CONC 34.3 g/dl (32.0-36.5); MEAN CORPUSCULAR VOLUME 100.9 fl (80.0-96.0); MONO # 1.2 10^3/uL (0.0-0.8); MONO % 8.9 % (2.0-8.0); NEUTROPHILS # 11.7 10^3/uL (1.5-8.5); NEUTROPHILS % 84.2 % (36.0-66.0); PLATELET COUNT, AUTOMATED 205 10^3/uL (150-450); WHITE BLOOD COUNT 13.9 10^3/uL (4.0-10.0)
[2023-11-26 14:45] LABS: INR 1.41; PARTIAL THROMBOPLASTIN TIME 28.4 SECONDS (24.8-34.2); PROTHROMBIN TIME 16.8 SECONDS (12.5-14.5)
[2023-11-26 14:57] LABS: ETHYL ALCOHOL (ETHANOL) < 0.003 % (0.000-0.010)
[2023-11-26 14:58] LABS: SALICYLATE LEVEL < 3.0 MG/DL (<30)
[2023-11-26 14:59] LABS: ALBUMIN 3.3 G/DL (3.2-5.2); ALKALINE PHOSPHATASE 248 U/L (46-116); ALT/SGPT 31 U/L (7.0-40); AST/SGOT 80 U/L (<34); BILIRUBIN,DIRECT 0.9 MG/DL (<0.4); BILIRUBIN,TOTAL 1.9 MG/DL (0.3-1.2); BLOOD UREA NITROGEN 10 MG/DL (9-23); CALCIUM LEVEL 9.6 MG/DL (8.3-10.6); CARBON DIOXIDE LEVEL 23 MMOL/L (20-31); CHLORIDE LEVEL 97 MMOL/L (98-107); CK-MB VALUE MASS < 1.0 NG/ML (<3.6); CPK CREATINE PHOSPHOKINASE 36 U/L (34-145); CREATININE FOR GFR 0.85 MG/DL (0.55-1.30); GLOMERULAR FILTRATION RATE > 60.0 (>45); GLUCOSE, FASTING 198 MG/DL (74-106); MAGNESIUM LEVEL 1.8 MG/DL (1.8-2.4); MB/CK RELATIVE INDEX 2.77 (< OR =4); POTASSIUM SERUM 3.3 MMOL/L (3.5-5.1); SODIUM LEVEL 138 MMOL/L (136-145); TOTAL PROTEIN 8.1 G/DL (5.7-8.2)
[2023-11-26 15:00] LABS: OSMOLALITY SERUM 301 MOSM/KG (280-301)
[2023-11-26 15:01] LABS: THYROID STIMULATING HORMONE 1.652 uIU/ML (0.55-4.78)
[2023-11-26] MEDS: NS 1,000 ML IV ONE (15:13)
[2023-11-26] MEDS: NS 910 ML in IV 1 EA IV ONE (15:14)
[2023-11-26 15:19] LABS: AMPHETAMINES LEVEL URINE NEGATIVE (NEGATIVE)
[2023-11-26 15:20] LABS: BARBITURATES URINE NEGATIVE (NEGATIVE); BENZODIAZEPINES URINE NEGATIVE (NEGATIVE); COCAINE METABOLITE URINE NEGATIVE (NEGATIVE); METHADONE URINE NEGATIVE (NEGATIVE); OPIATES URINE NEGATIVE (NEGATIVE); PHENCYCLIDINE URINE NEGATIVE (NEGATIVE)
[2023-11-26] MEDS: cefTRIAXone SOD 2 GM in D5W MINI-BAG PLUS 50 ML IV ONE (15:22)
[2023-11-26 15:23] LABS: CANNABINOIDS URINE POSITIVE (NEGATIVE)
[2023-11-26] MEDS ORDERED: ISOVUE-370 76% 100ML VIAL As Ordered ONE (15:23)
[2023-11-26] MEDS: MORPHINE 2 MG/ML 1ML VIAL IV PRN (15:32)
[2023-11-26] MEDS: MEROPENEM INJ 1 GM in IV 1 EA IV ONE (16:20)
[2023-11-26 16:55] LABS: CK-MB VALUE MASS < 1.0 NG/ML (<3.6)
[2023-11-26 16:59] LABS: CPK CREATINE PHOSPHOKINASE 29 U/L (34-145); MB/CK RELATIVE INDEX 3.44 (< OR =4)
[2023-11-26] MEDS: LORazepam 2 MG/ML 1ML VIAL IV STA (17:28)
[2023-11-26 17:53] LABS: ABG BASE EXCESS 3.4 (-2.0-2.0); ABG HCO3 23.3 MMOL/L (22.0-26.0); ABG O2 SATURATION 97.9 % (95.0-99.0); ABG PARTIAL PRESSURE CO2 23.7 mmHg (35.0-45.0); ABG PARTIAL PRESSURE O2 91.8 mmHg (75.0-100.0); ABG STANDARD HCO3 27.5 MMOL/L. (22.0-26.0)
[2023-11-26 19:26] LABS: ABG BASE EXCESS 2.4 (-2.0-2.0); ABG HCO3 25.5 MMOL/L (22.0-26.0); ABG O2 SATURATION 99.3 % (95.0-99.0); ABG PARTIAL PRESSURE CO2 34.8 mmHg (35.0-45.0); ABG PARTIAL PRESSURE O2 191.4 mmHg (75.0-100.0); ABG STANDARD HCO3 26.6 MMOL/L. (22.0-26.0); ABG TOTAL CO2 26.6 MMOL/L (23.0-31.0); ABG pH (ARTERIAL) 7.483 UNITS (7.350-7.450)
[2023-11-26] MEDS ORDERED: LORazepam 2 MG/ML 1ML VIAL IV PRN (21:00)
[2023-11-26] MEDS ORDERED: THIA100TA PO (21:11)
[2023-11-26] MEDS ORDERED: VITA100093 PO (21:11)
[2023-11-26] MEDS ORDERED: GABA-284 PO (21:11)
[2023-11-26] MEDS ORDERED: MULT400T10 PO (21:11)
[2023-11-26] MEDS ORDERED: TIZA2TA PO (21:11)
[2023-11-26] MEDS ORDERED: PANT40TA29 PO (21:11)
[2023-11-26] MEDS ORDERED: FOLI1TAB11 PO (21:11)
[2023-11-26] MEDS ORDERED: HYDR-3363 PO (21:11)
[2023-11-26] MEDS ORDERED: FLUD0.1T PO (21:11)
[2023-11-26] MEDS ORDERED: MAGN64TASA PO (21:11)
[2023-11-26] MEDS ORDERED: HOME MED LIST COMPLETE! XX SCH (21:15)
[2023-11-26] MEDS ORDERED: ACETAMINOPHEN 500 MG TAB PO PRN ×2 (21:40→21:55)
[2023-11-26] MEDS: MAG SULF 1GM/100ML (MAG RUN) 1 GM in IV 1 EA IV SCH (21:48)
[2023-11-26] MEDS: diazePAM 10MG/2ML SYRINGE IV PRN (21:48)
[2023-11-26 22:38] VITALS: BP 156/91; TEMP 97; O2SAT 98
[2023-11-26 23:00] VITALS: BP 156/91
[2023-11-26] MEDS: THIAMINE INJection 500 MG in NS 100 ML IV SCH (23:01)
[2023-11-26] MEDS: APIXABAN 2.5 MG TAB (ELIQUIS) PO SCH (23:15)
[2023-11-26] MEDS: LACTULOSE 20GM/30ML SYRUP UDC PO SCH (23:15)
[2023-11-26] MEDS: GABAPENTIN 400MG CAP PO SCH (23:15)
[2023-11-26 23:39] VITALS: BP 115/69; TEMP 96.8; O2SAT 100
[2023-11-27] VITALS (12 sets, daily range): BP systolic 98–126; BP diastolic 57–79; TEMP 97.1–98.5; O2SAT 94–100
[2023-11-27] MEDS: KCL 40MEQ in NS 1000ML 1,000 ML IV SCH (00:53)
[2023-11-27] MEDS: LORazepam 2 MG TAB PO PRN (04:16)
[2023-11-27] MEDS: LEVOTHYROXINE 25MCG TABLET (0.025MG) PO SCH (06:04)
[2023-11-27 06:25] LABS: VENOUS BASE EXCESS 2.3 (-2.0-2.0); VENOUS HCO3 28.5 MMOL/L (23.0-27.0); VENOUS O2 SATURATION 80.5 % (60.0-80.0); VENOUS PARTIAL PRESSURE CO2 50.6 mmHg (38.0-50.0); VENOUS PARTIAL PRESSURE O2 48.7 mmHg (30.0-50.0); VENOUS PH 7.368 UNITS (7.330-7.430); VENOUS STANDARD HCO3 26.1 MMOL/L
[2023-11-27 06:35] LABS: HEMATOCRIT 35.9 % (36.0-47.0); MEAN CORPUSCULAR HEMOGLOBIN 34.4 pg (27.0-33.0); MEAN CORPUSCULAR HGB CONC 33.1 g/dl (32.0-36.5); MEAN CORPUSCULAR VOLUME 103.8 fl (80.0-96.0); PLATELET COUNT, AUTOMATED 118 10^3/uL (150-450); RED BLOOD COUNT 3.46 10^6/uL (4.00-5.40); WHITE BLOOD COUNT 7.5 10^3/uL (4.0-10.0)
[2023-11-27 06:37] LABS: HEMOGLOBIN 11.9 g/dl (12.0-15.5)
[2023-11-27 07:03] LABS: ALBUMIN 2.4 G/DL (3.2-5.2); ALKALINE PHOSPHATASE 172 U/L (46-116); ALT/SGPT 20 U/L (7.0-40); AST/SGOT 42 U/L (<34); BILIRUBIN,TOTAL 0.7 MG/DL (0.3-1.2); BLOOD UREA NITROGEN 9 MG/DL (9-23); CALCIUM LEVEL 7.5 MG/DL (8.3-10.6); CARBON DIOXIDE LEVEL 32 MMOL/L (20-31); CHLORIDE LEVEL 107 MMOL/L (98-107); CREATININE FOR GFR 0.74 MG/DL (0.55-1.30); GLOMERULAR FILTRATION RATE > 60.0 (>45); GLUCOSE, FASTING 91 MG/DL (74-106); MAGNESIUM LEVEL 2.4 MG/DL (1.8-2.4); POTASSIUM SERUM 3.5 MMOL/L (3.5-5.1); SODIUM LEVEL 143 MMOL/L (136-145)
[2023-11-27] MEDS ORDERED: MAGNESIUM GLUCONATE 500 MG TAB PO SCH (09:00)
[2023-11-27] MEDS: VITAMIN D 1,000 INTERNATIONAL UNITS TABLET PO SCH (09:29)
[2023-11-27] MEDS: FOLIC ACID 1MG TAB PO SCH (09:29)
[2023-11-27] MEDS: MULTIVITAMINS/MINERALS THERAP 1 TAB PO SCH (09:29)
[2023-11-27] MEDS: FLUDROCORTISONE ACETATE 0.1 MG TAB PO SCH (09:29)
[2023-11-27] MEDS: THIAMINE 100 MG TAB PO SCH (09:29)
[2023-11-27] MEDS: PANTOPRAZOLE 40MG TAB (PROTONIX) PO SCH (09:29)
[2023-11-27] MEDS: ATORVASTATIN 10 MG TAB PO SCH (09:30)
[2023-11-27] MEDS: ONDANSETRON 4MG 2ML VIAL IV PRN (12:31)
[2023-11-27] MEDS: cefTRIAXone SOD 1 GM in D5W MINI-BAG PLUS 50 ML IV SCH (14:33)
[2023-11-27] MEDS: NS 1,000 ML IV SCH (14:33)
[2023-11-27] MEDS: FAMOTIDINE 20 MG TAB PO SCH (20:25)
[2023-11-28 06:40] LABS: HEMOGLOBIN 12.7 g/dl (12.0-15.5); MEAN CORPUSCULAR HGB CONC 32.6 g/dl (32.0-36.5); MEAN CORPUSCULAR VOLUME 104.6 fl (80.0-96.0); RED BLOOD COUNT 3.73 10^6/uL (4.00-5.40); WHITE BLOOD COUNT 5.1 10^3/uL (4.0-10.0)
[2023-11-28 07:06] LABS: ALBUMIN 2.4 G/DL (3.2-5.2); ALKALINE PHOSPHATASE 176 U/L (46-116); ALT/SGPT 17 U/L (7.0-40); AST/SGOT 41 U/L (<34); BILIRUBIN,TOTAL 0.6 MG/DL (0.3-1.2); BLOOD UREA NITROGEN 6 MG/DL (9-23); CALCIUM LEVEL 8.1 MG/DL (8.3-10.6); CARBON DIOXIDE LEVEL 32 MMOL/L (20-31); CHLORIDE LEVEL 104 MMOL/L (98-107); CREATININE FOR GFR 0.65 MG/DL (0.55-1.30); GLOMERULAR FILTRATION RATE > 60.0 (>45); GLUCOSE, FASTING 98 MG/DL (74-106); POTASSIUM SERUM 3.6 MMOL/L (3.5-5.1); SODIUM LEVEL 142 MMOL/L (136-145); TOTAL PROTEIN 6.1 G/DL (5.7-8.2)
[2023-11-28 07:39] VITALS: BP 124/82; TEMP 97.6; O2SAT 96
[2023-11-28 11:54] VITALS: BP 126/64; TEMP 98.6; O2SAT 92
[2023-11-28 16:00] VITALS: BP 126/70; TEMP 98.6; O2SAT 92
[2023-11-28 20:12] VITALS: BP 133/72; TEMP 98.2; O2SAT 96
[2023-11-28] MEDS: traZODone 25MG PER 1/2 TABLET PO PRN (20:22)
[2023-11-29 00:14] VITALS: BP 115/64; TEMP 98.2; O2SAT 94
[2023-11-29 08:28] VITALS: BP 114/98; TEMP 97.6; O2SAT 98
[2023-11-29] MEDS ORDERED: AMIT25TA19 PO (12:23)
== END 2023-11-29 13:09 | disposition home or self-care (01) | DRG 775 ==
LOC: EDBD 13:50 → M ED 13:50 → M ED INP 20:43 → M PCU 22:45
PROVIDERS: ADMIT Preventive Medicine Undersea and Hyperbaric Medicine; ATTEND Internal Medicine Nephrology
DX: F10.26 Alcohol dependence with alcohol-induced persisting amnestic disorder (principal); G92.8 Other toxic encephalopathy; E87.4 Mixed disorder of acid-base balance; I95.89 Other hypotension; I48.92 Unspecified atrial flutter; G62.9 Polyneuropathy, unspecified; K70.30 Alcoholic cirrhosis of liver without ascites; K21.9 Gastro-esophageal reflux disease without esophagitis; K44.9 Diaphragmatic hernia without obstruction or gangrene; G43.909 Migraine, unspecified, not intractable, without status migrainosus; E03.9 Hypothyroidism, unspecified; M81.0 Age-related osteoporosis without current pathological fracture; R33.9 Retention of urine, unspecified; F41.9 Anxiety disorder, unspecified; F12.90 Cannabis use, unspecified, uncomplicated; J44.9 Chronic obstructive pulmonary disease, unspecified; Z86.718 Personal history of other venous thrombosis and embolism; Z96.641 Presence of right artificial hip joint; Z79.899 Other long term (current) drug therapy; G47.00 Insomnia, unspecified

== ENCOUNTER 2023-12-11 19:54 | Emergency (ER) | payer OTHER ==
[~2023-12-11] VITALS: Ht 162.6 cm; Wt 74.8 kg
[~2023-12-11 19:54] MED LIST changes: +AMIT25TA19 PO; +FLUD0.1T PO; +GABA-284 PO; +HYDR-3363 PO; +MAGN64TASA PO; +MULT400T10 PO; +TIZA2TA PO; +VITA100093 PO
[2023-12-11 21:03] LABS: HEMATOCRIT 41.8 % (36.0-47.0); HEMOGLOBIN 13.9 g/dl (12.0-15.5); MEAN CORPUSCULAR HEMOGLOBIN 33.7 pg (27.0-33.0); MEAN CORPUSCULAR HGB CONC 33.3 g/dl (32.0-36.5); MEAN CORPUSCULAR VOLUME 101.5 fl (80.0-96.0); PLATELET COUNT, AUTOMATED 224 10^3/uL (150-450); RED BLOOD COUNT 4.12 10^6/uL (4.00-5.40); WHITE BLOOD COUNT 7.5 10^3/uL (4.0-10.0)
[2023-12-11 21:24] LABS: ETHYL ALCOHOL (ETHANOL) 0.224 % (0.000-0.010)
[2023-12-11 21:26] LABS: SALICYLATE LEVEL < 3.0 MG/DL (<30)
[2023-12-11 21:28] LABS: THYROID STIMULATING HORMONE 3.597 uIU/ML (0.55-4.78)
[2023-12-11 21:38] LABS: ALBUMIN 3.2 G/DL (3.2-5.2); ALKALINE PHOSPHATASE 193 U/L (46-116); ALT/SGPT 29 U/L (7.0-40); AST/SGOT 73 U/L (<34); BILIRUBIN,DIRECT 0.5 MG/DL (<0.4); BILIRUBIN,TOTAL 0.9 MG/DL (0.3-1.2); BLOOD UREA NITROGEN 6 MG/DL (9-23); CALCIUM LEVEL 9.2 MG/DL (8.3-10.6); CARBON DIOXIDE LEVEL 20 MMOL/L (20-31); CHLORIDE LEVEL 106 MMOL/L (98-107); GLOMERULAR FILTRATION RATE 59.8 (>45); GLUCOSE, FASTING 94 MG/DL (74-106); SODIUM LEVEL 142 MMOL/L (136-145); TOTAL PROTEIN 7.5 G/DL (5.7-8.2)
[2023-12-11 22:25] LABS: AMPHETAMINES LEVEL URINE NEGATIVE (NEGATIVE); BARBITURATES URINE NEGATIVE (NEGATIVE)
[2023-12-11 22:26] LABS: BENZODIAZEPINES URINE NEGATIVE (NEGATIVE); COCAINE METABOLITE URINE NEGATIVE (NEGATIVE); METHADONE URINE NEGATIVE (NEGATIVE); OPIATES URINE NEGATIVE (NEGATIVE); PHENCYCLIDINE URINE NEGATIVE (NEGATIVE)
[2023-12-11 22:29] LABS: CANNABINOIDS URINE POSITIVE (NEGATIVE)
[2023-12-12] MEDS: ONDANSETRON 4MG ORAL DISINTEGRATING TAB PO ONE ×2 (03:02→06:38)
[2023-12-12] MEDS: LORazepam 2 MG TAB PO STA (06:11)
[2023-12-12] MEDS ORDERED: AMIT25TA19 PO (09:07)
[2023-12-12] MEDS ORDERED: HOME MED LIST COMPLETE! XX SCH ×2 (09:10→11:20)
[2023-12-12] MEDS ORDERED: MIDO5TA PO (11:17)
[2023-12-12 14:03] VITALS: BP 121/71; TEMP 97.7; O2SAT 99
== END 2023-12-12 14:15 | disposition home or self-care (01) ==
LOC: M ED 19:54
DX: F10.129 Alcohol abuse with intoxication, unspecified (principal); Z63.0 Problems in relationship with spouse or partner; I10 Essential (primary) hypertension; E78.5 Hyperlipidemia, unspecified; Z96.641 Presence of right artificial hip joint; Z79.01 Long term (current) use of anticoagulants; Z79.02 Long term (current) use of antithrombotics/antiplatelets; Z79.890 Hormone replacement therapy; Z79.899 Other long term (current) drug therapy

== ENCOUNTER 2023-12-31 22:59 | Inpatient (IN) | payer OTHER ==
[~2023-12-31] VITALS: Ht 165.1 cm; Wt 62.8 kg
[2024-01-01] MEDS ORDERED: ONDANSETRON 4MG TAB PO ONE (00:35)
[2024-01-01 00:59] LABS: BASO % 0.3 % (0.0-1.0); HEMATOCRIT 42.8 % (36.0-47.0); HEMOGLOBIN 14.9 g/dl (12.0-15.5); LYMPH # 0.5 10^3/uL (1.5-5.0); MEAN CORPUSCULAR HEMOGLOBIN 34.3 pg (27.0-33.0); MEAN CORPUSCULAR HGB CONC 34.8 g/dl (32.0-36.5); MEAN CORPUSCULAR VOLUME 98.6 fl (80.0-96.0); MONO # 0.6 10^3/uL (0.0-0.8); MONO % 5.7 % (2.0-8.0); NEUTROPHILS # 9.6 10^3/uL (1.5-8.5); NEUTROPHILS % 88.6 % (36.0-66.0); PLATELET COUNT, AUTOMATED 127 10^3/uL (150-450); RED BLOOD COUNT 4.34 10^6/uL (4.00-5.40); WHITE BLOOD COUNT 10.8 10^3/uL (4.0-10.0)
[2024-01-01 01:22] LABS: ALBUMIN 3.3 G/DL (3.2-5.2); ALKALINE PHOSPHATASE 177 U/L (46-116); ALT/SGPT 29 U/L (7.0-40); AST/SGOT 90 U/L (<34); BILIRUBIN,TOTAL 1.8 MG/DL (0.3-1.2); BLOOD UREA NITROGEN 8 MG/DL (9-23); CARBON DIOXIDE LEVEL 24 MMOL/L (20-31); CHLORIDE LEVEL 104 MMOL/L (98-107); CREATININE FOR GFR 0.91 MG/DL (0.55-1.30); GLOMERULAR FILTRATION RATE > 60.0 (>45); GLUCOSE, FASTING 137 MG/DL (74-106); POTASSIUM SERUM 3.1 MMOL/L (3.5-5.1); SODIUM LEVEL 141 MMOL/L (136-145); TOTAL PROTEIN 7.7 G/DL (5.7-8.2)
[2024-01-01] MEDS: ONDANSETRON 4MG 2ML VIAL IM ONE (01:44)
[2024-01-01 01:51] LABS: LIPASE 1056 U/L (12-53)
[2024-01-01] MEDS: NS 1,000 ML IV ONE (04:36)
[2024-01-01] MEDS: ONDANSETRON 4MG 2ML VIAL IV ONE (04:36)
[2024-01-01] MEDS: IBUPROFEN 800 MG TAB PO ONE (04:36)
[2024-01-01 04:41] LABS: PROCALCITONIN 0.29 ng/ml
[2024-01-01] MEDS ORDERED: ISOVUE-370 76% 100ML VIAL As Ordered ONE (04:42)
[2024-01-01] MEDS: PIPERACILLIN/TAZOBACTAM SOD 4.5 GM in D5W MINI-BAG PLUS 50 ML IV ONE (05:00)
[2024-01-01 05:10] LABS: INR 1.9; PARTIAL THROMBOPLASTIN TIME 33.2 SECONDS (24.8-34.2); PROTHROMBIN TIME 21.2 SECONDS (12.5-14.5)
[2024-01-01] MEDS: LEVOTHYROXINE 25MCG TABLET (0.025MG) PO SCH (06:00)
[2024-01-01] MEDS: METOCLOPRAMIDE INJ 10MG/2ML VIAL IV ONE (06:15)
[2024-01-01] MEDS ORDERED: HOME MED LIST COMPLETE! XX SCH (08:25)
[2024-01-01] MEDS: LACTULOSE 20GM/30ML SYRUP UDC PO ONE (08:39)
[2024-01-01] MEDS: POTASSIUM CHLORIDE 10MEQ SR TABLET PO SCH (08:39)
[2024-01-01] MEDS: VITAMIN D 1,000 INTERNATIONAL UNITS TABLET PO SCH (09:00)
[2024-01-01] MEDS: rifAXIMin 550 MG TAB (XIFAXAN) PO SCH (09:00)
[2024-01-01] MEDS: MULTIVITAMINS/MINERALS THERAP 1 TAB PO SCH (09:00)
[2024-01-01] MEDS: FLUDROCORTISONE ACETATE 0.1 MG TAB PO SCH (09:00)
[2024-01-01] MEDS: THIAMINE 100 MG TAB PO SCH (09:00)
[2024-01-01] MEDS: FOLIC ACID 1MG TAB PO SCH ×2 (09:00)
[2024-01-01] MEDS: GABAPENTIN 400MG CAP PO SCH (09:00)
[2024-01-01] MEDS: APIXABAN 2.5 MG TAB (ELIQUIS) PO SCH (09:00)
[2024-01-01] MEDS: KCL 40MEQ IN D5/NS 1000ML 1,000 ML IV SCH (09:26)
[2024-01-01] MEDS: PIPERACILLIN/TAZOBACTAM SOD 3.375 GM in D5W MINI-BAG PLUS 50 ML IV SCH (11:00)
[2024-01-01] MEDS: PANTOPRAZOLE 40MG VIAL IV SCH (11:06)
[2024-01-01] MEDS: ONDANSETRON 4MG TAB PO SCH (11:51)
[2024-01-01 12:00] VITALS: BP 141/86; TEMP 97.5; O2SAT 18
[2024-01-01] MEDS: METOCLOPRAMIDE 10MG TAB PO SCH (12:00)
[2024-01-01] MEDS: LACTULOSE 20GM/30ML SYRUP UDC PO SCH (14:00)
[2024-01-01 15:43] VITALS: BP 137/86
[2024-01-01] MEDS: LORazepam 2 MG TAB PO PRN (16:00)
[2024-01-01 18:00] VITALS: BP 128/83
[2024-01-01] MEDS ORDERED: PROHANCE 279.3MG/ML 5ML VIAL As Ordered ONE (18:21)
[2024-01-01 19:20] LABS: BLOOD UREA NITROGEN 9 MG/DL (9-23); CARBON DIOXIDE LEVEL 29 MMOL/L (20-31); CHLORIDE LEVEL 110 MMOL/L (98-107); CREATININE FOR GFR 0.88 MG/DL (0.55-1.30); GLOMERULAR FILTRATION RATE > 60.0 (>45); GLUCOSE, FASTING 85 MG/DL (74-106); MAGNESIUM LEVEL 1.8 MG/DL (1.8-2.4); PHOSPHORUS LEVEL 0.9 MG/DL (2.4-5.1); POTASSIUM SERUM 3.3 MMOL/L (3.5-5.1); SODIUM LEVEL 146 MMOL/L (136-145)
[2024-01-01 19:55] VITALS: BP 137/83; TEMP 97.9; O2SAT 96
[2024-01-01 20:00] VITALS: BP 136/83; TEMP 97.5; O2SAT 96
[2024-01-01] MEDS: AMITRIPTYLINE 25MG TABLET PO SCH (20:20)
[2024-01-01] MEDS: ACETAMINOPHEN TAB 650MG DOSE (2X325MG) PO PRN (20:21)
[2024-01-01 22:00] VITALS: BP 136/83
[2024-01-02] VITALS (8 sets, daily range): BP systolic 84–160; BP diastolic 64–88; TEMP 97.3–97.9; O2SAT 95–98
[2024-01-02 06:12] LABS: HEMATOCRIT 37.2 % (36.0-47.0); HEMOGLOBIN 12.3 g/dl (12.0-15.5); MEAN CORPUSCULAR HEMOGLOBIN 33.9 pg (27.0-33.0); MEAN CORPUSCULAR HGB CONC 33.1 g/dl (32.0-36.5); MEAN CORPUSCULAR VOLUME 102.5 fl (80.0-96.0); RED BLOOD COUNT 3.63 10^6/uL (4.00-5.40); WHITE BLOOD COUNT 5.9 10^3/uL (4.0-10.0)
[2024-01-02 06:38] LABS: PLATELET COUNT, AUTOMATED 68 10^3/uL (150-450)
[2024-01-02 06:58] LABS: ALBUMIN 2.5 G/DL (3.2-5.2); ALKALINE PHOSPHATASE 113 U/L (46-116); ALT/SGPT 19 U/L (7.0-40); AST/SGOT 55 U/L (<34); BILIRUBIN,TOTAL 1.6 MG/DL (0.3-1.2); BLOOD UREA NITROGEN 7 MG/DL (9-23); CALCIUM LEVEL 7.9 MG/DL (8.3-10.6); CARBON DIOXIDE LEVEL 28 MMOL/L (20-31); CHLORIDE LEVEL 112 MMOL/L (98-107); GLOMERULAR FILTRATION RATE > 60.0 (>45); GLUCOSE, FASTING 58 MG/DL (74-106); MAGNESIUM LEVEL 1.7 MG/DL (1.8-2.4); POTASSIUM SERUM 3.6 MMOL/L (3.5-5.1); SODIUM LEVEL 147 MMOL/L (136-145); TOTAL PROTEIN 6.1 G/DL (5.7-8.2)
[2024-01-02] MEDS: METOCLOPRAMIDE INJ 10MG/2ML VIAL IV ONE (09:27)
[2024-01-02] MEDS: LACTULOSE 20GM/30ML SYRUP UDC PO SCH (10:08)
[2024-01-02] MEDS: ONDANSETRON 4MG 2ML VIAL IV PRN (10:32)
[2024-01-02] MEDS: MAG SULF 1GM/100ML (MAG RUN) 1 GM in IV 1 EA IV ONE (15:41)
[2024-01-02] MEDS: METOCLOPRAMIDE INJ 10MG/2ML VIAL IV SCH (16:30)
[2024-01-02] MEDS: MIDODRINE 5 MG TAB PO SCH (16:50)
[2024-01-03] VITALS (43 sets, daily range): BP systolic 55–156; BP diastolic 36–79; TEMP 97.5–103.3; O2SAT 74–100
[2024-01-03] MEDS: METOCLOPRAMIDE INJ 10MG/2ML VIAL IV ONE (00:42)
[2024-01-03 03:30] LABS: HEMATOCRIT 37.2 % (36.0-47.0); HEMOGLOBIN 12.4 g/dl (12.0-15.5); MEAN CORPUSCULAR HEMOGLOBIN 34.4 pg (27.0-33.0); MEAN CORPUSCULAR HGB CONC 33.3 g/dl (32.0-36.5); MEAN CORPUSCULAR VOLUME 103.3 fl (80.0-96.0); WHITE BLOOD COUNT 6.8 10^3/uL (4.0-10.0)
[2024-01-03 03:48] LABS: PLATELET COUNT, AUTOMATED 80 10^3/uL (150-450)
[2024-01-03 04:13] LABS: ALBUMIN 2.3 G/DL (3.2-5.2); ALKALINE PHOSPHATASE 111 U/L (46-116); ALT/SGPT 22 U/L (7.0-40); AST/SGOT 62 U/L (<34); BILIRUBIN,TOTAL 1.7 MG/DL (0.3-1.2); BLOOD UREA NITROGEN < 5 MG/DL (9-23); CALCIUM LEVEL 8.2 MG/DL (8.3-10.6); CARBON DIOXIDE LEVEL 27 MMOL/L (20-31); CHLORIDE LEVEL 110 MMOL/L (98-107); CREATININE FOR GFR 0.84 MG/DL (0.55-1.30); GLOMERULAR FILTRATION RATE > 60.0 (>45); GLUCOSE, FASTING 131 MG/DL (74-106); MAGNESIUM LEVEL 1.7 MG/DL (1.8-2.4); POTASSIUM SERUM 4.1 MMOL/L (3.5-5.1); SODIUM LEVEL 142 MMOL/L (136-145); TOTAL PROTEIN 6.1 G/DL (5.7-8.2)
[2024-01-03] MEDS: MAG SULF 1GM/100ML (MAG RUN) 1 GM in IV 1 EA IV SCH (08:23)
[2024-01-03] MEDS: PROMETHAZINE 25MG/ML 1ML VIAL IM ONE (08:24)
[2024-01-03] MEDS: LORazepam 2 MG/ML 1ML VIAL IV STA (08:24)
[2024-01-03] MEDS ORDERED: PROMETHAZINE 25MG/ML 1ML VIAL IM PRN (10:20)
[2024-01-03] MEDS: NS 500 ML IV ONE (10:21)
[2024-01-03] MEDS: MIDODRINE 5 MG TAB PO ONE (10:26)
[2024-01-03] MEDS: FLUDROCORTISONE ACETATE 0.1 MG TAB PO SCH ×2 (10:26→21:00)
[2024-01-03 12:06] LABS: THYROID STIMULATING HORMONE 3.185 uIU/ML (0.55-4.78)
[2024-01-03] MEDS ORDERED: ADENOSINE 6MG 2ML INJECTION IV STA (13:37)
[2024-01-03] MEDS ORDERED: LORazepam 2 MG/ML 1ML VIAL IM PRN (14:00)
[2024-01-03 15:12] LABS: CK-MB VALUE MASS 2.1 NG/ML (<3.6)
[2024-01-03 15:21] LABS: MB/CK RELATIVE INDEX 2.28 (< OR =4)
[2024-01-03] MEDS: MIDODRINE 5 MG TAB PO SCH (16:02)
[2024-01-03] MEDS: PROPRANOLOL 10 MG TAB PO ONE (16:03)
[2024-01-03] MEDS: KCL 20MEQ in NS 1000ML 1,000 ML IV SCH (16:03)
[2024-01-03] MEDS: THIAMINE 200MG 2ML VIAL IV SCH (16:03)
[2024-01-03] MEDS: LORazepam 2 MG/ML 1ML VIAL IV PRN (17:51)
[2024-01-03 18:15] LABS: ABG BASE EXCESS -1.8 (-2.0-2.0); ABG HCO3 21.1 MMOL/L (22.0-26.0); ABG O2 SATURATION 92.1 % (95.0-99.0); ABG PARTIAL PRESSURE CO2 30.5 mmHg (35.0-45.0); ABG PARTIAL PRESSURE O2 60.8 mmHg (75.0-100.0); ABG STANDARD HCO3 22.9 MMOL/L. (22.0-26.0); ABG pH (ARTERIAL) 7.458 UNITS (7.350-7.450)
[2024-01-03] MEDS ORDERED: dexmedeTOMIDine (4MCG/ML)200MCG/50ML BTL (PRECEDEX) As Ordered ONE (21:18)
[2024-01-03] MEDS: DEXMEDETOMIDINE IV ONE (21:51)
[2024-01-03] MEDS: ACETAMINOPHEN *IV* 1,000 MG in IV 1 EA IV ONE (23:08)
[2024-01-03] MEDS: SODIUM CHLORIDE 0.9% 1000ML IV STA ×2 (23:23→23:34)
[2024-01-03] MEDS: ACETAMINOPHEN 650MG SUPP PR ONE (23:36)
[2024-01-04] VITALS (121 sets, daily range): BP systolic 58–150; BP diastolic 11–99; TEMP 96.7–98.4; O2SAT 79–100
[2024-01-04] MEDS: LORazepam 2 MG/ML 1ML VIAL IM STA (01:29)
[2024-01-04] MEDS: NOREPINEPHRINE 4MG IN D5 250ML 4 MG in IV 1 EA IV SCH (02:16)
[2024-01-04] MEDS: dexmedeTOMidine 200 MCG in IV 1 EA IV SCH ×2 (05:05→15:28)
[2024-01-04] MEDS: LORazepam 2 MG/ML 1ML VIAL IV PRN ×2 (05:22→16:55)
[2024-01-04 07:03] LABS: HEMATOCRIT 35.4 % (36.0-47.0); HEMOGLOBIN 11.7 g/dl (12.0-15.5); MEAN CORPUSCULAR HEMOGLOBIN 34.5 pg (27.0-33.0); MEAN CORPUSCULAR HGB CONC 33.1 g/dl (32.0-36.5); MEAN CORPUSCULAR VOLUME 104.4 fl (80.0-96.0); RED BLOOD COUNT 3.39 10^6/uL (4.00-5.40); WHITE BLOOD COUNT 6.8 10^3/uL (4.0-10.0)
[2024-01-04 07:04] LABS: PLATELET COUNT, AUTOMATED 73 10^3/uL (150-450)
[2024-01-04 07:22] LABS: ALBUMIN 1.8 G/DL (3.2-5.2); ALKALINE PHOSPHATASE 89 U/L (46-116); ALT/SGPT 16 U/L (7.0-40); AST/SGOT 40 U/L (<34); BILIRUBIN,TOTAL 1.9 MG/DL (0.3-1.2); BLOOD UREA NITROGEN 7 MG/DL (9-23); CARBON DIOXIDE LEVEL 20 MMOL/L (20-31); CHLORIDE LEVEL 114 MMOL/L (98-107); CREATININE FOR GFR 0.86 MG/DL (0.55-1.30); GLOMERULAR FILTRATION RATE > 60.0 (>45); GLUCOSE, FASTING 110 MG/DL (74-106); MAGNESIUM LEVEL 1.8 MG/DL (1.8-2.4); POTASSIUM SERUM 3.8 MMOL/L (3.5-5.1); SODIUM LEVEL 143 MMOL/L (136-145); TOTAL PROTEIN 5.1 G/DL (5.7-8.2)
[2024-01-04] MEDS: LR 1,000 ML IV SCH (10:11)
[2024-01-04] MEDS ORDERED: LORazepam 2 MG/ML 1ML VIAL IV PRN (12:25)
[2024-01-04] MEDS: HALOPERIDOL LACTATE 5MG/ML VIAL IV PRN (15:28)
[2024-01-04] MEDS: ALBUTEROL SULFATE 2.5MG/0.5ML INH NEB SOLN NEB PRN (17:31)
[2024-01-04] MEDS: QUEtiapine FUMARATE 50MG TAB PO PRN (20:13)
[2024-01-04] MEDS: MIDODRINE 5 MG TAB PO SCH (20:13)
[2024-01-04] MEDS: ENOXAPARIN 40MG/0.4ML SYRINGE (J1650 PER 10MG) SC ONE (20:14)
[2024-01-04] MEDS ORDERED: ENOXAPARIN 60MG/0.6ML SYRINGE (J1650 PER 10MG) SC SCH (21:00)
[2024-01-05] VITALS (59 sets, daily range): BP systolic 81–127; BP diastolic 50–83; TEMP 97.9–102.8; O2SAT 92–100
[2024-01-05 06:02] LABS: HEMATOCRIT 35.1 % (36.0-47.0); HEMOGLOBIN 11.5 g/dl (12.0-15.5); MEAN CORPUSCULAR HEMOGLOBIN 34.1 pg (27.0-33.0); MEAN CORPUSCULAR HGB CONC 32.8 g/dl (32.0-36.5); MEAN CORPUSCULAR VOLUME 104.2 fl (80.0-96.0); RED BLOOD COUNT 3.37 10^6/uL (4.00-5.40)
[2024-01-05 06:17] LABS: PLATELET COUNT, AUTOMATED 83 10^3/uL (150-450)
[2024-01-05 06:37] LABS: ALBUMIN 1.9 G/DL (3.2-5.2); ALKALINE PHOSPHATASE 89 U/L (46-116); ALT/SGPT 16 U/L (7.0-40); AST/SGOT 31 U/L (<34); BILIRUBIN,TOTAL 1.7 MG/DL (0.3-1.2); BLOOD UREA NITROGEN 7 MG/DL (9-23); CALCIUM LEVEL 7.6 MG/DL (8.3-10.6); CARBON DIOXIDE LEVEL 23 MMOL/L (20-31); CHLORIDE LEVEL 112 MMOL/L (98-107); CREATININE FOR GFR 0.91 MG/DL (0.55-1.30); GLOMERULAR FILTRATION RATE > 60.0 (>45); GLUCOSE, FASTING 112 MG/DL (74-106); POTASSIUM SERUM 3.5 MMOL/L (3.5-5.1); SODIUM LEVEL 143 MMOL/L (136-145); TOTAL PROTEIN 5.4 G/DL (5.7-8.2)
[2024-01-05] MEDS: LACTATED RINGER'S 1000 ML IV ONE (08:48)
[2024-01-05] MEDS ORDERED: ENOXAPARIN 40MG/0.4ML SYRINGE (J1650 PER 10MG) SC SCH (09:00)
[2024-01-05] MEDS: ENOXAPARIN 30MG/0.3ML SYRINGE (J1650 PER 10MG) SC SCH (09:41)
[2024-01-05] MEDS ORDERED: SODIUM CHLORIDE 0.9% INJ 10 ML SYR IV PRN (12:40)
[2024-01-05] MEDS: IBUPROFEN 400MG TAB PO PRN (14:33)
[2024-01-05] MEDS: SODIUM CHLORIDE 0.9% INJ 10 ML SYR IV SCH (18:32)
[2024-01-05] MEDS: ACETAMINOPHEN *IV* 1,000 MG in IV 1 EA IV PRN (22:01)
[2024-01-06] VITALS (26 sets, daily range): BP systolic 95–124; BP diastolic 63–80; TEMP 97–99.2; O2SAT 91–93
[2024-01-06] MEDS: PROMETHAZINE 25MG/ML 1ML VIAL IV PRN (00:44)
[2024-01-06 05:28] LABS: HEMATOCRIT 35.6 % (36.0-47.0); MEAN CORPUSCULAR HEMOGLOBIN 33.8 pg (27.0-33.0); MEAN CORPUSCULAR HGB CONC 33.7 g/dl (32.0-36.5); MEAN CORPUSCULAR VOLUME 100.3 fl (80.0-96.0); RED BLOOD COUNT 3.55 10^6/uL (4.00-5.40); WHITE BLOOD COUNT 4.4 10^3/uL (4.0-10.0)
[2024-01-06 05:40] LABS: PLATELET COUNT, AUTOMATED 91 10^3/uL (150-450)
[2024-01-06] MEDS: LACTATED RINGER'S 1000 ML IV ONE (14:13)
[2024-01-06] MEDS: GABAPENTIN 100 MG CAP PO SCH (16:23)
[2024-01-07] VITALS: BP 105/65; TEMP 97.6; O2SAT 91
[2024-01-07 04:00] VITALS: BP 106/69; TEMP 97.5; O2SAT 91
[2024-01-07 05:18] LABS: HEMATOCRIT 34.2 % (36.0-47.0); HEMOGLOBIN 11.9 g/dl (12.0-15.5); MEAN CORPUSCULAR HEMOGLOBIN 34.2 pg (27.0-33.0); MEAN CORPUSCULAR HGB CONC 34.8 g/dl (32.0-36.5); MEAN CORPUSCULAR VOLUME 98.3 fl (80.0-96.0); PLATELET COUNT, AUTOMATED 115 10^3/uL (150-450); RED BLOOD COUNT 3.48 10^6/uL (4.00-5.40)
[2024-01-07 08:00] VITALS: BP 102/56; TEMP 97.1; O2SAT 93
[2024-01-07 08:36] LABS: HEMATOCRIT 33.6 % (36.0-47.0); HEMOGLOBIN 11.7 g/dl (12.0-15.5); MEAN CORPUSCULAR HGB CONC 34.8 g/dl (32.0-36.5); MEAN CORPUSCULAR VOLUME 97.7 fl (80.0-96.0); PLATELET COUNT, AUTOMATED 122 10^3/uL (150-450); RED BLOOD COUNT 3.44 10^6/uL (4.00-5.40); WHITE BLOOD COUNT 5.4 10^3/uL (4.0-10.0)
[2024-01-07 08:43] LABS: ERYTHROCYTE SEDIMENTATION RATE 78 mm/hr (0-30)
[2024-01-07 09:04] LABS: CK-MB VALUE MASS 1.7 NG/ML (<3.6)
[2024-01-07 09:06] LABS: CPK CREATINE PHOSPHOKINASE 16 U/L (34-145); MB/CK RELATIVE INDEX 10.62 (< OR =4)
[2024-01-07 09:07] LABS: ATYPICAL LYMPH 3 % (0-5); FREE T4 1.08 NG/DL (0.89-1.76); LYMPHOCYTES 25 % (16-44); MONOCYTES 7 % (0-5); NEUTROPHILS 62 % (28-66); PLASMA CELL 3 % (0-0); THYROID STIMULATING HORMONE 3.478 uIU/ML (0.55-4.78)
[2024-01-07 09:10] LABS: ANISOCYTOSIS 1+; FREE T3 1.8 PG/ML (2.3-4.2); PLATELET ESTIMATE DECREASED (NORMAL)
[2024-01-07 09:13] LABS: POLYCHROMASIA 1+
[2024-01-07 09:44] LABS: ALBUMIN 1.6 G/DL (3.2-5.2); ALKALINE PHOSPHATASE 120 U/L (46-116); ALT/SGPT 25 U/L (7.0-40); AST/SGOT 59 U/L (<34); BILIRUBIN,TOTAL 1.7 MG/DL (0.3-1.2); BLOOD UREA NITROGEN < 5 MG/DL (9-23); CALCIUM LEVEL 7.8 MG/DL (8.3-10.6); CARBON DIOXIDE LEVEL 25 MMOL/L (20-31); CHLORIDE LEVEL 108 MMOL/L (98-107); CREATININE FOR GFR 0.77 MG/DL (0.55-1.30); GLOMERULAR FILTRATION RATE > 60.0 (>45); GLUCOSE, FASTING 100 MG/DL (74-106); POTASSIUM SERUM 2.3 MMOL/L (3.5-5.1); PROCALCITONIN >50.00 ng/ml; SODIUM LEVEL 140 MMOL/L (136-145); TOTAL PROTEIN 5.1 G/DL (5.7-8.2)
[2024-01-07] MEDS: POTASSIUM CHLORIDE 10MEQ SR TABLET PO SCH (10:03)
[2024-01-07] MEDS: POTASSIUM CHLORIDE 10MEQ SR TABLET PO ONE (11:21)
[2024-01-07 12:00] VITALS: BP 107/56; TEMP 97.5; O2SAT 93
[2024-01-07 13:17] LABS: IONIZED CALCIUM 4.5 MG/DL (4.5-5.3)
[2024-01-07 13:48] LABS: MAGNESIUM LEVEL 1.4 MG/DL (1.8-2.4)
[2024-01-07] MEDS: MAG SULF 1GM/100ML (MAG RUN) 1 GM in IV 1 EA IV ONE ×2 (13:59→21:03)
[2024-01-07] MEDS ORDERED: KCL 20MEQ IN 100ML SWI (KRUN) 20 MEQ in IV 1 EA IV SCH (14:00)
[2024-01-07] MEDS: KCL 20MEQ IN 100ML SWI (KRUN) 20 MEQ in IV 1 EA IV SCH (15:05)
[2024-01-07 16:00] VITALS: BP 111/61; TEMP 97.3; O2SAT 94
[2024-01-07] MEDS: CALCIUM GLUCONATE 1,000 MG in D5W MINI-BAG PLUS 100 ML IV ONE (18:14)
[2024-01-07 20:00] VITALS: BP 96/58; TEMP 98; O2SAT 93
[2024-01-07 20:20] LABS: IONIZED CALCIUM 4.5 MG/DL (4.5-5.3)
[2024-01-07 20:51] LABS: MAGNESIUM LEVEL 1.7 MG/DL (1.8-2.4); POTASSIUM SERUM 4.3 MMOL/L (3.5-5.1)
[2024-01-08] VITALS (9 sets, daily range): BP systolic 95–108; BP diastolic 53–70; TEMP 97–98; O2SAT 90–99
[2024-01-08 05:06] LABS: HEMATOCRIT 29.2 % (36.0-47.0); HEMOGLOBIN 10.1 g/dl (12.0-15.5); MEAN CORPUSCULAR HEMOGLOBIN 33.7 pg (27.0-33.0); MEAN CORPUSCULAR HGB CONC 34.6 g/dl (32.0-36.5); MEAN CORPUSCULAR VOLUME 97.3 fl (80.0-96.0); PLATELET COUNT, AUTOMATED 121 10^3/uL (150-450)
[2024-01-08 05:43] LABS: EOSINOPHILS 9 % (0-3); LYMPHOCYTES 19 % (16-44); METAMYELOCYTES 1 % (0-0); MONOCYTES 15 % (0-5); NEUTROPHILS 54 % (28-66); PLASMA CELL 2 % (0-0); PLATELET ESTIMATE NORMAL (NORMAL)
[2024-01-08 05:44] LABS: ANISOCYTOSIS 1+
[2024-01-08 05:45] LABS: POLYCHROMASIA 1+
[2024-01-08 06:09] LABS: ALBUMIN 1.5 G/DL (3.2-5.2); ALKALINE PHOSPHATASE 115 U/L (46-116); ALT/SGPT 22 U/L (7.0-40); AST/SGOT 52 U/L (<34); BILIRUBIN,TOTAL 1.4 MG/DL (0.3-1.2); BLOOD UREA NITROGEN < 5 MG/DL (9-23); CALCIUM LEVEL 7.7 MG/DL (8.3-10.6); CARBON DIOXIDE LEVEL 27 MMOL/L (20-31); CHLORIDE LEVEL 108 MMOL/L (98-107); CREATININE FOR GFR 0.71 MG/DL (0.55-1.30); GLOMERULAR FILTRATION RATE > 60.0 (>45); GLUCOSE, FASTING 87 MG/DL (74-106); POTASSIUM SERUM 3.1 MMOL/L (3.5-5.1); SODIUM LEVEL 140 MMOL/L (136-145); TOTAL PROTEIN 4.9 G/DL (5.7-8.2)
[2024-01-08] MEDS: KCL 20MEQ IN 100ML SWI (KRUN) 20 MEQ in IV 1 EA IV SCH (08:40)
[2024-01-08] MEDS: DIGOXIN INJ 0.5 MG/2 ML AMP IV STA (10:20)
[2024-01-08] MEDS: NS 500 ML IV ONE (10:22)
[2024-01-09 04:06] VITALS: BP 107/69; TEMP 97.7; O2SAT 96
[2024-01-09 07:14] LABS: BASO % 0.8 % (0.0-1.0); EOS # 0.2 10^3/uL (0.0-0.5); HEMATOCRIT 28.6 % (36.0-47.0); HEMOGLOBIN 9.8 g/dl (12.0-15.5); LYMPH # 1.6 10^3/uL (1.5-5.0); LYMPH % 30.9 % (24.0-44.0); MEAN CORPUSCULAR HEMOGLOBIN 34.3 pg (27.0-33.0); MEAN CORPUSCULAR HGB CONC 34.3 g/dl (32.0-36.5); MONO # 0.6 10^3/uL (0.0-0.8); MONO % 11.4 % (2.0-8.0); NEUTROPHILS # 2.6 10^3/uL (1.5-8.5); NEUTROPHILS % 52.1 % (36.0-66.0); PLATELET COUNT, AUTOMATED 132 10^3/uL (150-450); RED BLOOD COUNT 2.86 10^6/uL (4.00-5.40)
[2024-01-09 08:03] LABS: ALBUMIN 1.5 G/DL (3.2-5.2); ALKALINE PHOSPHATASE 109 U/L (46-116); ALT/SGPT 19 U/L (7.0-40); AST/SGOT 42 U/L (<34); BILIRUBIN,TOTAL 1.3 MG/DL (0.3-1.2); BLOOD UREA NITROGEN < 5 MG/DL (9-23); CALCIUM LEVEL 7.7 MG/DL (8.3-10.6); CARBON DIOXIDE LEVEL 27 MMOL/L (20-31); CHLORIDE LEVEL 107 MMOL/L (98-107); CREATININE FOR GFR 0.72 MG/DL (0.55-1.30); GLOMERULAR FILTRATION RATE > 60.0 (>45); GLUCOSE, FASTING 86 MG/DL (74-106); POTASSIUM SERUM 2.9 MMOL/L (3.5-5.1); SODIUM LEVEL 140 MMOL/L (136-145)
[2024-01-09] MEDS: POTASSIUM CHLORIDE 10MEQ SR TABLET PO SCH (09:54)
[2024-01-09] MEDS: THIAMINE 100 MG TAB PO SCH (09:54)
[2024-01-09] MEDS: LevoFLOXacin 750 MG TABLET PO SCH (10:48)
[2024-01-09 12:00] VITALS: BP 104/69; TEMP 97.7; O2SAT 95
[2024-01-09] MEDS: MIDODRINE 5 MG TAB PO SCH (12:00)
[2024-01-09] MEDS: POTASSIUM CHLORIDE 10MEQ SR TABLET PO ONE (12:31)
[2024-01-09] MEDS ORDERED: POTASSIUM CHLORIDE 10MEQ SR TABLET PO ONE (13:00)
[2024-01-09 20:09] VITALS: BP 103/67; TEMP 97.5; O2SAT 95
[2024-01-09] MEDS: LACTULOSE 20GM/30ML SYRUP UDC PO SCH (20:26)
[2024-01-09] MEDS ORDERED: MAG SULF 1GM/100ML (MAG RUN) 1 GM in IV 1 EA IV SCH (20:50)
[2024-01-09] MEDS: METOPROLOL TART 12.5 MG PER 1/2 TAB PO SCH (22:41)
[2024-01-10 04:00] VITALS: BP 105/70; TEMP 97.3; O2SAT 95
[2024-01-10 06:03] LABS: HEMATOCRIT 30.6 % (36.0-47.0); HEMOGLOBIN 10.5 g/dl (12.0-15.5); MEAN CORPUSCULAR HGB CONC 34.3 g/dl (32.0-36.5); PLATELET COUNT, AUTOMATED 139 10^3/uL (150-450); RED BLOOD COUNT 3.09 10^6/uL (4.00-5.40); WHITE BLOOD COUNT 3.8 10^3/uL (4.0-10.0)
[2024-01-10 06:05] LABS: BASO % 0.6 % (0.0-1.0); EOS # 0.1 10^3/uL (0.0-0.5); EOS % 3.9 % (0.0-3.0); HEMATOCRIT 30.8 % (36.0-47.0); HEMOGLOBIN 10.6 g/dl (12.0-15.5); LYMPH # 1.3 10^3/uL (1.5-5.0); LYMPH % 34.7 % (24.0-44.0); MEAN CORPUSCULAR HEMOGLOBIN 34.1 pg (27.0-33.0); MEAN CORPUSCULAR HGB CONC 34.4 g/dl (32.0-36.5); MONO # 0.4 10^3/uL (0.0-0.8); MONO % 12.1 % (2.0-8.0); NEUTROPHILS # 1.8 10^3/uL (1.5-8.5); NEUTROPHILS % 48.1 % (36.0-66.0); PLATELET COUNT, AUTOMATED 126 10^3/uL (150-450); RED BLOOD COUNT 3.11 10^6/uL (4.00-5.40); WHITE BLOOD COUNT 3.6 10^3/uL (4.0-10.0)
[2024-01-10 06:28] LABS: ALBUMIN 1.6 G/DL (3.2-5.2); ALKALINE PHOSPHATASE 102 U/L (46-116); ALT/SGPT 18 U/L (7.0-40); AST/SGOT 39 U/L (<34); BILIRUBIN,TOTAL 1.3 MG/DL (0.3-1.2); BLOOD UREA NITROGEN < 5 MG/DL (9-23); CALCIUM LEVEL 8.1 MG/DL (8.3-10.6); CARBON DIOXIDE LEVEL 28 MMOL/L (20-31); CHLORIDE LEVEL 106 MMOL/L (98-107); CREATININE FOR GFR 0.72 MG/DL (0.55-1.30); GLOMERULAR FILTRATION RATE > 60.0 (>45); GLUCOSE, FASTING 79 MG/DL (74-106); MAGNESIUM LEVEL 1.5 MG/DL (1.8-2.4); POTASSIUM SERUM 3.3 MMOL/L (3.5-5.1); SODIUM LEVEL 138 MMOL/L (136-145); TOTAL PROTEIN 5.4 G/DL (5.7-8.2)
[2024-01-10] MEDS: MAG SULF 1GM/100ML (MAG RUN) 1 GM in IV 1 EA IV SCH (09:24)
[2024-01-10 09:26] VITALS: BP 103/60
[2024-01-10] MEDS: MAGNESIUM OXIDE 400MG TAB (MAG-OX) PO SCH (09:26)
[2024-01-10] MEDS: PANTOPRAZOLE 40MG TAB (PROTONIX) PO SCH (09:27)
[2024-01-10] MEDS ORDERED: LEVO1TAB40 PO (11:06)
[2024-01-10] MEDS ORDERED: MAGN400T2 PO (11:06)
[2024-01-10] MEDS ORDERED: LACT20EL PO (11:06)
[2024-01-10] MEDS ORDERED: MIDO5TA PO (11:06)
[2024-01-10] MEDS ORDERED: POTA-136 PO (11:06)
[2024-01-10] MEDS ORDERED: PANT40TA29 PO (11:06)
[2024-01-10] MEDS ORDERED: GABA-1171 PO (11:06)
[2024-01-10] MEDS ORDERED: XIFA550T PO (11:06)
[2024-01-10] MEDS ORDERED: METO1TAB87 PO (11:06)
[2024-01-10 12:00] VITALS: BP 103/66; TEMP 97.3; O2SAT 97
== END 2024-01-10 13:02 | disposition home or self-care (01) | DRG 282 ==
LOC: M ED 22:59 → M MSPAV 01-01 08:43 → M ED INP 01-01 08:43 → M MSPAV 01-01 11:58 → M PCU 01-03 14:21 → M ICU 01-03 21:54 → M MSPAV 01-08 17:45
PROVIDERS: ADMIT Hospitalist; ATTEND Internal Medicine Nephrology
DX: K85.20 Alcohol induced acute pancreatitis without necrosis or infection (principal); A41.50 Gram-negative sepsis, unspecified; R65.21 Severe sepsis with septic shock; G92.8 Other toxic encephalopathy; F10.231 Alcohol dependence with withdrawal delirium; K83.1 Obstruction of bile duct; I24.89 Other forms of acute ischemic heart disease; E72.20 Disorder of urea cycle metabolism, unspecified; K91.2 Postsurgical malabsorption, not elsewhere classified; I48.92 Unspecified atrial flutter; I51.81 Takotsubo syndrome; K70.30 Alcoholic cirrhosis of liver without ascites; I95.0 Idiopathic hypotension; K76.82 Hepatic encephalopathy; K70.0 Alcoholic fatty liver; E03.9 Hypothyroidism, unspecified; F04 Amnestic disorder due to known physiological condition; J44.9 Chronic obstructive pulmonary disease, unspecified; J98.11 Atelectasis; D69.6 Thrombocytopenia, unspecified; K21.9 Gastro-esophageal reflux disease without esophagitis; F12.90 Cannabis use, unspecified, uncomplicated; M81.0 Age-related osteoporosis without current pathological fracture; Z95.2 Presence of prosthetic heart valve; I50.22 Chronic systolic (congestive) heart failure; Z79.899 Other long term (current) drug therapy; Z79.01 Long term (current) use of anticoagulants; E55.9 Vitamin D deficiency, unspecified

== ENCOUNTER → 2024-02-13 | Outpatient (REF) | payer OTHER ==
[~2024-02-13] MED LIST changes: +GABA-1171 PO; +LACT20EL PO; +LEVO1TAB40 PO; +MAGN400T2 PO; +METO1TAB87 PO
[2024-02-14 10:56] LABS: APPEARANCE, URINE CLEAR (CLEAR); BACTERIA, URINE AUTO NEGATIVE (NEGATIVE); BILIRUBIN, URINE AUTO NEGATIVE (NEGATIVE); BLOOD, URINE BLOOD NEGATIVE (NEGATIVE); COLOR, URINE STRAW (YELLOW); GLUCOSE, URINE (UA) AUTO NEGATIVE (NEGATIVE); KETONE, URINE AUTO NEGATIVE (NEGATIVE); LEUKOCYTE ESTERASE, URINE AUTO NEGATIVE (NEGATIVE); NITRITE, URINE AUTO NEGATIVE (NEGATIVE); PROTEIN, URINE AUTO NEGATIVE (NEGATIVE); RBC, URINE AUTO 0 /HPF (0-3); SPECIFIC GRAVITY URINE AUTO 1.002 (1.002-1.035); SQUAMOUS EPITHELIAL CELL UR AU 0 /HPF (0-6); UROBILINOGEN, URINE AUTO 0.2 mg/dL (0.0-2.0); WBC, URINE AUTO 0 /HPF (0-3)
== END ==
LOC: M SFHCPLAZ 10:08 → EEVIPCON 10:08
PROVIDERS: ATTEND Physician Assistant Medical
DX: R30.0 Dysuria (principal)

== ENCOUNTER → 2024-02-27 | Outpatient (CLI) | payer OTHER ==
[~2024-02-27] MED LIST changes: +GABA-1490 PO; +GABA-1635 PO; -GABA600T4 PO; -GABA800T4 PO
== END ==
LOC: M PLALAB 10:39
PROVIDERS: ATTEND Registered Nurse
DX: I51.81 Takotsubo syndrome (principal)

== ENCOUNTER → 2024-03-04 | Outpatient (CLI) | payer OTHER | LOC: M PLAIMG 07:31 | PROVIDERS: ATTEND Registered Nurse | DX: I51.81 Takotsubo syndrome (principal); I50.22 Chronic systolic (congestive) heart failure; R94.31 Abnormal electrocardiogram [ECG] [EKG] ==

== ENCOUNTER → 2024-03-26 | Outpatient (CLI) | payer OTHER ==
[2024-03-26 07:30] LABS: CHOLESTEROL RISK RATIO 3.47 (<5); HDL CHOLESTEROL 41.1 MG/DL (>40); LDL CHOLESTEROL 55.5 MG/DL (<100); NON-HDL-C 101.9 MG/DL
== END ==
LOC: M LAB 06:39
PROVIDERS: ATTEND Registered Nurse
DX: E78.2 Mixed hyperlipidemia (principal)

== ENCOUNTER → 2024-04-29 | Outpatient (CLI) | payer OTHER ==
[~2024-04-29] MED LIST changes: +PROHANCE 279.3MG/ML 15ML VIAL ONE
== END ==
LOC: M PLAIMG 12:20
PROVIDERS: ATTEND Nurse Practitioner Family
DX: K86.0 Alcohol-induced chronic pancreatitis (principal); E27.9 Disorder of adrenal gland, unspecified

== ENCOUNTER → 2024-05-22 | Outpatient (CLI) | payer OTHER ==
[~2024-05-22] MED LIST changes: -LIDO1CRE2 TOP; +LIDO4CRE12 TOP; -PROHANCE 279.3MG/ML 15ML VIAL ONE
== END ==
LOC: M WHC 06:59
PROVIDERS: ATTEND Family Medicine
DX: Z12.31 Encounter for screening mammogram for malignant neoplasm of breast (principal); R92.333 Mammographic heterogeneous density, bilateral breasts

== ENCOUNTER 2024-06-24 12:52 | Outpatient (RCR) | payer OTHER | END 2024-06-25 | LOC: M PT 12:52 | PROVIDERS: ATTEND Family Medicine | DX: M25.512 Pain in left shoulder (principal); M25.511 Pain in right shoulder ==

== ENCOUNTER 2024-07-25 12:15 | Outpatient (RCR) | payer OTHER | END 2024-07-26 | LOC: M PT 12:15 | PROVIDERS: ATTEND Family Medicine | DX: M25.512 Pain in left shoulder (principal); M25.511 Pain in right shoulder ==

== ENCOUNTER → 2024-08-06 | Outpatient (CLI) | payer OTHER ==
[~2024-08-06] MED LIST changes: +PROHANCE 279.3MG/ML 15ML VIAL ONE
== END ==
LOC: M PLAIMG 08:46
PROVIDERS: ATTEND Nurse Practitioner Family
DX: K86.0 Alcohol-induced chronic pancreatitis (principal); N28.1 Cyst of kidney, acquired; K76.89 Other specified diseases of liver
CPT/HCPCS: 74183; A9576

== ENCOUNTER → 2024-08-14 | Outpatient (REF) | payer OTHER ==
[~2024-08-14] MED LIST changes: -PROHANCE 279.3MG/ML 15ML VIAL ONE
== END ==
LOC: M LAB REF 14:34
PROVIDERS: ATTEND Internal Medicine Gastroenterology
DX: K86.1 Other chronic pancreatitis (principal)

== ENCOUNTER → 2024-08-16 | Outpatient (CLI) | payer OTHER ==
[2024-08-20 20:33] LABS: VITAMIN E(ALPHA TOCOPHEROL) 7.6 mg/L (5.7-19.9); VITAMIN E(GAMMA TOCOPHEROL) 1.2 mg/L (<=4.3)
== END ==
LOC: M LAB 15:05
PROVIDERS: ATTEND Internal Medicine Gastroenterology
DX: K86.1 Other chronic pancreatitis (principal)

== ENCOUNTER 2024-08-22 08:23 | Outpatient (RCR) | payer OTHER | END 2024-08-23 | LOC: M PT 08:23 | PROVIDERS: ATTEND Family Medicine | DX: M25.512 Pain in left shoulder (principal); M25.511 Pain in right shoulder ==

== ENCOUNTER → 2024-08-29 | Outpatient (CLI) | payer OTHER ==
[2024-08-29 17:05] LABS: HEMOGLOBIN 12.5 g/dl (12.0-15.5); MEAN CORPUSCULAR HEMOGLOBIN 29.6 pg (27.0-33.0); MEAN CORPUSCULAR HGB CONC 31.3 g/dl (32.0-36.5); MEAN CORPUSCULAR VOLUME 94.6 fl (80.0-96.0); PLATELET COUNT, AUTOMATED 150 10^3/uL (150-450); RED BLOOD COUNT 4.23 10^6/uL (4.00-5.40); WHITE BLOOD COUNT 6.4 10^3/uL (4.0-10.0)
[2024-08-29 17:30] LABS: PERCENT SATURATION 13.5 % (13.2-45.0)
[2024-08-29 17:32] LABS: FERRITIN 15.3 NG/ML (7.3-270.7)
[2024-08-29 17:39] LABS: ALBUMIN 3.6 G/DL (3.2-5.2); BILIRUBIN,TOTAL 0.3 MG/DL (0.3-1.2); CALCIUM LEVEL 9.3 MG/DL (8.3-10.6); CREATININE FOR GFR 1.03 MG/DL (0.55-1.30); GLOMERULAR FILTRATION RATE 57.6 (>45); MAGNESIUM LEVEL 1.9 MG/DL (1.8-2.4); POTASSIUM SERUM 4.1 MMOL/L (3.5-5.1)
== END ==
LOC: M LAB 16:41
PROVIDERS: ATTEND Family Medicine
DX: D64.9 Anemia, unspecified (principal); I95.0 Idiopathic hypotension; K76.82 Hepatic encephalopathy; K21.9 Gastro-esophageal reflux disease without esophagitis

== ENCOUNTER → 2024-10-15 | Outpatient (CLI) | payer OTHER ==
[~2024-10-15] MED LIST changes: +PROHANCE 279.3MG/ML 15ML VIAL As Ordered ONE
== END ==
LOC: M RAD 10:31
PROVIDERS: ATTEND Nurse Practitioner Family
DX: K86.0 Alcohol-induced chronic pancreatitis (principal)
CPT/HCPCS: 74183; A9576

== ENCOUNTER → 2025-04-03 | Outpatient (CLI) | payer OTHER ==
[~2025-04-03] MED LIST changes: +AMIT10TA11 PO; -AMIT10TA7 PO; -NYST-13 TOP; +NYST0.1C TOP; -PROHANCE 279.3MG/ML 15ML VIAL As Ordered ONE; -VITA500T17 PO; +VITA500T8 PO
[2025-04-03 09:39] LABS: CHOLESTEROL LEVEL 175.0 MG/DL (<200); CHOLESTEROL RISK RATIO 2.99 (<5); LDL CHOLESTEROL 93.8 MG/DL (<100); NON-HDL-C 116.6 MG/DL; TRIGLYCERIDES LEVEL 114.0 MG/DL (<150)
== END ==
LOC: M EKG 08:01
PROVIDERS: ATTEND Nurse Practitioner Family
DX: I48.92 Unspecified atrial flutter (principal); E78.2 Mixed hyperlipidemia

== ENCOUNTER → 2025-05-29 | Outpatient (CLI) | payer OTHER | LOC: M WHC 07:36 | PROVIDERS: ATTEND Family Medicine | DX: Z12.31 Encounter for screening mammogram for malignant neoplasm of breast (principal) ==

== ENCOUNTER → 2025-06-11 | Outpatient (CLI) | payer OTHER | LOC: M RAD 12:43 | PROVIDERS: ATTEND Physician Assistant | DX: Z96.641 Presence of right artificial hip joint (principal) ==